=== PATIENT | female | born 1960 | race Caucasian/White ===

== ENCOUNTER → 2017-09-25 14:05 | Outpatient (CLI) | payer OTHER, SELFPAY | DX: R41.840 Attention and concentration deficit (principal) | CPT/HCPCS: 36415; 83090 ==

== ENCOUNTER → 2017-10-16 13:39 | Outpatient (CLI) | payer OTHER, SELFPAY ==
--- NOTE | 2017-10-16 13:42 | RAD_ITS ---
STUDY: X-RAY - LUMBAR SPINE REASON FOR EXAM: Female, 57 years old. Low back pain TECHNIQUE: 5 view(s) of the lumbar spine were obtained. COMPARISON: None FINDINGS: Disc space narrowing at the L4-5 level. L4-5 and L5-S1 facet disease. Normal alignment. No compression deformities are seen. No pars defects are seen. Foramina are patent. Pelvic phleboliths. Constipation pattern. RAD/L/S Spine Min 4 Views IMPRESSION: Degenerative disc disease at L4-5. Lower lumbar facet disease. Electronically Signed: Yahir Mckinney MD at 7:22 EST Tel , Service support ,
--- NOTE | 2017-10-16 13:56 | RAD_ITS ---
STUDY: X-RAY - SACROILIAC JOINTS REASON FOR EXAM: Female, 57 years old. Bilateral hip and low back pain. TECHNIQUE: Floor view(s) of the sacroiliac joints were obtained. COMPARISON: None. FINDINGS: There is mild arthrosis of both sacroiliac joints. Normal visualized sacral ala and sacrum. Normal visualized iliac bones. There are phleboliths in the pelvis. RAD/S-I Jts 3 or More Views IMPRESSION: Mild arthrosis of both sacroiliac joints. No other significant abnormality. Electronically Signed: Wili Rubi MD at 10:53 EST , Service support ,
--- NOTE | 2017-10-16 13:58 | RAD_ITS ---
STUDY: X-RAY - PELVIS AND BILATERAL HIPS REASON FOR EXAM: Female, 57 years old. Bilateral hip and low back pain. TECHNIQUE: Radiological exam, hip, bilateral, with pelvis when performed; 2 views COMPARISON: None. FINDINGS: There is a non-specific bowel gas pattern. There are phleboliths in the pelvis. There is mild arthrosis of the sacroiliac joints. Normal bilateral superior and inferior pubic rami. Normal pubic symphysis. Normal bilateral ischial tuberosities. Normal visualized right femoral head. Normal right acetabulum. Normal right hip joint. Normal visualized left femoral head. Normal left acetabulum. Normal left hip joint. RAD/Hips B/L min 2 views w/ Pelvis IMPRESSION: Mild arthrosis of the sacroiliac joints. Electronically Signed: Wili Rubi MD at 10:54 EST , Service support ,
== END ==
PROVIDERS: Family Provider Family Medicine; PCP Family Medicine; Visit Provider Family Medicine
DX: M25.551 Pain in right hip (principal); M25.552 Pain in left hip
CPT/HCPCS: 72110; 72202; 73521

== ENCOUNTER → 2017-11-18 12:04 | Outpatient (CLI) | payer OTHER, SELFPAY ==
--- NOTE | 2017-11-18 12:09 | HPBI_ITS ---
MAMMOGRAPHY - BILATERAL SCREENING REASON FOR EXAM: Female, 57 years old. Routine annual screening examination. PERTINENT HISTORY: Non-contributory. TECHNIQUE: Digital bilateral breast jackelin (3D mammographic acquisition) in the CC and MLO projections. 2-D mediolateral oblique (MLO) and craniocaudad (CC) views of both breasts were obtained. CAD: Full Field Digital Mammography with Computer Added Detection was performed. COMPARISON: Comparison is made with prior outside examination dated June 19, 2016. FINDINGS: Breast Composition: The breasts are heterogeneously dense, which may obscure small masses. There are no dominant masses or suspicious calcifications. No other significant abnormalities are identified. There has been no significant change since the prior study. HPBI/SCREENING MAMM (CAD), BILAT IMPRESSION: Stable bilateral screening mammogram. Yearly follow-up mammogram recommended. (A) ASSESSMENT CATEGORY: BIRADS Category 1: Negative. A letter regarding these results will be sent to the patient by the facility within 30 days. Approximately 10% of breast cancers are not detected by mammography. A normal mammogram should not delay biopsy of a clinically suspicious abnormality. [id number] Electronically Signed: Ander Sawyer MD at 15:36 EDT Tel [phone], Service support ,
== END ==
PROVIDERS: Family Provider Family Medicine; PCP Family Medicine; Visit Provider Family Medicine
DX: Z12.31 Encounter for screening mammogram for malignant neoplasm of breast (principal)
CPT/HCPCS: 77063; 77067

== ENCOUNTER 2025-04-26 11:38 | Emergency (ER) | payer OTHER, SELFPAY ==
[2025-04-26] VITALS (7 sets, daily range): BP systolic 134–171; BP diastolic 67–88; PULSE 64–94; RESP 10–18; TEMP 36.6–37.1; O2SAT 98–100; BMI 22.2
--- NOTE | 2025-04-26 11:58 | ED.VIS.CHEST ---
HPI History of Present Illness Chief Complaint: Chest Pain Informant: patient Onset/Context/Timing Onset: Weeks (1) Activity at onset: sudden Timing: Intermittent Quality: Positive for Pressure Location: Substernal Worsened By: Exertion Relieved By: Nothing Associated Symptoms: Positive for Diaphoresis and Cough; Negative for Nausea, Vomiting, Dyspnea, Fever, Lightheadedness, Acid Reflux or Palpitations Narrative Narrative: Patient presents with chest pain that has been intermittent over the last week. Patient describes it as pressure. Patient states it is over the substernal area. Patient states it occasionally radiates around her chest like a band around her chest. Patient states she has some pain in her back between her shoulder blades. Patient states that became worse today when she was exercising. Patient states it has been persistent today. Patient admits to some diaphoresis. Patient also admits to some lightheadedness and cough. Patient states nothing seems to help with her pain. Patient denies any cardiac or PE risk factors. CVD Risk Factors: Negative for Hypertension, Diabetes, Hypercholesterolemia, Family History 1' </=55 or Smoking PE Risk Factors: Negative for Recent Travel/Surgery, Recent Immobilization, Prior DVT or PE or Cancer [facility] Medical History (Updated 04/26/25 @ 15:[address] Leonardo Orlando, DO) IBS (irritable bowel syndrome) [place] thyroiditis Migraines Fibromyalgia Insomnia Medical History no medical history no medical history Home Medications ?Medication ?Instructions ?Recorded ?Last Taken ?Type cyclobenzaprine 10 mg tablet 5 mg PO DAILY 03/21/16 03/20/16 22:00 History fish,borage,flaxseed oil-omega 400 mg PO DAILY 03/21/16 03/20/16 History 3,6,9 no.1 400 mg-400 mg-400 mg capsule ([place] 3-6-9 Complex) pwnqnqkpyigi-Jp-lkuj-minerals 1 ea PO DAILY 03/21/16 03/20/16 History (Multiple Vitamin, Womens tablet) trazodone 50 mg tablet 50 mg PO QHS 03/21/16 03/20/16 22:00 History sumatriptan succinate 50 mg tablet 50 mg PO Q2H PRN PRN migraine 04/26/25 Unknown History thyroid (pork) 30 mg tablet 30 mg PO DAILY 04/26/25 Unknown History ([place] Thyroid) Allergy/AdvReac Type Severity Reaction Status Date / Time Sulfa (Sulfonamide Allergy Unknown Verified 04/26/25 11:41 Antibiotics) promethazine HCl (From AdvReac Intermediate TREMORS Verified 04/26/25 11:41 Phenergan) sulfamethoxazole (From AdvReac Nausea Verified 04/26/25 11:41 Bactrim) Surgical History (Updated 04/26/25 @ 12:[address] Leonardo Orlando DO) Hx of section History of surgical removal of ganglion cyst Social History Smoking Status: Never smoker ROS ROS ED Constitutional Constitutional ED: Denies chills or fever(s) Eyes Eyes: Denies blurry vision or change in vision ENT ENT ED: Denies rhinorrhea or sore throat Cardiovascular Cardiovascular: Reports as per HPI and chest pain; Denies palpitations Respiratory/Chest Respiratory/Chest: Reports cough; Denies dyspnea Gastrointestinal Gastrointestinal: Denies nausea or vomiting Genitourinary Genitourinary ED: Denies dysuria or hematuria Musculoskeletal Musculoskeletal: Reports back pain and neck pain Integumentary Denies abscess or rash Neurologic Neurologic: Denies headache(s) or weakness Allergic/Immunologic Allergic/Immunologic ED: Denies mouth swelling or urticaria EXAM Physical Exam Const Vital Signs: 04/26/25 11:38 04/26/25 12:25 04/26/25 12:32 Temperature 97.9 F Temperature Source Oral Pulse Rate 94 Respiratory Rate 18 Respiratory Effort Normal Non-Labored Blood Pressure 171/67 H Blood Pressure Mean 101 Pulse Ox 98 100 Oxygen Delivery Method Room Air Room Air 04/26/25 12:38 04/26/25 12:52 04/26/25 13:00 Temperature 97.8 F 97.8 F Temperature Source Oral Oral Pulse Rate 75 84 73 Respiratory Rate 14 10 L Respiratory Effort Blood Pressure 139/88 H 139/88 H 134/84 H Blood Pressure Mean 105 100 Pulse Ox 100 100 Oxygen Delivery Method Room Air Room Air 04/26/25 14:00 Temperature 98.7 F Temperature Source Oral Pulse Rate 64 Respiratory Rate 18 Respiratory Effort Blood Pressure 137/78 H Blood Pressure Mean 97 Pulse Ox 100 Oxygen Delivery Method Room Air Positive well nourished and well developed General Appearance ED: well developed and NAD HEENT Reports moist mucous membranes Neck supple and no JVD Resp normal respiratory effort and clear to auscultation bilaterally Cardio regular rate and regular rhythm GI soft to palpation, non-tender and non-distended Neuro oriented x3, CN's II-XII intact bilaterally and no sensory deficits noted Sensorium / Orientation: awake and alert Motor Exam: strength 5/5 throughout Psych mental status grossly normal Heart Score History: Slightly/Non-Suspicious ECG: Nonspecific Repolarization Age: >/= 65 years Risk Factors: No Risk Factors Troponin: </= Normal Limit Score: 3 MDM MDM MDM Narrative Medical decision making narrative: Differential diagnosis includes cardiac dysrhythmia, cardiac ischemia, pneumonia, bronchitis, gastroesophageal reflux disease, musculoskeletal pain, and anxiety. EKG will be obtained to assess for cardiac dysrhythmia and cardiac ischemia. Chest x-ray will be obtained to assess for pneumonia and bronchitis. CBC will be obtained to assess for leukocytosis and anemia. Basic metabolic profile will be obtained to assess for electrolyte abnormality and renal function. High-sensitivity troponin will be obtained to assess for cardiac ischemia. 2-hour repeat high-sensitivity troponin will be obtained to assess for ongoing cardiac ischemia. Lab Data Attestation: I reviewed the patient's lab results. Lab results narrative: CBC was reviewed and was within normal limits. Basic metabolic profile was reviewed and was within normal limits. High-sensitivity 9 was reviewed and was less than 6. 2-hour repeat high-sensitivity troponin was reviewed and was less than 6. Labs: Laboratory Results - last 24 hr 04/26/25 04/26/25 12:41 14:56 WBC 5.9 RBC 3.99 L Hgb 13.2 Hct 37.7 MCV 94.5 MCH 33.1 H MCHC 35.0 RDW Std Deviation 44.3 H RDW Coeff of [place] 12.8 Plt Count 244 MPV 9.2 Immature Gran % (Auto) 0.500 Neut % (Auto) 62.3 Lymph % (Auto) 19.9 Sac % (Auto) 12.7 H Eos % (Auto) 3.9 Baso % (Auto) 0.7 Absolute Neuts (auto) 3.7 Absolute Lymphs (auto) 1.17 Nucleated RBC % 0 Sodium 136 Potassium 4.2 Chloride 103 Carbon Dioxide 24.1 Anion Gap 9 BUN 13 Creatinine 0.67 L Estim Creat Clear Calc 55.45 Est GFR (MDRD) Non-Af 97 BUN/Creatinine Ratio 19.7 Glucose 102 H Calcium 9.7 Troponin T High Sens < 6 Troponin T Hi Sens 2 Hr < 6 Radiography Chest X-Ray - ED: 1 View, Read by ED Physician, Read by Radiologist and No Acute Disease Diagnostic Testing: Clinical Impression(s) from Imaging Studies Chest X-Ray 04/26/25 12:32 IMPRESSION: No acute abnormality Reading Location: [facility] Portable 1 view chest x-ray was obtained. On my independent interpretation, lung farris are clear. There is normal cardiac silhouette. Bony thorax is normal. There is no acute process noted. Radiologist also interpreted the x-ray and agrees. EKG Initial EKG: Attestation: I personally reviewed and interpreted this EKG as follows: Interpretation: Sinus Rhythm (82) and Non-Specific ST Changes Comments: EKG was obtained. On my independent interpretation, it showed a normal sinus rhythm with a rate of 82. IA interval, QRS interval, and QTc intervals were all normal. [place] was normal. There are nonspecific ST-T wave changes. Prior EKG tracings: available for review Prior: Unchanged (03/22/2016) Treatment and Re-Evaluation :: Patient was given aspirin. Patient was ordered sublingual nitroglycerin. Patient is feeling better on reevaluation. Patient advised of her findings. Patient has a HEART score of 3. Patient is advised discussed with low risk for acute cardiac events. Patient was instructed to follow-up with her primary care physician in 5 to 7 days for further evaluation. Patient understood and was agreeable with plan. All questions were answered. Discharge Plan Triage Chief Complaint: Chest Pain ED Provider: Leonardo Orlando Dx/Rx/DC Orders Clinical Impression: Chest pain, Fibromyalgia, Elevated blood pressure reading Instructions: ED Chest Pain, Uncertain Cause Prescriptions: No Action cyclobenzaprine 10 MG tablet 5 mg PO DAILY trazodone 50 MG tablet 50 mg PO QHS Multiple Vitamin, Womens 1 EACH tablet 1 ea PO DAILY fish,bora,flax oils-om3,6,9no1 [[place] 3-6-9 Complex] 400 MG capsule 400 mg PO DAILY sumatriptan succinate 50 mg tablet 50 mg PO Q2H PRN PRN (Reason: migraine) thyroid (pork) [[place] Thyroid] 30 mg tablet 30 mg PO DAILY Primary Care Provider: ALMA BERNAL Referrals: Franklin Walsh MD [Med Staff - Swing Ride Operator] - 5-7 Days Print Language: [place] Disposition Disposition: Home, Self Care
--- NOTE | 2025-04-26 12:32 | RAD_ITS ---
PROCEDURE: CHEST 1 VIEW (PORTABLE) 04/26/2025 REASON FOR EXAM: CHEST PAIN TECHNIQUE: Frontal view of the chest. COMPARISON: None FINDINGS: Hardware: EKG leads Heart: Normal Lungs: Clear Bones: Normal RAD/Chest 1 View (Portable) IMPRESSION: No acute abnormality Reading Location: [id number]
--- NOTE | 2025-04-26 12:32 | EKG12_ITS ---
Test Reason : CP Blood Pressure : */* mmHG Vent. Rate : 82 BPM Atrial Rate : 82 BPM P-R Int : 134 ms QRS Dur : 78 ms QT Int : 360 ms P-R-T Axes : 59 54 52 degrees QTcB Int : 420 ms Normal sinus rhythm Nonspecific ST abnormality Abnormal ECG Confirmed by Pastor Stephen ([id number]), newspaper editor ELAINA ALLISON ([id number]) on 04/27/2025 10:59:46 AM Referred By: Confirmed By: Pastor Stephen
[2025-04-26 12:52] LABS: Hematocrit 37.7 % (37-47); Hemoglobin 13.2 g/dL (12.0-15.0); Immature Granulocytes Count 0.030 X10^3/uL (0.0-0.0); Mean Corp Hgb Conc 35.0 g/dL (32-36); Mean Corpuscular Volume 94.5 fL (81-99); Mean Platelet Vol. 9.2 fl (6.2-12.0); NRBC Flagged by Analyzer 0 % (0-5); Platelet Count 244 K/mm3 (150-450); RBC Distribution Width CV 12.8 % (11.6-14.6); RBC Distribution Width SD 44.3 fl (35.1-43.9); Red Blood Count 3.99 M/mm3 (4.2-5.4); White Blood Count 5.9 K/mm3 (4.4-11.0)
[2025-04-26] MEDS: Nitroglycerin SL (ED/IMG/CATH) 0.4 MG TABLET SL (12:52)
--- OUTSIDE RECORDS SUMMARY | 2025-04-26 13:13 | XMS RPT_ITS | CCD ---
Author Organization [facility]ini[facility] Care Team Providers Care [employer] Attendant Name Role Phone CHRISTIE DONALDSON Unavailable Unavailable Primay Care Physicia, No Unavailable Unavail able CHRISTIE DONALDSON Unavailable Unavailable CHRISTIE DONALDSON Unavailable Unavailable Primay Care Physicia, No Unavailable Unavail able CHRISTIE DONALDSON Unavailable Unavailable Schinner, Burton E Unavailable Unavailable Schinner, Burton E Unavailable Unavailable Schinner, Burton E Unavailable Unavailable Schbobbyner, Burton E Unavailable Unavailable Renee Green Unavailable [phone] Remi Rai Unavailable Unavailab le Luis Miguel Mitchell Unavailable Unavailable Destiny Burt Primary Care Provider [phone] Destiny Burt Admitting Unavailable Zappa, Destiny Attending Unavailable Zappa, Destiny Admitting Unavailable Zappa, Destiny Attending Unavailable Zappa, Destiny Admitting Unavailable Zappa, Destiny Attending Unavailable ExtenCarlee Admitting Unavailable ExtenCarlee Attending Unavailable Tex Erickson Unavailable Remi Rai Unavailable [phone] Luis Miguel Mitchell Unavailable Destiny Burt Primary Care Provider Daphne Mitchell Unavailable Destiny Burt Unavailable DESTINY BURT Attending Unavailabl e ZAPDESTINY COLON Referring Unavailabl e ZAPDARLENE, DESTINY FARLEY Primary Care Unavailabl TEGAN Thapa Attending Unavaila TEGAN Pitts Primary Care Unavaila Renee Kc Unavailable Luis Miguel Mitchell Unavailable Tegan Ortega Unavailable Mayco Jaeger Primary Care Provider Zappa, Destiny Unavailable Zappa, Destiny Primary Care Provider Zappa, Destiny Primary Care Provider Tex Erickson Unavailable BURTON WALSH Primary Care Unavailable BURTON WALSH Primary Care Unavailable Tegan Ortega Primary Care Provider Norma VERNON, Renee Goode Unavailable Fredi LOUIS, Remi Grant Unavailable Mitchell DO, Hetul Trino Unavailable Mitchell DO, Daphne Edward Unavailable [phone] Zappa PA-C, Detsiny Unavailable Zappa PA-C, Destiny Primary Care Provider Fredi LOUIS, Remi Grant Unavailable Mitchell DO, Hetul Trino Unavailable [phone] Mitchell DO, Daphne Edward Unavailable Zappa PA-C, Destiny Unavailable Zappa PA-C, Destiny Primary Care Provider Mitchell DO, Daphne Edward Unavailable Zappa PA-C, Destiny Unavailable Mitchell DO, Hetul Trino Unavailable Mitchell DO, Daphne Edward Unavailable Zappa PA-C, Destiny Unavailable Isabell Phelan CNP Primary Care Provider Fredi DPMandy, Remi Grant Unavailable Mitchell DO, Hetul Trino Unavailable Zappa PA-C, Destiny Primary Care Provider NIMA MONTGOMERY Referring Unavailable NIMA MONTGOMERY Admitting Unavailable ZAPDARLENE, DESTINY MIGUELITO Primary Care Unavailabl e Norma VERNON, Renee Goode Unavailable Fredi LOUIS, Remi Grant Unavailable [phone] Mitchell DO, Hetul Trino Unavailable Mitchell DO, Daphne Edward Unavailable Zappa PA-C, Destiny Unavailable Zappa PA-C, [facility] Primary Care Provider Zappa, Destiny Primary Care Provider Zappa PA-C, Destiny Unavailable Zappa, Destiny Primary Care Provider Norma VERNON, Renee Goode Unavailable Fredi LOUIS, Remi Grant Unavailable Mitchell DO, Hetul Trino Unavailable [facility] DO, Daphne Edward Unavailable Zappa PA-C, [facility] Primary Care Provider Zapdarlene, [facility] Primary Care Provider JAVED, DESTINY FARLEY Admitting Unavailabl e ZAPPA, DESTINY FARLEY Primary Care Unavailabl e ZAPPA, DESTINY FARLEY Referring Unavailabl e Zappa PA-C, [facility] Primary Care Provider Zappa PA-C, [facility] Primary Care Provider Zappa PA-C, Destiny Unavailable Zappa PA-C, Destiny Unavailable Dolores VERNON, Alma Francis Primary Care Pro vider Dolores VERNON, Alma Francis Unavailable Zappa PA-C, [facility] Primary Care Provider PROVIDER, UNKNOWN Primary Care Unavailable ARMINDA PIZARRO Attending Unavail able DOLORES, ALMA PRINCE MOUNIR Primary Care Kristen vailable DOLORES, ALMA PRINCE MOUNIR Attending Kristen vailable DOLORES, ALMA PRINCE MOUNIR Primary Care Kristen vailable CLAUDY, ERIK UGERRA Attending Unavail able DOLORES, ALMA PRINCE MOUNIR Primary Care Kristen vailable CLAUDY, ERIK GUERRA Attending Unavail able DOLORES, ALMA PRINCE MOUNIR Primary Care Kristen vailable CLAUDY, ERIK GUERRA Attending Unavail able CLAUDY, ERIK GUERRA Admitting Unavail able DOLORES, ALMA PRINCE MOUNIR Primary Care Kristen vailable CLAUDY, ERIK GUERRA Admitting Unavail able DOLORES, ALMA PRINCE MOUNIR Primary Care Kristen vailable CLAUDY, ERIK GUERRA Attending Unavail able DOLORES, ALMA PRINCE MOUNIR Primary Care Kristen vailable ARMINDA PIZARRO Referring Unavail able ARMINDA PIZARRO Attending Unavail able DOLORES, ALMA PRINCE MOUNIR Primary Care Kristen vailable ARMINDA PIZARRO Referring Unavail able ARMINDA PIZARRO Attending Unavail able Allergies Allergy Classification Reported Allergen(s) Allergy Type Date of Onset Reaction(s) Facility house dust allergenic extract (3 sources) house dust allergenic extract Drug Allergy 09-15-19 19 Other (See Comments) [facility] Pollen (3 sources) Grass pollen Substance Allergy 09-15-19 19 Other (See Comments) [facility] Promethazine (3 sources) Promethazine Drug Allergy 04-24-20 16 Other (See Comments) [facility] Sulfamethoxazole / Trimethoprim (3 sources) Sulfamethoxazole / Trimethoprim Drug Allergy 07-07-[address] [facility] sulfaSALAzine (3 sources) sulfaSALAzine Drug Allergy 03-12-[address] [facility] Sulfonamides (antibiotic) (3 sources) Sulfonamides (Antibiotic) Drug Allergy 07-07-[address] [facility] (1 source) promethazine Drug Allergy 03-22-20 16 [facility] Repository (1 source) sulfamethoxazole Drug Allergy 03-22-20 16 [facility] Repository (20 sources) Sulfonamides (Antibiotic); Translations: [SULFA (SULFONAMIDE ANTIBIOTICS)] Drug allergy (disorder) 07-07-20 14 GI Intolerance [facility] (20 sources) Cat dander extract; Translations: [Unknown] Drug Allergy 09-15-19 19 Other (See Comments) [facility] (20 sources) Grass pollen; Translations: [GRASS POLLEN] Propensity to adverse reactions to drug 09-15-19 19 Other (See Comments) [facility] (20 sources) house dust extract; Translations: [HOUSE DUST] Drug Allergy 09-15-19 19 Other (See Comments) [facility] (20 sources) Promethazine; Translations: [PROMETHAZINE] Drug Allergy 04-24-20 16 Other (See Comments), Other: See Comments [facility] (20 sources) Sulfamethoxazole / Trimethoprim; Translations: [SULFAMETHOXAZOLE-T RIMETHOPRIM] Drug Allergy 07-07-[address] [facility] (20 sources) sulfaSALAzine; Translations: [SULFASALAZINE] Drug Allergy 03-12-[address] [facility] (3 sources) Sulfonamides (Antibiotic) Propensity to adverse reactions to drug 07-07-[address] [facility] (20 sources) Dog Dander; Translations: [DOG DANDER] Propensity to adverse reactions to drug 09-15-19 19 Other (See Comments) [facility] (20 sources) Sulfonamides (Antibiotic) Propensity to adverse reactions to drug 07-07-20 14 GI Intolerance, GI Upset [facility] Medications Current Medications Medication Drug Class(es) Dates Sig (Normalized) Sig (Original) amoxicillin 875 mg / clavulanate 125 mg oral tablet (1 source) Penicillin-class Antibacterial Start: 07-02-2022 End: 07-09-2022 take 1 tablet by mouth twice daily amoxicillin-clavulan ic acid (AUGMENTIN) 875-125 mg per tablet Indications: Rhinosinusitis Take 1 tablet by mouth twice daily for 7 days. 14 tablet 0 07/02/2022 07/09/2022 Active Comment on above: Take 1 tablet by jose twice daily for 7 days. ascorbic acid 500 mg oral tablet (20 sources) Vitamin C take 2 tablets by mouth four times daily ascorbic acid, vitamin C, (VITAMIN C) 500 MG tablet Take 2 (two) tablets (1,000 mg total) by mouth 4 (four) times a day . Active ascorbic acid, vitamin C, 550 mg/1.1 gram (scoop) powd (3 sources) ascorbic acid, vitamin C, 550 mg/1.1 gram (scoop) powd Take 1,000 mg by mouth. Active ascorbic acid, v itamin C, 550 mg/1.1 gram (scoop) powd Take 1,000 mg by mouth. 0 Active Comment on above: Take 1,000 mg by jose th. azelastine hydrochloride 0.137 mg/actuat metered dose nasal spray (12 sources) Histamine-1 Receptor Antagonist Start: 02-01-2021 End: 02-01-2021 azelastine (ASTELIN) 137 mcg (0.1 %) nasal spray Indications: Rhinitis, unspecified type 1 (one) spray by Each Nare route 2 (two) times a day . 30 mL 3 02/01/2021 Active Bacillus coagulans / Inulin (3 sources) Bacillus coagulans/inulin (PROBIOTIC WITH PREBIOTIC ORAL) Take by mouth. Active Bacillus coagula ns/inulin (PROBIOTIC WITH PREBIOTIC ORAL) Take by mouth. 0 Active Comment on above: Take by mouth. calcium ascorbate 500 mg oral tablet (8 sources) take 2 tablets by mouth four times daily, then take 1 tablet by mouth ascorbic acid, vitamin C, (ascorbic acid with vesta hips) 500 MG tablet Take 1,000 mg by mouth 4 (four) times a day . 0 Active take 1 tablet by mouth four time s daily ascorbic acid, vitamin C, (ascorbic acid with vesta hips) 500 MG tablet Take 500 mg by mouth 4 (four) times a day . 0 Active calcium carbonate 118 mg / prasterone 10 mg oral tablet (3 sources) prasterone, dhea ,-calcium carb (DHEA) 10 mg-47 mg calcium tab Take 12 mg by mouth. Active Comment on above: Take 12 mg by mouth. cholecalciferol 0.125 mg ora l tablet (20 sources) Vitamin D cholecalciferol, vitamin D3, 5,000 unit Tab tablet Take 2,000 Units by mouth daily . Active cholecalciferol, vitamin D3, (VITAMIN D3) 5,000 unit Tab tablet Take by mouth daily . 0 Active cholecalciferol, vitamin D3, (CHOLECALCIFEROL, VITD3,, BULK,) 100,000 unit/gram powd (3 sources) cholecalciferol, vitamin D3, (CHOLECALCIFEROL, VITD3,, BULK,) 100,000 unit/gram powd Take 5,000 Units by mouth. Active cholecalciferol, vitamin D3, (CHOLECALCIFEROL, VITD3,, BULK,) 100,000 unit/gram powd Take 5,000 Units by mouth. 0 Active Comment on above: Take 5,000 Units by mouth. cinnamon bark 1000 mg oral capsule (20 sources) take 1000 mg by mouth four times daily cinnamon bark (CINNAMON ORAL) Take 1,000 mg by mouth 4 (four) times a day . Active take 1000 mg by mouth four times daily cinnamon bark (CINNAMON ORAL) Take 1,000 mg by mouth 4 (four) times a day . 0 Active cinnamon bark, bulk, powd (3 sources) cinnamon bark, b ulk, powd Take 500 mg by mouth. Active cinnamon bark, b ulk, powd Take 500 mg by mouth. 0 Active Comment on above: Take 500 mg by mouth . ciprofloxacin 3 mg/ml ophthalmic solution (1 source) Quinolone Antimicrobial Start: End: take 1 drop(s) into the eye(s) four times daily ciprofloxacin HCl (CILOXAN) 0.3 % ophthalmic solution Indications: Acute conjunctivitis of both eyes, unspecified acute conjunctivitis type Use 1 Drop in both eyes four times daily for 7 days. 10 mL 0 07/02/2022 07/09/2022 Active Comment on above: Use 1 Drop in both e yes four times daily for 7 days. cyclobenzaprine hydrochloride 10 mg oral tablet (20 sources) Muscle Relaxant Start: End: take 1 tablet by mouth once daily at bedtime cyclobenzaprine (FLEXERIL) 10 MG tablet Indications: Fibromyalgia TAKE 1 TABLET BY MOUTH EVERYDAY AT BEDTIME . 30 tablet 04/21/2025 Active Start: 01-19-2025 End: 03-17-2025 take 1 tablet by mouth once daily at bedtime cyclobenzaprine (FLEXERIL) 5 MG tablet Indications: Fibromyalgia TAKE 1 TABLET BY MOUTH EVERYDAY AT BEDTIME . 30 tablet 1 01/19/2025 03/17/2025 Discontinued (Reorder (Suppress CancelRx Message to Pharmacy)) Start: 09-27-2023 End: 01-15-2025 take 1 tablet by mouth once daily at bedtime cyclobenzaprine (FLEXERIL) 5 MG tablet Indications: Fibromyalgia TAKE 1 TABLET BY MOUTH EVERYDAY AT BEDTIME . 30 tablet 1 11/11/2024 01/15/2025 Discontinued (Reorder (Suppress CancelRx Message to Pharmacy)) Start: 09-28-2022 End: 09-24-2023 take 1 tablet by mouth once daily at bedtime cyclobenzaprine (FLEXERIL) 5 MG tablet Indications: Fibromyalgia TAKE 1 TABLET BY MOUTH EVERYDAY AT BEDTIME . 30 tablet 5 04/02/2023 09/24/2023 Discontinued (Reorder (Suppress CancelRx Message to Pharmacy)) Start: 10-04-2021 End: 01-07-2022 cyclobenzaprine (FLEXERIL) 5 MG tablet Indications: Fibromyalgia One tab at bedtime . 30 tablet 5 01/08/2022 Active Start: 04-21-2020 End: 02-01-2021 cyclobenzaprine (FLEXERIL) 5 MG tablet Indications: Fibromyalgia One tab at bedtime . 30 tablet 5 02/01/2021 Active Start: 05-04-2019 cyclobenzaprin e (FLEXERIL) 5 MG tablet Indications: Fibromyalgia One tab at bedtime . 30 tablet 5 05/04/2019 Active Start: 03-03-2017 End: 09-22-2018 cyclobenzaprine (FLEXERIL) 5 MG tablet Indications: Fibromyalgia One tab at bedtime . 30 tablet 5 09/22/2018 Active Comment on above: Take 5 mg by mouth d aily at bedtime. dicyclomine hydrochloride 10 mg oral capsule (7 sources) Anticholinergic Start: 2024 take 1 capsule by mouth twice daily as needed dicyclomine (BENTYL) 10 MG capsule Take 1 (one) capsule (10 mg total) by mouth 2 (two) times a day as needed . 30 capsule 01/14/2025 Active docosahexaenoic acid 120 mg / eicosapentaenoic acid 180 mg oral capsule (19 sources) docosahexaenoic acid-epa 120-180 mg cap Take 1,000 mg by mouth every hour as needed Taking 2 before each meal and at bedtime with a total of 12 daily . 0 Active fexofenadine hydrochloride 180 mg oral tablet (18 sources) Histamine-1 Receptor Antagonist End: 2020 take 1 tablet by mouth once daily in the morning fexofenadine (ADRIAN) 180 MG tablet Indications: allergic rhinitis Take 180 mg by mouth every morning TAKES 1 TABLET ReasonsAllergic Rhinitis. 0 02/01/2021 Discontinued (Patient Discharge) FLUoxetine 20 mg oral capsule (11 sources) Serotonin Reuptake Inhibitor Start: 2019 take 1 capsule by mouth once daily FLUoxetine (PROZAC) 20 MG capsule Indications: Other depression Take 1 (one) capsule (20 mg total) by mouth daily . 90 capsule 0 03/22/2020 Active Start: 07-06-2019 End: 08-05-2019 take 1 capsule by mouth once daily FLUoxetine (PROZAC) 20 MG capsule Indications: Other depression Take 1 (one) capsule (20 mg total) by mouth daily . 90 capsule 0 07/06/2019 08/05/2019 Active Start: 03-31-2019 take 1 capsule by [facility] once daily FLUoxetine (PROZAC) 20 MG capsule Indications: Other depression TAKE 1 (ONE) CAPSULE (20 MG TOTAL) BY MOUTH DAILY . 90 capsule 0 03/31/2019 Active Start: 01-05-2019 End: 02-04-2019 take 1 capsule by mouth once daily FLUoxetine (PROZAC) 20 MG capsule Indications: Other depression Take 1 (one) capsule (20 mg total) by mouth daily . 30 capsule 2 01/05/2019 02/04/2019 Active Start: 09-22-2018 End: 10-22-2018 take 1 capsule by mouth once daily FLUoxetine (PROZAC) 20 MG capsule Indications: Other depression Take 1 (one) capsule (20 mg total) by mouth daily . 30 capsule 2 09/22/2018 Active gluc/msm/C/boron/manganes/pr im (JOINT SUPPORT COMPLEX ORAL) (20 sources) gluc/msm/C/boron /manganes/prim (JOINT SUPPORT COMPLEX ORAL) Take by mouth . Active gluc/msm/C/boron /manganes/prim (JOINT SUPPORT COMPLEX ORAL) Take by mouth . 0 Active lactobacillus combo no.11 (P robiotic) 15 billion cell CpSP (20 sources) lactobacillus co mbo no.11 (Probiotic) 15 billion cell CpSP Take by mouth . Active lactobacillus co mbo no.11 (Probiotic) 15 billion cell CpSP Take by mouth . 0 Active lysine 500 mg oral tablet (20 sources) take 1 tablet by jose th five times daily lysine 500 mg Tab Take 1 (one) tablet (500 mg total) by mouth 5 (five) times a day . Active take 1 tablet by mouth twice john ly lysine 1,000 mg tab Take 1,000 mg by mouth twice daily. Active take 1 tablet by mouth four time s daily lysine 500 mg Tab Take 500 mg by mouth 4 (four) times a day . 0 Active Comment on above: Take 1,000 mg by jose th twice daily. magnesium oxide 500 mg oral capsule (20 sources) take 1 capsule by mouth four times daily magnesium oxide 500 mg cap Take 1 (one) capsule (500 mg total) by mouth 4 (four) times a day . Active take 1 capsule by mouth three ti mes daily magnesium oxide 500 mg cap Take 500 mg by mouth 3 (three) times a day . 0 Active MAGNESIUM OXIDE,ASPARTATE,CI TR ORAL (3 sources) MAGNESIUM OXIDE, ASPARTATE,CITR ORAL Take 500 mg by mouth. Active MAGNESIUM OXIDE, ASPARTATE,CITR ORAL Take 500 mg by mouth. 0 Active Comment on above: Take 500 mg by mouth . methylPREDNISolone (1 source) Corticosteroid Start: 2018 End: 2018 methylPREDNISolone (MEDROL DOSEPACK) 4 mg tablet Indications: Eczema, unspecified type follow package directions . 21 tablet 0 10/14/2018 10/21/2018 Active montelukast 10 mg oral tablet (20 sources) Leukotriene Receptor Antagonist Start: 2020 take 1 tablet by mouth once daily montelukast (SINGULAIR) 10 mg tablet Take 1 (one) tablet (10 mg total) by mouth daily . 90 tablet 3 04/24/2021 Active Start: 04-06-2020 End: 04-19-2021 take 1 tablet by mouth once daily montelukast (SINGULAIR) 10 mg tablet Take 1 (one) tablet (10 mg total) by mouth daily . 90 tablet 3 04/06/2020 04/19/2021 Discontinued (Reorder) Start: 01-06-2019 take 1 tablet by jose th once daily montelukast (SINGULAIR) 10 mg tablet Take 1 (one) tablet (10 mg total) by mouth daily . 90 tablet 3 01/06/2019 Active Start: 08-14-2018 take 1 tablet by jose th once daily montelukast (SINGULAIR) 10 mg tablet Take 10 mg by mouth daily . 0 08/14/2018 Active nitrofurantoin, macrocrystals 25 mg / nitrofurantoin, monohydrate 75 mg oral capsule (6 sources) Nitrofuran Antibacterial Start: 08-07-2023 End: 08-12-2023 take 1 capsule by mouth twice daily nitrofurantoin monohydrate and macrocrystal (MACROBID) 100 mg capsule Indications: Burning with urination Take 1 capsule by mouth two times a day for 5 days. 10 capsule 0 08/07/2023 08/12/2023 Active Start: 03-11-2022 End: 03-18-2022 take 1 capsule by mouth twice daily nitrofurantoin monohydrate and macrocrystal (MACROBID) 100 mg capsule Indications: Urinary frequency Take 1 capsule by mouth twice daily for 7 days. 14 capsule 0 03/11/2022 03/18/2022 Active Start: 02-01-2021 End: 08-08-2021 take 1 capsule by mouth twice daily nitrofurantoin, macrocrystal-monohydrate, (MACROBID) 100 MG capsule Indications: Dysuria Take 1 (one) capsule (100 mg total) by mouth 2 (two) times a day . 14 capsule 0 02/01/2021 08/08/2021 Discontinued (Patient Discharge) Comment on above: Take 1 capsule by mo uth twice daily for 7 days. Take 1 capsule by mo uth two times a day for 5 days. omega 4-kvn-eay-fish oil (FISH OIL) 100-160-1,000 mg cap (3 sources) Start: 02-20-2015 omega 0-cnz-oun-fish oil (FISH OIL) 100-160-1,000 mg cap q 24 HR. 02/20/2015 Active Start: 02-20-2015 omega 3-dha-ep a-fish oil (FISH OIL) 100-160-1,000 mg cap q 24 HR. 0 02/20/2015 Active Comment on above: q 24 HR. omega-3 fatty acids-vitamin E (FISH OIL) 1,000 mg cap (20 sources) Start: 02-20-2015 omega-3 fatty acids-vitamin E (FISH OIL) 1,000 mg cap Indications: SUPPLEMENT 8 capsules daily TAKES 1 TABLET Reasons: SUPPLEMENT. 0 02/20/2015 Active omega-3 fatty acids-vitamin E 1,000 mg cap (20 sources) Start: 02-20-2015 omega-3 fatty acids-vitamin E 1,000 mg cap Indications: SUPPLEMENT 8 capsules daily TAKES 1 TABLET Reasons: SUPPLEMENT. 02/20/2015 Active Start: 02-20-2015 omega-3 fatty acids-vitamin E 1,000 mg cap Indications: SUPPLEMENT 8 capsules daily TAKES 1 TABLET Reasons: SUPPLEMENT. 0 02/20/2015 Suspended Start: 02-20-2015 omega-3 fatty acids-vitamin E 1,000 mg cap Indications: SUPPLEMENT 8 capsules daily TAKES 1 TABLET Reasons: SUPPLEMENT. 0 02/20/2015 Active omeprazole 40 mg delayed release oral capsule (10 sources) Proton Pump Inhibitor Start: 11-09-2024 End: 11-09-2025 take 1 capsule by mouth once daily omeprazole (PRILOSEC) 40 MG capsule Indications: Gastroesophageal reflux disease, unspecified whether esophagitis present Take 1 (one) capsule (40 mg total) by mouth daily . 30 capsule 11/09/2024 11/09/2025 Active ospemifene 60 mg oral tablet (8 sources) Start: 04-26-2020 End: 08-08-2021 ospemifene (Osphena) 60 mg Tab End: 10-14-2018 take 1 tablet by mouth once daily in the evening ospemifene 60 mg Tab Indications: POST MENOPAUSAL SX Take 60 mg by mouth every evening TAKES 1 TABLET ReasonsPOST MENOPAUSAL SX. 0 10/14/2018 Discontinued OTC NUTRITIONAL SUPPLEMENT (13 sources) Start: 06-25-2006 OTC NUTRITIONA L SUPPLEMENT Upelva, Take four days a month, four times daily 0 06/25/2006 Active Start: 10-09-2005 OTC NUTRITIONA L SUPPLEMENT Multi-Vitamin, Take one(1) tablet daily. 0 10/09/2005 Active OTC NUTRITIONAL SUPPLEMENT 700 mg twice daily. D Mannose Active OTC NUTRITIONAL SUPPLEMENT 700 mg twice daily. D Mannose 0 Active Comment on above: Multi-Vitamin, Take one(1) tablet daily. Upelva, Take four da ys a month, four times daily 700 mg twice daily. D Mannose phenazopyridine hydrochloride 100 mg oral tablet (1 source) Start: End: take 1 tablet by mouth three times daily phenazopyridine (PYRIDIUM) 100 MG tablet Indications: Dysuria Take 1 (one) tablet (100 mg total) by mouth 3 (three) times a day for 2 days . 6 tablet 0 02/01/2021 02/03/2021 Active prasterone 25 mg oral tablet (20 sources) take 1 tablet by mouth once daily prasterone, dhea, 25 mg Tab Take 1 (one) tablet (25 mg total) by mouth daily . Active take 0.5 tablet by mouth once da alexa prasterone, dhea, (DHEA) 25 mg Tab Take 0.5 tablets by mouth daily . 0 Active Proline, Bulk, (L-PROLINE) c varinder (3 sources) Proline, Bulk, ( L-PROLINE) danielle 500 mg three times daily. Active Proline, Bulk, ( L-PROLINE) danielle 500 mg three times daily. 0 Active Comment on above: 500 mg three times d aily. proline, bulk, Danielle (20 sources) proline, bulk, C varinder 1 capsule by Miscellaneous route 3 (three) times a day 667mg capsule . Active proline, bulk, C varinder 1 capsule by Miscellaneous route 3 (three) times a day 667mg capsule . 0 Suspended proline, bulk, C varinder 1 capsule by Miscellaneous route 3 (three) times a day 667mg capsule . 0 Active SUMAtriptan 50 mg oral tablet (20 sources) Serotonin-1b and Serotonin-1d Receptor Agonist Start: 02-25-2024 End: 01-25-2025 take 1 tablet by mouth every two hours as needed SUMAtriptan (IMITREX) 50 MG tablet Indications: Cluster headache, not intractable, unspecified chronicity pattern Take 1 (one) tablet (50 mg total) by mouth every 2 (two) hours as needed for migraine Max of 200 mg in 24hrs . 10 tablet 1 01/25/2025 Active Start: 06-15-2022 End: 02-25-2024 take 1 tablet by mouth every two hours as needed SUMAtriptan (IMITREX) 25 MG tablet Indications: Cluster headache, not intractable, unspecified chronicity pattern TAKE 1 (ONE) TABLET BY MOUTH EVERY 2 (TWO) HOURS NEEDED FOR MIGRAINE MAX OF 200 MG IN 24HRS . 9 tablet 1 06/15/2022 02/25/2024 Discontinued (Reorder (Suppress CancelRx Message to Pharmacy)) Start: 04-11-2022 take 1 tablet by jose th every two hours as needed SUMAtriptan (IMITREX) 25 MG tablet Indications: Cluster headache, not intractable, unspecified chronicity pattern TAKE 1 (ONE) TABLET BY MOUTH EVERY 2 (TWO) HOURS NEEDED FOR MIGRAINE MAX OF 200 MG IN 24HRS . 9 tablet 1 04/11/2022 Active Start: 02-24-2021 End: 01-08-2022 take 1 tablet by mouth every two hours as needed SUMAtriptan (IMITREX) 25 MG tablet Indications: Cluster headache, not intractable, unspecified chronicity pattern TAKE 1 (ONE) TABLET BY MOUTH EVERY 2 (TWO) HOURS NEEDED FOR MIGRAINE MAX OF 200 MG IN 24HRS . 9 tablet 1 01/08/2022 Active Start: 02-01-2021 take 1 tablet by jose th every two hours as needed SUMAtriptan (IMITREX) 25 MG tablet Indications: Cluster headache, not intractable, unspecified chronicity pattern Take 1 (one) tablet (25 mg total) by mouth every 2 (two) hours as needed for migraine Max of 200 mg in 24hrs . 10 tablet 0 02/01/2021 Active thyroid (care home) 30 mg oral tablet (20 sources) Start: 06-26-2022 End: 04-06-2025 take 1 tablet by mouth once daily thyroid (ARMOUR) 30 mg tablet Indications: Hypothyroidism, unspecified type Take 1 (one) tablet (30 mg total) by mouth daily . 90 tablet 1 10/08/2024 Active Start: 11-06-2021 End: 11-06-2021 take 1 tablet by mouth once daily thyroid (ARMOUR) 30 mg tablet Indications: Hypothyroidism, unspecified type Take 1 (one) tablet (30 mg total) by mouth daily . 90 tablet 3 11/06/2021 Active Comment on above: TAKE 1 TABLET (30 MG TOTAL) BY MOUTH DAILY UNABLE TO FIND (19 sources) UNABLE TO FIND M ed Name Antronex (helps with sinus drainage) . Active End: 10-14-2018 UNABLE TO FIND Indications: DIETARY SUPPLEMENT 2 (two) times a day Med Name: CLA--TAKES 2 TABLETS ReasonsDIETARY SUPPLEMENT. 0 10/14/2018 Discontinued UNABLE TO FIND I ndications: DIETARY SUPPLEMENT 2 (two) times a day Med Name: CLA--TAKES 2 TABLETS ReasonsDIETARY SUPPLEMENT. 0 Active vit A-vit A-L7-dmvg-herbal 3 31 900 mcg-90 mg- 20 mcg-5.5 mg cap (20 sources) vit A-vit C-D3-z inc-herbal 331 900 mcg-90 mg- 20 mcg-5.5 mg cap Take by mouth . Active vit A-vit C-D3-z inc-herbal 331 900 mcg-90 mg- 20 mcg-5.5 mg cap Take by mouth . 0 Active Vitamin B Complex (3 sources) take 100 mg by mouth every eight hours vitamin B complex (B COMPLEX-100 ORAL) Take 100 mg by mouth q 8 HR. Active take 100 mg by mouth every eight hours vitamin B complex (B COMPLEX-100 ORAL) Take 100 mg by mouth q 8 HR. 0 Active Comment on above: Take 100 mg by mouth q 8 HR. vitamin B complex/folic acid (B COMPLEX 100 ORAL) (20 sources) take 100 mg by mouth three times daily vitamin B complex/folic acid (B COMPLEX 100 ORAL) Take 100 mg by mouth 3 (three) times a day . Active take 100 mg by mouth three times daily vitamin B complex/folic acid (B COMPLEX 100 ORAL) Take 100 mg by mouth 3 (three) times a day . 0 Suspended take 100 mg by mouth three times daily vitamin B complex/folic acid (B COMPLEX 100 ORAL) Take 100 mg by mouth 3 (three) times a day . 0 Active VITAMIN K2 ORAL (20 sources) take 100 ug by mouth every twelve hours VITAMIN K2 ORAL Take 100 mcg by mouth q 12 HR. Active take 100 ug by mouth twice daily VITAMIN K2 ORAL Take 100 mcg by mouth 2 (two) times a day . Active take 100 ug by mouth every twelv e hours VITAMIN K2 ORAL Take 100 mcg by mouth q 12 HR. 0 Active take 100 ug by mouth twice daily VITAMIN K2 ORAL Take 100 mcg by mouth 2 (two) times a day . 0 Suspended take 100 ug by mouth twice daily VITAMIN K2 ORAL Take 100 mcg by mouth 2 (two) times a day . 0 Active Comment on above: Take 100 mcg by mout h q 12 HR. ZINC CHELATE ORAL (3 sources) take 25 mg by mouth once daily ZINC CHELATE ORAL Take 25 mg by mouth once daily. Active take 25 mg by mouth once daily Z INC CHELATE ORAL Take 25 mg by mouth once daily. 0 Active Comment on above: Take 25 mg by mouth once daily. Completed/Discontinued Medications Medication Drug Class(es) Dates Sig (Normalized) Sig (Original) chromium picolinate 0.1 mg / cinnamon bark 500 mg oral capsule (4 sources) End: 10-14-2018 take 1 tablet by mouth once daily at lunch cinnamon bark-chromium picolin 500-100 mg-mcg cap Indications: SUPPLEMENT Take by mouth daily with lunch TAKES 1 TABLET ReasonsSUPPLEMENT. 0 10/14/2018 Discontinued cranberry preparation 475 mg oral capsule (4 sources) Non-Standardized Food Allergenic Extract, Non-Standardized Plant Allergenic Extract End: 10-14-2018 cranberry fruit (CRANBERRY) 475 mg cap Indications: SUPPLEMENT 475 mg daily with lunch TAKES 1 TABLET ReasonsSUPPLEMENT. 0 10/14/2018 Discontinued dextromethorphan hydrobromide 15 mg / guaiFENesin 400 mg / pseudoephedrine hydrochloride 60 mg oral tablet (4 sources) alpha-Adrenergic Agonist, Uncompetitive W-bumfja-L-aspartat e Receptor Antagonist, Sigma-1 Agonist Start: 07-27-2016 End: 10-14-2018 take 1 tablet by mouth four times daily as needed for congestion pseudoephedrine-DM- guaiFENesin (CAPMIST DM) 60-15-400 mg Tab Indications: Acute recurrent maxillary sinusitis Take 1 tablet by mouth 4 (four) times a day as needed (for congestion). 30 tablet 0 07/27/2016 10/14/2018 Discontinued doxycycline hyclate 100 mg oral capsule (4 sources) Tetracycline-class Drug Start: 07-27-2016 End: 10-14-2018 take 1 capsule by mouth twice daily doxycycline hyclate (VIBRAMYCIN) 100 MG capsule Indications: Acute recurrent maxillary sinusitis Take 1 capsule (100 mg total) by mouth 2 (two) times a day. 20 capsule 0 07/27/2016 10/14/2018 Discontinued fluticasone propionate 0.05 mg/actuat metered dose nasal spray (10 sources) Corticosteroid End: 06-12-2019 take 2 spray(s) nasal route once daily fluticasone (FLONASE) 50 mcg/actuation nasal spray Indications: allergic rhinitis Instill 2 sprays into each nostril nightly DOES 2 SPRAYS IN EACH NOSTRIL ReasonsAllergic Rhinitis. 0 06/12/2019 Discontinued LORazepam 1 mg oral tablet (4 sources) Benzodiazepine Start: 08-22-2016 End: 10-14-2018 LORazepam (ATIVAN) 1 MG tablet Take 1 tablet po once 30 minutes prior to MRI. 1 tablet 0 08/22/2016 10/14/2018 Discontinued multivitamin capsule (4 sources) End: 10-14-2018 take 1 capsule by mouth twice daily, then take 1 capsule by mouth multivitamin capsule Indications: SUPPLEMENT Take 1 capsule by mouth 2 (two) times a day TAKES 1 TABLET ReasonsSUPPLEMENT. 0 10/14/2018 Discontinued take 1 capsule by mo [facility] twice daily, then take 1 capsule by mouth multivitamin capsule Indications: SUPPLE MENT Take 1 capsule by mouth 2 (two) times a day TAKES 1 TABLET ReasonsSUPPLEMENT. 0 Active oxybutynin chloride 5 mg oral tablet (4 sources) Cholinergic Muscarinic Antagonist Start: 12-14-2009 End: 10-14-2018 take 5 tablets by mouth once daily, then take 1 tablet by mouth oxybutynin (DITROPAN) 5 MG tablet Indications: overactive bladder Take 5 tablets by mouth nightly TAKES 1 TABLET ReasonsBladder Hyperactivity. 0 12/14/2009 10/14/2018 Discontinued predniSONE 10 mg oral tablet (3 sources) Start: 07-17-2022 End: 03-12-2023 predniSONE (DELTASONE) 10 MG tablet Indications: Acute viral syndrome Take 1 tablet 3 times a day for 3 days, 1 tablet 2 times a day for 3 days, 1 tablet daily for 3 days and then every other day until gone. . 20 tablet 0 07/17/2022 03/12/2023 Discontinued (Patient Discharge) Saccharomyces boulardii (4 sources) End: 10-14-2018 take 1 tablet by mouth once daily in the evening SACCHAROMYCES BOULARDII (PROBIOTIC, S.BOULARDII, ORAL) Indications: SUPPLEMENT Take by mouth every evening TAKES 1 TABLET ReasonsSUPPLEMENT. 0 10/14/2018 Discontinued [facility] SACCHAROMYCES BOULARDII (PROBIOTIC, S.BOULARDII, ORAL) Indications: SUPPLEMENT Take by mouth every evening TAKES 1 TABLET ReasonsSUPPLEMENT. 0 Active traZODone hydrochloride 50 mg oral tablet (20 sources) Serotonin Reuptake Inhibitor Start: 04-11-2022 End: 05-15-2022 traZODone (DESYREL) 50 MG tablet Indications: Insomnia, unspecified type TAKE 1/2 TO 1 TABLET NIGHTLY NEEDED FOR SLEEP . 90 tablet 1 04/11/2022 05/15/2022 Discontinued (Patient Discharge) Start: 11-06-2021 take 0.5-1 tablets b y mouth once daily as needed for sleep traZODone (DESYREL) 50 MG tablet Indications: Insomnia, unspecified type Take 1/2 to 1 tablet po nightly as needed for sleep . 90 tablet 1 11/06/2021 Active Start: 07-18-2020 End: 11-04-2021 take 0.5-1 tablets by mouth once daily as needed for sleep traZODone (DESYREL) 50 MG tablet Indications: Insomnia, unspecified type Take 1/2 to 1 tablet po nightly as needed for sleep . 90 tablet 1 07/18/2020 11/04/2021 Discontinued (Reorder) Start: 06-11-2017 End: 06-12-2019 take 0.5-1 tablets by mouth once daily as needed for sleep traZODone (DESYREL) 50 MG tablet Indications: Insomnia, unspecified type Take 1/2 to 1 tablet po nightly as needed for sleep . 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] Chronic Esophageal disorders (18 sources) Gastroesophageal reflux disease; Translations: [Gastro-esophageal reflux disease without esophagitis] Onset: 5 11-09-2024 Chronic Genitourinary symptoms and ill-defined conditions (20 sources) Urge incontinence of urine; Translations: [Urge incontinence] Onset: 0 07-07-2014 Chronic Headache; including migraine (20 sources) Cluster headache; Translations: [Cluster headache syndrome, unspecified, not intractable] Onset: 1 Chronic Hypertension with complications and secondary hypertension (20 sources) Secondary hypertension; Translations: [Other secondary hypertension] Onset: 2 Chronic Inflammation; infection of eye (except that caused by tuberculosis or sexually transmitteddisease) (1 source) Acute conjunctivitis of bilateral eyes; Translations: [Unspecified acute conjunctivitis, bilateral] Episodic Malaise and fatigue (20 sources) Fatigue; Translations: [Chronic fatigue, unspecified] Onset: 9 09-22-2018 Chronic Menopausal disorders (7 sources) Menopause ovarian failure; Translations: [Postmenopausal osteopenia] Onset: 4 07-21-2024 Chronic Mood disorders (20 sources) Depressive disorder; Translations: [Major depressive disorder, single episode, unspecified] Onset: 4 07-27-2014 Chronic Noninfectious gastroenteritis (9 sources) Chronic diarrhea; Translations: [Noninfective gastroenteritis and colitis, unspecified] Onset: 5 01-14-2025 Episodic Nonspecific chest pain (3 sources) Chest pain; Translations: [Chest pain, unspecified type] Episodic Other bone disease and musculoskeletal deformities (1 source) Postmenopausal osteopenia; Translations: [Other specified disorders of bone density and structure, unspecified site] 07-20-2024 Episodic Other bone disease and musculoskeletal deformities (4 sources) Other specified disorders of bone density and structure, unspecified site; Translations: [Other specified disorders of bone density and structure, unspecified site] Onset: 4 Episodic Other circulatory disease (1 source) Elevated blood-pressure reading without diagnosis of hypertension; Translations: [Blood pressure elevated without history of HTN] Episodic Other connective tissue disease (20 sources) Fibromyalgia; Translations: [Fibromyalgia] Onset: 4 07-27-2014 Episodic Other gastrointestinal disorders (11 sources) Irritable bowel syndrome; Translations: [Irritable bowel syndrome without diarrhea] Onset: 5 11-09-2024 Chronic Other gastrointestinal disorders (2 sources) Irritable bowel syndrome without diarrhea; Translations: [Irritable bowel syndrome, unspecified] Onset: 5 Chronic Other gastrointestinal disorders (1 source) Abdominal bloating; Translations: [Abdominal distension (gaseous)] Episodic Other gastrointestinal disorders (5 sources) Dysphagia; Translations: [Dysphagia, unspecified] Onset: 5 04-08-2025 Episodic Other gastrointestinal disorders (2 sources) Dysphagia, unspecified; Translations: [Dysphagia, unspecified] Onset: 5 Episodic Other injuries and conditions due to external causes (1 source) At low risk for fall; Translations: [History of falling] 11-09-2024 Episodic Other nervous system disorders (7 sources) Attention and concentration deficit; Translations: [R41.840 - Attention and concentration deficit] Onset: 8 07-07-2014 Chronic Other nervous system disorders (20 sources) Poor concentration; Translations: [Attention and concentration deficit] 07-07-2014 Chronic Other nervous system disorders (2 sources) Other chronic pain; Translations: [Other chronic pain] Onset: 5 Chronic Other nervous system disorders (11 sources) Poor concentration; Translations: [Poor concentration] 07-07-2014 Episodic Other nutritional; endocrine; and metabolic disorders (2 sources) Body mass index less than 20; Translations: [Body mass index (BMI) 19.9 or less, adult] Episodic Other screening for suspected conditions (not mental disorders or infectious disease) (20 sources) Computed tomography result abnormal; Translations: [Abnormal findings on diagnostic imaging of other specified body structures] Onset: 2 01-09-2022 Chronic Other screening for suspected conditions (not mental disorders or infectious disease) (20 sources) Viral screening status; Translations: [Breast neoplasm screening status] Onset: 1 Resolved: 5 09-22-2018 Episodic Other upper respiratory disease (1 source) Chronic rhinitis; Translations: [Unspecified sinusitis (chronic)] Chronic Residual codes; unclassified (4 sources) Asymptomatic menopausal state; Translations: [Asymptomatic menopausal state] Onset: 4 Episodic Spondylosis; intervertebral disc disorders; other back problems (20 sources) Neck pain; Translations: [Cervicalgia] Onset: 5 11-09-2024 Episodic Thyroid disorders (6 sources) Hypothyroidism; Translations: [Hypothyroidism, unspecified] Chronic Unclassified (19 sources) Screening status; Translations: [Special screening for malignant neoplasms, colon] Onset: 1 Resolved: 5 12-08-2014 Unclassified (20 sources) Patient encounter status; Translations: [Screening for diabetes mellitus] Onset: 1 Resolved: 5 09-22-2018 Unclassified (17 sources) Postprocedural state finding; Translations: [Other postprocedural states] Onset: 9 09-22-2018 Unclassified (1 source) Low back pain, unspecified; Translations: [Low back pain, unspecified] Onset: 5 Viral infection (20 sources) Genital herpes simplex; Translations: [Herpesviral infection of urogenital system, unspecified] Onset: 9 09-22-2018 Chronic Past or Other Problems Problem Classification Problem Date Documented Da te Episodic/Chronic Allergic reactions (20 sources) Eczema; Translations: [Dermatitis, unspecified] Onset: 10-14-2018 10-14-2018 Episodic Benign neoplasm of uterus (20 sources) Intramural leiomyoma of uterus; Translations: [Intramural leiomyoma of uterus] Onset: 09-22-2018 09-22-2018 Episodic Cancer of cervix (20 sources) Atypical squamous cells of undetermined significance on cervical Papanicolaou smear; Translations: [Cervical atypism] Onset: 09-22-2018 09-22-2018 Episodic Genitourinary symptoms and ill-defined conditions (20 sources) Dysuria; Translations: [Dysuria] Onset: 02-01-2021 Resolved: 08-08-2021 Episodic Immunizations and screening for infectious disease (3 sources) Patient encounter status; Translations: [Encounter for screening for human papillomavirus (HPV)] Onset: 07-20-2024 07-20-2024 Episodic Malaise and fatigue (19 sources) Fatigue; Translations: [Chronic fatigue] Onset: 09-22-2018 09-22-2018 Episodic Mood disorders (20 sources) Mood disorders Onset: 09-22-2018 09-22-2018 Nausea and vomiting (20 sources) Nausea; Translations: [Nausea] Onset: 11-14-2021 11-14-2021 Episodic Other connective tissue disease (20 sources) Spasm; Translations: [Other muscle spasm] Onset: 03-11-2013 07-07-2014 Episodic Other ear and sense organ disorders (20 sources) Impacted cerumen of bilateral ears; Translations: [Impacted cerumen, bilateral] Onset: 11-14-2021 Episodic Other ear and sense organ disorders (2 sources) Impacted cerumen, bilateral; Translations: [Impacted cerumen, bilateral] Onset: 11-14-2021 Episodic Other eye disorders (20 sources) Tear film insufficiency; Translations: [Dry eye syndrome of unspecified lacrimal gland] Onset: 05-06-2009 09-22-2018 Episodic Other female genital disorders (8 sources) Cervical atypism; Translations: [Atypical squamous cells of undetermined significance on cytologic smear of cervix (ASC-US)] Onset: 09-22-2018 09-22-2018 Episodic Other gastrointestinal disorders (14 sources) Alteration in bowel elimination; Translations: [Change in bowel habit] Onset: 11-14-2021 Episodic Other gastrointestinal disorders (20 sources) Diarrhea; Translations: [Diarrhea, unspecified] Onset: 11-14-2021 11-14-2021 Episodic Other gastrointestinal disorders (20 sources) Altered bowel function; Translations: [Change in bowel habit] Onset: 11-14-2021 11-14-2021 Episodic Other injuries and conditions due to external causes (2 sources) History of falling; Translations: [History of falling] Onset: 11-09-2024 Episodic Other non-traumatic joint disorders (1 source) Pain in right hip; Translations: [M25.551 - Pain in right hip] Onset: 11-12-2017 Episodic Other non-traumatic joint disorders (7 sources) Pain in wrist; Translations: [Pain in right wrist] Onset: 05-15-2022 Episodic Other non-traumatic joint disorders (18 sources) Chronic pain of right upper limb; Translations: [Pain in right wrist] Onset: 05-15-2022 05-15-2022 Episodic Other upper respiratory disease (20 sources) Rhinitis; Translations: [Chronic rhinitis] Resolved: 03-12-2023 07-07-2014 Chronic Other upper respiratory infections (20 sources) Upper respiratory infection; Translations: [Acute upper respiratory infection, unspecified] Onset: 09-22-2018 Resolved: 01-16-2019 09-22-2018 Episodic Ovarian cyst (20 sources) Cyst of ovary; Translations: [Unspecified ovarian cyst, unspecified side] Onset: 09-22-2018 09-22-2018 Episodic Residual codes; unclassified (20 sources) Family history of ischemic heart disease; Translations: [Family history of ischemic heart disease and other diseases of the circulatory system] Onset: 02-24-2015 04-24-2016 Episodic Residual codes; unclassified (20 sources) Insomnia; Translations: [Insomnia, unspecified] Onset: 10-14-2018 10-14-2018 Episodic Residual codes; unclassified (1 source) Postmenopausal state; Translations: [Postmenopausal] Episodic Residual codes; unclassified (20 sources) Postprocedural state finding; Translations: [Other specified postprocedural states] Onset: 05-06-2009 09-22-2018 Episodic Unclassified (10 sources) Onset: 11-05-2024 11-05-2024 Unclassified (1 source) Low back pain, unspecified; Translations: [Low back pain, unspecified] Onset: 11-09-2024 Viral infection (20 sources) Acute viral disease; Translations: [Viral infection, unspecified] Onset: 07-17-2022 Episodic Results Test Name Value Interpretation Reference Range Facility TISSUE EXAMon 04-20-2025 TISSUE EXAM Surgical Pathology Report Case: [id number] Authorizing Provider: Erik Ji, Collected: 04/20/2025 10:38 AM Ordering Location: [facility] Surgery Received: 04/20/2025 12:30 PM Center Periop Pathologist: Gabriel Payton IV, MD Specimens: A) - Duodenum B) - Esophagus, DISTAL ESOPHAGUS BX A. Duodenum, biopsy: Duodenal mucosa with no significant pathologic changes. No morphologic evidence of Celiac disease. B. Esophagus, Distal, biopsy: Esophageal squamous mucosa with mild reflux-type changes. No evidence of intestinal metaplasia or dysplasia. at 0857 EDT Gastroesophageal reflux disease, unspecified whether esophagitis present [K21.9] Dysphagia, unspecified type [R13.10] A. Received in formalin, designated duodenum biopsy, are 7 pink-cordero fragment(s) of tissue measuring 0.5 x 0.4 x 0.2 cm in aggregate. Totally submitted in 1 cassette(s). B. Received in formalin, designated esophagus biopsy-distal esophagus biopsy, are 3 wispy white-rivas fragment(s) of tissue measuring 0.2 x 0.2 x 0.1 cm in aggregate. Totally submitted in 1 cassette(s). JK Gross examination performed at: [facility] - [address] [place], [place] [id number] Microscopic examination is performed. [facility] [place] Comment on above: Performed By: #### [id number] #### [place] [id number] Mitesh Obregon M.D. [id number] MM SCREENING ERON BILATERALo n 03-31-2025 MM SCREENING ERON BILATERAL EXAMINATION: MM SCREENING ERON BILATERAL HISTORY: ORDERING SYSTEM PROVIDED HISTORY: Women's annual routine gynecological examination, TECHNOLOGIST PROVIDED HISTORY: ORDERING SYSTEM PROVIDED DIAGNOSIS CODES: Z01.419 Women's annual routine gynecological examination Z12.31 Breast cancer screening by mammogram COMPARISON: Mammograms dating back to 11/14/2021. TECHNIQUE: Bilateral 2D and 3D mammographic views. Computer-aided detection was utilized in the interpretation of this exam. FINDINGS: The breasts are heterogeneously dense, which may obscure small masses. No suspicious microcalcifications, dominant mass or architectural distortion. No developing asymmetry. There are no suspicious findings. There are scattered benign-appearing calcifications. IMPRESSION: No mammographic evidence for malignancy. BIRADS: BIRADS - CATEGORY 2 Benign, no evidence of malignancy. Normal interval follow-up is recommended in 12 months. OVERALL ASSESSMENT - BENIGN A letter of notification will be sent to the patient regarding the results. [facility], along with the [employer] and the [employer] recommend annual screening mammograms for women age 40 and older. / Workstation ID: [id number] Dictated by: DARY BUCHANAN on SatApr 01, 2025 12:26:12 PM EDT Transcribed by: BALJIT DENNIS on Kandis Apr 01, 2025 12:54:14 PM EDT Finalized by: DARY BUCHANAN on Kandis Apr 01, 2025 9:10:46 PM EDT [facility] [place] XR BONE DENSITY DEXA AXIAL A ND APPENDICULARon 03-31-2025 XR BONE DENSITY DEXA AXIAL AND APPENDICULAR EXAMINATION: XR BONE DENSITY DEXA AXIAL AND APPENDICULAR 03/31/2025 HISTORY: ORDERING SYSTEM PROVIDED HISTORY: Women's annual routine gynecological examination, TECHNOLOGIST PROVIDED HISTORY: Illness/Other Reason for exam: osteoporosis Encounter Type: Unknown Additional signs and symptoms: postmenapausal ORDERING SYSTEM PROVIDED DIAGNOSIS CODES: Z01.419 Women's annual routine gynecological examination E28.39 Ovarian failure due to menopause M85.80 Osteopenia after menopause Z78.0 Osteopenia after menopause Risk Factors: Postmenopausal; history of glucocorticoid use; history of inflammatory bowel disease COMPARISON: None-previous DEXA scans were performed on different model machines, therefore, unable to accurately compare directly TECHNIQUE: Bone mineral density measurements were acquired at the lumbar spine, left forearm, and left hip. Instrument: The examination was done at [facility]. [email or web address]; serial number: [id number]. FINDINGS: BONE MINERAL DENSITY DETERMINATION: Femoral Neck * Density (g/cm2): 0.705 * T Score: -1.3 * Prior BMD (g/cm2): N/A * % Change: N/A% * Statistically Significant: N/A Total Hip * Density (g/cm2): 0.980 * T Score: 0.3 * Prior BMD (g/cm2): N/A * % Change: N/A% * Statistically Significant: N/A Spine (L1-L4) * Density (g/cm2): 1.233 * T Score: 1.7 * Prior BMD (g/cm2): N/A * % Change: N/A% * Statistically Significant: N/A Forearm * Density (g/cm2): 0.633 * T Score: -1.0 * Prior BMD (g/cm2): N/A * % Change: N/A% * Statistically Significant: N/A The average bone mineral density (g/cm2) was measured. Final categorization is based on the lowest T-score of the above, as recommended by the International Society of Clinical Densitometry. FRAX Score: The calculated ten year risk for major osteoporotic fracture is 12%. The calculated ten year risk for hip fracture is 1.4%. NOTES: 1. This facility has been validated using the recommendations of the International Society of Clinical Densitometry (ISCD). This validation insures accurate results. In order to be certain that your patient's results are accurate, you should refer them only to facilities that have been validated in this manner. Not all facilities have gone through this rigorous validation. 2. In order to compare results through the years, it is necessary that the patient be scanned on the same instrument each time, or on instruments that have been cross-correlated. If this is not done, then difference may be due to differences in the machines, rather than to changes in the patient's bone density. IMPRESSION: Osteopenia. Please note that the lumbar spine bone mineral density and T-score are likely falsely elevated secondary to degenerative changes. PHARMACOLOGIC TREATMENT RECOMMENDATIONS: 1. No uniform recommendation applies to all patients. Management plans must be individualized 2. Consider initiating pharmacologic treatment for postmenopausal women and men greater than or equal to 50 years of age who have the following: Primary fracture prevention: *T-score is less than or equal to -2.5 at the femoral neck, total hip, lumbar spine, 33% radius (some uncertainty with existing data) by DEXA. *Low bone mass (osteopenia: T-score between -1.0 and -2.5) at the femoral neck or total hip by DEXA with a 10 year hip fracture risk greater than or equal to 3% or a 10-year major osteoporosis-related fracture risk greater than or equal to 20% (i.e. clinical vertebral, hip, forearm, or proximal humerus) based on the [place]- adapted FRAX model. Secondary fracture prevention: *Fracture of the hip or vertebra regardless of BMD. *Fracture of the proximal humerus, pelvis, or distal forearm in persons with low bone mass (osteopenia: T-score between at -1.0 and -2.5). The decision to treat should be individualized in persons with a fracture of the proximal humerus, pelvis, or distal forearm who do not have osteopenia or low BMD. Nava MS, Norma SL, Klarissa KL, Lillian EM, Abundio KG, AJ, Louis ES. The clinician's guide to prevention and treatment of osteoporosis. Osteoporosis Int. 2021;33(10):0059-2428. doi: 10.1007/b31795-497-593 00-y. Epub 2021Dec 21. Erratum in: Osteoporosis Int. 2021Mar 22;: PMID: [id number]; PMCID: [id number]. Workstation ID: [id number] Dictated by: DIMA DE LA O on SatMar 31, 2025 12:07:02 PM EDT Transcribed by: DIMA DE LA O on SatMar 31, 2025 12:07:02 PM EDT Finalized by: TOVA GARCIA on SatMar 31, 2025 4:23:03 PM EDT [facility] Comment on above: Order Comment: Injur y/Trauma or Illness?:Illness/Other How long have you had these symptoms (acute/chronic)?:Unknown Reason for exam?:osteoporosis Type of Exam?:Unknown Additional signs and symptoms?:postmenapausal TISSUE EXAMon 02-03-2025 TISSUE EXAM Surgical Pathology Report Case: [id number] Authorizing Provider: Erik Ji, Collected: 02/03/2025 10:50 AM Ordering Location: [facility] Surgery Received: 02/03/2025 12:28 PM Center Periop Pathologist: Gabriel Payton IV, MD Specimen: Colon, Ascending, Right A. Colon, Ascending, biopsy: Colonic mucosa with no significant pathologic changes. at 0824 EDT Lower abdominal pain [R10.30] Chronic diarrhea [K52.9] A. Received in formalin, designated Colon, Ascending, Biopsy, are 5 wispy pink-cordero fragment(s) of tissue measuring 0.4 x 0.4 x 0.2 cm in aggregate. Totally submitted in 1 cassette(s). JK Gross examination performed at: [facility] - [address] [place] [address] Microscopic examination is performed. Normal [facility] Comment on above: Performed By: #### [id number] #### [place] [address] Mitesh Obregon M.D. [id number] CNOVon 11-28-2024 CNOV Office Visit (UCWSTR ) BARBIE MEANS ([id number]) 1960 F Date Time Provider Department 11/28/24 10:45 AM BETTY CHI WS During your visit today, we recorded the following information about you: Temperature Pulse Respiration Blood pressure 97.3 degrees 67/minute 18/minute 127/79 Weight 52.4 kg Betty Chi APRN.CNP 11/28/2024 10:53 AM Signed This note was created using [employer]deriter. Subjective Barbie Means is a 64 year old female. HPI Patient presents today complaining of bilateral hearing loss due to most likely due to cerumen impaction. She states that about once every 6 months she needs to have her ears flushed. She denies any nausea vomiting fever cough congestion sore throat or ear pain. Review of Systems As above Objective BP 127/79 Pulse 67 Temp 36.3 ?C (97.3 ?F) Resp 18 Wt 52.4 kg (115 lb 8.3 oz) LMP 06/04/2006 SpO2 100% Physical Exam Vitals and nursing note reviewed. Constitutional: General: She is not in acute distress. Appearance: Normal appearance. She is not ill-appearing. HENT: Head: Normocephalic. Right Ear: There is impacted cerumen. Left Ear: There is impacted cerumen. Pulmonary: Effort: Pulmonary effort is normal. Musculoskeletal: General: Normal range of motion. Cervical back: Normal range of motion. Skin: General: Skin is warm and dry. Neurological: General: No focal deficit present. Mental Status: She is alert. Psychiatric: Mood and Affect: Mood normal. Behavior: Behavior normal. Assessment and Plan ASSESSMENT/PLAN: 1. Bilateral impacted cerumen - ICD9: 380.4, ICD10: H61.23 Bilateral ears flushed by nursing staff with good results. Patient notes 100% improvement in hearing. No sign of trauma to the ear canal or tympanic membrane Betty Chi APRN.Stacy Anders MA 11/28/2024 10:58 AM Signed Ambulatory Ear Lavage Pre-treatment: other debrox at home Treatment: Both ears Equipment and Irrigation solution and Volume used: Single use syringe with single use irrigation tip Water Return flow appearance: Cloudy Debris Patient tolerated procedure: yes Tympanic membrane assessment: Tympanic membrane assessed by LIP pre and post procedure Stacy Rodriguez MA Allergies As of Date: 11/28/2024 Noted Allergy Reaction SULFA (SULFONAMIDE ANTIBIOTICS) 07/07/2014 8 - GI Upset PROMETHAZINE 10/18/2021 14 - Other: See Comments Comments: body shakes Date Reviewed: 11/28/2024 Reviewed by: Moomaw, Betty, PURCHASING DIRECTOR.MOBILE APPLICATION TESTER - Fully Assessed Reason for Visit: Other [0] Cmt: Ear Irrigation - Entered by patient Ear Lavage [249] Cmt: Bilateral, denies pain, has been using debrox Primary Visit Diagnosis:Bilateral impacted cerumen [H61.23] Prescriptions as of 11/28/2024 - omega 1-gut-bep-fish oil (FISH OIL) 100-160-1,000 mg cap q 24 HR. - VITAMIN K2 ORAL Take 100 mcg by mouth q 12 HR. - ZINC CHELATE ORAL Take 25 mg by mouth once daily. - ascorbic acid, vitamin C, 550 mg/1.1 gram (scoop) powd Take 1,000 mg by mouth. - cinnamon bark, bulk, powd Take 500 mg by mouth. - cholecalciferol, vitamin D3, (CHOLECALCIFEROL, VITD3,, BULK,) 100,000 unit/gram powd Take 5,000 Units by mouth. - MAGNESIUM OXIDE,ASPARTATE,CITR ORAL Take 500 mg by mouth. - prasterone, dhea,-calcium carb (DHEA) 10 mg-47 mg calcium tab Take 12 mg by mouth. - Proline, Bulk, (L-PROLINE) danielle 500 mg three times daily. - lysine 1,000 mg tab Take 1,000 mg by mouth twice daily. - vitamin B complex (B COMPLEX-100 ORAL) Take 100 mg by mouth q 8 HR. - Bacillus coagulans/inulin (PROBIOTIC WITH PREBIOTIC ORAL) Take by mouth. - OTC NUTRITIONAL SUPPLEMENT 700 mg twice daily. D Mannose - cyclobenzaprine (FLEXERIL) 5 mg tablet Take 5 mg by mouth daily at bedtime. - ARMOUR THYROID 30 mg tablet TAKE 1 TABLET (30 MG TOTAL) BY MOUTH DAILY - OTC NUTRITIONAL SUPPLEMENT Upelva, Take four days a month, four times daily - OTC NUTRITIONAL SUPPLEMENT Multi-Vitamin, Take one(1) tablet daily. Problem List As Of Date: 11/28/2024 (None) Encounter Status:Closed by BETTY CHI on 11/28/24 Normal [facility] UA DIP, URINE (POC)on 2022 BILIRUBIN UA (POCT) Negative Negative [facility] CLARITY UA (POCT) Clear [facility] COLOR UA (POCT) Yellow [facility] GLUCOSE UA (POCT) Negative Negative mg/dL [facility] Hemoglobin Ql (U) Negative Negative [facility] KETONE UA (POCT) Negative Negative mg/dL [facility] LEUKOCYTES UA (POCT) Negative [facility] NIT[facility]ITE UA (POCT) Negative Negative [facility] PH UA (POCT) 6.0 4.5 - 8.0 [facility] Protein Ql (U) Negative Negative mg/dL [facility] SPECIFIC GRAVITY UA (POCT) <=1.005 Abnormal 1.005 - 1.030 [facility] UROBILINOGEN UA (POCT) 0.2 E.U./dL Verónica l E.U./dL [facility] Comprehensive metabolic 2000 panelon 03-12-2023 Albumin [Mass/Vol] 3.6 g/dL 3.2 - 5.2 g/dL [facility] ALP [Catalytic activity/Vol] 33 U/L Low 40 - 150 U/L [facility] ALT [Catalytic activity/Vol] 27 U/L 14 - 65 U/L [facility] Anion gap [Moles/Vol] 9 mmol/L Low 10 - 2 0 mmol/L [facility] AST [Catalytic activity/Vol] 20 U/L 0 - 45 U/L [facility] Bilirubin [Mass/Vol] 1.0 mg/dL 0.0 - 1 .3 mg/dL [facility] Calcium [Mass/Vol] 9.2 mg/dL 8.4 - 10. 2 mg/dL [facility] Chloride [Moles/Vol] 108 mmol/L 98 - 10 8 mmol/L [facility] Creatinine [Mass/Vol] 0.70 mg/dL 0.60 - 1.20 mg/dL [facility] GFR/1.73 sq M.predicted CKD-EPI (S/P/Bld) [Vol rate/Area] 97 - PINF [facility] Comment on above: Estimated GFR was ca lculated using the 2020 CKD-EPI creatinine equation. Glucose [Mass/Vol] 88 mg/dL 65 - 99 mg/dL [facility] HCO3 [Moles/Vol] 26 mmol/L 21 - 32 mmol/L [facility] Potassium [Moles/Vol] 3.8 mmol/L 3.5 - 5.1 mmol/L [facility] Protein [Mass/Vol] 7.0 g/dL 6.0 - 8.0 g/dL [facility] Sodium [Moles/Vol] 139 mmol/L 135 - 145 mmol/L [facility] Urea nitrogen [Mass/Vol] 10 mg/dL 8 - 25 mg/dL [facility] Urea nitrogen/Creatinine [Mass ratio] 14.3 mg/mg 10.0 - 20.0 [facility] Labor[facility] y Services has implemented the eGFR calculation approach that does not have a coefficient for race that conforms to the NKF-ASN Task Force Recommendations. [facility] Lipid 1996 panelon 3 Cholesterol [Mass/Vol] 248 mg/dL High 100 - 199 mg/dL [facility] Comment on above: National Cholesterol Education Program Guidelines: Cholesterol Desirable: <200 mg/dL Borderline High: 200-239 mg/dL High: greater than or equal to 240 mg/dL Cholesterol in HDL [Mass/Vol] 130 mg/dL 40 - 59 mg/dL [facility] Comment on above: National Cholesterol Education Program Guidelines: HDL Cholesterol Low: <40 mg/dL Near Optimal: 40-59 mg/dL High: greater than or equal to 60 mg/dL Cholesterol in LDL [Mass/Vol] 113 mg/dL 10 - 130 mg/dL [facility] Comment on above: National Cholesterol Education Program Guidelines: LDL Cholesterol Optimal: <100 mg/dL Near Optimal/above Optimal: 100-129 mg/dL Borderline High: 130-159 mg/dL High: 160-189 mg/dL Very High: greater than or equal to 190 mg/dL Cholesterol non HDL [Mass/Vol] 118 mg/dL [facility] Comment on above: National Cholesterol Education Program Guidelines: NON HDL Cholesterol Desirable: <130 mg/dL Borderline High: 130-159 mg/dL High: 160-189 mg/dL Very High: > or = 190 mg/dL Cholesterol.total/Chol esterol in HDL [Mass ratio] 1.9 {ratio} ratio [facility] Comment on above: Female Cholesterol/H DL Ratio: Average risk: 4.4 1/2 average risk: 3.3 2 x average risk: 7.1 Triglyceride [Mass/Vol] 24 mg/dL Low 30 - 150 mg/dL [facility] Comment on above: National Cholesterol Education Program Guidelines: Triglyceride Normal: <150 mg/dL Borderline High: 150-199 mg/dL High: 200-499 mg/dL Very High: greater than or equal to 500 mg/dL No Panel Informationon 03-12 Interpretation and review of laboratory results Abnormal [facility] TSH DL <= 0.005 mIU/L Qnon 0 03-12-2023 Interpretation and review of laboratory results Normal [facility] TSH Qn 1.61 m[IU]/L [facility] UA DIP, URINE (POC)on 2022 BILIRUBIN UA (POCT) Negative Negative [facility] CLARITY UA (POCT) Clear [facility] COLOR UA (POCT) Yellow [facility] GLUCOSE UA (POCT) Negative Negative mg/dL [facility] HEMOGLOBIN/BLOOD UA (POCT) Negative Negative [facility] KETONE UA (POCT) Negative Negative mg/dL [facility] LEUKOCYTES UA (POCT) Negative Negative [facility] NITRITE UA (POCT) Negative Negative [facility] PH UA (POCT) 7.0 4.5 - 8.0 [facility] Protein Ql (U) Negative Negative mg/dL [facility] SPECIFIC GRAVITY UA (POCT) 1.010 1.005 - 1.030 [facility] UROBILINOGEN UA (POCT) 0.2 E.U./dL Verónica l E.U./dL [facility] S. pyogenes Org specific cx Ql (Throat)Ordered By: Shirley Toledo on 07-20-2022 [facility] Strep A Culture, ThroatOrder ed By: Shirley Toledo on 07-20-2022 S. pyogenes Org specific cx Ql (Throat) No Beta Hemolytic Streptococcus Group A Isolated [facility] EBV Antibody Profile (IGG/M, EBNA)on 07-18-2022 EBV capsid IgG Ql (S) Positive Abnormal Negative [facility] EBV capsid IgM Ql (S) Negative Negative [facility] EBV nuclear Ab Ql (S) Positive Abnormal Negative [facility] Interpretation and review of laboratory results Abnormal [facility] Assay performed usin g Diasorin CLIA methodology. [facility] UA DIP, URINE (POC)on 2021 BILIRUBIN UA (POCT) Negative Negative [facility] CLARITY UA (POCT) Clear [facility] COLOR UA (POCT) Yellow [facility] GLUCOSE UA (POCT) Negative Negative mg/dL [facility] HEMOGLOBIN/BLOOD UA (POCT) Trace-lysed Abnormal Negative [facility] KETONE UA (POCT) Negative Negative mg/dL [facility] LEUKOCYTES UA (POCT) Large Abnormal Negative [facility] NITRITE UA (POCT) Negative Negative [facility] PH UA (POCT) 8.0 4.5 - 8.0 [facility] Protein Ql (U) Negative Negative mg/dL [facility] SPECIFIC GRAVITY UA (POCT) 1.010 1.005 - 1.030 [facility] UROBILINOGEN UA (POCT) 0.2 E.U./dL Verónica l E.U./dL [facility] COVID-19, MOLECULARon 2021 SARS-CoV-2 (COVID-19) RNA JEAN PIERRE+probe Ql (Unsp spec) Not detected Normal Not Detected [facility] Comment on above: Result Comment: This test was performed under the FDA's Emergency Use Authorization (EUA). Testing was performed using the Kirsty SARS-CoV-2 RT-PCR assay on the Yonny Kirsty 6800 System. This test has not been approved for use in asymptomatic patients and its performance in this patient population has not been evaluated. Negative results do not rule out the presence of SARS-CoV-2/COVID-19. Fact sheets for this EUA can be found at the following links: For Healthcare Providers: https://www.fda.gov/media/962582/download For Patients: https://www.fda.gov/media/943479/download Performed By: #### L [id number] #### [facility] [address] [place] [address] Darrius Siegel M.D. [id number] COVID-19, MolecularOrdered B y: Luis Wright on 12-04-2021 SARS-CoV-2 (COVID-19) RNA JEAN PIERRE+probe Ql (Resp) Not detected Not Detected [facility] Comment on above: This test was perfor med under the FDA's Emergency Use Authorization (EUA). Testing was performed using the Kirsty SARS-CoV-2 RT-PCR assay on the Yonny Kirsty 6800 System. This test has not been approved for use in asymptomatic patients and its performance in this patient population has not been evaluated. Negative results do not rule out the presence of SARS-CoV-2/COVID-19. Fact sheets for this EUA can be found at the following links: For Healthcare Providers: https://www.fda.gov/media/769413/download For Patients: https://www.fda.gov/media/238609/download SARS-CoV-2 (COVID-19) RNA NA A+probe Ql (Resp)Ordered By: Luis Wright on 12-04-2021 Interpretation and review of laboratory results Normal [facility] Urinalysis macro (dipstick) panel (U)Ordered By: Destiny Burt on 02-01-2021 Bilirubin Ql (U) Negative Negative [facility] Glucose Ql (U) Negative Normal, Negative mg/dL [facility] Hemoglobin Ql (U) Negative Negative [facility] Interpretation and review of laboratory results Normal [facility] Ketones Ql (U) Negative Negative mg/dL [facility] Leukocyte esterase Test strip Ql (U) Negative Negative [facility] Nitrite Ql (U) Negative Negative [facility] pH (U) 6.0 [pH] [facility] Protein Ql (U) Negative Negative mg/dL [facility] Specific gravity (U) [Rel density] 1.020 [facility] Urobilinogen Qn (U) 0.2 mg/dL <2.0, 0. 2, Normal, Negative, 1.0, 2.0, <1.0 [facility] Mammography Screening Eron B ilateralon 08-03-2020 No mammographic evidence of malignancy. BIRADS: BIRADS - CATEGORY 1 Negative, no evidence of malignancy. Normal interval follow-up is recommended in 12 months. OVERALL ASSESSMENT - NEGATIVE A letter of notification will be sent to the patient regarding the results. [facility], along with the National Comprehensive Cancer Network, the [employer], and [facility], recommend annual screening mammograms for women age 40 and older. Workstation ID: [id number] [facility] EXAMINATION: SCREENI NG DIGITAL BILATERAL MAMMOGRAM WITH TOMOSYNTHESIS 08/03/2020 TECHNIQUE: Screening mammography of the bilateral breasts was performed with tomosynthesis. 2D standard and 3D tomosynthesis combination imaging performed through both breasts in the MLO and CC projection. Computer aided detection was utilized in the interpretation of this exam. COMPARISON: 07/14/2019, 11/18/2017 HISTORY: Screening. FINDINGS: There are scattered areas of fibroglandular density. There is no new dominant mass, suspicious microcalcification, or area of architectural distortion. [facility] HPV (Human Papilomavirus) Hi gh Riskon 06-25-2020 HPV identified Nom (Unsp spec) BARBIE MEANS [id number] YRS F [id number] RM/BD ORDERING PHYSICIAN: TITI GARCIA 3 RESULT TRANSMITTED: 06/28/20 0930 CYTOLOGY REPORT - THIN PREP TECHNIQUE CLINICAL HISTORY LMP: ELLIOTT HIGH RISK? NO ? NO COMMENT: [id number] HPVHR,PAP NORM HPV POS REFLEX TO 16 18 SPECIMEN SOURCE: CERVICAL,ENDOCERVICAL; VIAL STATEMENT OF SPECIMEN ADEQUACY: Specimen satisfactory for interpretation- Endocervical component absent. DIAGNOSIS: NEGATIVE FOR INTRAEPITHELIAL LESION OR MALIGNANCY. KL :KL :KL By: YAIR Black(ASCP) at [facility] 06/27/20 (Electronic Signature) COMMENT: Atrophy with inflammation(atrophic vaginitis). The technical component was performed at [facility], [address] [place] [address]. Microscopic examination was performed. Case resulted at [facility]. THIS SPECIMEN HAS BEEN ANALYZED BY THE ZestFinancePREP IMAGING SYSTEM(Intexys), AN AUTOMATED IMAGING SYSTEM, WHICH ASSISTS THE LABORATORY IN EVALUATING CELLS ON THINPREP PAP TEST. FOLLOWING AUTOMATED IMAGING TO DETECT CELLS OF INTEREST, SELECTED EPPS FROM EVERY SLIDE ARE REVIEWED BY A SOFTWARE SALES MANAGER. IF INDICATED, THE SLIDE IS REFERRED TO A PATHOLOGIST FOR FURTHER EVALUATION. THE PAP SMEAR IS A SCREENING TEST WITH AN IRREDUCIBLE FALSE-NEGATIVE RATE, THE CONSEQUENCES OF WHICH CAN BE MINIMIZED BY OBTAINING AN ANNUAL PAP SMEAR. FOOTNOTE ADDED ON 06/27/20 AT 0906 BY DISCERN HPV HIGH RISK NEGATIVE The FDA approved Teralynk Aptima Assay detects the fourteen high risk HPV genotypes known to cause cervical cancer and its precursor lesions (types 16,18,31,33,35,39,45,5 1,52,56,58,59,66 and 68) in cervical specimens collected in ThinPrep PreservCyt Solution. The test has been approved to screen patients with ASCUS cervical cytology results to determine the need for referral to colposcopy and used adjunctively with cervical cytology results to screen women 30 years and older to assess the presence or absence of high-risk HPV types. This test was performed in [facility] at [facility]. [place] is certified under the Clinical Laboratory Improvement Amendment (CLIA 88) to perform high complexity clinical laboratory testing. FOOTNOTE ADDED ON 06/28/20 AT 0930 BY DISCERN SPECIMEN SOURCE: THINPREP END OF REPORT END OF REPORT Normal [facility] Thinprep Pap Diagnosticon Cytology report Cyto stain.thin prep Doc (Cvx/Vag) BARBIE MEANS [id number] YRS F [id number] RM/BD ORDERING PHYSICIAN: TITI GARCIA 3 RESULT TRANSMITTED: 06/27/20905 CYTOLOGY REPORT - THIN PREP TECHNIQUE CLINICAL HISTORY LMP: ELLIOTT HIGH RISK? NO ? NO COMMENT: [id number] HPVHR,PAP NORM HPV POS REFLEX TO 16 18 SPECIMEN SOURCE: CERVICAL,ENDOCERVICAL; VIAL STATEMENT OF SPECIMEN ADEQUACY: Specimen satisfactory for interpretation- Endocervical component absent. DIAGNOSIS: NEGATIVE FOR INTRAEPITHELIAL LESION OR MALIGNANCY. KL :KL :KL By: YAIR Black(ASCP) at [facility] 06/27/20 (Electronic Signature) COMMENT: Atrophy with inflammation(atrophic vaginitis). The technical component was performed at [facility], [address] [place] [address]. Microscopic examination was performed. Case resulted at [facility]. THIS SPECIMEN HAS BEEN ANALYZED BY THE THINPREP IMAGING SYSTEM(Intexys), AN AUTOMATED IMAGING SYSTEM, WHICH ASSISTS THE LABORATORY IN EVALUATING CELLS ON THINPREP PAP TEST. FOLLOWING AUTOMATED IMAGING TO DETECT CELLS OF INTEREST, SELECTED EPPS FROM EVERY SLIDE ARE REVIEWED BY A SOFTWARE SALES MANAGER. IF INDICATED, THE SLIDE IS REFERRED TO A PATHOLOGIST FOR FURTHER EVALUATION. THE PAP SMEAR IS A SCREENING TEST WITH AN IRREDUCIBLE FALSE-NEGATIVE RATE, THE CONSEQUENCES OF WHICH CAN BE MINIMIZED BY OBTAINING AN ANNUAL PAP SMEAR. FOOTNOTE ADDED ON 06/27/20 AT 0906 BY DISCERN END OF REPORT END OF REPORT Normal [facility] XR CHEST AP/PA AND LATon 1. No acute cardiopulmonary disease. 2. Normal heart size. 3. No acute osseous abnormality. GJT/hali Workstation ID: [id number] [facility] EXAMINATION: 2-VIEW XR CHEST AP/PA AND LAT, 05/24/2020 COMPARISON: Chest, 04/21/2011. HISTORY: Dx: R07.9 (Chest pain, unspecified type) Injury/Trauma or Illness?:Illness/Other How long have you had these symptoms (acute/chronic)?:Acute Chest pain, unspecified type [facility] Interface, Rad In Fu ji Speechq - 05/24/2020 4:12 PM EDT EXAMINATION: 2-VIEW XR CHEST AP/PA AND LAT, 05/24/2020 COMPARISON: Chest, 04/21/2011. HISTORY: Dx: R07.9 (Chest pain, unspecified type) Injury/Trauma or Illness?:Illness/Other How long have you had these symptoms (acute/chronic)?:Acute Chest pain, unspecified type IMPRESSION: 1. No acute cardiopulmonary disease. 2. Normal heart size. 3. No acute osseous abnormality. GJT/pji Workstation ID: [id number] [facility] MM SCREENING ERON BILATERALo n 07-14-2019 MM SCREENING ERON BILATERAL EXAMINATION: BILATERAL DIGITAL SCREENING MAMMOGRAM WITH TOMOSYNTHESIS INDICATION: Annual screening exam. COMPARISON: Mammograms 2017, 2015, 2012 TECHNIQUE: Standard mammographic views, 2D and 3D. Computer-aided detection was utilized in the interpretation of this exam. FINDINGS: The breast tissue is heterogeneously dense. No suspicious masses, calcifications, or other findings. No significant interval change. IMPRESSION: No mammographic evidence of malignancy. BIRADS: BIRADS - CATEGORY 1 Negative, no evidence of malignancy. Normal interval follow-up is recommended in 12 months. OVERALL ASSESSMENT - NEGATIVE A letter of notification will be sent to the patient regarding the results. [facility], along with the National Comprehensive Cancer Network, the [employer], and [facility], recommend annual screening mammograms for women age 40 and older. Workstation ID: [id number] Dictated by: ASHLEY AN on SatJul 14, 2019 4:12:47 PM EST Transcribed by: ASHLEY AN on SatJul 14, 2019 4:12:47 PM EST Finalized by: ASHLEY AN on SatJul 14, 2019 4:12:47 PM EST Normal [facility] Mammography Screening Eron B ilateralon 07-14-2019 No mammographic evidence of malignancy. BIRADS: BIRADS - CATEGORY 1 Negative, no evidence of malignancy. Normal interval follow-up is recommended in 12 months. OVERALL ASSESSMENT - NEGATIVE A letter of notification will be sent to the patient regarding the results. [facility], along with the National Comprehensive Cancer Network, the [employer], and [facility], recommend annual screening mammograms for women age 40 and older. Workstation ID: [id number] [facility] EXAMINATION: BILATER AL DIGITAL SCREENING MAMMOGRAM WITH TOMOSYNTHESIS INDICATION: Annual screening exam. COMPARISON: Mammograms 2017, 2015, 2012 TECHNIQUE: Standard mammographic views, 2D and 3D. Computer-aided detection was utilized in the interpretation of this exam. FINDINGS: The breast tissue is heterogeneously dense. No suspicious masses, calcifications, or other findings. No significant interval change. [facility] Interface, Rad In Fu ji Speechq - 07/14/2019 4:15 PM EST EXAMINATION: BILATERAL DIGITAL SCREENING MAMMOGRAM WITH TOMOSYNTHESIS INDICATION: Annual screening exam. COMPARISON: Mammograms 2017, 2015, 2012 TECHNIQUE: Standard mammographic views, 2D and 3D. Computer-aided detection was utilized in the interpretation of this exam. FINDINGS: The breast tissue is heterogeneously dense. No suspicious masses, calcifications, or other findings. No significant interval change. IMPRESSION: No mammographic evidence of malignancy. BIRADS: BIRADS - CATEGORY 1 Negative, no evidence of malignancy. Normal interval follow-up is recommended in 12 months. OVERALL ASSESSMENT - NEGATIVE A letter of notification will be sent to the patient regarding the results. [facility], along with the [employer], the [employer], and [facility], recommend annual screening mammograms for women age 40 and older. Workstation ID: [id number] [facility] TSHon 06-12-2019 Interpretation and review of laboratory results Normal [facility] TSH Qn 1.86 m[IU]/L [facility] VITAMIN D, TOTAL, 25-OHon 25-Hydroxyvitamin D2+25-Hydroxyvitamin D3 [Mass/Vol] 76 ng/mL 30 - 100 ng/mL [facility] Comment on above: Vitamin D status: Deficiency: <10 ng/mL Insufficiency: 10-30 ng/mL Sufficiency: 30-100 ng/mL Toxicity: >100 ng/mL Interpretation and review of laboratory results Normal [facility] Assay performed meghann salas [employer] CLIA methodology. [facility] MM COMPARISON IMPORTon 12-10 This order has been auto-finalized and does not contain a result. [facility] STRESS TEST ONLY, EXERCISEon 10-29-2018 STRESS TEST ONLY, EXERCISE EKG ONLY EXERCISE STRESS TEST 1. Normal exercise ECG response. 2. Normal heart rate and blood pressure response to exercise. 3. Fair exercise capacity for age. 4. No symptoms were reported with exercise. 5.The patient exercised according to the EVI for 07:49 min:s, achieving a work level of Max. METS: 10.1. The resting heart rate of 91 bpm vesta to a maximal heart rate of 148 bpm. This value represents 91 % of the maximal, age-predicted heart rate. The resting blood pressure of 122/89 mmHg , vesta to a maximum blood pressure of 177/72 mmHg. The exercise test was stopped due to Protocol Complete. [facility] Comment on above: Order Comment: This chest tightness may have been related to the illness she had at the time, but with syncopal episode and little details, I feel it is best to have this evaluated. Stress test only, exerciseon 10-29-2018 Target HR [address] [facility] EKG ONLY EXERCISE STRESS TEST 1. Normal exercise ECG response. 2. Normal heart rate and blood pressure response to exercise. 3. Fair exercise capacity for age. 4. No symptoms were reported with exercise. 5.The patient exercised according to the EVI for 07:49 min:s, achieving a work level of Max. METS: 10.1. The resting heart rate of 91 bpm vesta to a maximal heart rate of 148 bpm. This value represents 91 % of the maximal, age-predicted heart rate. The resting blood pressure of 122/89 mmHg , vesta to a maximum blood pressure of 177/72 mmHg. The exercise test was stopped due to Protocol Complete. [facility] CBC AND DIFFERENTIALon 10-27 Basophils (Bld) [#/Vol] 0.0 10*3/uL [facility] Basophils/100 WBC (Bld) 0.4 % [facility] Eosinophils (Bld) [#/Vol] 0.2 10*3/uL [facility] Eosinophils/100 WBC (Bld) 4.2 % [facility] Erythrocyte distribution width (RBC) [Ratio] 14.1 % 10 - 14.4 % [facility] Hematocrit (Bld) [Volume fraction] 37.9 % 34.4 - 44.8 % [facility] Hemoglobin (Bld) [Mass/Vol] 12.9 g/dL 11.6 - 15.4 g/dL [facility] Interpretation and review of laboratory results Abnormal [facility] Lymphocytes (Bld) [#/Vol] 1.4 10*3/uL [facility] Lymphocytes/100 WBC (Bld) 23.0 % [facility] MCH (RBC) [Entitic mass] 32.7 pg 27.9 - 33.[address] [facility] MCHC (RBC) [Mass/Vol] 33.9 g/dL 33.1 - 35.1 g/dL [facility] MCV (RBC) [Entitic vol] 96.[address] [facility] Monocytes (Bld) [#/Vol] 0.7 10*3/uL High [facility] Monocytes/100 WBC (Bld) 12.7 % [facility] Neutrophils (Bld) [#/Vol] 3.5 10*3/uL [facility] Platelet mean volume (Bld) [Entitic vol] 7.[address] [facility] Platelets (Bld) [#/Vol] 276 10*3/uL [facility] RBC (Bld) [#/Vol] 3.94 10*6/uL [facility] Seg[facility] neutrophils/100 WBC (Bld) 59.7 % [facility] WBC (Bld) [#/Vol] 5.9 10*3/uL [facility] alth CBC with Diffon 10-27-2018 Basophils #/vol (Bld) 0.0 K/mcL Normal 0-0.2 [facility] Comment on above: Performed By: #### C BCDIF #### Unless otherwise noted, all testing performed by [place] [address] CLIA: [id number] Painter Plate: Mitesh Obregon M.D. Basophils/100 WBC (Bld) 0.4 % Normal [facility] Comment on above: Performed By: #### C BCDIF #### Unless otherwise noted, all testing performed by [place] [address] CLIA: [id number] Painter Plate: Mitesh Obregon M.D. Eosinophils #/vol (Bld) 0.2 K/mcL Normal 0-0.5 [facility] Comment on above: Performed By: #### C BCDIF #### Unless otherwise noted, all testing performed by [place] [address] CLIA: [id number] Painter Plate: Mitesh Obregon M.D. Eosinophils/100 WBC (Bld) 4.2 % Normal [facility] Comment on above: Performed By: #### C BCDIF #### Unless otherwise noted, all testing performed by [place] [address] CLIA: [id number] Painter Plate: Mitesh Obregon M.D. Erythrocyte distribution width Ratio (RBC) 14.1 % Normal 10.0-14.4 [facility] Comment on above: Performed By: #### C BCDIF #### Unless otherwise noted, all testing performed by [place] [phone] CLIA: [id number] Painter Plate: Mitesh Obregon M.D. Hematocrit Volume Fraction (Bld) 37.9 % Normal 34.4-44.8 [facility] Comment on above: Performed By: #### C BCDIF #### Unless otherwise noted, all testing performed by [place] [phone] CLIA: [id number] Painter Plate: Mitesh Obregon M.D. Hemoglobin mass conc (Bld) 12.9 g/dL Normal 11.6-15.4 [facility] Comment on above: Performed By: #### C BCDIF #### Unless otherwise noted, all testing performed by [place] [phone] CLIA: [id number] Painter Plate: Mitesh Obregon M.D. Lymphocytes #/vol (Bld) 1.4 K/mcL Normal 1.0-3.7 [facility] Comment on above: Performed By: #### C BCDIF #### Unless otherwise noted, all testing performed by [place] [address] CLIA: [id number] Painter Plate: Mitesh Obregon M.D. Lymphocytes/100 WBC (Bld) 23.0 % Normal [facility] Comment on above: Performed By: #### C BCDIF #### Unless otherwise noted, all testing performed by [place] [address] CLIA: [id number] Painter Plate: Mitesh Obregon M.D. MCH Entitic mass (RBC) 32.7 pg Normal 27.9-33.9 [facility] Comment on above: Performed By: #### C BCDIF #### Unless otherwise noted, all testing performed by [place] [address] CLIA: [id number] Painter Plate: Mitesh Obregon M.D. MCHC mass conc (RBC) 33.9 g/dL Normal 33.1-35.1 [facility] Comment on above: Performed By: #### C BCDIF #### Unless otherwise noted, all testing performed by [place] [address] CLIA: [id number] Painter Plate: Mitesh Obregon M.D. MCV Entitic volume (RBC) 96.3 fL Normal 82.6-98.9 [facility] Comment on above: Performed By: #### C BCDIF #### Unless otherwise noted, all testing performed by [place] [address] CLIA: [id number] Painter Plate: Mitesh Obregon M.D. Monocytes #/vol (Bld) 0.7 K/mcL High 0.1-0.6 [facility] Comment on above: Performed By: #### C BCDIF #### Unless otherwise noted, all testing performed by [place] [address] CLIA: [id number] Painter Plate: Mitesh Obregon M.D. Monocytes/100 WBC (Bld) 12.7 % Normal [facility] Comment on above: Performed By: #### C BCDIF #### Unless otherwise noted, all testing performed by [place] [phone] CLIA: [id number] Painter Plate: Mitesh Obregon M.D. Neutrophils #/vol (Bld) 3.5 K/mcL Normal 1.2-6.9 [facility] Comment on above: Performed By: #### C BCDIF #### Unless otherwise noted, all testing performed by [place] [phone] CLIA: [id number] Painter Plate: Mitesh Obregon M.D. Platelet mean volume Entitic volume (Bld) 7.4 fL Normal 7.0-10.6 [facility] Comment on above: Performed By: #### C BCDIF #### Unless otherwise noted, all testing performed by [place] [address] CLIA: [id number] Painter Plate: Mitesh Obregon M.D. Platelets #/vol (Bld) 276 K/mcL Normal 162-402 [facility] Comment on above: Performed By: #### C BCDIF #### Unless otherwise noted, all testing performed by [place] [address] CLIA: [id number] Painter Plate: Mitesh Obregon M.D. RBC #/vol (Bld) 3.94 M/mcL Normal 3.7-5.0 [facility] Comment on above: Performed By: #### C BCDIF #### Unless otherwise noted, all testing performed by [place] [address] CLIA: [id number] Painter Plate: Mitesh Obregon M.D. Segmented Neut % 59.7 % Normal [facility] Comment on above: Performed By: #### C BCDIF #### Unless otherwise noted, all testing performed by [place] [address] CLIA: [id number] Painter Plate: Mitesh Obregon M.D. WBC #/vol (Bld) 5.9 K/mcL Normal 3.4-10.6 [facility] Comment on above: Performed By: #### C BCDIF #### Unless otherwise noted, all testing performed by [place] [address] CLIA: [id number] Painter Plate: Mitesh Obregon M.D. BLDPATHon 10-06-2018 BLDPATH Patient Name: BARBIE MEANS Source Peripheral Blood Diagnosis 1. Mild absolute monocytosis. 2. Unremarkable red cell and platelet indices and morphology. ICD10: D72.829 Electronically Signed By Gabriel Payton MD , Pathologist (Case signed 10/07/2018) [facility] Blood Smear Reviewon 019 Blood Smear Review See Pathology Report. [facility] Comment on above: Performed By: #### C BCDIF, BSREV #### Unless otherwise noted, all testing performed by [facility] [address]. [place], [place] [address] CLIA: [id number] Painter Plate: Mitesh Obregon M.D. CBC AND DIFFERENTIALon 10-06 Acanthocytes 1+ Abnormal None Seen [facility] Basophils #/vol (Bld) 0.1 10*3/uL [facility] Basophils/100 WBC (Bld) 1.0 % [facility] Christiana Cells 1+ Abnormal None Seen [facility] Eosinophils #/vol (Bld) 0.2 10*3/uL [facility] Eosinophils/100 WBC (Bld) 3.9 % [facility] Erythrocyte distribution width Ratio (RBC) 13.2 % 10 - 14.4 % [facility] Hematocrit Volume Fraction (Bld) 38.8 % 34.4 - 44.8 % [facility] Hemoglobin mass conc (Bld) 13.0 g/dL 11.6 - 15.4 g/dL [facility] Interpretation and review of laboratory results Abnormal [facility] Lymphocytes #/vol (Bld) 1.5 10*3/uL [facility] Lymphocytes/100 WBC (Bld) 28.6 % [facility] MCH Entitic mass (RBC) 31.9 pg 27.9 - 33.[address] [facility] MCHC mass conc (RBC) 33.4 g/dL 33.1 - 35.1 g/dL [facility] MCV Entitic volume (RBC) 95.[address] [facility] Monocytes #/vol (Bld) 0.9 10*3/uL High [facility] Monocytes/100 WBC (Bld) 17.8 % [facility] Neutrophils #/vol (Bld) 2.5 10*3/uL [facility] Platelet mean volume Entitic volume (Bld) 7.[address] [facility] Platelets #/vol (Bld) 368 10*3/uL [facility] RBC #/vol (Bld) 4.07 10*6/uL [facility] lth Segmented Neut 48.7 % [facility] Comment on above: Smear reviewed to alyssa bui automated differential> WBC #/vol (Bld) 5.2 10*3/uL [facility] CBC with Diffon 10-06-2018 Acanthocytes 1+ Abnormal None Seen [facility] Comment on above: Performed By: #### C BCDIF, BSREV #### Unless otherwise noted, all testing performed by [place] [phone] CLIA: [id number] Painter Plate: Mitesh Obregon M.D. Basophils #/vol (Bld) 0.1 K/mcL Normal 0-0.2 [facility] Comment on above: Performed By: #### C BCDIF, BSREV #### Unless otherwise noted, all testing performed by [place] [phone] CLIA: [id number] Painter Plate: Mitesh Obregon M.D. Basophils/100 WBC (Bld) 1.0 % Normal [facility] Comment on above: Performed By: #### C BCDIF, BSREV #### Unless otherwise noted, all testing performed by [place] [phone] CLIA: [id number] Painter Plate: Mitesh Obregon M.D. Alex Cells 1+ Abnormal None Seen [facility] Comment on above: Performed By: #### C BCDIF, BSREV #### Unless otherwise noted, all testing performed by [place] [phone] CLIA: [id number] Painter Plate: Mitesh Obregon M.D. Eosinophils #/vol (Bld) 0.2 K/mcL Normal 0-0.5 [facility] Comment on above: Performed By: #### C BCDIF, BSREV #### Unless otherwise noted, all testing performed by [place] [phone] CLIA: [id number] Painter Plate: Mitesh Obregon M.D. Eosinophils/100 WBC (Bld) 3.9 % Normal [facility] Comment on above: Performed By: #### C BCDIF, BSREV #### Unless otherwise noted, all testing performed by [place] [phone] CLIA: [id number] Painter Plate: Mitesh Obregon M.D. Erythrocyte distribution width Ratio (RBC) 13.2 % Normal 10.0-14.4 [facility] Comment on above: Performed By: #### C BCDIF, BSREV #### Unless otherwise noted, all testing performed by [place] [phone] CLIA: [id number] Painter Plate: Mitehs Obregon M.D. Hematocrit Volume Fraction (Bld) 38.8 % Normal 34.4-44.8 [facility] Comment on above: Performed By: #### C BCDIF, BSREV #### Unless otherwise noted, all testing performed by [place] [phone] CLIA: [id number] Painter Plate: Mitesh Obregon M.D. Hemoglobin mass conc (Bld) 13.0 g/dL Normal 11.6-15.4 [facility] Comment on above: Performed By: #### C BCDIF, BSREV #### Unless otherwise noted, all testing performed by [place] [phone] CLIA: [id number] Painter Plate: Mitesh Obregon M.D. Lymphocytes #/vol (Bld) 1.5 K/mcL Normal 1.0-3.7 [facility] Comment on above: Performed By: #### C BCDIF, BSREV #### Unless otherwise noted, all testing performed by [place] [address] CLIA: [id number] Painter Plate: Mitesh Obregon M.D. Lymphocytes/100 WBC (Bld) 28.6 % Normal [facility] Comment on above: Performed By: #### C BCDIF, BSREV #### Unless otherwise noted, all testing performed by [place] [address] CLIA: [id number] Painter Plate: Mitesh Obregon M.D. MCH Entitic mass (RBC) 31.9 pg Normal 27.9-33.9 [facility] Comment on above: Performed By: #### C BCDIF, BSREV #### Unless otherwise noted, all testing performed by [place] [phone] CLIA: [id number] Painter Plate: Mitesh Obregon M.D. MCHC mass conc (RBC) 33.4 g/dL Normal 33.1-35.1 [facility] Comment on above: Performed By: #### C BCDIF, BSREV #### Unless otherwise noted, all testing performed by [place] [address] CLIA: [id number] Painter Plate: Mitesh Obregon M.D. MCV Entitic volume (RBC) 95.4 fL Normal 82.6-98.9 [facility] Comment on above: Performed By: #### C BCDIF, BSREV #### Unless otherwise noted, all testing performed by [place] [address] CLIA: [id number] Painter Plate: Mitesh Obregon M.D. Monocytes #/vol (Bld) 0.9 K/mcL High 0.1-0.6 [facility] Comment on above: Performed By: #### C BCDIF, BSREV #### Unless otherwise noted, all testing performed by [place] [phone] CLIA: [id number] Painter Plate: Mitesh Obregon M.D. Monocytes/100 WBC (Bld) 17.8 % Normal [facility] Comment on above: Performed By: #### C BCDIF, BSREV #### Unless otherwise noted, all testing performed by [place] [phone] CLIA: [id number] Painter Plate: Mitesh Obregon M.D. Neutrophils #/vol (Bld) 2.5 K/mcL Normal 1.2-6.9 [facility] Comment on above: Performed By: #### C BCDIF, BSREV #### Unless otherwise noted, all testing performed by [place] [phone] CLIA: [id number] Painter Plate: Mitesh Obregon M.D. Platelet mean volume Entitic volume (Bld) 7.6 fL Normal 7.0-10.6 [facility] Comment on above: Performed By: #### C BCDIF, BSREV #### Unless otherwise noted, all testing performed by [place] [phone] CLIA: [id number] Painter Plate: Mitesh Obregon M.D. Platelets #/vol (Bld) 368 K/mcL Normal 162-402 [facility] Comment on above: Performed By: #### C BCDIF, BSREV #### Unless otherwise noted, all testing performed by [place] [address] CLIA: [id number] Painter Plate: Mitesh Obregon M.D. RBC #/vol (Bld) 4.07 M/mcL Normal 3.7-5.0 [facility] Comment on above: Performed By: #### C BCDIF, BSREV #### Unless otherwise noted, all testing performed by [place] [address] CLIA: [id number] Painter Plate: Mitesh Obregon M.D. Segmented Neut % 48.7 % Normal [facility] Comment on above: Result Comment: Smea r reviewed to verify automated differential> Performed By: #### C BCDIF, BSREV #### Unless otherwise noted, all testing performed by [place] [address] CLIA: [id number] Painter Plate: Mietsh Obregon M.D. WBC #/vol (Bld) 5.2 K/mcL Normal 3.4-10.6 [facility] Comment on above: Performed By: #### C BCDIF, BSREV #### Unless otherwise noted, all testing performed by [place] [address] CLIA: [id number] Painter Plate: Mitesh Obregon M.D. CBC AND DIFFERENTIALon 09-29 Acanthocytes 1+ Abnormal None Seen [facility] Basophils #/vol (Bld) 0.0 10*3/uL [facility] Basophils/100 WBC (Bld) 0.5 % [facility] Alex Cells 1+ Abnormal None Seen [facility] Eosinophils #/vol (Bld) 0.1 10*3/uL [facility] Eosinophils/100 WBC (Bld) 8.4 % [facility] Erythrocyte distribution width Ratio (RBC) 13.4 % 10 - 14.4 % [facility] Comment on above: Smear reviewed for R BC morphology. Hematocrit Volume Fraction (Bld) 40.3 % 34.4 - 44.8 % [facility] Hemoglobin mass conc (Bld) 13.7 g/dL 11.6 - 15.4 g/dL [facility] Interpretation and review of laboratory results Abnormal [facility] Lymphocytes #/vol (Bld) 1.5 10*3/uL [facility] Lymphocytes/100 WBC (Bld) 43.7 % [facility] MCH Entitic mass (RBC) 32.1 pg 27.9 - 33.[address] [facility] MCHC mass conc (RBC) 33.9 g/dL 33.1 - 35.1 g/dL [facility] MCV Entitic volume (RBC) 94.[address] [facility] Monocytes #/vol (Bld) 0.4 10*3/uL [facility] Monocytes/100 WBC (Bld) 19.6 % [facility] Neutrophils #/vol (Bld) 0.8 10*3/uL Low [facility] Platelet mean volume Entitic volume (Bld) 7.[address] [facility] Platelets #/vol (Bld) 212 10*3/uL [facility] RBC #/vol (Bld) 4.26 10*6/uL [facility] lth Segmented Neut 27.8 % [facility] Comment on above: Smear reviewed to ve ramya automated differential> WBC #/vol (Bld) 2.9 10*3/uL Low [facility] CBC with Diffon 09-29-2018 Acanthocytes 1+ Abnormal None Seen [facility] Comment on above: Performed By: #### C BCDIF, CMET, TSH, LIPID, HEPCABS #### Unless otherwise noted, all testing performed by [address] [address] CLIA: [id number] Painter Plate: Mitesh Obregon M.D. Basophils #/vol (Bld) 0.0 K/mcL Normal 0-0.2 [facility] Comment on above: Performed By: #### C BCDIF, CMET, TSH, LIPID, HEPCABS #### Unless otherwise noted, all testing performed by [place] [address] CLIA: [id number] Painter Plate: Mitesh Obregon M.D. Basophils/100 WBC (Bld) 0.5 % Normal [facility] Comment on above: Performed By: #### C BCDIF, CMET, TSH, LIPID, HEPCABS #### Unless otherwise noted, all testing performed by [place] [address] CLIA: [id number] Painter Plate: Mitesh Obregon M.D. Christiana Cells 1+ Abnormal None Seen [facility] Comment on above: Performed By: #### C BCDIF, CMET, TSH, LIPID, HEPCABS #### Unless otherwise noted, all testing performed by [place] [phone] CLIA: [id number] Painter Plate: Mitesh Obregon M.D. Eosinophils #/vol (Bld) 0.1 K/mcL Normal 0-0.5 [facility] Comment on above: Performed By: #### C BCDIF, CMET, TSH, LIPID, HEPCABS #### Unless otherwise noted, all testing performed by [place] [address] CLIA: [id number] Painter Plate: Mitesh Obregon M.D. Eosinophils/100 WBC (Bld) 8.4 % Normal [facility] Comment on above: Performed By: #### C BCDIF, CMET, TSH, LIPID, HEPCABS #### Unless otherwise noted, all testing performed by [place] [address] CLIA: [id number] Painter Plate: Mitesh Obregon M.D. Erythrocyte distribution width Ratio (RBC) 13.4 % Normal 10.0-14.4 [facility] Comment on above: Result Comment: Smea r reviewed for RBC morphology. Performed By: #### C BCDIF, CMET, TSH, LIPID, HEPCABS #### Unless otherwise noted, all testing performed by [place] [address] CLIA: [id number] Painter Plate: Mitesh Obregon M.D. Hematocrit Volume Fraction (Bld) 40.3 % Normal 34.4-44.8 [facility] Comment on above: Performed By: #### C BCDIF, CMET, TSH, LIPID, HEPCABS #### Unless otherwise noted, all testing performed by [place] [address] CLIA: [id number] Painter Plate: Mitesh Obregon M.D. Hemoglobin mass conc (Bld) 13.7 g/dL Normal 11.6-15.4 [facility] Comment on above: Performed By: #### C BCDIF, CMET, TSH, LIPID, HEPCABS #### Unless otherwise noted, all testing performed by [place] [address] CLIA: [id number] Painter Plate: Mitesh Obregon M.D. Lymphocytes #/vol (Bld) 1.5 K/mcL Normal 1.0-3.7 [facility] Comment on above: Performed By: #### C BCDIF, CMET, TSH, LIPID, HEPCABS #### Unless otherwise noted, all testing performed by [place] [address] CLIA: [id number] Painter Plate: Mitesh Obregon M.D. Lymphocytes/100 WBC (Bld) 43.7 % Normal [facility] Comment on above: Performed By: #### C BCDIF, CMET, TSH, LIPID, HEPCABS #### Unless otherwise noted, all testing performed by [place] [address] CLIA: [id number] Painter Plate: Mitesh Obregon M.D. MCH Entitic mass (RBC) 32.1 pg Normal 27.9-33.9 [facility] Comment on above: Performed By: #### C BCDIF, CMET, TSH, LIPID, HEPCABS #### Unless otherwise noted, all testing performed by [place] [address] CLIA: [id number] Painter Plate: Mitesh Obregon M.D. MCHC mass conc (RBC) 33.9 g/dL Normal 33.1-35.1 [facility] Comment on above: Performed By: #### C BCDIF, CMET, TSH, LIPID, HEPCABS #### Unless otherwise noted, all testing performed by [place] [address] CLIA: [id number] Painter Plate: Mitesh Obregon M.D. MCV Entitic volume (RBC) 94.7 fL Normal 82.6-98.9 [facility] Comment on above: Performed By: #### C BCDIF, CMET, TSH, LIPID, HEPCABS #### Unless otherwise noted, all testing performed by [place] [address] CLIA: [id number] Painter Plate: Mitesh Obregon M.D. Monocytes #/vol (Bld) 0.4 K/mcL Normal 0.1-0.6 [facility] Comment on above: Performed By: #### C BCDIF, CMET, TSH, LIPID, HEPCABS #### Unless otherwise noted, all testing performed by [place] [address] CLIA: [id number] Painter Plate: Mitesh Obregon M.D. Monocytes/100 WBC (Bld) 19.6 % Normal [facility] Comment on above: Performed By: #### C BCDIF, CMET, TSH, LIPID, HEPCABS #### Unless otherwise noted, all testing performed by [place] [address] CLIA: [id number] Painter Plate: Mitesh Obregon M.D. Neutrophils #/vol (Bld) 0.8 K/mcL Low 1.2-6.9 [facility] Comment on above: Performed By: #### C BCDIF, CMET, TSH, LIPID, HEPCABS #### Unless otherwise noted, all testing performed by [place] [address] CLIA: [id number] Painter Plate: Mitesh Obregon M.D. Platelet mean volume Entitic volume (Bld) 7.7 fL Normal 7.0-10.6 [facility] Comment on above: Performed By: #### C BCDIF, CMET, TSH, LIPID, HEPCABS #### Unless otherwise noted, all testing performed by [place] [address] CLIA: [id number] Painter Plate: Mitesh Obregon M.D. Platelets #/vol (Bld) 212 K/mcL Normal 162-402 [facility] Comment on above: Performed By: #### C BCDIF, CMET, TSH, LIPID, HEPCABS #### Unless otherwise noted, all testing performed by [place] [address] CLIA: [id number] Painter Plate: Mitesh Obregon M.D. RBC #/vol (Bld) 4.26 M/mcL Normal 3.7-5.0 [facility] Comment on above: Performed By: #### C BCDIF, CMET, TSH, LIPID, HEPCABS #### Unless otherwise noted, all testing performed by [place] [address] CLIA: [id number] Painter Plate: Mitesh Obregon M.D. Segmented Neut % 27.8 % Normal [facility] Comment on above: Result Comment: Smea r reviewed to verify automated differential> Performed By: #### C BCDIF, CMET, TSH, LIPID, HEPCABS #### Unless otherwise noted, all testing performed by [place] [address] CLIA: [id number] Painter Plate: Mitesh Obregon M.D. WBC #/vol (Bld) 2.9 K/mcL Low 3.4-10.6 [facility] Comment on above: Performed By: #### C BCDIF, CMET, TSH, LIPID, HEPCABS #### Unless otherwise noted, all testing performed by [place] [address] CLIA: [id number] Painter Plate: Mitesh Obregon M.D. [facility] Metabolic Pane [facility] 09-29-2018 Albumin mass conc 3.2 g/dL 3.2 - 5.2 g/dL [facility] ALP enzyme act/vol 39 U/L Low 40 - 150 U/L [facility] ALT enzyme act/vol 44 U/L 14 - 65 U/L [facility] Comment on above: This test result genesis ht be falsely depressed or falsely elevated on samples drawn from patients taking Sulfasalazine and Sulfapyridine. Venipuncture should occur prior to taking either of these drugs. AST enzyme act/vol 24 U/L 0 - 45 U/L [facility] Comment on above: This test result genesis ht be falsely depressed or falsely elevated on samples drawn from patients taking Sulfasalazine and Sulfapyridine. Venipuncture should occur prior to taking either of these drugs. Bilirubin mass conc 0.6 mg/dL 0.3 - 1. 2 mg/dL [facility] Calcium mass conc 8.5 mg/dL 8.4 - 10.2 mg/dL [facility] Chloride molar conc 105 mmol/L 98 - 108 mmol/L [facility] CO2 molar conc 26 mmol/L 21 - 32 mmol/L [facility] Creatinine mass conc 0.74 mg/dL 0.4 - 1 .1 mg/dL [facility] GFR/1.73 sq M predicted among blacks MDRD vol rate/area (S/P/Bld) mL/min/{1.73_m2} ml/min/1.73sq .m [facility] Comment on above: GFR Calc GFR/1.73 sq M predicted among non-blacks MDRD vol rate/area (S/P/Bld) mL/min/{1.73_m2} ml/min/1.73sq .m [facility] Comment on above: Non- GFR Calc eGFR is an estimated Glomerular Filtration Rate based on the value of the patient's serum creatinine. In outpatients, eGFR should be used as a helpful tool in screening for CKD. In inpatients or patients with acute renal failure, eGFR represents the GFR at the moment of the draw and should be used with caution. Glucose mass conc 81 mg/dL 70 - 99 mg/dL [facility] Comment on above: This test result genesis ht be falsely depressed or falsely elevated on samples drawn from patients taking Sulfasalazine and Sulfapyridine. Venipuncture should occur prior to taking either of these drugs. Potassium molar conc 4.4 mmol/L 3.5 - 5 .1 mmol/L [facility] Protein mass conc 6.7 g/dL 6 - 8 g/dL [facility] lth Sodium molar conc 138 mmol/L 135 - 145 mmol/L [facility] Urea nitrogen mass conc 15 mg/dL 8 - 25 mg/dL [facility] Albumin mass conc 3.2 g/dL Normal 3.2-5.2 [facility] Comment on above: Performed By: #### C BCDIF, CMET, TSH, LIPID, HEPCABS #### Unless otherwise noted, all testing performed by [place] [address] CLIA: [id number] Painter Plate: Mitesh Obregon M.D. ALP enzyme act/vol 39 U/L Low 40-150 [facility] Comment on above: Performed By: #### C BCDIF, CMET, TSH, LIPID, HEPCABS #### Unless otherwise noted, all testing performed by [place] [address] CLIA: [id number] Painter Plate: Mitesh Obregon M.D. ALT enzyme act/vol 44 U/L Normal 14-65 [facility] Comment on above: Result Comment: This test result might be falsely depressed or falsely elevated on samples drawn from patients taking Sulfasalazine and Sulfapyridine. Venipuncture should occur prior to taking either of these drugs. Performed By: #### C BCDIF, CMET, TSH, LIPID, HEPCABS #### Unless otherwise noted, all testing performed by [place] [address] CLIA: [id number] Painter Plate: Mitesh Obregon M.D. AST enzyme act/vol 24 U/L Normal 0-45 [facility] Comment on above: Result Comment: This test result might be falsely depressed or falsely elevated on samples drawn from patients taking Sulfasalazine and Sulfapyridine. Venipuncture should occur prior to taking either of these drugs. Performed By: #### C BCDIF, CMET, TSH, LIPID, HEPCABS #### Unless otherwise noted, all testing performed by [place] [address] CLIA: [id number] Painter Plate: Mitesh Obregon M.D. Bilirubin mass conc 0.6 mg/dL Normal 0.3-1.2 [facility] Comment on above: Performed By: #### C BCDIF, CMET, TSH, LIPID, HEPCABS #### Unless otherwise noted, all testing performed by [place] [address] CLIA: [id number] Painter Plate: Mitesh Obregon M.D. Calcium mass conc 8.5 mg/dL Normal 8.4-10.2 [facility] Comment on above: Performed By: #### C BCDIF, CMET, TSH, LIPID, HEPCABS #### Unless otherwise noted, all testing performed by [place] [phone] CLIA: [id number] Painter Plate: Mitesh Obregon M.D. Chloride molar conc 105 mmol/L Normal 98-108 [facility] Comment on above: Performed By: #### C BCDIF, CMET, TSH, LIPID, HEPCABS #### Unless otherwise noted, all testing performed by [place] [phone] CLIA: [id number] Painter Plate: Mitesh Obregon M.D. CO2 molar conc 26 mmol/L Normal 21-32 [facility] Comment on above: Performed By: #### C BCDIF, CMET, TSH, LIPID, HEPCABS #### Unless otherwise noted, all testing performed by [place] [address] CLIA: [id number] Painter Plate: Mitesh Obregon M.D. Creatinine mass conc 0.74 mg/dL Normal 0.40-1.10 [facility] Comment on above: Performed By: #### C BCDIF, CMET, TSH, LIPID, HEPCABS #### Unless otherwise noted, all testing performed by [place] [address] CLIA: [id number] Painter Plate: Mitesh Obregon M.D. GFR/1.73 sq M predicted among blacks MDRD vol rate/area (S/P/Bld) mL/min/{1.73_m2} Normal [facility] Comment on above: Result Comment: Afri can Jordanian GFR Calc Performed By: #### C BCDIF, CMET, TSH, LIPID, HEPCABS #### Unless otherwise noted, all testing performed by [place] [address] CLIA: [id number] Painter Plate: Mitesh Obregon M.D. GFR/1.73 sq M predicted among non-blacks MDRD vol rate/area (S/P/Bld) mL/min/{1.73_m2} Normal [facility] Comment on above: Result Comment: Non- GFR Calc eGFR is an estimated Glomerular Filtration Rate based on the value of the patient's serum creatinine. In outpatients, eGFR should be used as a helpful tool in screening for CKD. In inpatients or patients with acute renal failure, eGFR represents the GFR at the moment of the draw and should be used with caution. Performed By: #### C BCDIF, CMET, TSH, LIPID, HEPCABS #### Unless otherwise noted, all testing performed by [place] [address] CLIA: [id number] Painter Plate: Mitesh Obregon M.D. Glucose mass conc 81 mg/dL Normal 70-99 [facility] Comment on above: Result Comment: This test result might be falsely depressed or falsely elevated on samples drawn from patients taking Sulfasalazine and Sulfapyridine. Venipuncture should occur prior to taking either of these drugs. Performed By: #### C BCDIF, CMET, TSH, LIPID, HEPCABS #### Unless otherwise noted, all testing performed by [place] [address] CLIA: [id number] Painter Plate: Mitesh Obregon M.D. Potassium molar conc 4.4 mmol/L Normal 3.5-5.1 [facility] Comment on above: Performed By: #### C BCDIF, CMET, TSH, LIPID, HEPCABS #### Unless otherwise noted, all testing performed by [place] [phone] CLIA: [id number] Painter Plate: Mitesh Obregon M.D. Protein mass conc 6.7 g/dL Normal 6.0-8.0 [facility] Comment on above: Performed By: #### C BCDIF, CMET, TSH, LIPID, HEPCABS #### Unless otherwise noted, all testing performed by [place] [phone] CLIA: [id number] Painter Plate: Mitesh Obregon M.D. Sodium molar conc 138 mmol/L Normal 135-145 [facility] Comment on above: Performed By: #### C BCDIF, CMET, TSH, LIPID, HEPCABS #### Unless otherwise noted, all testing performed by [place] [address] CLIA: [id number] Painter Plate: Mitesh Obregon M.D. Urea nitrogen mass conc 15 mg/dL Normal 8-25 [facility] Comment on above: Performed By: #### C BCDIF, CMET, TSH, LIPID, HEPCABS #### Unless otherwise noted, all testing performed by [place] [address] CLIA: [id number] Painter Plate: Mitesh Obregon M.D. Hepatitis C Antibodyon 09-29 Hepatitis C Antibody Negative Normal Negative [facility] Comment on above: Result Comment: Test performed using [employer] KIRSTY immunoassay system Test Performed by [facility] [address] [place] [address] Performed By: #### C BCDIF, CMET, TSH, LIPID, HEPCABS #### Unless otherwise noted, all testing performed by [place] [address] CLIA: [id number] Painter Plate: Mitesh Obregon M.D. Lipid Panelon 09-29-2018 Cholesterol in HDL mass conc 83 mg/dL High 40 - 59 mg/dL [facility] Cholesterol in LDL mass conc 144 mg/dL 10 - 150 mg/dL [facility] Cholesterol in VLDL mass conc 7 mg/dL 5 - 40 mg/dL [facility] Cholesterol mass conc 234 mg/dL High 100 - 199 mg/dL [facility] Cholesterol.total/Chol esterol in HDL mass ratio 2.8 {ratio} Low [facility] Comment on above: Female Coronary Hear t Disease Risk Factor (CHDRF): Average risk= 4.4 1/2 Average risk= 3.3 2 times Average risk= 7.1 Triglyceride mass conc 36 mg/dL 30 - 150 mg/dL [facility] Cholesterol in HDL mass conc 83 mg/dL High 40-59 [facility] Comment on above: Performed By: #### C BCDIF, CMET, TSH, LIPID, HEPCABS #### Unless otherwise noted, all testing performed by [place] [address] CLIA: [id number] Painter Plate: Mitesh Obregon M.D. Cholesterol in LDL mass conc 144 mg/dL Normal 10-150 [facility] Comment on above: Performed By: #### C BCDIF, CMET, TSH, LIPID, HEPCABS #### Unless otherwise noted, all testing performed by [place] [address] CLIA: [id number] Painter Plate: Mitesh Obregon M.D. Cholesterol in VLDL mass conc 7 mg/dL Normal 5-40 [facility] Comment on above: Performed By: #### C BCDIF, CMET, TSH, LIPID, HEPCABS #### Unless otherwise noted, all testing performed by [place] [address] CLIA: [id number] Painter Plate: Mitesh Obregon M.D. Cholesterol mass conc 234 mg/dL High 100-199 [facility] Comment on above: Performed By: #### C BCDIF, CMET, TSH, LIPID, HEPCABS #### Unless otherwise noted, all testing performed by [place] [address] CLIA: [id number] Painter Plate: Mitesh Obregon M.D. Cholesterol.total/Chol esterol in HDL mass ratio 2.8 {ratio} Low 3.2-5.0 [facility] Comment on above: Result Comment: Keisha hernandez Coronary Heart Disease Risk Factor (CHDRF): Average risk= 4.4 1/2 Average risk= 3.3 2 times Average risk= 7.1 Performed By: #### C BCDIF, CMET, TSH, LIPID, HEPCABS #### Unless otherwise noted, all testing performed by [place] [address] CLIA: [id number] Painter Plate: Mitesh Obregon M.D. Triglyceride mass conc 36 mg/dL Normal 30-150 [facility] Comment on above: Performed By: #### C BCDIF, CMET, TSH, LIPID, HEPCABS #### Unless otherwise noted, all testing performed by [place] [id number] CLIA: [id number] Painter Plate: Mitesh Obregon M.D. Otheron 09-29-2018 Interpretation and review of laboratory results Abnormal [facility] TSHon 09-29-2018 Thyrotropin Qn 1.47 m[IU]/L [facility] Comment on above: Samples from patient s routinely receiving high dose biotin therapy (100-300 mg/day) may show falsely decreased results. Please correlate clinically. Please note reference range change as of 06/17/18. Thyrotropin Qn 1.47 uIU/mL Normal 0.270-4.200 [facility] Comment on above: Result Comment: Samp les from patients routinely receiving high dose biotin therapy (100-300 mg/day) may show falsely decreased results. Please correlate clinically. Please note reference range change as of 06/17/18. Performed By: #### C BCDIF, CMET, TSH, LIPID, HEPCABS #### Unless otherwise noted, all testing performed by [place] [address] CLIA: [id number] Painter Plate: Mitesh Obregon M.D. [facility]CREENING MAMM (CAD), [facility] (CAD), [facility] [address] [place], [place] [address]UIXLIOMHC MAMM (CAD), BILAT#: [id number] Acct: [id number]: BARBIE MEANS Rep #: [id number]: 1960 F 57 From: Ander Sawyer MDPCP: Burton Walsh MD Status: REG CLIStudy: SCREENING MAMM (CAD), BIL Date of Exam: 11/18/17Exam# [id number] Ordering Dr: Burton Walsh MDMAMMOGRAPHY - BILATERAL SCREENINGREASON FOR EXAM: Female, 57 years old. Routine annual screeningexamination.P ERTINENT HISTORY: Non-contributory.TECHN IQUE: Digital bilateral breast eron (3D mammographic acquisition) inthe CC and MLO projections. 2-D mediolateral oblique (MLO) and craniocaudad(CC) views of both breasts were obtained. CAD: Full Field DigitalMammography with Computer Added Detection was performed.COMPARISON: Comparison is made with prior outside examination datedOctober 2015. FIND INGS:Breast Composition: The breasts are heterogeneously dense, which mayobscure small masses.There are no dominant masses or suspicious calcifications.No other significant abnormalities are identified. There has been nosignificant change since the prior study. ORD ER #: [id number] HPBI/SCREENING MAMM (CAD), BILATIMPRESSION:Stable bilateral screening mammogram. Yearly follow-up mammogramrecommended. (A) ASSESS MENT CATEGORY:BIRADS Category 1: Negative. A letter regarding these results will besent to the patient by the facility within 30 days.Approximately 10% of breast cancers are not detected by mammography. Anormal mammogram should not delay biopsy of a clinically suspiciousabnormality. [id number] Signed:Ander Sawyer MD at 15:36 EDTT [phone], Service support , [place]: Burton Walsh MD Maternity Floor Supervisor:Paulina Hwang [facility] Hips B/L min 2 views w/ Pelv ruchi 10-16-2017 Hips B/L min 2 views w/ Pelvis [facility] [id number] [place] [address]Qtgi B/L min 2 views w/ PelvisMR#: [id number] Acct: [id number]: BARBIE MEANS Rep #: [id number]: 1960 F 57 From: Wili Rubi MDPCP: Burton Walsh MD Status: REG CLIStudy: Hips B/L min 2 views w/ Pelvis Date of Exam: 10/16/17Exam# [id number] Ordering Dr: Burton Walsh MDSTUDY: X-RAY - PELVIS AND BILATERAL HIPSREASON FOR EXAM: Female, 57 years old. Bilateral hip and low back pain.TECHNIQUE: Radiological exam, hip, bilateral, with pelvis when performed;2 viewsCOMPARISON: None. FIND INGS:There is a non-specific bowel gas pattern. There are phleboliths in thepelvis.There is mild arthrosis of the sacroiliac joints. Normal bilateralsuperior and inferior pubic rami. Normal pubic symphysis. Normal bilateralischial tuberosities.Normal visualized right femoral head. Normal right acetabulum. Normalright hip joint.Normal visualized left femoral head. Normal left acetabulum. Normal lefthip joint. ORD ER #: [id number] RAD/Hips B/L min 2 views w/ PelvisIMPRESSION:Mild arthrosis of the sacroiliac joints.Electronically Signed:Wili Rubi MD at 10:54 [facility] [phone], Service support , [place]: Burton Walsh MD Maternity Floor Supervisor:Paulina pritchard Normal [facility] L/S Spine Min 4 Views09-27 L/S Spine Min 4 Views [facility] [address] [place], [place] [address]E/S Spine Min 4 ViewsMR#: [id number] Acct: [id number]: BARBIE MEANS Rep #: [id number]: 1960 F 57 From: Yahir Mckinney MDPCP: Burton Walsh MD Status: REG CLIStudy: L/S Spine Min 4 Views Date of Exam: 10/16/17Exam# [id number] Ordering Dr: Burton Walsh MDSTUDY: X-RAY - LUMBAR SPINEREASON FOR EXAM: Female, 57 years old. Low back painTECHNIQUE: 5 view(s) of the lumbar spine were obtained.COMPARISON: None FINDI NGS:Disc space narrowing at the L4-5 level. L4-5 and L5-S1 facet disease.Normal alignment. No compression deformities are seen. No pars defectsare seen. Foramina are patent. Pelvic phleboliths. Constipation pattern. O RDER #: [id number] RAD/L/S Spine Min 4 ViewsIMPRESSION:Degene rative disc disease at L4-5. Lower lumbar facet disease.Electronically Signed:Yahir Mckinney MD at 7:22 ESTTel , Service support , [place]: Burton Walsh MD Maternity Floor Supervisor:Paulina Hwang [facility] S-I Jts 3 or More Viewson S-I Jts 3 or More Views [facility] [address] [facility] [place], [place] [address]N-M Jts 3 or More ViewsMR#: [id number] Acct: [id number]: BARBIE MEANS Rep #: [id number]: 1960 F 57 From: Wili Rubi MDPCP: Burton Walsh MD Status: REG CLIStudy: S-I Jts 3 or More Views Date of Exam: 10/16/17Exam# [id number] Ordering Dr: Burton Walsh MDSTUDY: X-RAY - SACROILIAC JOINTSREASON FOR EXAM: Female, 57 years old. Bilateral hip and low back pain.TECHNIQUE: Floor view(s) of the sacroiliac joints were obtained.COMPARISON: None. FIND INGS:There is mild arthrosis of both sacroiliac joints. Normal visualizedsacral ala and sacrum.Normal visualized iliac bones.There are phleboliths in the pelvis. OR CHUCK #: [id number] RAD/S-I Jts 3 or More ViewsIMPRESSION:Mild arthrosis of both sacroiliac joints.No other significant abnormality.Electronic ally Signed:Wili Rubi MD at 10:53 ESTTel , Service support , [place]: Burton Walsh MD Maternity Floor Supervisor:Paulina pritchard Normal [facility] Homocysteineon 09-25-2017 HOMOCYSTEINE 8.0 umol/L Normal 3.2-10.7 [facility] Comment on above: Performed By: #### L 100.0100, L101.9900 ####[facility] [address] [place], [address] DHEA Sulfateon 09-09-2017 DHEA SULF 4020 261.0 ug/dL High 29.4-220.5 [facility] Comment on above: Order Comment: Has Jared hurt had Radioactive Injection for X-ray?: N Performed By: #### L 100.0100, L101.9900 ####[facility] [address] [place], [address] Gliadin AB Prof IGA, IGGon 0 09-09-2017 ANTIGLIADIN IGA 2 units Normal 0-19 [facility] Comment on above: Order Comment: Has Jared hurt had Radioactive Injection for X-ray?: N Result Comment: Nega tive 0 - 19 Weak Positive 20 - 30 Moderate to Strong Positive >30 Performed By: #### L 100.0100, L101.9900 ####[facility] [address] [place], [place], [address] ANTIGLIADIN IGG 3 units Normal 0-19 [facility] Comment on above: Order Comment: Has Jared hurt had Radioactive Injection for X-ray?: N Result Comment: Nega tive 0 - 19 Weak Positive 20 - 30 Moderate to Strong Positive >30 Performed By: #### L 100.0100, L101.9900 ####[facility] [address] [place], [place], [address] Testosterone Freeon 09-09-19 18 TEST FR [id number] 2.3 pg/mL Normal 0.0-4.2 [facility] Comment on above: Order Comment: Has Jared hurt had Radioactive Injection for X-ray?: N Performed By: #### L 100.0100, L101.9900 ####[facility] [address] [place], [place], [address] Thyroid Peroxidase ABon 08-26 TPO AB 6676 37 IU/mL High 0-34 [facility] Comment on above: Order Comment: Has Jared hurt had Radioactive Injection for X-ray?: N Result Comment: Perf ormed at: - [facility] [address] [id number] Director: Driss Rodas PhD, Phone: [phone] at: - [facility] [address] [id number] Director: Yahir Ramires MD, Phone: [phone] Performed By: #### L 100.0100, L101.9900 ####[facility] [address] [place], [place], [address] CBC W/Diff, Automatedon 08-26 Absolute Neut 2.1 X10 3/uL Normal 2.0-7.7 [facility] Comment on above: Performed By: #### L 100.0100, L101.9900 ####[facility] [address] [place], [address] Basophils/100 WBC Auto (Bld) 0.5 % Normal 0-1 [facility] Comment on above: Performed By: #### L 100.0100, L101.9900 ####[facility] [address] [place], [address] Eosinophils/100 WBC Auto (Bld) 6.0 % High 0-5 [facility] Comment on above: Performed By: #### L 100.0100, L101.9900 ####[facility] [address] [place], [address] Erythrocyte distribution width Auto Ratio (RBC) 13.3 % Normal 11.6-14.6 [facility] Comment on above: Performed By: #### L 100.0100, L101.9900 ####[facility] [address] [place], [address] Hematocrit Auto Volume Fraction (Bld) 40.5 % Normal 37-47 [facility] Comment on above: Performed By: #### L 100.0100, L101.9900 ####[facility] [address] [place], [address] Hemoglobin mass conc (Bld) 14.0 g/dL Normal 12.0-15.0 [facility] Comment on above: Performed By: #### L 100.0100, L101.9900 ####[facility] [address] [place], [address] IM GRAN % 0.000 % Normal 0.0-0.9 [facility] Comment on above: Result Comment: IG% - Immature Granulocytes (promyelocytes, myelocytes andmetamyelocytes) > 1% indicates that a LEFT SHIFT is Present. Performed By: #### L 100.0100, L101.9900 ####[facility] [address] [place], [address] Lymphocytes Auto #/vol (Bld) 0.94 X10 3/ul Normal 0.83-4.51 [facility] Comment on above: Performed By: #### L 100.0100, L101.9900 ####[facility] [address] [place], [address] Lymphocytes/100 WBC Auto (Bld) 25.5 % Normal 19-41 [facility] Comment on above: Performed By: #### L 100.0100, L101.9900 ####[facility] [address] [place], [address] MCH Auto Entitic mass (RBC) 33.1 pg High 27.0-32.0 [facility] Comment on above: Performed By: #### L 100.0100, L101.9900 ####[facility] [address] [place], [address] MCHC Auto mass conc (RBC) 34.6 g/gl Normal 32-36 [facility] Comment on above: Performed By: #### L 100.0100, L101.9900 ####[facility] [address] [place], [address] MCV Auto Entitic volume (RBC) 95.7 fL Normal 81-99 [facility] Comment on above: Performed By: #### L 100.0100, L101.9900 ####[facility] [address] [place], [address] Monocytes/100 WBC Auto (Bld) 12.5 % High 0-10 [facility] Comment on above: Performed By: #### L 100.0100, L101.9900 ####[facility] [address] [place], [address] Neutrophils/100 WBC Auto (Bld) 55.5 % Normal 47-70 [facility] Comment on above: Performed By: #### L 100.0100, L101.9900 ####[facility] [address] [place], [address] Platelet mean volume Auto Entitic volume (Bld) 9.4 fL Normal 6.2-12.0 [facility] Comment on above: Performed By: #### L 100.0100, L101.9900 ####[facility] [address] [place], [address] Platelets Auto #/vol (Bld) 280 10*3/uL Normal 150-450 [facility] Comment on above: Performed By: #### L 100.0100, L101.9900 ####[facility] [address] [place], [address] RBC Auto #/vol (Bld) 4.23 M/mm3 Normal 4.2-5.4 [facility] Comment on above: Performed By: #### L 100.0100, L101.9900 ####[facility] [address] [place], [address] RDW SD 45.2 fl High 35.1-43.9 [facility] Comment on above: Performed By: #### L 100.0100, L101.9900 ####[facility] [address] [place], [address] WBC Auto #/vol (Bld) 3.7 10*3/uL Low 4.4-11.0 [facility] Comment on above: Performed By: #### L 100.0100, L101.9900 ####[facility] [address] [place], [address] CRP, High Sensitivity Cardia con 09-06-2017 CRP HIGH SENS 0.18 mg/L Normal [facility] Comment on above: Result Comment: Low Relative Risk of CVD <1.0 mg/L Average Relative Risk of CVD 1.0 - 3.0 mg/L High Relative Risk of CVD >3.0 mg/L Performed By: #### L 500.4100, L501.2200, L501.5200, L501.6750, L501.9310, L501.9520, L3100.5125, L3100.5170, L3300.1750 ####[facility] [address] [place], [address] Calcium,Totalon 09-06-2017 Calcium mass conc 8.9 mg/dL Normal 8.5-10.1 [facility] Comment on above: Performed By: #### L 500.4100, L501.2200, L501.5200, L501.6750, L501.9310, L501.9520, L3100.5125, L3100.5170, L3300.1750 ####[facility] [address] [place], [address] Erythrocyte Sed Rateon 09-06 SED RATE 1 mm/hr Normal 0-30 [facility] Comment on above: Performed By: #### L 100.0100, L101.9900 ####[facility] [address] [place], [address] Estradiolon 09-06-2017 ESTRADIOL 15.3 pg/mL Normal [facility] Comment on above: Result Comment: NORM AL REFERENCE RANGES FEMALE FOLLICULAR 21.4 - 164.8 pg/mL MID-CYCLE PEAK 49.9 - 367.2 pg/mL LUTEAL 40.2 - 259.0 pg/mL POST-MENOPAUSAL ON MHT <11.0 - 462.1 pg/mL NOT ON MHT <11.0 - 58.3 pg/mL MALE <11.0 - 52.5 pg/mLNOTE:[employer] HAS CONFIRMED THE DRUG FULVETRANT (FASLODEX) MAYCAUSE FALSELY ELEVATED ESTRADIOL RESULTS WHEN USING THISTEST METHOD. IF PATIENT IS TAKING FULVESTRANT AN ALTERNATIVEMETHOD SHOULD BE USED TO DETERMINE ESTRADIOL CONCENTRATION. Performed By: #### L 100.0100, L101.9900 ####[facility] [address] [place], [place], [id number] Follicle Stimulating Hormone on 09-06-2017 FSH 105.4 mIU/mL Normal [facility] Comment on above: Result Comment: NORM AL REFERENCE RANGES FEMALE FOLLICULAR 2.3 - 12.6 mIU/mL MID-CYCLE PEAK 5.2 - 17.5 mIU/mL LUTEAL 1.7 - 12.9 mIU/mL POST-MENOPAUSAL ON MHT 5.9 - 72.8 mIU/mL NOT ON MHT 12.7 - 132.2 mlU/mL MALE 0.7 - 10.8 mIU/mLNEW TEST METHOD AND REFERENCE RANGES JANUARY 14, 2012 Performed By: #### L 100.0100, L101.9900 ####[facility] [address] [facility] [place], [place], [phone]) Lipid Profileon 09-06-2017 Cholesterol in HDL mass conc 148 mg/dL Normal [facility] Comment on above: Result Comment: The drugs N-Acetylcysteine and Metamizole may falselydepress this assay. Reference Range HDL <40 mg/dL Low HDL Cholesterol HDL >or= 60 mg/dL High HDL Cholesterol Performed By: #### L 500.4100, L501.2200, L501.5200, L501.6750, L501.9310, L501.9520, L3100.5125, L3100.5170, L3300.1750 ####[facility] [address] [place], [address] Cholesterol in LDL mass conc 122 mg/dL Normal 0-130 [facility] Comment on above: Performed By: #### L 500.4100, L501.2200, L501.5200, L501.6750, L501.9310, L501.9520, L3100.5125, L3100.5170, L3300.1750 ####[facility] [address] [place], [address](884) Cholesterol in VLDL mass conc 10 mg/dL Normal 5-40 [facility] Comment on above: Performed By: #### L 500.4100, L501.2200, L501.5200, L501.6750, L501.9310, L501.9520, L3100.5125, L3100.5170, L3300.1750 ####[facility] [address] [place], [place], [id number] Cholesterol mass conc 280 mg/dL High 200 [facility] Comment on above: Result Comment: <200 mg/dL Desirable 200-240 mg/dL Borderline >240 mg/dL High Risk Performed By: #### L 500.4100, L501.2200, L501.5200, L501.6750, L501.9310, L501.9520, L3100.5125, L3100.5170, L3300.1750 ####[facility] [address] [place], [place], [id number] Triglyceride mass conc 48 mg/dL Normal [facility] Comment on above: Result Comment: The drugs N-Acetylcysteine and Metamizole may falselydepress this assay.Serum Triglycerides Reference Interval Normal <150 mg/dL Borderline high 150 - 199 mg/dL High 200 - 499 mg/dL Very High > or = 500 mg/dL Performed By: #### L 500.4100, L501.2200, L501.5200, L501.6750, L501.9310, L501.9520, L3100.5125, L3100.5170, L3300.1750 ####[facility] [address] [place], [place], [id number] Luteinizing Hormoneon 2017 LH 41.5 mIU/mL Normal [facility] Comment on above: Result Comment: NORM AL REFERENCE RANGES FEMALE FOLLICULAR 1.9 - 26.2 mIU/mL MID-CYCLE PEAK 22.8 - 76.1 mIU/mL LUTEAL 0.6 - 16.6 mIU/mL POST-MENOPAUSAL ON MHT 1.1 - 52.4 mIU/mL NOT ON MHT 8.6 - 61.8 mIU/mL MALE 1.2 - 10.6 mIU/mLNEW TEST METHOD AND REFERENCE RANGES JANUARY 14, 2012 Performed By: #### L 100.0100, L101.9900 ####[facility] [address] [place], [address] Magnesiumon 09-06-2017 Magnesium mass conc 2.2 mg/dL Normal 1.8-2.4 [facility] Comment on above: Performed By: #### L 500.4100, L501.2200, L501.5200, L501.6750, L501.9310, L501.9520, L3100.5125, L3100.5170, L3300.1750 ####[facility] [address] [place], [address] PTHINon 09-06-2017 PTHIN 49.5 pg/mL Normal 18.4-80.1 [facility] Comment on above: Result Comment: Claudia durand Note: PTH INTACT METHOD AND REFERENCE RANGE CHANGEEffective 08/14/2017. Performed By: #### L 509.1000 ####[facility] [address] [place], [address] Progesterone Levelon 018 Protein mass conc 0.42 ng/mL Normal See Comment [facility] Comment on above: Result Comment: Prog esterone Reference Table: UNITS Female: Follicular 0.15 - 1.40 ng/mL Luteal 3.34 - 25.56 ng/mL Mid-luteal 4.44 - 28.03 ng/mL Postmenopausal 0.0 - 0.73 ng/mL : 1st Trimester 11.22 - 90.00 ng/mL 2nd Trimester 25.55 - 89.40 ng/mL 3rd Trimester 48.40 -422.50 ng/mL Performed By: #### L 501.9186, L506.1000, L509.4001 ####[facility] [address] [place], [address] T3 Total - Triiodothyronineo n 09-06-2017 T3 Total 0.84 ng/mL Normal 0.6-1.81 [facility] Comment on above: Performed By: #### L 501.9186, L506.1000, L509.4001 ####[facility] [address] [place], [address] T4 Total, Thyroxinon 018 T4 THYROXIN 5.6 ug/dL Normal 4.8-13.9 [facility] Comment on above: Performed By: #### L 100.0100, L101.9900 ####[facility] [address] [place], [address] Thyroid Stim Hormone (TSH)on 09-06-2017 Thyrotropin Qn 1.68 uIU/mL Normal 0.358-3.74 [facility] Comment on above: Performed By: #### L 100.0100, L101.9900 ####[facility] [address] [place], [address] Vitamin D,25 Hydroxyon 09-06 Vitamin D 25-OH 56.3 ng/mL Normal [facility] Comment on above: Result Comment: Rebecca min D 25(OH) Status Range Deficiency <20 ng/mL (50nmol/L) Insuffciency 20 - 30 ng/mL (50 - 75 nmol/L) Sufficiency 30 - 100 ng/mL (75 - 250 nmol/L) Toxicity >100 ng/mL (>250 nmol/L) Performed By: #### L 501.9186, L506.1000, L509.4001 ####[facility] [address] [place], [address] Vital Signs Date Time Vital Sign Value Performing Clinician Faci lity 04-08-2025 14:58-0400 Body height 157.5 cm Erik Ji MD Work Phone: [facility] 04-08-2025 14:58-0400 Body mass index (BMI) [Ratio] 21.03 kg/m2 Erik Ji MD Work Phone: [facility] 04-08-2025 14:58-0400 Body weight 52.16 kg Erik Ji MD Work Phone: [facility] 04-08-2025 14:58-0400 Diastolic blood pressure 80 mm[Hg] Erik Ji MD Work Phone: [facility] 04-08-2025 14:58-0400 Heart rate 71 /min Erik Ji MD Work Phone: [facility] 04-08-2025 14:58-0400 Systolic blood pressure 123 mm[Hg] Erik Ji MD Work Phone: [facility] 11-28-2024 10:21-0400 Body temperature 97.3 [degF] Betty Moomaw PURCHASING DIRECTOR.MOBILE APPLICATION TESTER Work Phone: [facility] 11-28-2024 10:21-0400 Body weight 52.4 kg Betyt Moomaw PURCHASING DIRECTOR.MOBILE APPLICATION TESTER Work Phone: [facility] 11-28-2024 10:21-0400 Diastolic blood pressure 79 mm[Hg] Betty Moomaw PURCHASING DIRECTOR.MOBILE APPLICATION TESTER Work Phone: [facility] 11-28-2024 10:21-0400 Heart rate 67 /min Betty Moomaw PURCHASING DIRECTOR.MOBILE APPLICATION TESTER Work Phone: [facility] 11-28-2024 10:21-0400 Respiratory rate 18 /min Betty Moomaw PURCHASING DIRECTOR.MOBILE APPLICATION TESTER Work Phone: [facility] 11-28-2024 10:21-0400 SaO2% (BldA) [Mass fraction] 100 % Betty Moomaw PURCHASING DIRECTOR.MOBILE APPLICATION TESTER Work Phone: [facility] 11-28-2024 10:21-0400 Systolic blood pressure 127 mm[Hg] Betty Moomaw PURCHASING DIRECTOR.MOBILE APPLICATION TESTER Work Phone: [facility] 11-09-2024 14:23-0400 Body height 157.5 cm Alma Bernal MD Work Phone: [facility] 11-09-2024 14:23-0400 Body mass index (BMI) [Ratio] 20.85 kg/m2 Alma Bernal MD Work Phone: [facility] 11-09-2024 14:23-0400 Body temperature 97.81 [degF] Alma Bernal MD Work Phone: [facility] 11-09-2024 14:23-0400 Body weight 51.71 kg Alma Bernal MD Work Phone: [facility] 11-09-2024 14:23-0400 Diastolic blood pressure 78 mm[Hg] Alma Bernal MD Work Phone: [facility] 11-09-2024 14:23-0400 Heart rate 82 /min Alma Bernal MD Work Phone: [facility] 11-09-2024 14:23-0400 Respiratory rate 16 /min Alma Bernal MD Work Phone: [facility] 11-09-2024 14:23-0400 SaO2% (BldA) [Mass fraction] 98 % Alma Bernal MD Work Phone: [facility] 11-09-2024 14:23-0400 Systolic blood pressure 131 mm[Hg] Alma Bernal MD Work Phone: [facility] 07-20-2024 13:59-0500 Body mass index (BMI) [Ratio] 20.45 kg/m2 Arminda Pizarro MD Work Phone: [facility] 07-20-2024 13:59-0500 Body weight 50.71 kg Arminda Pizarro MD Work Phone: [facility] 07-20-2024 13:59-0500 Diastolic blood pressure 76 mm[Hg] Arminda Pizarro MD Work Phone: [facility] 07-20-2024 13:59-0500 Heart rate 74 /min Arminda Pizaror MD Work Phone: [facility] 07-20-2024 13:59-0500 Systolic blood pressure 129 mm[Hg] Arminda Pizarro MD Work Phone: [facility] 02-25-2024 14:17-0400 Diastolic blood pressure 78 mm[Hg] Alma Bernal MD Work Phone: [facility] 02-25-2024 14:17-0400 Heart rate 76 /min Alma Bernal MD Work Phone: [facility] 02-25-2024 14:17-0400 Systolic blood pressure 122 mm[Hg] Alma Bernal MD Work Phone: [facility] 02-25-2024 14:07-0400 Body height 157.5 cm Alma Bernal MD Work Phone: [facility] 02-25-2024 14:07-0400 Body mass index (BMI) [Ratio] 20.12 kg/m2 Alma Bernal MD Work Phone: [facility] 02-25-2024 14:07-0400 Body temperature 97.59 [degF] Alma Bernal MD Work Phone: [facility] 02-25-2024 14:07-0400 Body weight 49.9 kg Alma Bernal MD Work Phone: [facility] 02-25-2024 14:07-0400 Respiratory rate 16 /min Alma Bernal MD Work Phone: [facility] 02-25-2024 14:07-0400 SaO2% (BldA) [Mass fraction] 94 % Alma Bernal MD Work Phone: [facility] 08-07-2023 10:54-0500 Body temperature 97.81 [degF] Mandie Asencioler-Ignacio PURCHASING DIRECTOR.MOBILE APPLICATION TESTER Work Phone: [facility] 08-07-2023 10:54-0500 Body weight 51.35 kg Mandie Praisler-Wood PURCHASING DIRECTOR.MOBILE APPLICATION TESTER Work Phone: [facility] 08-07-2023 10:54-0500 Diastolic blood pressure 86 mm[Hg] Mandie Praisler-Ignacio PURCHASING DIRECTOR.MOBILE APPLICATION TESTER Work Phone: [facility] 08-07-2023 10:54-0500 Heart rate 83 /min Mandie Praisler-Wood PURCHASING DIRECTOR.MOBILE APPLICATION TESTER Work Phone: [facility] 08-07-2023 10:54-0500 Respiratory rate 21 /min Mandie Praisler-Wood PURCHASING DIRECTOR.MOBILE APPLICATION TESTER Work Phone: [facility] 08-07-2023 10:54-0500 SaO2% (BldA) [Mass fraction] 99 % Mandie Praisler-Wood PURCHASING DIRECTOR.MOBILE APPLICATION TESTER Work Phone: [facility] 08-07-2023 10:54-0500 Systolic blood pressure 122 mm[Hg] Mandie Praisler-Wood PURCHASING DIRECTOR.MOBILE APPLICATION TESTER Work Phone: [facility] 03-12-2023 09:19-0400 Body mass index (BMI) [Ratio] 19.39 kg/m2 Destiny Zappa PA-C Work Phone: [facility] 03-12-2023 09:19-0400 Body weight 48.08 kg Destiny Zappa PA-C Work Phone: [facility] 03-12-2023 09:19-0400 Diastolic blood pressure 76 mm[Hg] Destiny Zappa PA-C Work Phone: [facility] 03-12-2023 09:19-0400 Heart rate 74 /min Destiny Zappa PA-C Work Phone: [facility] 03-12-2023 09:19-0400 SaO2% (BldA) [Mass fraction] 99 % Destiny Zappa PA-C Work Phone: [facility] 03-12-2023 09:19-0400 Systolic blood pressure 126 mm[Hg] Destiny Zappa PA-C Work Phone: [facility] 01-05-2023 10:57-0400 Body temperature 98.01 [degF] Celina Crawford APRN.MOBILE APPLICATION TESTER Work Phone: [facility] 01-05-2023 10:57-0400 Body weight 49.9 kg Celina Crawford APRN.MOBILE APPLICATION TESTER Work Phone: [facility] 01-05-2023 10:57-0400 Diastolic blood pressure 78 mm[Hg] Celina Crawford APRN.MOBILE APPLICATION TESTER Work Phone: [facility] 01-05-2023 10:57-0400 Heart rate 78 /min Celina Ty PURCHASING DIRECTOR.MOBILE APPLICATION TESTER Work Phone: [facility] 01-05-2023 10:57-0400 Respiratory rate 16 /min Celina Ty PURCHASING DIRECTOR.MOBILE APPLICATION TESTER Work Phone: [facility] 01-05-2023 10:57-0400 SaO2% (BldA) [Mass fraction] 97 % Celina Crawford APRN.MOBILE APPLICATION TESTER Work Phone: [facility] 01-05-2023 10:57-0400 Systolic blood pressure 110 mm[Hg] Celina Ty PURCHASING DIRECTOR.MOBILE APPLICATION TESTER Work Phone: [facility] 07-02-2022 07:39-0500 Body temperature 97.39 [degF] Stella Bogner PA-C Work Phone: [facility] 07-02-2022 07:39-0500 Body weight 49.9 kg Stella Bogner PA-C Work Phone: [facility] 07-02-2022 07:39-0500 Diastolic blood pressure 68 mm[Hg] Stella Bogner PA-C Work Phone: [facility] 07-02-2022 07:39-0500 Heart rate 74 /min Stella Bogner PA-C Work Phone: [facility] 07-02-2022 07:39-0500 Respiratory rate 16 /min Stella Bogner PA-C Work Phone: [facility] 07-02-2022 07:39-0500 SaO2% (BldA) [Mass fraction] 97 % Stella Bogner PA-C Work Phone: [facility] 07-02-2022 07:39-0500 Systolic blood pressure 108 mm[Hg] Stella Bogner PA-C Work Phone: [facility] 05-15-2022 14:18-0400 Diastolic blood pressure 82 mm[Hg] Destiny Zappa PA-C Work Phone: [facility] 05-15-2022 14:18-0400 Systolic blood pressure 147 mm[Hg] Destiny Zappa PA-C Work Phone: [facility] 05-15-2022 13:21-0400 Body mass index (BMI) [Ratio] 20.47 kg/m2 Destiny Zappa PA-C Work Phone: [facility] 05-15-2022 13:21-0400 Body temperature 97.39 [degF] Destiny Zappa PA-C Work Phone: [facility] 05-15-2022 13:21-0400 Body weight 50.76 kg Destiny Zappa PA-C Work Phone: [facility] 05-15-2022 13:21-0400 Heart rate 63 /min Destiny Zappa PA-C Work Phone: [facility] 05-15-2022 13:21-0400 Respiratory rate 14 /min Destiny Zappa PA-C Work Phone: [facility] 05-15-2022 13:21-0400 SaO2% (BldA) [Mass fraction] 100 % Destiny Zappa PA-C Work Phone: [facility] 03-11-2022 09:10-0400 Body temperature 97.2 [degF] Mandie Praisler-Wood PURCHASING DIRECTOR.MOBILE APPLICATION TESTER Work Phone: [facility] 03-11-2022 09:10-0400 Body weight 52.16 kg Mandie Praisler-Wood PURCHASING DIRECTOR.MOBILE APPLICATION TESTER Work Phone: [facility] 03-11-2022 09:10-0400 Diastolic blood pressure 70 mm[Hg] Mandie Praisler-Wood PURCHASING DIRECTOR.MOBILE APPLICATION TESTER Work Phone: [facility] 03-11-2022 09:10-0400 Heart rate 76 /min Mandie Praisler-Wood PURCHASING DIRECTOR.MOBILE APPLICATION TESTER Work Phone: [facility] 03-11-2022 09:10-0400 Respiratory rate 16 /min Mandie Praisler-Wood PURCHASING DIRECTOR.MOBILE APPLICATION TESTER Work Phone: [facility] 03-11-2022 09:10-0400 SaO2% (BldA) [Mass fraction] 97 % Mandie Krishna PURCHASING DIRECTOR.MOBILE APPLICATION TESTER Work Phone: [facility] 03-11-2022 09:10-0400 Systolic blood pressure 108 mm[Hg] Mandie Krishna PURCHASING DIRECTOR.MOBILE APPLICATION TESTER Work Phone: [facility] 02-15-2022 13:56-0400 Diastolic blood pressure 96 mm[Hg] Arminda Pizarro MD Work Phone: [facility] 02-15-2022 13:56-0400 Systolic blood pressure 147 mm[Hg] Arminda Pizarro MD Work Phone: [facility] 02-15-2022 13:55-0400 Body mass index (BMI) [Ratio] 20.34 kg/m2 Arminda Pizarro MD Work Phone: [facility] 02-15-2022 13:55-0400 Body weight 50.44 kg Arminda Pizarro MD Work Phone: [facility] 02-15-2022 13:55-0400 Heart rate 72 /min Arminda Pizarro MD Work Phone: [facility] 02-01-2022 11:13-0400 Body height 157.5 cm Arminda Pizarro MD Work Phone: [facility] 02-01-2022 11:13-0400 Body mass index (BMI) [Ratio] 19.57 kg/m2 Arminda Pizarro MD Work Phone: [facility] 02-01-2022 11:13-0400 Body weight 48.53 kg Arminda Pizarro MD Work Phone: [facility] 02-01-2022 11:13-0400 Diastolic blood pressure 77 mm[Hg] Arminda Pizarro MD Work Phone: [facility] 02-01-2022 11:13-0400 Heart rate 75 /min Arminda Pizarro MD Work Phone: [facility] 02-01-2022 11:13-0400 Systolic blood pressure 129 mm[Hg] Arminda Pizarro MD Work Phone: [facility] 11-14-2021 13:50-0400 Diastolic blood pressure 77 mm[Hg] Destiny Zappa PA-C Work Phone: [facility] 11-14-2021 13:50-0400 Heart rate 73 /min Destiny Zappa PA-C Work Phone: [facility] 11-14-2021 13:50-0400 Systolic blood pressure 169 mm[Hg] Destiny Zappa PA-C Work Phone: [facility] 11-14-2021 12:47-0400 Body height 157.5 cm Nima Montgomery MD Work Phone: [facility] 11-14-2021 12:47-0400 Body mass index (BMI) [Ratio] 19.2 kg/m2 Nima Montgomery MD Work Phone: [facility] 11-14-2021 12:47-0400 Body weight 47.63 kg Nima Montgomery MD Work Phone: [facility] 11-14-2021 12:47-0400 Diastolic blood pressure 78 mm[Hg] Nima Montgomery MD Work Phone: [facility] 11-14-2021 12:47-0400 Heart rate 72 /min Nima Montgomery MD Work Phone: [facility] 11-14-2021 12:47-0400 SaO2% (BldA) [Mass fraction] 98 % Nima Montgomery MD Work Phone: [facility] 11-14-2021 12:47-0400 Systolic blood pressure 124 mm[Hg] Nima Montgomery MD Work Phone: [facility] 10-30-2021 12:08-0500 Body height 158.8 cm Destiny Zappa PA-C Work Phone: [facility] 10-30-2021 12:08-0500 Body mass index (BMI) [Ratio] 19.24 kg/m2 Destiny Zappa PA-C Work Phone: [facility] 10-30-2021 12:08-0500 Body temperature 97.81 [degF] Destiny Zappa PA-C Work Phone: [facility] 10-30-2021 12:08-0500 Body weight 48.49 kg Destiny Zappa PA-C Work Phone: [facility] 10-30-2021 12:08-0500 Diastolic blood pressure 75 mm[Hg] Destiny Zappa PA-C Work Phone: [facility] 10-30-2021 12:08-0500 Heart rate 73 /min Destiny Zappa PA-C Work Phone: [facility] 10-30-2021 12:08-0500 Respiratory rate 16 /min Destiny Zappa PA-C Work Phone: [facility] 10-30-2021 12:08-0500 SaO2% (BldA) [Mass fraction] 98 % Destiny Zappa PA-C Work Phone: [facility] 10-30-2021 12:08-0500 Systolic blood pressure 124 mm[Hg] Destiny Zappa PA-C Work Phone: [facility] 02-01-2021 08:22-0400 Body mass index (BMI) [Ratio] 19.53 kg/m2 Destiny Zappa PA-C Work Phone: [facility] 02-01-2021 08:22-0400 Body temperature 97.81 [degF] Destiny Zappa PA-C Work Phone: [facility] 02-01-2021 08:22-0400 Body weight 48.44 kg Destiny Zappa PA-C Work Phone: [facility] 02-01-2021 08:22-0400 Diastolic blood pressure 84 mm[Hg] Destiny Zappa PA-C Work Phone: [facility] 02-01-2021 08:22-0400 Heart rate 68 /min Destiny Zappa PA-C Work Phone: [facility] 02-01-2021 08:22-0400 Respiratory rate 18 /min Destiny Burt PA-C Work Phone: [facility] 02-01-2021 08:22-0400 SaO2% (BldA) [Mass fraction] 100 % Destiny Burt PA-C Work Phone: [facility] 02-01-2021 08:22-0400 Systolic blood pressure 138 mm[Hg] Destiny Burt PA-C Work Phone: [facility] 05-24-2020 10:01-0400 BP Diastolic 84 mm[Hg] [facility] 05-24-2020 10:01-0400 BP Systolic 140 mm[Hg] [facility] 05-24-2020 10:01-0400 Pulse (Heart Rate) 67 /min [facility] 05-24-2020 09:37-0400 BMI (Body Mass Index) 20.58 kg/m2 [facility] 05-24-2020 09:37-0400 Body Temperature 97.5 [degF] [facility] 05-24-2020 09:37-0400 Body weight 51.03 kg [facility] 05-24-2020 09:37-0400 Height 157.5 cm [facility] 05-24-2020 09:37-0400 Pulse Oximetry 100 % [facility] 05-24-2020 09:37-0400 Respiratory Rate 18 /min [facility] 06-12-2019 11:04-0400 BMI (Body Mass Index) 19.62 kg/m2 [facility] 06-12-2019 11:04-0400 Body Temperature 98.4 [degF] [facility] 06-12-2019 11:04-0400 Body weight 49.44 kg [facility] 06-12-2019 11:04-0400 BP Diastolic 72 mm[Hg] [facility] 06-12-2019 11:04-0400 BP Systolic 113 mm[Hg] [facility] 06-12-2019 11:04-0400 Height 158.8 cm [facility] 06-12-2019 11:04-0400 Pulse (Heart Rate) 71 /min Tegandavid Ortega [facility] 06-12-2019 11:04-0400 Pulse Oximetry 98 % Tegandavid Ortega [facility] 06-12-2019 11:04-0400 Respiratory Rate 16 /min [facility] 01-16-2019 13:48-0400 BMI (Body Mass Index) 20.49 kg/m2 Destiny Burt [facility] 01-16-2019 13:48-0400 Body Temperature 98.2 [degF] Destiny Burt [facility] 01-16-2019 13:48-0400 Body weight 50.8 kg [facility] 01-16-2019 13:48-0400 BP Diastolic 81 mm[Hg] [facility] 01-16-2019 13:48-0400 BP Systolic 121 mm[Hg] [facility] 01-16-2019 13:48-0400 Height 157.5 cm [facility] 01-16-2019 13:48-0400 Pulse (Heart Rate) 66 /min [facility] 01-16-2019 13:48-0400 Pulse Oximetry 98 % [facility] 01-16-2019 13:48-0400 Respiratory Rate 18 /min Destiny Burt [facility] 10-27-2018 09:33-0500 BMI (Body Mass Index) 20.56 kg/m2 Carlee Ruggiero [facility] 10-27-2018 09:33-0500 Body Temperature 97 [degF] Carlee Ruggiero [facility] 10-27-2018 09:33-0500 BP Diastolic 67 mm[Hg] Carlee Ruggiero [facility] 10-27-2018 09:33-0500 BP Systolic 130 mm[Hg] Carlee Ruggiero [facility] 10-27-2018 09:33-0500 Height 157.[address] [facility] 10-27-2018 09:33-0500 Pulse (Heart Rate) 80 /min Carlee [facility]iero [facility] 10-27-2018 09:33-0500 Pulse Oximetry 97 % Carlee Ruggiero [facility] 10-27-2018 09:33-0500 Weight 50.[address] [facility] 10-14-2018 13:16-0500 BMI (Body Mass Index) 19.57 kg/m2 Destiny Burt [facility] 10-14-2018 13:16-0500 Body Temperature 98.91 [degF] [facility] 10-14-2018 13:16-0500 BP Diastolic 72 mm[Hg] [facility] 10-14-2018 13:16-0500 BP Systolic 131 mm[Hg] [facility] 10-14-2018 13:16-0500 Height 157.5 cm [facility] 10-14-2018 13:16-0500 Pulse (Heart Rate) 70 /min [facility] 10-14-2018 13:16-0500 Pulse Oximetry 100 % [facility] 10-14-2018 13:16-0500 Respiratory Rate 18 /min [facility] 10-14-2018 13:16-0500 Weight 48.53 kg [facility] 09-22-2018 13:19-0500 BMI (Body Mass Index) 20.85 kg/m2 [facility] 09-22-2018 13:19-0500 Body Temperature 98.29 [degF] [facility] 09-22-2018 13:19-0500 BP Diastolic 75 mm[Hg] [facility] 09-22-2018 13:19-0500 BP Systolic 118 mm[Hg] [facility] 09-22-2018 13:19-0500 Height 157.5 cm [facility] 09-22-2018 13:19-0500 Pulse (Heart Rate) 71 /min [facility] 09-22-2018 13:19-0500 Pulse Oximetry 98 % [facility] 09-22-2018 13:19-0500 Respiratory Rate 16 /min [facility] 09-22-2018 13:19-0500 Weight 51.71 kg [facility] Encounters Encounter Date Encounter Type Care Provider Facility Start: 04-20-2025 End: 04-21-2025 Refill Alma Bernal MD Work Phone: [facility] Comment on above: Fibromyalgia Start: 04-08-2025 End: 04-08-2025 Office outpatient visit 15 minutes Erik Ji MD Work Phone: [facility] Comment on above: Gastroesophageal ref lux disease, unspecified whether esophagitis present (Primary Dx); Dysphagia, unspecified type Start: 04-08-2025 End: 04-08-2025 ambulatory [facility] Start: 04-08-2025 End: 04-08-2025 Admission to same day surgery center Erik Ji MD Work Phone: [facility] Comment on above: Gastroesophageal ref lux disease, unspecified whether esophagitis present (Primary Dx); Dysphagia, unspecified type Start: 03-31-2025 End: 03-31-2025 Encounter for gynecological examination (general) (routine) without abnormal findings [facility] Start: 03-31-2025 End: 03-31-2025 ambulatory [facility] FRANCIS [facility] Start: 03-17-2025 End: 03-17-2025 Refill Alma Bernal MD Work Phone: [facility] Comment on above: Fibromyalgia Start: 02-03-2025 End: 02-03-2025 ambulatory [facility] Start: 01-25-2025 End: 01-25-2025 Refill Alma Bernal MD Work Phone: [facility] Comment on above: Cluster headache, no t intractable, unspecified chronicity pattern Start: 01-15-2025 End: 01-19-2025 Refill Alma Bernal MD Work Phone: [facility] Comment on above: Fibromyalgia Start: 01-14-2025 End: 01-14-2025 ambulatory [facility] Start: 11-28-2024 End: 11-28-2024 ambulatory UNKNOWN PROVIDER Facility:[facility] Start: 11-28-2024 End: 11-28-2024 Patient encounter procedure Betty hCi APRN.CNP Work Phone: [facility] Comment on above: Bilateral impacted c erumen (Primary Dx) Start: 11-11-2024 End: 11-11-2024 Documentation procedure Alma Bernal MD Work Phone: [facility] Comment on above: Gladys COLON denial Om eprazole Start: 11-10-2024 End: 11-11-2024 Refill Alma Bernal MD Work Phone: [facility] Comment on above: Fibromyalgia Start: 11-09-2024 End: 11-09-2024 Office outpatient visit 25 minutes Alma Bernal MD Work Phone: [facility] Comment on above: At low risk for fall (Primary Dx); Neck pain; Gastroesophageal reflux disease, unspecified whether esophagitis present; Impacted cerumen of both ears; Chronic left-sided low back pain, unspecified whether sciatica present; Irritable bowel syndrome, unspecified type Start: 11-09-2024 End: 11-09-2024 ambulatory ALMA BERNAL [facility] Start: 10-07-2024 End: 10-08-2024 Refill Alma Bernal MD Work Phone: [facility] Comment on above: Hypothyroidism, unsp ecified type Start: 09-11-2024 End: 09-11-2024 Refill Alma Bernal MD Work Phone: [facility] Comment on above: Fibromyalgia Start: 08-06-2024 End: 08-06-2024 Refill Alma Bernal MD Work Phone: [facility] Comment on above: Cluster headache, no t intractable, unspecified chronicity pattern Start: 07-20-2024 End: 07-20-2024 Patient encounter procedure Arminda Pizarro MD Work Phone: [facility] Start: 07-20-2024 End: 07-20-2024 Periodic preventive med est patient 65yrs& older Arminda Pizarro MD Work Phone: [facility]ne[facility] Comment on above: Women's annual routi ne gynecological examination (Primary Dx); Cervical cancer screening; Encounter for screening for human papillomavirus (HPV); Breast cancer screening by mammogram; Ovarian failure due to menopause; Osteopenia after menopause Start: 07-20-2024 End: 07-20-2024 [facility]: 07-20-2024 End: 07-20-2024 Encounter for gynecological examination (general) (routine) without abnormal findings ARMINDA PIZARRO [facility] Start: 02-25-2024 End: 02-25-2024 Initial preventive medicine new patient 40-64yrs Alma Bernal MD Work Phone: [facility] Comment on above: Healthcare maincinthia ce (Primary Dx); Fibromyalgia; Fibromyalgia; Cluster headache, not intractable, unspecified chronicity pattern; Hypothyroidism, unspecified type Start: 02-25-2024 End: 02-25-2024 Patient encounter status Alma Bernal MD Work Phone: [facility] Work Phone: Start: 09-24-2023 Refill Destiny Burt PA -C Work Phone: [facility] Comment on above: Hypothyroidism, unsp ecified type Start: 09-23-2023 Refill Rusty Lemus MD Work Phone: [facility] Comment on above: Fibromyalgia Hypothyroidism, unsp ecified type Start: 08-07-2023 End: 08-07-2023 Patient encounter procedure Mandie Krishna APRN.MARCUS Work Phone: [facility] Comment on above: Burning with urinati on (Primary Dx); Bilateral impacted cerumen Start: 03-29-2023 Refill Destiny Burt PA -C Work Phone: [facility] Comment on above: Fibromyalgia Start: 03-12-2023 ambulatory DESTINY MIGUELITO GARFIELDDARLENE [facility] Start: 03-12-2023 End: 03-12-2023 Patient encounter status Destiny Burt PA-Magdalena Work Phone: [facility] Start: 03-12-2023 End: 03-12-2023 Periodic preventive med est patient 40-64yrs Destiny Zappa PA-C Work Phone: [facility] Comment on above: Screening for heart disease (Primary Dx); Screening for diabetes mellitus; Well adult exam Start: 01-05-2023 End: 01-05-2023 Patient encounter procedure Celina Crawford APRN.MOBILE APPLICATION TESTER Work Phone: [id number] Comment on above: Urgency of urination (Primary Dx) Start: 07-17-2022 End: 07-17-2022 Office outpatient visit 25 minutes Destiny Zappa PA-C Work Phone: [facility] Comment on above: Acute viral syndrome (Primary Dx) Start: 07-10-2022 Refill Destiny Zappa PA -C Work Phone: [facility] Comment on above: Hypothyroidism, unsp ecified type Start: 07-02-2022 End: 07-02-2022 Office outpatient new 30 minutes Stella Urbano PA-C Work Phone: [id number] Comment on above: Acute conjunctivitis of both eyes, unspecified acute conjunctivitis type (Primary Dx); Rhinosinusitis Start: 05-15-2022 End: 05-15-2022 Office outpatient visit 15 minutes Destiny Zappa PA-C Work Phone: [facility] Comment on above: Wrist pain, chronic, right (Primary Dx) Start: 03-11-2022 End: 03-11-2022 Patient encounter procedure Mandie Krishna APRN.MOBILE APPLICATION TESTER Work Phone: [id number] Comment on above: Urinary frequency (P rimary Dx) Start: 02-15-2022 End: 02-15-2022 Office outpatient visit 15 minutes Arminda Pizarro MD Work Phone: [facility]ne[facility] Comment on above: Intramural leiomyoma of uterus (Primary Dx); Body mass index (BMI) of 19.0-19.9 in adult Start: 02-01-2022 End: 02-01-2022 Office outpatient new 30 minutes Destiny Zappa PA-C Work Phone: [facility]ne[facility] Comment on above: Intramural and subse kae leiomyoma of uterus (Primary Dx); Fibroids, intramural; Body mass index (BMI) of 19.0 to 19.9 in adult; Chronic left lower quadrant pain; Bloating; Change in bowel habits Start: 01-07-2022 Refill Destiny Zappa PA -C Work Phone: [facility] Comment on above: Fibromyalgia Start: 01-06-2022 Refill Destiny Zappa PA -C Work Phone: [facility] Comment on above: Cluster headache, no t intractable, unspecified chronicity pattern Start: 12-04-2021 End: 12-04-20[facility] Start: 11-14-2021 End: 11-14-2021 Office outpatient visit 15 minutes Destiny Zappa PA-C Work Phone: [facility] Comment on above: Impacted cerumen of both ears (Primary Dx); Other secondary hypertension Start: 11-14-2021 End: 11-14-2021 Office outpatient new 30 minutes Destiny Zappa PA-C Work Phone: [facility] Comment on above: Diarrhea, unspecifie d type (Primary Dx); Change in bowel habits; Left sided abdominal pain; Nausea Start: 11-04-2021 Refill Destiny Zappa PA -C Work Phone: [facility] Comment on above: Hypothyroidism, unsp ecified type (Primary Dx); Insomnia, unspecified type Start: 10-30-2021 Patient encounter status Destiny Zappa PA-C Work Phone: [facility] Start: 10-30-2021 End: 10-30-2021 Initial preventive medicine new patient 40-64yrs Destiyn Zappa PA-C Work Phone: [facility] Comment on above: Well adult exam (Mayela akhtar Dx); Change in bowel habits; Screening for heart disease; Screening for diabetes mellitus; Encounter for screening for malignant neoplasm of breast, unspecified screening modality; Insomnia, unspecified type; Fibromyalgia Start: 10-04-2021 Refill Destiny Zappa PA -C Work Phone: [facility] Start: 08-31-2021 Refill Destiny Zappa PA -C Work Phone: [facility] Comment on above: Cluster headache, no t intractable, unspecified chronicity pattern Start: 08-08-2021 End: 08-08-2021 Office outpatient visit 15 minutes Destiny Fosspa PA-C Work Phone: [facility] Comment on above: Fibromyalgia (Primar y Dx); Anxiety with depression Start: 04-19-2021 Refill Tegan Lew CNP Work Phone: [facility] Start: 04-07-2021 End: 04-07-2021 Chart abstracting Destiny Zappa PA-C Work Phone: [facility] Start: 02-01-2021 End: 02-01-2021 Office outpatient visit 25 minutes Destiny Zappa PA-C Work Phone: [facility] Comment on above: Dysuria (Primary Dx) ; Fibromyalgia; Spasm of muscle; Rhinitis, unspecified type; Cluster headache, not intractable, unspecified chronicity pattern Start: 11-14-2020 End: 11-14-2020 Patient encounter procedure B[facility]TON WALSH [facility] Start: 10-26-2020 End: 10-26-2020 Orders Only Chrissy Lundberg Work Phone: [facility] Start: 10-17-2020 End: 10-17-2020 Refill Destiny Zappa Work Phone: [facility] Comment on above: Fibromyalgia Start: 08-03-2020 End: 08-03-2020 Subsequent hospital visit by physician Destiny Burt Work Phone: [facility] Comment on above: Encounter for screen ing for malignant neoplasm of breast, unspecified screening modality Postmenopausal Start: 05-24-2020 End: 05-24-2020 Subsequent hospital visit by physician Mayco Jaeger Work Phone: [facility] Comment on above: Chest pain, unspecif ied type Start: 05-24-2020 End: 05-24-2020 Office outpatient visit 25 minutes Mayco Thompsonmarcelina Work Phone: [facility] Comment on above: Chest pain, unspecif ied type (Primary Dx); Blood pressure elevated without history of HTN Start: 11-30-2019 Patient encounter procedure B[facility] WALSH [facility] Start: 07-14-2019 End: 07-15-2019 Patient encounter procedure TEGANDAVID MCCARTY [facility] Start: 07-14-2019 End: 07-14-2019 Subsequent hospital visit by physician Tegandavid Mccarty [facility] Work Phone: [facility] M[facility] Comment on above: Visit for screening mammogram Start: 06-12-2019 End: 06-12-2019 Office outpatient visit 15 minutes [facility] Padminijames Ortega Work Phone: [facility] Comment on above: Insomnia, unspecifie d type; Fatigue, unspecified type Start: 01-16-2019 End: 01-20-2019 Office outpatient visit 15 minutes Destiny Burt Work Phone: [facility] Comment on above: Insomnia, unspecifie d type Start: 12-09-2018 End: 12-09-2018 Patient encounter procedure Provider Not In System [facility] Rad[facility] External Films Comment on above: Arrived Start: 12-08-2018 Patient encounter procedure Destiny Burt Facility:[place] Start: 10-29-2018 End: 10-30-2018 Patient encounter procedure DESTINY BURT [facility] Start: 10-29-2018 End: 10-29-2018 Subsequent hospital visit by physician Destiny Burt Work Phone: [facility] Comment on above: Chest pain, unspecif ied type Start: 10-27-2018 Patient encounter procedure Carlee Ruggiero Facility:[place] Start: 10-27-2018 End: 10-27-2018 Subsequent hospital visit by physician Carlee Ruggiero Work Phone: [facility] Start: 10-27-2018 End: 10-27-2018 Office outpatient visit 15 minutes Destiny Burt Work Phone: [facility] Comment on above: Monocytosis (Primary Dx); Abnormal CBC Start: 10-14-2018 End: 10-14-2018 Office outpatient visit 25 minutes Destiny Burt Work Phone: [facility] Comment on above: Abnormal CBC (Primar y Dx); Insomnia, unspecified type; Eczema, unspecified type Start: 10-06-2018 Patient encounter procedure Destiny Burt Facility:[place] Start: 10-06-2018 End: 10-06-2018 Patient encounter procedure Destiny Javed Work Phone: [facility] Start: 09-29-2018 Patient encounter procedure Destiny Pipoid Facility:[place] Start: 09-29-2018 End: 09-29-[address] [facility] Javed Work Phone: [facility] Start: 09-22-2018 End: 09-22-2018 Office outpatient new 30 minutes Destiny Burt Work Phone: [facility] Comment on above: Upper respiratory tr act infection, unspecified type (Primary Dx); Fibromyalgia; Encounter for screening mammogram for breast cancer; Chronic fatigue; Screening for diabetes mellitus; Screening for heart disease; Other depression; Encounter for hepatitis C screening test for low risk patient Start: 11-18-2017 Patient encounter Burton more:[facility] Start: 10-16-2017 Patient encounter Burton more:[facility] Start: 09-25-2017 Patient encounter CHRISTIE weiss:[facility] Start: 09-06-2017 Patient encounter CHRISTIE weiss:[facility] Procedures Date Procedure Procedure Detail Performing Clinician Start: 03-31-2025 Mammography Erik quick MD Work Phone: Start: 02-03-2025 Colonoscopy Alma cooley MD Work Phone: Start: 03-18-2024 Mammography Arminda rinaldi MD Work Phone: Start: 02-25-2024 Lipid 1996 panel - S donald or Plasma Betty Nils PURCHASING DIRECTOR.MOBILE APPLICATION TESTER Work Phone: Start: 08-07-2023 Urnls dip stick/tabl et rgnt auto w/o microscopy Mandie Krishna APRN.MOBILE APPLICATION TESTER Work Phone: Start: 07-04-2023 Microscopic observat ion [Identifier] in Cervix by Cyto stain Rusty Lemus MD Work Phone: Start: 03-12-2023 Lipid 1996 panel - S donald or Plasma Mandie Krishna APRN.MOBILE APPLICATION TESTER Work Phone: Start: 01-11-2023 Mammography Destiny Fossp a PA-C Work Phone: Start: 01-05-2023 Urnls dip stick/tabl et rgnt auto w/o microscopy Mandie Krishna APRN.[facility] Work Phone: Start: 03-11-2022 Urnls dip stick/tabl et rgnt auto w/o microscopy Celina Crawford APRN.[facility] Work Phone: Start: 12-08-2021 Colonoscopy Destiny Fossp a PA-C Work Phone: Start: 11-14-2021 Mammography Destiny Zapp a PA-C Work Phone: Start: 02-01-2021 Urnls dip stick/tabl et rgnt non-auto w/o micrscp Destiny Zappa PA-C Work Phone: Start: 08-03-2020 Bone density scan Destiny Zappa Work Phone: Start: 08-03-2020 MG Breast - bilatera l screening Destiny Zappa Work Phone: Start: 08-03-2020 Mammography Destiny Zapp a Start: 06-24-2020 Microscopic observat ion [Identifier] in Cervix by Cyto stain Destiny Zapdarlene PA-C Work Phone: Start: 05-24-2020 Standard chest X-ray Na service superintendent Nicolacordell Acosta[place]opol Work Phone: Start: 07-14-2019 MG Breast - bilatera l screening Tegan Ortega Work Phone: Start: 07-14-2019 Mammography Narcis Pap [place] Start: 12-10-2018 Mammography External T ranscribed Start: 10-29-2018 Cv strs tst xers&/or rx cont ecg trcg only Destiny Burt Work Phone: Start: 10-27-2018 Complete blood count with white cell differential, manual Carlee Ruggiero Work Phone: Start: 10-06-2018 Complete blood count with white cell differential, manual Destiny Burt Work Phone: Start: 09-29-2018 Complete blood count with white cell differential, manual Destiny Burt Work Phone: Start: 09-29-2018 Comprehensive metabo lic 2000 panel - Serum or Plasma Destiny Burt Work Phone: Start: 09-29-2018 Lipid 1996 panel - S donald or Plasma Destiny Burt Work Phone: Start: 09-29-2018 Thyrotropin [Units/v olume] in Serum or Plasma by Detection limit <= 0.005 mIU/L Destiny Burt Work Phone: Start: 09-22-2018 Adult depression scr [facility] assessment Provider System Start: 11-18-2017 Mammography Destiny Farooq a Start: 03-14-2016 Microscopic observat ion [Identifier] in Cervix by Cyto stain Destiny Burt Start: 08-26-2013 Colonoscopy Destiny Fossp a Start: 09-21-2011 Mammography Mandie Sinha APRN.CNP Work Phone: Plan of Treatment Date Care Activity Detail Author Start: 02-03-2035 Screening for malignant neoplasm of colon [facility] Start: 2034 Respiratory Syncytial Virus Immunization: Risk, 60-74 Risk, or 75+ (1 - 1-dose 75+ series) Respiratory Syncytial Virus Immunization: Risk, 60-74 Risk, or 75+ (1 - 1-dose 75+ series) [facility] Start: 2034 RSV Vaccine (1 - 1-dose 75+ series) RSV Vaccine (1 - 1-dose 75+ series) [facility] Start: 12-09-2031 Screening for malignant neoplasm of colon [facility] Start: 02-24-2029 Lipid panel Lipid Screening [facility] Start: 07-04-2028 Screening for malignant neoplasm of cervix [facility] Start: 03-12-2028 Lipid panel Lipid Screening [facility] Start: 02-24-2027 Diabetes Screening Diabetes Screening [facility] Start: 07-04-2026 Screening for malignant neoplasm of cervix Pap Smear [facility] Start: 04-24-[address] [facility] Start: 04-24-2026 Urine microalbumin profile DTaP,Tdap,Td Vaccine (6 - T d or Tdap) [facility] Start: 03-31-2026 Screening for malignant neoplasm of breast Mammogram [facility] Start: 03-12-2026 Diabetes Screening Diabetes Screening [facility] Start: 11-05-2025 Fall risk assessment Falls Risk Assessment [facility] Start: 07-27-2025 End: 07-27-2025 Patient encounter procedure 07/27/2025 3:00 PM EST Office Visit [facility] [address] [place] [address] Alma Bernal MD [address] [id number] [facility] Start: 07-26-2025 End: 07-26-[address] [facility] Start: 07-20-2025 History and physical examination, annual for health maintenance Wellness Visit [facility] Start: 06-24-2025 Screening for malignant neoplasm of cervix Pap Smear [facility] Start: 05-20-2025 End: 05-20-2025 Patient encounter procedure 05/20/2025 3:00 PM EDT Office Visit [facility] G[facility]enter[facility] [address] [place] [phone] Erik Ji MD [address] [place] [address] [facility] Start: 04-26-[address] [facility] Start: 04-20-2025 Subsequent hospital visit by physician 04/20/2025 Hospital Encounter [facility] [address] [place] [address] Erik Ji MD [address] [place] [address] [facility] Start: 03-31-2025 End: 03-31-2025 Patient encounter procedure [place] Toni christina Dexa Start: 03-30-2025 End: 03-30-2025 Patient encounter procedure 03/30/2025 3:20 PM EDT Office Visit [facility] [address] [place] [phone] Alma Bernal MD [address] [place] [address] [id number] [facility] Start: 03-18-2025 Screening for malignant neoplasm of breast [facility] Start: 02-25-2025 End: 02-25-2025 Patient encounter procedure 02/25/2025 1:40 PM EDT Office Visit [facility] [address] [place] [phone] Alma Bernal MD [address] [place] [address] [id number] [facility] Start: 02-24-2025 History and physical examination, annual for health maintenance Wellness Visit [facility] Start: 02-03-2025 End: 02-03-2025 Admission to same day surgery center 02/03/2025 10:20 AM EDT - 02/03/2025 10:50 AM EDT Surgery [facility] [address] [place] [address] Erik Ji MD [address] [place] [address] COLONOSCOPY [facility] Comment on above: COLONOSCOPY Start: 02-03-2025 End: 02-03-2025 Colonoscopy flx ablation tumor polyp/other les COLONOSCOPY Lower abdominal pain Chronic diarrhea 02/03/2025 10:20 AM EDT [facility] Start: 02-03-2025 Subsequent hospital visit by physician 02/03/2025 10:20 AM EDT Hospital Encounter [facility] [address] [place] [address] Erik Ji MD [address] [place] [address] [facility] Start: 11-09-2024 End: 11-09-2024 Patient encounter procedure 11/09/2024 2:40 PM EDT Office Visit [facility] [address] [place] [phone] Alma Bernal MD [id number] [facility] Start: 08-26-2024 Advance Directive Discussion Advance Directive Discussion [facility] Start: 07-20-2024 End: 07-20-2025 DXA Skeletal system.axial Views for bone density and vertebral fracture XR Bone Density DEXA Axial and Appendicular Imaging Routine Women's annual routine gynecological examination Ovarian failure due to menopause Osteopenia after menopause Expected: 07/20/2024, Expires: 07/20/2025 [facility] Work Phone: Comment on above: Expected: 07/20/2024, Expires: 5 Start: 07-20-2024 End: 09-19-2025 MG Breast - bilateral Screening Mammography Screening [facility] Bilateral Imaging Routine Women's annual routine gynecological examination Breast cancer screening by mammogram Expected: 07/20/2024, Expires: 09/19/2025 [facility] Comment on above: Expected: 07/20/2024, Expires: 6 Start: 07-04-2024 History and physical examination, annual for health maintenance Wellness Visit [facility] Start: 2024 Fall risk assessment Falls Risk Assessment [facility] Start: 2024 Pneumococcal Vaccine: Age 65+ (1 of 1 - PCV) Pneumococcal Vaccine: Age 65+ (1 of 1 - PCV) [facility] Start: 04-26-2024 COVID-19 Vaccine ( season) COVID-19 Vaccine () [facility] Start: 04-26-2024 COVID-19 Vaccine () COVID-19 Vaccine () [facility] Start: 04-26-2024 Influenza vaccination Influenza Vaccine (#1) [facility] Start: 03-12-2024 History and physical examination, annual for health maintenance Wellness Visit [facility] Start: 02-25-2024 End: 02-25-2024 Patient encounter procedure 02/25/2024 2:20 PM EDT Office Visit [facility] [address] [place] [address] Alma Bernal MD [address] [address] [facility] Start: 01-12-2024 Screening for malignant neoplasm of breast Mammogram [facility] Start: 08-26-[address] [facility] Start: 08-26-2023 Protein mass conc COLONOSCOPY [facility] Start: 08-26-2023 Screening for malignant neoplasm of colon [facility] Start: 06-24-2023 Screening for malignant neoplasm of cervix Pap Smear [facility] Start: 04-26-2023 COVID-19 Vaccine ( season) COVID-19 Vaccine () [facility] Start: 04-26-2023 Influenza vaccination [facility] Start: 01-05-2023 End: 03-07-2023 Bacteria identified in Urine by Culture URINE CULTURE Microbiology Routine Urgency of urination Expected: 01/05/2023, Expires: 03/07/2023 [facility] Work Phone: Comment on above: Expected: 01/05/2023, Expires: Start: 11-14-2022 Screening for malignant neoplasm of breast Mammogram [facility] Start: 10-30-2022 History and physical examination, annual for health maintenance Wellness Visit [facility] Start: 10-02-2022 Depression screening using PHQ-9 (Patient Health Questionnaire 9) score Depression Screening/Follow-Up (PHQ-2/9) [facility] Start: 08-26-2022 DEPRESSION ASSESSMENT DEPRESSION ASSESSMENT [facility] Start: 04-26-[address] [facility] Start: 02-22-2022 Influenza vaccination Sequential Influenza Vaccine (#1) [facility] Comment on above: Postponed from 04/26/2021 (Patient Refus ed) Start: 02-15-2022 End: 02-15-[address] [facility] Start: 02-01-2022 COVID-19 Vaccine (#1) COVID-19 Vaccine (#1) [facility] Comment on above: Postponed from 1964 (Patient Refus ed) Start: 02-01-2022 COVID-19 Vaccine (1) COVID-19 Vaccine (1) [facility] Comment on above: Postponed from 1971 (Patient Refus ed) Postponed from 06/13 (Patient Refused) Start: 02-01-2022 End: 02-01-2023 Transvaginal ultrasonography of pelvis US Transvaginal Imaging Routine Fibroids, intramural Intramural and subserous leiomyoma of uterus Chronic left lower quadrant pain Expected: 02/01/2022, Expires: 02/01/2023 [facility] Work Phone: Comment on above: Expected: 02/01/2022, Expires: Start: 01-09-2022 End: 01-09-2022 Patient encounter procedure 01/09/2022 Office Visit General Surgery Nima Montgomery MD [address] [place] [address] [facility] Start: 12-08-2021 End: 12-08-2021 Admission to same day surgery center 12/08/2021 Surgery Nima Montgomery MD [address] [place] [address] COLONOSCOPY [facility] Comment on above: COLONOSCOPY Start: 12-08-2021 End: 12-08-2021 Colonoscopy [facility] Start: 12-08-2021 Subsequent hospital visit by physician 12/08/2021 Hospital Encounter Nima Montgomery MD [address] [place] [address] [facility] Start: 12-04-2021 End: 12-04-2021 Patient encounter procedure 12/04/2021 Office Visit [place] Nima Downey MD [address] [place] [address] [facility] Assessment [place] Start: 11-14-2021 End: 11-14-2021 [facility] Start: 10-02-2021 End: 10-02-2021 Patient encounter procedure 10/02/2021 Office Visit Primary Care Isabell Phelan, [employer] [address] [place] [address] [facility] Start: 09-29-2021 DIABETES SCREEN DIABETES SCREEN [facility] Start: 08-26-2021 DEPRESSION ASSESSMENT DEPRESSION ASSESSMENT [facility] Start: 08-08-2021 End: 08-08-2021 Patient encounter procedure [facility] Start: 08-03-2021 Screening for malignant neoplasm of breast Mammogram [facility] Start: 08-03-[address] [facility] Start: 06-23-2021 History and physical examination, annual for health maintenance Wellness Visit [facility] Start: 04-26-[address] [facility] Start: 12-28-2020 End: 12-28-2020 Office Visit 12/28/2020 Office Visit Primary Care Destiny Burt PA-C [address] [facility] [address] [place] [address] [phone] [facility] Start: 08-23-2020 End: 08-23-2020 Office Visit 08/23/2020 Office Visit Primary Care Destiny Burt PA-C [address] [address] [phone] [facility] Start: 07-14-[address] [facility] Start: 04-26-2020 Influenza vaccination given Sequential Influenza Vacci ne (#1) [facility] Start: 12-03-2019 Pneumococcal Vaccine: Age 50+ (2 of 2 - PCV) Pneumococcal Vaccine: Age 50+ (2 of 2 - PCV) [facility] Start: 09-22-2019 Depression screening using PHQ-9 (Patient Health Questionnaire 9) score DEPRESSION SCREENING (PHQ9) [facility] Start: 06-30-2019 End: 06-30-2019 Appointment 06/30/2019 Appointment Radiology [facility] Start: 2019 RSV Vaccine (1 - 1-dose 60+ series) RSV Vaccine (1 - 1-dose 60+ series) [facility] Start: 04-26-2019 Influenza vaccination given SEQUENTIAL INFLUENZA VACCI NE (#1) [facility] Start: 03-14-2019 Screening for malignant neoplasm of cervix PAP SMEAR [facility] Start: 01-12-2019 End: 01-12-2019 Office Visit 01/12/2019 Office Visit Primary Care Destiny Burt PA-C [address] [place] [id number] [phone] [facility] Start: 12-22-2018 End: 12-22-2018 Office Visit 12/22/2018 Office Visit Primary Care Destiny Burt PA-C [address] [place] [address] [phone] [facility] Start: 12-08-2018 End: 12-08-2018 Hospital Encounter [facility] Start: 11-18-2018 Protein mass conc Mammogram [facility] Start: 11-18-[address] [facility] Start: 10-29-2018 End: 10-29-2018 Appointment 10/29/2018 Appointment Cardiology Destiny Burt PA-C [address] [place] [address] [phone] [facility] Start: 05-16-2017 Screening for malignant neoplasm of colon Fecal occult blood test (FOBT,FIT) [facility] Start: 04-24-2017 History and physical examination, annual for health maintenance Wellness Visit [facility] Start: 09-21-2012 Mammography MAMMOGRAM [facility] Start: 09-21-2012 Screening for malignant neoplasm of breast Mammogram Screening [facility] Start: 06-25-2011 HPV TESTING HPV TESTING [facility] Start: 06-25-2011 PAP TESTING PAP TESTING [facility] Start: 2009 Administration of herpes zoster vaccine Zoster Vaccines (1 of 2) [facility] Start: 2009 Pneumococcal Vaccine: 50+ (1 of 1 - PCV) Pneumococcal Vaccine: 50+ (1 of 1 - PCV) [facility] Start: 2009 Pneumococcal Vaccine: Age 50+ (1 of 1 - PCV) Pneumococcal Vaccine: Age 50+ (1 of 1 - PCV) [facility] Start: 2009 Screening for malignant neoplasm of colon [facility] Start: 2009 SHINGRIX VACCINE (1 of 2) SHINGRIX VACCINE (1 of 2) [facility] Start: 2004 COLOGUARD (FIT-DNA) COLOGUARD (FIT-DNA) [facility] Start: 2004 Colonoscopy COLONOSCOPY [facility] Start: 2004 COLORECTAL CANCER SCREENING COLORECTAL CANCER SCREENING [facility] Start: [address] COLONOGRAPHY [facility] Start: 2004 FECAL OCCULT BLOOD FECAL OCCULT BLOOD [facility] Start: 2004 LIPID SCREEN LIPID SCREEN [facility] Start: 2004 Screening for malignant neoplasm of colon [facility] Start: 2004 SIGMOIDOSCOPY SIGMOIDOSCOPY [facility] Start: 1978 Urine microalbumin profile DTAP,TDAP,TD (1 - Tdap) [facility] Start: 1977 Anxiety Screening Anxiety Screening [facility] Start: 1977 Depression Screening Depression Screening [facility] Start: 1977 HEPATITIS C SCREENING HEPATITIS C SCREENING [facility] Start: 1977 HIV SCREENING HIV SCREENING [facility] Start: 1977 HIV screening HIV Screening [facility] Start: 1975 COVID-19 Vaccine (1 of 2) COVID-19 Vaccine (1 of 2) [facility] Start: 1971 Adult depression screening assessment DEPRESSION SCREENING [facility] Start: 1964 COVID-19 Vaccine (#1) COVID-19 Vaccine (#1) [facility] Start: 1959 COVID-19 VACCINE (#1) COVID-19 VACCINE (#1) [facility] Start: 1959 Hepatitis C antibody, confirmatory test HEPATITIS C SCREENING [facility] Start: 1959 Screening for malignant neoplasm of colon [facility] Start: 1959 Screening for substance abuse SUBSTANCE ABUSE SCREENIN G (AUDIT-C) [facility] End: 02-01-2022 Bacteria identified in Unspecified specimen by Aerobe culture Urine Aerobic Culture Microbiology Routine Dysuria 1 Occurrences starting 02/01/2021 until 02/01/2022 [facility] Comment on above: 1 Occurrences starting 02/01/2021 until 02/01/2022 Bacteria identified in Unspecified specimen by Aerobe culture Urine Aerobic Culture Microbiology Routine Dysuria 02/01/2021 8:[address] [facility] Bacteria identified in Urine by Culture URINE CULTURE Microbiology Routine Urinary frequency Ordered: 03/11/2022 [facility] Work Phone: Comment on above: Ordered: 03/11/2022 Bacteria identified in Urine by Culture URINE CULTURE Microbiology Routine Burning with urination 08/07/2023 11:50 AM EST [facility] Work Phone: Bone density scan XR Bone Densit y DEXA Axial Imaging Routine Postmenopausal 08/03/2020 1:[address] [facility] End: 09-22-2019 Complete blood count with white cell differential, manual CBC and Differential Routine Screening for diabetes mellitus Screening for heart disease 1 Occurrences starting 09/22/2018 until 09/22/2019 [facility] Comment on above: 1 Occurrences starting 09/22/2018 until 09/22/2019 End: 10-28-2019 Complete blood count with white cell differential, manual CBC and Differential Routine Abnormal CBC 1 Occurrences starting 10/27/2018 until 10/28/2019 [facility] Comment on above: 1 Occurrences starting 10/27/2018 until 10/28/2019 End: 10-30-2022 Complete blood count with white cell differential, manual CBC and Differential Lab Routine Screening for heart disease Screening for diabetes mellitus 1 Occurrences starting 10/30/2021 until 10/30/2022 [facility] Comment on above: 1 Occurrences starting 10/30/2021 until 10/30/2022 End: 07-17-2023 Complete blood count with white cell differential, manual CBC and Differential Lab Routine Acute viral syndrome 1 Occurrences starting 07/17/2022 until 07/17/2023 [facility] Work Phone: Comment on above: 1 Occurrences starting 07/17/2022 until 07/17/2023 End: 09-22-2019 Comprehensive metabolic 2000 panel Comprehensive Metabolic Panel Routine Screening for diabetes mellitus 1 Occurrences starting 09/22/2018 until 09/22/2019 [facility] Comment on above: 1 Occurrences starting 09/22/2018 until 09/22/2019 End: 10-30-2022 Comprehensive metabolic 2000 panel - Serum or Plasma Comprehensive Metabolic Panel Lab Routine Screening for heart disease Screening for diabetes mellitus 1 Occurrences starting 10/30/2021 until 10/30/2022 [facility] Comment on above: 1 Occurrences starting 10/30/2021 until 10/30/2022 End: 02-24-2025 Comprehensive metabolic 2000 panel - Serum or Plasma Comprehensive Metabolic Panel Lab Routine Healthcare maintenance 1 Occurrences starting 02/25/2024 until 02/24/2025 [facility] Comment on above: 1 Occurrences starting 02/25/2024 until 02/24/2025 Comprehensive metabo lic 2000 panel - Serum or Plasma Comprehensive Metabolic Panel Lab Routine Healthcare maintenance 02/25/2024 3:[address] [facility] End: 12-08-2022 Computed tomography of abdomen and pelvis with contrast CT Abdomen Pelvis With Contrast Imaging Routine Change in bowel habits Diarrhea, unspecified type Left sided abdominal pain Nausea 1 Occurrences starting 12/08/2021 until 12/08/2022 [facility] Work Phone: Comment on above: 1 Occurrences starting 12/08/2021 until 12/08/2022 End: 07-17-2023 EBV Antibody Profile (IGG/M,EBNA) EBV Antibody Profile (IGG/M,EBNA) Lab Routine Acute viral syndrome 1 Occurrences starting 07/17/2022 until 07/17/2023 [facility] Comment on above: 1 Occurrences starting 07/17/2022 until 07/17/2023 Esophagogastroduoden oscopy transoral diagnostic ESOPHAGOGASTRODUODENOSCOPY Gastroesophageal reflux disease, unspecified whether esophagitis present Dysphagia, unspecified type [facility] End: 02-24-2025 Hemoglobin A1c/Hemoglobin.total in Blood Hemoglobin A1c Lab Routine Healthcare maintenance 1 Occurrences starting 02/25/2024 until 02/24/2025 [facility] Comment on above: 1 Occurrences starting 02/25/2024 until 02/24/2025 Hemoglobin A1c/Hemoglobin.total in Blood Hemoglobin A1c Lab Routine Healthcare maintenance 02/25/2024 3:[address] [facility] End: 09-22-2019 Hepatitis C antibody measurement Hepatitis C Antibody Routine Encounter for hepatitis C screening test for low risk patient 1 Occurrences starting 09/22/2018 until 09/22/2019 [facility] Comment on above: 1 Occurrences starting 09/22/2018 until 09/22/2019 End: 09-22-2019 Lipid 1996 panel Lipid Panel Routine Screening for heart disease 1 Occurrences starting 09/22/2018 until 09/22/2019 [facility] Comment on above: 1 Occurrences starting 09/22/2018 until 09/22/2019 End: 10-30-2022 Lipid 1996 panel - Serum or Plasma Lipid Panel Lab Routine Screening for heart disease Screening for diabetes mellitus 1 Occurrences starting 10/30/2021 until 10/30/2022 [facility] Work Phone: Comment on above: 1 Occurrences starting 10/30/2021 until 10/30/2022 End: 02-24-2025 Lipid 1996 panel - Serum or Plasma Lipid Panel Lab Routine Healthcare maintenance 1 Occurrences starting 02/25/2024 until 02/24/2025 [facility] Comment on above: 1 Occurrences starting 02/25/2024 until 02/24/2025 Lipid 1996 panel - S donald or Plasma Lipid Panel Lab Routine Healthcare maintenance 02/25/2024 3:[address] [facility] End: 11-21-2019 MG Breast - bilateral screening Mammography Screening Bilateral Routine Encounter for screening mammogram for breast cancer 1 Occurrences starting 09/22/2018 until 11/21/2019 [facility] Comment on above: 1 Occurrences starting 09/22/2018 until 11/21/2019 End: 12-30-2022 MG Breast - bilateral Screening Mammography Screening Bilateral Imaging Routine Encounter For Screening For Malignant Neoplasm Of Breast, Unspecified Screening Modality 1 Occurrences starting 10/30/2021 until 12/30/2022 [facility] Comment on above: 1 Occurrences starting 10/30/2021 until 12/30/2022 Removal impacted cer umen instrumentation unilat REMOVAL OF IMPACTED CERUMEN - INSTRUMENTATION Procedures Routine Bilateral impacted cerumen Ordered: 08/07/2023 [facility] Work Phone: Comment on above: Ordered: 08/07/2023 Standard chest X-ray XR Chest AP /PA and LAT Imaging Routine Chest pain, unspecified type 05/24/2020 11:[address] [facility] End: 07-17-2023 Streptococcus pyogenes [Presence] in Throat by Organism specific culture Strep A Culture, Throat Microbiology Routine Acute viral syndrome 1 Occurrences starting 07/17/2022 until 07/17/2023 [facility] Comment on above: 1 Occurrences starting 07/17/2022 until 07/17/2023 End: 10-30-2022 Thyrotropin [Units/volume] in Serum or Plasma TSH with Reflex Free T4 Lab Routine Screening for heart disease Screening for diabetes mellitus 1 Occurrences starting 10/30/2021 until 10/30/2022 [facility] Comment on above: 1 Occurrences starting 10/30/2021 until 10/30/2022 End: 02-24-2025 Thyrotropin [Units/volume] in Serum or Plasma TSH with Reflex Free T4 Lab Routine Healthcare maintenance 1 Occurrences starting 02/25/2024 until 02/24/2025 [facility] Work Phone: Comment on above: 1 Occurrences starting 02/25/2024 until 02/24/2025 Thyrotropin [Units/v olume] in Serum or Plasma TSH with Reflex Free T4 Lab Routine Healthcare maintenance 02/25/2024 3:[address] [facility] End: 09-22-2019 Thyrotropin Qn TSH with Reflex Free T4 Routine Chronic fatigue 1 Occurrences starting 09/22/2018 until 09/22/2019 [facility] Comment on above: 1 Occurrences starting 09/22/2018 until 09/22/2019 Immunizations Immunization Date Immunization Notes Care Provider Fa cility 09-22-2018 influenza virus vacc ine, unspecified formulation Alma Bernal MD Work Phone: [facility] 04-24-2016 tetanus toxoid, redu lizabeth diphtheria toxoid, and acellular pertussis vaccine, adsorbed Destiny Burt [facility] 02-10-2015 influenza, seasonal, injectable, preservative free Destiny Burt [facility] 02-10-2015 influenza virus vacc ine, unspecified formulation Mandie Krishna APRN.CNP Work Phone: [facility] 04-17-2005 tetanus and diphther ia toxoids, adsorbed, preservative free, for adult use (2 Lf of tetanus toxoid and 2 Lf of diphtheria toxoid) [facility] 02-27-1991 tetanus and diphther ia toxoids, adsorbed, preservative free, for adult use (2 Lf of tetanus toxoid and 2 Lf of diphtheria toxoid) [facility] 07-26-1969 diphtheria, tetanus toxoids and acellular pertussis vaccine [facility] 07-26-1969 trivalent poliovirus vaccine, live, oral [facility] 12-24-1964 measles, mumps and rubella virus vaccine [facility] 08-26-1960 diphtheria, tetanus toxoids and acellular pertussis vaccine [facility] 08-26-1960 trivalent poliovirus vaccine, live, oral [facility] Payers Date Payer Category Payer Private Health Insurance [facility] [id number] 2021 Unknown [id number] [address] [facility] [id number] 2021-Present [address] [place] [address] PPO [id number] 2014 Unknown [id number] 2014 Unknown xxxxxxxxx [id number] 2014 Unknown [id number] 2014 Unknown [id number]. [id number] 1959 Unknown [id number] 2.16.840.1.011489.3.579. 2.902 1959 Unknown [id number] 2.16.840.1.849475.3.579. 2.902 1959 Unknown [id number] 2.16.840.1.321446.3.579. 2.93 1959 Unknown [id number] 2.16.840.1.324853.3.579. 2.93 1959 Unknown [id number] 2.16.840.1.073237.3.579. 2.900 1959 Unknown [id number] 2.16.840.1.318043.3.579. 2.903 1959 Unknown [id number] 2.16.840.1.501808.3.579. 2.903 1959 Unknown [id number] 2.16.840.1.446734.3.579. 2.903 1959 Unknown [id number] 2.16.840.1.174112.3.579. 2.903 1959 Unknown [id number] 2.16.840.1.055483.3.579. 2.903 1959 Unknown [id number] 2.16.840.1.825559.3.579. 2.903 1959 Unknown [id number] 2.16.840.1.206873.3.579. 2.903 1959 Unknown [id number] 2.16.840.1.006758.3.579. 2.903 1959 Unknown [id number] [id number]. 2.903 Social History Date Type Detail Facility Start: 09-22-2018 End: 02-01-2022 Tobacco smoking status NHIS Never smoker [facility] Start: 09-15-2018 End: 05-14-2022 History SDOH Alcohol Std Drinks 1 [facility] Start: 09-15-2018 End: 05-24-2020 History SDOH Alcohol Binge 5 [facility] Start: 1960 Sex Assigned At Not on file O [facility] Start: 06-16-2019 End: 04-20-2025 Alcohol intake Current drinker of alcohol (finding) [facility] Start: 05-24-2020 End: 02-01-2022 Tobacco use and exposure Never used [facility] Start: 10-20-2021 End: 07-17-2022 Exposure to SARS-CoV-2 (event) Not sure [facility] Start: 02-01-2021 End: 05-14-[address] [facility] Start: 05-14-2022 History SDOH Social Connections Phone 98 [facility] Start: 05-14-2022 History SDOH Social Connections Living 3 [facility] Start: 05-14-2022 History SDOH Physica l Activity DPW 7 [facility] Start: 05-14-2022 History SDOH Physica l Activity MPS 6 [facility] Start: 05-14-2022 History SDOH IPV Fear 2 O [facility] Start: 09-22-2018 End: 05-14-2022 Humiliation, Afraid, Rape, and Kick questionnaire [HARK] [facility] Within the last year , have you been afraid of your partner or ex-partner? No [facility] In a typical week, h ow many times do you talk on the telephone with family, friends, or neighbors? Patient refused [facility] Are you now , , , , never or living with a partner? [facility] (I/We) worried wheth er (my/our) food would run out before (I/we) got money to buy more. DK or Refused [facility] Start: 09-22-2018 Gender identity Identifies as female gender (finding) [facility] Start: 09-22-2018 Sexual orientation Heterosexual (chente dwyer) [facility] Clinical Notes 02-01-2021 to 04-21-2025 Telephone Encounter - Cyn Ha LPN - 04/21/2025 7:59 AM EDTTelephone Encounter - Cyn Ha LPN - 04/21/2025 7:59 AM Erik Molina MD - 04/08/2025 3:24 PM EDTAttachments Note Date & Type Note Facility 04-21-2025 Telephone encounter Note Last ov 11/09/24 Next ov 07/27/25 [facility] 04-21-2025 Miscellaneous Notes Last ov 11/09/24 Next ov 07/27/25 documented in this encounter [facility] 04-08-2025 Note Barbie Means 64 y.o. 1960 female Changes since last visit: 64-year-old female had colonoscopy for abdominal pain and chronic diarrhea. Colonoscopy revealed mild diverticulosis no evidence of any colitis seen biopsies from ascending colon was negative. Patient says her bowels are better now. She says she has heartburn and feels difficulty in swallowing and feels sometimes food sticking in the lower part of the neck and sometimes painful swallowing. Patient is taking omeprazole but it is not helping. Denies any weight loss or epigastric pain or black-colored stool. Past Medical History: Past Medical History: Diagnosis Date Abnormal Pap smear of cervix [address] Armenta, DO office note Arthritis of sacroiliac joint 10/17/2017 Burton Walsh M.D. Degenerative disc disease, lumbar 10/17/2017 Burton Walsh M.D.- L3-[address] Armenta, office note Exostosis RIGHT FOOT Facet arthropathy 10/17/2017 Burton Walsh M.D. Fibroid [address] 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 History of stress test 02/2016 AT [facility] WITH NEGATIVE RESULTS Inflammatory bowel disease Insomnia Dr. Mitchell, DO office visit note Migraine 1985 Neck pain Other secondary hypertension 11/14/2021 Overactive bladder Palpitations PONV (postoperative nausea and vomiting) Tachycardia Tremor 07/2016 Dr. Mitchell, DO office visit note Urinary tract infection 1985 Varicella 1964 Family History Problem Relation Age of Onset Prostate cancer Father Coronary artery disease Father Hypertension Father Heart disease Father Cancer Father Stroke Father Urinary tract infection Mother Anxiety Mother Depression Mother Arthritis Mother Info gained from [facility] records Hypertension Mother Parkinson's Maternal Grandfather Coronary artery disease Paternal Grandmother Heart disease Paternal Grandmother Port Matilda's disease Paternal Grandfather Anxiety Sister Depression Sister Hypertension Sister Anxiety Brother Hypertension Brother Post-traumatic stress disorder Daughter Info gained from [facility] records Surgical complications Neg Hx Anesthesia problems Neg Hx Clotting disorder Neg Hx Deep vein thrombosis Neg Hx Pulmonary embolism Neg Hx Diabetes Neg Hx Breast cancer Neg Hx Colon cancer Neg Hx Rectal cancer Neg Hx Osteoporosis Neg Hx Hip fracture Neg Hx Surgical History & Procedures: Past Surgical History: Procedure Laterality Date CERVICAL CONIZATION W/ LASER 1986 SECTION, CLASSIC Info gained from :[facility] Hipolito/Caridad Saunders MD office visit note SECTION, LOW TRANSVERSE 1990 COLONOSCOPY 2012 [place] COLONOSCOPY N/A 12/08/2021 Procedure: COLONOSCOPY WITH BIOPSY; Surgeon: Nima Montgomery MD; [place] [facility] [place] Service: General Surgery COLONOSCOPY N/A 02/03/2025 Procedure: COLONOSCOPY with cold forcep biopsy; Surgeon: Erik Ji MD; [place] [facility]; Service: Gastroenterology; Laterality: N/A; COLPOSCOPY [address] [place] [address]Kristy Lashae Saunders MD office visit note CYST REMOVAL 06/2015 Dr. Rai/Yaneth Jin foot DILATION AND CURETTAGE OF UTERUS 1986 Dr.Kristy Lashae Saunders MD office visit note EXCISION BONE SPUR FOOT Right 2014 Info gained from [facility] records HAND SURGERY Left 06/09/2014 Dr. Vielka Jin ganglion cyst HIND FOOT SOFT TISSUE Right 07/03/2016 Procedure: RIGHT EXCISION MIDFOOT DORSAL EXOSTOSIS, EXCISION GANGLION WITH ANTERIOR TARSAL TUNNEL DECOMPRESSION; Surgeon: Remi Rai DPM; Location: [facility] Main OR; Service: REMOVAL URETHERIAL JARQUIN 1981 Dr.Kristy Lashae Saunders MD office visit note TARSAL TUNNEL RELEASE 07/03/2016 WISDOM TOOTH EXTRACTION 1977 Social History: Social History[1] Current Medications: Current Medications[2] Review of Systems Gastrointestinal: Heartburn and sometimes difficulty in swallowing sometimes painful swallowing Physical Exam No visits with results within 30 Day(s) from this visit. Latest known visit with results is: Admission on 02/03/2025, Discharged on 02/03/2025 Component Date Value Ref Range Status Case Report 02/03/2025 Final Value:Surgical Pathology Report Case: [id number] Authorizing Provider: Erik Ji, Collected: 02/03/2025 10:50 AM Ordering Location: [facility] Surgery Received: 02/03/2025 12:28 PM Center Periop Pathologist: Gabriel Payton IV, MD Specimen: Colon, Ascending, Right Final Diagnosis 02/03/2025 Final Value:A. Colon, Ascending, biopsy: Colonic mucosa with no significant pathologic changes. Clinical Information 02/03/2025 Final Value:Lower abdomina (more content not included)... [facility] 04-08-2025 History of Present illness Narrative Barbie Means 64 y.o. 1960 female Changes since last visit: 64-year-old female had colonoscopy for abdominal pain and chronic diarrhea. Colonoscopy revealed mild diverticulosis no evidence of any colitis seen biopsies from ascending colon was negative. Patient says her bowels are better now. She says she has heartburn and feels difficulty in swallowing and feels sometimes food sticking in the lower part of the neck and sometimes painful swallowing. Patient is taking omeprazole but it is not helping. Denies any weight loss or epigastric pain or black-colored stool. Past Medical History: Past Medical History: Diagnosis Date Abnormal Pap smear of cervix [address] Armenta, DO office note Arthritis of sacroiliac joint 10/17/2017 Burton Walsh M.D. Degenerative disc disease, lumbar 10/17/2017 Burton Walsh M.D.- L3-[address] Armenta, DO office note Exostosis RIGHT FOOT Facet arthropathy 10/17/2017 Burton Walsh M.D. Fibroid [address] 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 History of stress test 02/2016 AT [facility] WITH NEGATIVE RESULTS Inflammatory bowel disease Insomnia Dr. Mitchell, DO office visit note Migraine 1985 Neck pain Other secondary hypertension 11/14/2021 Overactive bladder Palpitations PONV (postoperative nausea and vomiting) Tachycardia Tremor 07/2016 Dr. Mitchell, DO office visit note Urinary tract infection 1985 Varicella 1964 Family History Problem Relation Age of Onset Prostate cancer Father Coronary artery disease Father Hypertension Father Heart disease Father Cancer Father Stroke Father Urinary tract infection Mother Anxiety Mother Depression Mother Arthritis Mother Info gained from [facility] records Hypertension Mother Parkinson's Maternal Grandfather Coronary artery disease Paternal Grandmother Heart disease Paternal Grandmother Port Matilda's disease Paternal Grandfather Anxiety Sister Depression Sister Hypertension Sister Anxiety Brother Hypertension Brother Post-traumatic stress disorder Daughter Info gained from [facility] records Surgical complications Neg Hx Anesthesia problems Neg Hx Clotting disorder Neg Hx Deep vein thrombosis Neg Hx Pulmonary embolism Neg Hx Diabetes Neg Hx Breast cancer Neg Hx Colon cancer Neg Hx Rectal cancer Neg Hx Osteoporosis Neg Hx Hip fracture Neg Hx Surgical History & Procedures: Past Surgical History: Procedure Laterality Date CERVICAL CONIZATION W/ LASER 1986 SECTION, CLASSIC Info gained from :[facility] Hipolito/Caridad Saunders MD office visit note SECTION, LOW TRANSVERSE 1990 COLONOSCOPY 2012 [place] COLONOSCOPY N/A 12/08/2021 Procedure: COLONOSCOPY WITH BIOPSY; Surgeon: Nima Montgomery MD; [place] [facility]; Service: General Surgery COLONOSCOPY N/A 02/03/2025 Procedure: COLONOSCOPY with cold forcep biopsy; Surgeon: Erik Ji MD; [place] [facility]; Service: Gastroenterology; Laterality: N/A; COLPOSCOPY [address] [place] [address]Kristy Lashae Saunders MD office visit note CYST REMOVAL 06/2015 Dr. Rai/Yaneth Jin foot DILATION AND CURETTAGE OF UTERUS 1987 Dr.Kristy Lashae Saunders MD office visit note EXCISION BONE SPUR FOOT Right 2014 Info gained from [facility] records HAND SURGERY Left 06/09/2014 Dr. Pooja-Yaneth Temple ganglion cyst HIND FOOT SOFT TISSUE Right 07/03/2016 Procedure: RIGHT EXCISION MIDFOOT DORSAL EXOSTOSIS, EXCISION GANGLION WITH ANTERIOR TARSAL TUNNEL DECOMPRESSION; Surgeon: Remi Rai DPM; Location: [facility] Main OR; Service: REMOVAL URETHERIAL JARQUIN 1981 Dr.Kristy Lashae Saunders MD office visit note TARSAL TUNNEL RELEASE 07/03/2016 WISDOM TOOTH EXTRACTION 1977 Social History: Social History[1] Current Medications: Current Medications[2] Review of Systems Gastrointestinal: Heartburn and sometimes difficulty in swallowing sometimes painful swallowing Physical Exam No visits with results within 30 Day(s) from this visit. Latest known visit with results is: Admission on 02/03/2025, Discharged on 02/03/2025 Component Date Value Ref Range Status Case Report 02/03/2025 Final Value:Surgical Pathology Report Case: [id number] Authorizing Provider: Erik Ji, Collected: 02/03/2025 10:50 AM Ordering Location: [facility] Surgery Received: 02/03/2025 12:28 PM Center Periop Pathologist: Gabriel Payton IV, MD Specimen: Colon, Ascending, Right Final Diagnosis 02/03/2025 Final Value:A. Colon, Ascending, biopsy: Colonic mucosa with no significant pathologic changes. Clinical Information 02/03/2025 Final Value:Lower abdominal pain [R10.30] Chronic diarrhea [K52.9] Gross Description 02/03/2025 Final Value:A. Received in formalin, designated Colon, Ascending, Biopsy, are 5 wispy pink-cordero fragment(s) of tissue measuring 0.4 x 0.4 x 0.2 cm in aggregate. Totally submitted in 1 cassette(s). JK Gross examination performed at: [facility] - [address] [place] [address] Microscopic Description 02/03/2025 Final Value:Microscopic examination is performed. Assessment & Plan: 64-year-old female complaining of heartburn and sometimes difficulty in swallowing sometimes painful swallowing not relieved with omeprazole. She will need EGD to evaluate which is scheduled for April 20 at 10:30 AM at surgery center. 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 Employer: [employer] Employer: [employer] Tobacco Use Smoking status: Never Smokeless tobacco: Never Vaping Use Vaping status: Never Used Substance and Sexual Activity Alcohol use: Yes Alcohol/week: 7.0 standard drinks of alcohol Types: 7 Glasses of wine per week Drug use: No Sexual activity: Not Currently Partners: Male control/protection: Post-menopausal Social Drivers of Health Financial Resource Strain: Unknown (05/14/2022) Overall Financial Resource Strain (CARDIA) Difficulty of Paying Living Expenses: Patient declined Food Insecurity: Unknown (05/14/2022) Hunger Vital Sign Worried About Running Out of Food in the Last Year: Patient declined Ran Out of Food in the Last Year: Patient declined Transportation Needs: Unknown (05/14/2022) PRAPARE - Transportation Lack of Transportation (Medical): Patient declined Lack of Transportation (Non-Medical): Patient declined Physical Activity: Sufficiently Active (05/14/2022) Exercise Vital Sign Days of Exercise per Week: 7 days Minutes of Exercise per Session: 60 min Stress: Unknown (05/14/2022) [place] [employer] Occup[employer] - Occupational Stress Questionnaire Feeling of Stress : Patient declined Social Connections: Unknown (05/14/2022) Social Connection and Isolation Panel [NHANES] Frequency of Communication with Friends and Family: Patient declined Frequency of Social Gatherings with Friends and Family: Patient declined Attends Oriental Orthodox Services: Patient declined Active Member of Clubs or Organizations: Patient declined Attends Club or Organization Meetings: Patient declined Marital Status: Housing Stability: Unknown (05/14/2022) Housing Stability Vital Sign Unable to Pay for Housing in the Last Year: Patient refused Number of Places Lived in the Last Year: 1 Unstable Housing in the Last Year: Patient refused [2] Current Outpatient Medications Medication Sig Dispense Refill ascorbic acid, vitamin C, (VITAMIN C) 500 MG tablet Take 2 (two) tablets (1,000 mg total) by mouth 4 (four) times a day . cholecalciferol, vitamin D3, 5,000 unit Tab tablet Take 2,000 Units by mouth daily . cinnamon bark (CINNAMON ORAL) Take 1,000 mg by mouth 4 (four) times a day . cyclobenzaprine (FLEXERIL) 10 MG tablet TAKE 1 TABLET BY MOUTH EVERYDAY AT BEDTIME . 30 tablet 0 gluc/msm/C/boron/manganes/prim (JOINT SUPPORT COMPLEX ORAL) Take by mouth . lactobacillus combo no.11 (Probiotic) 15 billion cell CpSP Take by mouth . lysine 500 mg Tab Take 1 (one) tablet (500 mg total) by mouth 5 (five) times a day . magnesium oxide 500 mg cap Take 1 (one) capsule (500 mg total) by mouth 4 (four) times a day . omega-3 fatty acids-vitamin E 1,000 mg cap 8 capsules daily TAKES 1 TABLET Reasons: SUPPLEMENT. prasterone, dhea, 25 mg Tab Take 1 (one) tablet (25 mg total) by mouth daily . proline, bulk, Danielle 1 capsule by Miscellaneous route 3 (three) times a day 667mg capsule . SUMAtriptan (IMITREX) 50 MG tablet Take 1 (one) tablet (50 mg total) by mouth every 2 (two) hours as needed for migraine Max of 200 mg in 24hrs . 10 tablet 1 thyroid (ARMOUR) 30 mg tablet Take 1 (one) tablet (30 mg total) by mouth daily . 90 tablet 1 UNABLE TO FIND Med Name Antronex (helps with sinus drainage) . vit A-vit T-P1-jcsp-herbal 331 900 mcg-90 mg- 20 mcg-5.5 mg cap Take by mouth . vitamin B complex/folic acid (B COMPLEX 100 ORAL) Take 100 mg by mouth 3 (three) times a day . VITAMIN K2 ORAL Take 100 mcg by mouth 2 (two) times a day . dicyclomine (BENTYL) 10 MG capsule Take 1 (one) capsule (10 mg total) by mouth 2 (two) times a day as needed . (Patient not taking: Reported on 04/08/2025 .) 30 capsule 0 omeprazole (PRILOSEC) 40 MG capsule Take 1 (one) capsule (40 mg total) by mouth daily . (Patient not taking: Reported on 02/03/2025 .) 30 capsule 0 No current facility-administered medications for this visit. documented in this encounter [facility] 03-17-2025 Telephone encounter Note Last OV 11/09/24 Next OV 07/27/25 [facility] 03-17-2025 Miscellaneous Notes Last OV 11/09/24 Next OV 07/27/25 documented in this encounter [facility] 01-25-2025 Telephone encounter Note Last OV 11/09/24. Next OV 07/27/25. [facility] 01-25-2025 Miscellaneous Notes Last OV 11/09/24. Next OV 07/27/25. documented in this encounter [facility] 01-19-2025 Telephone encounter Note Last OV 11/09/24 Next OV 07/27/25 [facility] 01-19-2025 Miscellaneous Notes Last OV 11/09/24 Next OV 07/27/25 documented in this encounter [facility] 01-14-2025 Note Barbie Means 64 y.o. 1960 female Reason for Consult: Lower abdominal pain HPI: 64-year-old female with history of depression, fibromyalgia, GERD, Danyell's thyroiditis was referred to me for evaluation of abdominal pain. Patient says she has pain in lower abdomen for some time which is getting bad to worse which is usually sharp in nature it is associated with loose bowel mostly 3-5 times in the morning and then few times in the afternoon it is not associated with any blood or mucus. She had colonoscopy 3 to 4 years ago which according to her was normal. Past Medical History: Past Medical History: Diagnosis Date Abnormal Pap smear of cervix [address] Armenta, DO office note Arthritis of sacroiliac joint 10/17/2017 Burton Waslh M.D. Degenerative disc disease, lumbar 10/17/2017 Burton Walsh M.D.- L3-[address] Armenta, DO office note Exostosis RIGHT FOOT Facet arthropathy 10/17/2017 Burton Walsh M.D. Fibroid [address] 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 History of stress test 02/2016 AT [facility] WITH NEGATIVE RESULTS Insomnia Dr. Mitchell, DO office visit note Migraine 1985 Neck pain Other secondary hypertension 11/14/2021 Overactive bladder Palpitations PONV (postoperative nausea and vomiting) Tachycardia Tremor 07/2016 Dr. Mitchell, DO office visit note Urinary tract infection 1985 Varicella 1964 Family History Problem Relation Age of Onset Urinary tract infection Mother Anxiety Mother Depression Mother Arthritis Mother Info gained from [facility] records Hypertension Mother Prostate cancer Father Coronary artery disease Father Hypertension Father Heart disease Father Cancer Father Stroke Father Parkinson's Maternal Grandfather Coronary artery disease Paternal Grandmother Heart disease Paternal Grandmother [place]ilda's disease Paternal Grandfather Anxiety Sister Depression Sister Hypertension Sister Anxiety Brother Hypertension Brother Post-traumatic stress disorder Daughter Info gained from [facility] records Surgical complications Neg Hx Anesthesia problems Neg Hx Clotting disorder Neg Hx Deep vein thrombosis Neg Hx Pulmonary embolism Neg Hx Diabetes Neg Hx Breast cancer Neg Hx Colon cancer Neg Hx Rectal cancer Neg Hx Surgical History & Procedures: Past Surgical History: Procedure Laterality Date CERVICAL CONIZATION W/ LASER 1986 SECTION, CLASSIC Info gained from :[facility] Hipolito/Caridad Saunders MD office visit note SECTION, LOW TRANSVERSE 1990 COLONOSCOPY 2012 [place] COLONOSCOPY N/A 12/08/2021 Procedure: COLONOSCOPY WITH BIOPSY; Surgeon: Nima Montgomery MD; [place] [facility] Service: General Surgery COLPOSCOPY [address] [place] [address]Kristy Lashae Saunders MD office visit note CYST REMOVAL 06/2015 Dr. Rai/Yaneth Gutierrezist foot DILATION AND CURETTAGE OF UTERUS 1986 Dr.Kristy Lashae Saunders MD office visit note EXCISION BONE SPUR FOOT Right 2014 Info gained from [facility] records HAND SURGERY Left 06/09/2014 Dr. Vora Temple ganglion cyst HIND FOOT SOFT TISSUE Right 07/03/2016 Procedure: RIGHT EXCISION MIDFOOT DORSAL EXOSTOSIS, EXCISION GANGLION WITH ANTERIOR TARSAL TUNNEL DECOMPRESSION; Surgeon: Remi Rai DPM; Location: [facility] Main OR; Service: REMOVAL URETHERIAL JARQUIN 1981 Dr.Kristy Lashae Saunders MD office visit note TARSAL TUNNEL RELEASE 07/03/2016 WISDOM TOOTH EXTRACTION 1977 Social History: Social History[1] Current Medications: Current Medications[2] Review of Systems Constitutional: Negative for appetite change and unexpected weight change. HENT: Negative for voice change. Respiratory: Negative for cough, choking and shortness of breath. Cardiovascular: Negative for chest pain and leg swelling. Gastrointestinal: Positive for abdominal pain and diarrhea. Negative for anal bleeding, blood in stool, constipation, nausea, rectal pain and vomiting. Genitourinary: Negative for hematuria. Musculoskeletal: Negative for arthralgias and joint swelling. Skin: Negative for pallor. Neurological: Negative for dizziness, tremors and weakness. Hematological: Negative for adenopathy. Does not bruise/bleed easily. Psychiatric/Behavioral: Negative for confusion. Physical Exam Constitutional: Appearance: Normal appearance. Eyes: Pupils: Pupils are equal, round, and reactive to light. Cardiovascular: Pulses: Normal pulses. Heart sounds: Normal heart sounds. Pulmonary: Breath sounds: Normal breath sounds. Abdominal: General: Bowel sounds are normal. Palpations: Abdomen is soft. There is no mass. Tenderness: There is no (more content not included)... [facility] 11-28-2024 Note HNO ID: [id number] Author: STACY RODRIGUEZ MA Service: ? Author Type: Sales And Service Change Leader Type: Progress Notes Filed: 11/28/2024 10:58 Note Text: Ambulatory Ear Lavage Pre-treatment: other debrox at home Treatment: Both ears Equipment and Irrigation solution and Volume used: Single use syringe with single use irrigation tip Water Return flow appearance: Cloudy Debris Patient tolerated procedure: yes Tympanic membrane assessment: Tympanic membrane assessed by LIP pre and post procedure Stacy Rodriguez MA [facility] 11-28-2024 History of Present illness Narrative Ambulatory Ear Lavage Pre-treatment: other debrox at home Treatment: Both ears Equipment and Irrigation solution and Volume used: Single use syringe with single use irrigation tip Water Return flow appearance: Cloudy Debris Patient tolerated procedure: yes Tympanic membrane assessment: Tympanic membrane assessed by LIP pre and post procedure Stacy Rodriguez MA This note was created using [employer]. Subjective Barbie Means is a 64 year old female. HPI Patient presents today complaining of bilateral hearing loss due to most likely due to cerumen impaction. She states that about once every 6 months she needs to have her ears flushed. She denies any nausea vomiting fever cough congestion sore throat or ear pain. Review of Systems As above Objective BP 127/79 Pulse 67 Temp 36.3 C (97.3 F) Resp 18 Wt 52.4 kg (115 lb 8.3 oz) LMP 06/04/2006 SpO2 100% Physical Exam Vitals and nursing note reviewed. Constitutional: General: She is not in acute distress. Appearance: Normal appearance. She is not ill-appearing. HENT: Head: Normocephalic. Right Ear: There is impacted cerumen. Left Ear: There is impacted cerumen. Pulmonary: Effort: Pulmonary effort is normal. Musculoskeletal: General: Normal range of motion. Cervical back: Normal range of motion. Skin: General: Skin is warm and dry. Neurological: General: No focal deficit present. Mental Status: She is alert. Psychiatric: Mood and Affect: Mood normal. Behavior: Behavior normal. Assessment and Plan ASSESSMENT/PLAN: 1. Bilateral impacted cerumen - ICD9: 380.4, ICD10: H61.23 Bilateral ears flushed by nursing staff with good results. Patient notes 100% improvement in hearing. No sign of trauma to the ear canal or tympanic membrane Betty Chi APRN.CNP documented in this encounter [facility] 11-28-2024 Note HNO ID: [id number] Author: BETTY CHI APRN.CNP Service: ? Author Type: Nurse Practitioner Type: Progress Notes Filed: 11/28/2024 10:53 Note Text: This note was created using [employer]. Subjective Barbie Means is a 64 year old female. HPI Patient presents today complaining of bilateral hearing loss due to most likely due to cerumen impaction. She states that about once every 6 months she needs to have her ears flushed. She denies any nausea vomiting fever cough congestion sore throat or ear pain. Review of Systems As above Objective BP 127/79 Pulse 67 Temp 36.3 ?C (97.3 ?F) Resp 18 Wt 52.4 kg (115 lb 8.3 oz) LMP 06/04/2006 SpO2 100% Physical Exam Vitals and nursing note reviewed. Constitutional: General: She is not in acute distress. Appearance: Normal appearance. She is not ill-appearing. HENT: Head: Normocephalic. Right Ear: There is impacted cerumen. Left Ear: There is impacted cerumen. Pulmonary: Effort: Pulmonary effort is normal. Musculoskeletal: General: Normal range of motion. Cervical back: Normal range of motion. Skin: General: Skin is warm and dry. Neurological: General: No focal deficit present. Mental Status: She is alert. Psychiatric: Mood and Affect: Mood normal. Behavior: Behavior normal. Assessment and Plan ASSESSMENT/PLAN: 1. Bilateral impacted cerumen - ICD9: 380.4, ICD10: H61.23 Bilateral ears flushed by nursing staff with good results. Patient notes 100% improvement in hearing. No sign of trauma to the ear canal or tympanic membrane Betty Chi APRN.[facility] 11-11-2024 History of Present illness Narrative Documentation received for pt. Provider reviewed and signed. Faxed back to number provided and sent to [facility] to be scanned to chart. documented in this encounter [facility] 11-11-2024 Telephone encounter Note Last OV 11/09/24. Next OV 03/30/25. [facility] 11-11-2024 Miscellaneous Notes Last OV 11/09/24. Next OV 03/30/25. documented in this encounter [facility] 11-09-2024 Instructions Alma Bernal MD - 11/09/2024 2:48 PM EDT STEAD[facility] Low Risk Patient Instructions: Your Falls Screening today shows that you are at low risk for falls. To further protect yourself from falls and maintain your independence, we recommend: 1. Read through the brochure, What You Can Do to Prevent Falls (from [facility]). 2. Go through the brochure, Check for Safety: A Home Fall Prevention Checklist for Older Adults (from [facility]), and make changes as recommended. 3. Join a community falls prevention program: Stepping On, a 7-week evidence based program that teaches balance exercises and fall prevention strategies Casa Chi for older adults, group exercise that teaches Casa Chi forms that reduce fall risk (weight shifting, postural alignment and control, and coordinated movements of the arms, legs, head, and trunk) Matter of Balance, an evidence based program designed to reduce the fear of falling and increase activity levels of older adults OR an exercise class for strength and balance. 4. Take your Vitamin D with or without Calcium, as determined by your healthcare provider. 5. Get your vision and hearing checked annually. Falls At Home Each year, thousands of older Americans fall at home. Many of them are seriously injured, and some are disabled. In 2011, nearly 23,000 people over age 65 and 2.4 million were treated in emergency departments because of falls. Falls are often due to hazards that are easy to overlook but easy to fix. This checklist will help you find and fix those hazards in your home. The checklist asks about hazards found in each room of your home. For each hazard, the checklist tells you how to fix the problem. At the end of the checklist, you ll find other tips for preventing falls. FLOORS: Look at the floor in each room. Q: When you walk through a room, do you have to walk around furniture? A. Ask someone to move the furniture so your path is clear Q: Do you have throw rugs on the floor? A. Remove the rugs or use double-sided tape or a non-slip backing so the rugs won t slip. Q: Are there papers, books, towels, shoes, magazines, boxes, blankets, or other objects on the floor? A.machining and assembly supervisor things that are on the floor. Always keep objects off the floor. Q: Do you have to walk over or around wires or cords (like lamp, telephone, or extension cords)? A. Coil or tape cords and wires next to the wall so you can t trip over them. If needed, have an electrician assistant put in another outlet. STAIRS AND STEPS: Look at the stairs you use both inside and outside your home. Q: Are there papers, shoes, books, or other objects on the stairs? A. machining and assembly supervisor things on the stairs. Always keep objects off stairs. Q: Are some steps broken or uneven? A. Fix loose or uneven steps. Q: Are you missing a light over the stairway? A. Have an electrician assistant put in an overhead light at the top and bottom of the stairs. Q: Do you have only one light switch for your stairs (only at the top or at the bottom of the stairs)? A. Have an electrician assistant put in a light switch at the top and bottom of the stairs. You can get light switches that glow. Q: Has the stairway light bulb burned out? A. Have a friend or family member change the light bulb. Q: Is the carpet on the steps loose or torn? A. Make sure the carpet is firmly attached to every step, or remove the carpet and attach non-slip rubber treads to the stairs. Q: Are the handrails loose or broken? Is there a handrail on only one side of the stairs? A. Fix loose handrails or put in new ones. Make sure handrails are on both sides of the stairs and are as long as the stairs. KITCHEN: Look at your kitchen and eating area. Q: Are the things you use often on high shelves? A. Move items in your cabinets. Keep things you use often on the lower shelves (about waist level). Q: Is your step stool unsteady? A. If you must use a step stool, get one with a bar to hold on to. Never use a chair as a step stool. BATHROOMS: Look at all your bathrooms. Q: Is the tub or shower floor slippery? A. Put a non-slip rubber mat or self-stick strips on the floor of the tub or shower. Q: Do you need some support when you get in and out of the tub or up from the toilet? A. Have grab bars put in next to and inside the tub and next to the toilet. BEDROOMS: Look at all your bedrooms. Q: Is the light near the bed hard to reach? A. Place a lamp close to the bed where it s easy to reach. Q: Is the path from your bed to the bathroom dark? A. Put in a night-light so you can see where you re walking. Some night-lights go on by themselves after dark. Other Things You Can Do to Prevent Falls Do exercises that improve your balance and make your legs stronger. Exercise also helps you feel better and more confident. Have your doctor or pharmacist look at all the medicines you take, even [id number] medicines. Some medicines can make you sleepy or dizzy. Have your eyes checked by an eye doctor at least once a year and update your glasses. Get up slowly after you sit or lie down. Wear shoes both inside and outside the house. Avoid going barefoot or wearing slippers. Improve the lighting in your home. Put in brighter light bulbs. Florescent bulbs are bright and cost less to use. It s safest to have uniform lighting in a room. Add lighting to dark areas. Hang lightweight curtains or shades to reduce glare. Maribel a contrasting color on the top edge of all steps so you can see the stairs better. For example, use a light color paint on dark wood. To access this brochure online, please visit the CDC website at http://www.cdc.gov/steadi/pdf/elio ck_for_safety_brochure-a.pdf Chair Rise Exercise What it does: Strengthens the muscles in your thighs & buttocks. Goal: To do this exercise without using your hands as you become stronger. How to do it: 1. Sit toward the front of a sturdy chair with your knees bent & feet flat on the floor shoulder-width apart 2. Rest your hands lightly on the seat on either side of you, keeping your back & neck straight & and chest slightly forward. 3. Breathe in slowly. Lean forward & feel your weight on the front of your feet. 4. Breathe out and slowly stand up, using your hands as little as possible. 5. Pause for a full breath in & out. 6. Breathe in as you slowly sit down. Do not let yourself collapse back down into the chair. Rather, control your lowering as much as possible. 7. Breathe out. Repeat 10-15 times. If this number is too hard for you when you first start practicing this exercise, begin with fewer and work up to this number. Rest for a minute & then do a final set of 10-15. For detailed instructions, please visit the CDC website at http://www.cdc.gov/steadi/pdf/adrianne ir_rise_exercise-a.pdf Stepping On is an evidence based program proven to reduce falls in older adults. It is a workshop offered once a week for seven weeks. In a small-group setting, you will learn balance exercises and develop specific knowledge and skills to prevent falls. Older adults who should attend are those who: are at risk of falling who have fallen one or more times lives at home are able to walk without the help of another person Local guest experts provide information on exercise, safety, vision, and medications. Classes are offered at [facility]. To find out specifics about a class, please call [phone]. Casa chi: Moving for Better Balance involves low impact exercise. The 12-week class is offered for three hours per week and is led by a trained judo instructor. It is intended for people aged 60 and older. Participants learn and perform a program of eight forms that progress from easy to more difficult. The program can accommodate persons with various physical conditions. Health Benefits of Casa Chi: Moving for Better Balance: Improved social and mental well-being, Improved balance and physical functioning, Improved confidence in conducting daily activities, Reduced risk of falling and sustaining associated injuries, and Maintained independence and improved quality of life. To find a Casa Chi program in your area or additional resources about fall prevention please contact: [facility] Violence and Injury Prevention Program at [phone] or [email or web address] A Matter of Balance: Managing Concerns about Falls is an evidence based program designed to reduce the fear of falling and increase activity levels of older adults. A trained rough patcher leads 8 two-hour sessions for small groups of older adults. The class is intended for people 60 and older who are at risk of falling have a fear of falling or restrict activities who have fallen in the past are interested in improving flexibility, balance, and strength. Participants will learn to view falls as controllable, set goals to increase activity levels, and reduce fall risks at home. Classes are offered in all [address] [place] [address] in [place]. For more information about specific classes near you, please visit http://aging.[place].gov/steadyu/res ources/matterofbalance.aspx. documented in this encounter [facility] 11-09-2024 Note Subjective Patient I D: Barbie Means is a 64 y.o. female here for Chief Complaint Patient presents with Irritable Bowel Syndrome Has been progressively getting worse. Nausea and pain under her rib area Fall Risk Screening After discussing the use of ambient listening and audio recording in generating medical documentation, the patient verbally consented to use of this technology for today's visit. History of Present Illness IBS: She was told that she probably has irritable bowel syndrome. She does have more on the diarrhea side than the other side. She denies any pain with urination. She had a colonoscopy in 2021 normal. She has been experiencing persistent nausea, a symptom she has not previously encountered. She also reports a recurrence of heartburn, which had been absent for several years. The onset of these symptoms was approximately one month ago, with the nausea predating the heartburn. She describes an episode of severe heartburn following the consumption of beef bone broth, during which she experienced a burning sensation with each swallow. She is uncertain if these symptoms are related to her IBS. She reports no presence of blood in her stool. She has not undergone an upper endoscopy but has had a lower endoscopy in the past. She continues to have her gallbladder. She has been managing her heartburn with Wonderbelly chews, which she finds beneficial. Her bowel movements are irregular, often necessitating 3 to 4 visits to the bathroom in the morning. The consistency of her stools varies, ranging from loose and watery to constipated. She underwent a colonoscopy, during which a tortuous colon was identified. A subsequent CT scan revealed significant impacted stool. She was referred to her ELECTRIC TRUCKER due to the presence of a fibroid tumor, which has since shown signs of shrinking. She was diagnosed with IBS. She reports a sensation of incomplete bowel evacuation and occasional pain associated with bowel movements. She has not been adhering to a gluten-free diet as recommended by her doctor for fibromyalgia management, but she does monitor her grain intake and notes a difference when she consumes more grains. She has a preference for spicy foods but acknowledges that her tolerance for such foods has decreased with age. She is not currently taking any fiber supplements. She has been experiencing left-sided back pain for several years, which she describes as a tearing sensation. The pain is particularly severe when she moves in certain ways or leans back on the affected side. She has had to modify her exercise routine due to the pain. She reports no radiation of the pain down her leg. She has a history of sciatica, which was managed by a chiropractor, and was informed that she may have a slipped disc. Supplemental Information She has been using Debrox for her ears. FAMILY HISTORY There are heart issues on her father's side of the family. MEDICATIONS Current: Wonderbelly Past Medical History: Diagnosis Date Abnormal Pap smear of cervix [address] Armenta, DO office note Arthritis of sacroiliac joint 10/17/2017 Burton Walsh M.D. Degenerative disc disease, lumbar 10/17/2017 Burton Walsh M.D.- L3-[address] Armenta, office note Exostosis RIGHT FOOT Facet arthropathy 10/17/2017 Burton Walsh M.D. Fibroid [address] Armenta, office note GERD (gastroesophageal reflux disease) Danyell's thyroiditis 02/2017 Headache MIGRAINES Herpes simplex 06/21/2004 Burton An M.D. History of stress test 02/2016 AT [facility] WITH NEGATIVE RESULTS Insomnia Dr. Mitchell, DO office visit note Migraine 1985 Neck pain Other secondary hypertension 11/14/2021 Overactive bladder Palpitations PONV (postoperative nausea and vomiting) Tachycardia Tremor 07/2016 Dr. Mitchell, DO office visit note Urinary tract infection 1985 Varicella 1964 Past Surgical History: Procedure Laterality Date CERVICAL CONIZATION W/ LASER 1987 SECTION, CLASSIC Info gained from :[facility] Hip[place]ito/Caridad Saunders MD office visit note SECTION, LOW TRANSVERSE 1990 COLONOSCOPY 2012 [place] COLONOSCOPY N/A 12/08/2021 Procedure: COLONOSCOPY WITH BIOPSY; Surgeon: Nima Montgomery MD; [place] [facility] [place] Service: General Surgery COLPOSCOPY [address] [place] [address].Kristy Lashae Saunders MD office visit note CYST REMOVAL 06/2015 Dr. Odalis Jin foot DILATION AND CURETTAGE OF UTERUS 1986 Dr.Kristy Lashae Saunders MD office visit note EXCISION BONE SPUR FOOT Right 2014 Info gained from [facility] records HAND SURGERY Left 06/09/2014 Dr. Vielka Jin ganglion cyst HIND FOOT SOFT TISSUE Right 07/03/2016 Procedure: RIGHT EXCISION MIDFOOT DORSAL EXOSTOSIS, EXCISION GANGLION WITH ANTERIOR TARSAL TUNNEL DECOMPRESSI (more content not included)... [facility] 11-09-2024 History of Present illness Narrative Subjective Patient ID: Barbie Means is a 64 y.o. female here for Chief Complaint Patient presents with Irritable Bowel Syndrome Has been progressively getting worse. Nausea and pain under her rib area Fall Risk Screening After discussing the use of ambient listening and audio recording in generating medical documentation, the patient verbally consented to use of this technology for today's visit. History of Present Illness IBS: She was told that she probably has irritable bowel syndrome. She does have more on the diarrhea side than the other side. She denies any pain with urination. She had a colonoscopy in 2021 normal. She has been experiencing persistent nausea, a symptom she has not previously encountered. She also reports a recurrence of heartburn, which had been absent for several years. The onset of these symptoms was approximately one month ago, with the nausea predating the heartburn. She describes an episode of severe heartburn following the consumption of beef bone broth, during which she experienced a burning sensation with each swallow. She is uncertain if these symptoms are related to her IBS. She reports no presence of blood in her stool. She has not undergone an upper endoscopy but has had a lower endoscopy in the past. She continues to have her gallbladder. She has been managing her heartburn with Wonderbelly chews, which she finds beneficial. Her bowel movements are irregular, often necessitating 3 to 4 visits to the bathroom in the morning. The consistency of her stools varies, ranging from loose and watery to constipated. She underwent a colonoscopy, during which a tortuous colon was identified. A subsequent CT scan revealed significant impacted stool. She was referred to her ELECTRIC TRUCKER due to the presence of a fibroid tumor, which has since shown signs of shrinking. She was diagnosed with IBS. She reports a sensation of incomplete bowel evacuation and occasional pain associated with bowel movements. She has not been adhering to a gluten-free diet as recommended by her doctor for fibromyalgia management, but she does monitor her grain intake and notes a difference when she consumes more grains. She has a preference for spicy foods but acknowledges that her tolerance for such foods has decreased with age. She is not currently taking any fiber supplements. She has been experiencing left-sided back pain for several years, which she describes as a tearing sensation. The pain is particularly severe when she moves in certain ways or leans back on the affected side. She has had to modify her exercise routine due to the pain. She reports no radiation of the pain down her leg. She has a history of sciatica, which was managed by a chiropractor, and was informed that she may have a slipped disc. Supplemental Information She has been using Debrox for her ears. FAMILY HISTORY There are heart issues on her father's side of the family. MEDICATIONS Current: Wonderbelly Past Medical History: Diagnosis Date Abnormal Pap smear of cervix [address] Armenta, DO office note Arthritis of sacroiliac joint 10/17/2017 Burton Walsh M.D. Degenerative disc disease, lumbar 10/17/2017 Burton Walsh M.D.- L3-[address] Armenta, office note Exostosis RIGHT FOOT Facet arthropathy 10/17/2017 Burton Walsh M.D. Fibroid [address] 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 History of stress test 02/2016 AT [facility] WITH NEGATIVE RESULTS Insomnia Dr. Mitchell, DO office visit note Migraine 1985 Neck pain Other secondary hypertension 11/14/2021 Overactive bladder Palpitations PONV (postoperative nausea and vomiting) Tachycardia Tremor 07/2016 Dr. Mitchell, DO office visit note Urinary tract infection 1985 Varicella 1964 Past Surgical History: Procedure Laterality Date CERVICAL CONIZATION W/ LASER 1986 SECTION, CLASSIC Info gained from :[facility] Hip[place]ito/Caridad Saunders MD office visit note SECTION, LOW TRANSVERSE 1990 COLONOSCOPY 2012 [place] COLONOSCOPY N/A 12/08/2021 Procedure: COLONOSCOPY WITH BIOPSY; Surgeon: Nima Montgomery MD; [place] [facility] [place]; Service: General Surgery COLPOSCOPY [address] [place] [address].Kristy Lashae Saunders MD office visit note CYST REMOVAL 06/2015 Dr. Rai/Yaneth Jin foot DILATION AND CURETTAGE OF UTERUS 1986 Dr.Kristy Lashae Saunders MD office visit note EXCISION BONE SPUR FOOT Right 2014 Info gained from [facility] records HAND SURGERY Left 06/09/2014 Dr. Vielka Jin ganglion cyst HIND FOOT SOFT TISSUE Right 07/03/2016 Procedure: RIGHT EXCISION MIDFOOT DORSAL EXOSTOSIS, EXCISION GANGLION WITH ANTERIOR TARSAL TUNNEL DECOMPRESSION; Surgeon: Remi Rai DPM; Location: [facility] OR; Service: REMOVAL URETHERIAL JARQUIN 1981 Dr.Kristy Lashae Saunders MD office visit note TARSAL TUNNEL RELEASE 07/03/2016 WISDOM TOOTH EXTRACTION 1978 Family History Problem Relation Age of Onset Prostate cancer Father Coronary artery disease Father Hypertension Father Heart disease Father Cancer Father Stroke Father Urinary tract infection Mother Anxiety Mother Depression Mother Arthritis Mother Info gained from [facility] records Hypertension Mother Anxiety Sister Depression Sister Hypertension Sister Anxiety Brother Hypertension Brother Parkinson's Maternal Grandfather Coronary artery disease Paternal Grandmother Heart disease Paternal Grandmother Port Matilda's disease Paternal Grandfather Post-traumatic stress disorder Daughter Info gained from [facility] records Surgical complications Neg Hx Anesthesia problems Neg Hx Clotting disorder Neg Hx Deep vein thrombosis Neg Hx Pulmonary embolism Neg Hx Diabetes Neg Hx Breast cancer Neg Hx Social History Tobacco Use Smoking status: Never Smokeless tobacco: Never Vaping Use Vaping status: Never Used Substance Use Topics Alcohol use: Yes Alcohol/week: 7.0 standard drinks of alcohol Types: 7 Glasses of wine per week Drug use: No Review of Systems Vitals: 11/09/24 1423 BP: 131/78 BP Location: Right arm Patient Position: Sitting BP Cuff Size: Adult Pulse: 82 Resp: 16 Temp: 97.8 F (36.6 C) TempSrc: Temporal SpO2: 98% Weight: 51.7 kg (114 lb) Height: 5' 2 Estimated body mass index is 20.85 kg/m as calculated from the following: Height as of this encounter: 5' 2. Weight as of this encounter: 51.7 kg (114 lb). Physical Exam Constitutional: General: She is not in acute distress. Appearance: She is not ill-appearing. HENT: Head: Normocephalic and atraumatic. Right Ear: Tympanic membrane, ear canal and external ear normal. Left Ear: Tympanic membrane, ear canal and external ear normal. Nose: Nose normal. Mouth/Throat: Mouth: Mucous membranes are moist. Pharynx: Oropharynx is clear. No oropharyngeal exudate or posterior oropharyngeal erythema. Eyes: Extraocular Movements: Extraocular movements intact. Conjunctiva/sclera: Conjunctivae normal. Pupils: Pupils are equal, round, and reactive to light. Cardiovascular: Rate and Rhythm: Normal rate and regular rhythm. Pulses: Normal pulses. Heart sounds: Normal heart sounds. No murmur heard. No gallop. Pulmonary: Effort: Pulmonary effort is normal. Breath sounds: Normal breath sounds. No wheezing, rhonchi or rales. Chest: Chest wall: No tenderness. Abdominal: General: Abdomen is flat. Bowel sounds are normal. There is no distension. Palpations: Abdomen is soft. There is no mass. Tenderness: There is abdominal tenderness (LLQ). There is no right CVA tenderness, left CVA tenderness, guarding or rebound. Musculoskeletal: General: Tenderness (over the lt paraspinal lumbar ms and mild spasm on the parallel lt side as well) present. Normal range of motion. Cervical back: Normal range of motion and neck supple. No rigidity. No muscular tenderness. Right lower leg: No edema. Left lower leg: No edema. Comments: Negative straight leg raise test Lymphadenopathy: Cervical: No cervical adenopathy. Skin: General: Skin is warm. Findings: No erythema or rash. Neurological: General: No focal deficit present. Mental Status: She is alert and oriented to person, place, and time. Sensory: No sensory deficit. Motor: No weakness. Gait: Gait normal. Psychiatric: Mood and Affect: Mood normal. Behavior: Behavior normal. Thought Content: Thought content normal. Judgment: Judgment normal. OARRS/NARxCHECK Report Received and Assessed: Date controlled substance agreement signed: No data found Date of last drug screen: PHQ9: [id number] Tobacco Counseling: Counseling given: Not Answered Reviewed by Provider: Patient's Medications New Prescriptions OMEPRAZOLE (PRILOSEC) 40 MG CAPSULE Take 1 (one) capsule (40 mg total) by mouth daily . Previous Medications ASCORBIC ACID, VITAMIN C, (VITAMIN C) 500 MG TABLET Take 2 (two) tablets (1,000 mg total) by mouth 4 (four) times a day . CHOLECALCIFEROL, VITAMIN D3, 5,000 UNIT TAB TABLET Take 2,000 Units by mouth daily . CINNAMON BARK (CINNAMON ORAL) Take 1,000 mg by mouth 4 (four) times a day . CYCLOBENZAPRINE (FLEXERIL) 5 MG TABLET TAKE 1 TABLET BY MOUTH EVERYDAY AT BEDTIME . GLUC/MSM/C/BORON/MANGANES/PRIM (JOINT SUPPORT COMPLEX ORAL) Take by mouth . LACTOBACILLUS COMBO NO.11 (PROBIOTIC) 15 BILLION CELL CPSP Take by mouth . LYSINE 500 MG TAB Take 1 (one) tablet (500 mg total) by mouth 5 (five) times a day . MAGNESIUM OXIDE 500 MG CAP Take 1 (one) capsule (500 mg total) by mouth 4 (four) times a day . OMEGA-3 FATTY ACIDS-VITAMIN E 1,000 MG CAP 8 capsules daily TAKES 1 TABLET Reasons: SUPPLEMENT. PRASTERONE, DHEA, 25 MG TAB Take 1 (one) tablet (25 mg total) by mouth daily . PROLINE, BULK, DANIELLE 1 capsule by Miscellaneous route 3 (three) times a day 667mg capsule . SUMATRIPTAN (IMITREX) 50 MG TABLET Take 1 (one) tablet (50 mg total) by mouth every 2 (two) hours as needed for migraine Max of 200 mg in 24hrs . THYROID (ARMOUR) 30 MG TABLET Take 1 (one) tablet (30 mg total) by mouth daily . UNABLE TO FIND Med Name Antronex (helps with sinus drainage) . VIT A-VIT Y-K0-BRVI-HERBAL 331 900 MCG-90 MG- 20 MCG-5.5 MG CAP Take by mouth . VITAMIN B COMPLEX/FOLIC ACID (B COMPLEX 100 ORAL) Take 100 mg by mouth 3 (three) times a day . VITAMIN K2 ORAL Take 100 mcg by mouth 2 (two) times a day . Modified Medications No medications on file Discontinued Medications No medications on file Health Maintenance Due Topic Date Due Pneumococcal Vaccine: Age 50+ (1 of 1 - PCV) Never done Depression Screening/Follow-Up (PHQ-2/9) 10/02/2022 Influenza Vaccine (1) 04/26/2024 COVID-19 Vaccine ( - 2023- season) Never done Assessment & Plan Problem List Items Addressed This Visit Digestive GERD (gastroesophageal reflux disease) Relevant Medications omeprazole (PRILOSEC) 40 MG capsule IBS (irritable bowel syndrome) Nervous and Auditory Impacted cerumen of both ears Other Neck pain Low back pain Other Visit Diagnoses At low risk for fall - Primary Assessment & Plan Assessment & Plan 1. Nausea. The nausea is a new symptom that has been occurring frequently. It is not associated with specific foods and has been present for over a month. If the nausea persists, further evaluation will be considered. 2. Acid reflux. The patient reports experiencing heartburn and acid reflux, particularly after consuming certain foods like beef bone broth. This has been occurring for the past month. She is advised to avoid spicy foods and other potential irritants. A prescription for omeprazole will be provided for a duration of 2 to 4 weeks. If the omeprazole does not alleviate the symptoms, a referral to a smooth and burr worker composites for a second opinion and potential endoscopy will be considered. 3. Irritable bowel syndrome (IBS). The patient's IBS symptoms include alternating diarrhea and constipation, with a recent episode of feeling constipated. She reports a sensation of incomplete bowel evacuation and occasional pain associated with bowel movements. She has not been adhering to a gluten-free diet as recommended by her doctor for fibromyalgia management, but she does monitor her grain intake and notes a difference when she consumes more grains. She is advised to incorporate fiber supplements into her diet, starting with a daily dose and adjusting as necessary. Different versions of fiber supplements like psyllium or Benefiber can be tried to see which one is more effective and comfortable for her. If the fiber supplements do not provide relief, a repeat CT scan may be considered to rule out colitis or other inflammatory conditions. 4. Left-sided back pain. The patient reports chronic left-sided back pain that worsens with certain movements and positions. The pain does not radiate down the legs, suggesting it is not sciatica. Physical therapy and stretching exercises are recommended. She is also advised to consider massage therapy through her chiropractor and the use of topical Voltaren gel for pain relief. If these interventions do not alleviate the pain, imaging studies and a formal physical therapy evaluation will be considered. Follow-up The patient is scheduled for a follow-up visit on 03/30/2025 at 3:20 PM. PROCEDURE The patient underwent a colonoscopy, during which a tortuous colon was identified. Return for Annual Exam can be on 03/30 at 3:20 PM. My ongoing relationship with Barbie Means requires continued responsibility and cognitive effort of being the focal point for all services related to chronic condition(s). ALMA BERNAL MD [place] [id number] [facility] [address] [facility] [id number] Dept: [phone] documented in this encounter [facility] 10-08-2024 Telephone encounter Note Last OV 02/25/24. Next OV 11/09/24. [facility] 10-08-2024 Miscellaneous Notes Last OV 02/25/24. Next OV 11/09/24. documented in this encounter [facility] 09-11-2024 Telephone encounter Note LAST OV 02/25/24. NEXT OV SCHEDULED FOR 02/25/25. [facility] 09-11-2024 Miscellaneous Notes LAST OV 02/25/24. NEXT OV SCHEDULED FOR 02/25/25. documented in this encounter [facility] 08-06-2024 Telephone encounter Note Last OV 02/25/24. Next OV 02/25/25. [facility] 08-06-2024 Miscellaneous Notes Last OV 02/25/24. Next OV 02/25/25. documented in this encounter [facility] 07-20-2024 History of Present illness Narrative ANNUAL EXAM Patient Name: Barbie Means : 1960 MR #: [id number] SUBJECTIVE: Barbie Means is a 64 y.o. here for an annual exam today. Patient's last Pap smear was in June 2023. Patient's Pap smear was normal negative for HPV. Patient recently finalized her divorce in July 2023. Patient states she has not had any new sexual partner since undergoing her divorce. Discussed with patient that per ASCCP guidelines she does not need a Pap smear ever again due to the fact that she is now over the age of 65 although we would recommend one if she does have any new partners. Patient's last mammogram was in February 2024. Discussed and taught self breast exams. Recommend yearly screening mammogram. Patient had a bone density done in July 2020. Recommended bone density every 2 years. Recommend at least 30 minutes 3-5 times per week of weightbearing exercise for bone health. Recommended calcium and vitamin D supplementation for bone health. Patient states that she did not get the bone density done last year as it would have been very expensive with her deductible. Patient is current on screening colonoscopy. Patient's last colonoscopy was in November 2021. Patient denies any questions or concerns today. Follow-up in 1 year or as needed. Her last pap was approximate date June 2023 and was normal. She is currently using contraception. She uses menopause. She is not currently sexually active. Denies sexual abuse. Denies physical abuse. Denies mental abuse. 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 Denies a history of abnormal cervical cytology Past Medical History History - Past Medical History Past Medical History: Diagnosis Date Abnormal Pap smear of cervix [address] Armenta, DO office note Arthritis of sacroiliac joint (HCC) 10/17/2017 Burton Walsh M.D. Degenerative disc disease, lumbar 10/17/2017 Burton Walsh M.D.- L3-[address] Armenta, DO office note Exostosis RIGHT FOOT Facet arthropathy 10/17/2017 Burton Walsh M.D. Fibroid [address] 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 History of stress test 02/2016 AT [facility] WITH NEGATIVE RESULTS Insomnia Dr. Mitchell, DO office visit note Migraine 1985 Neck pain Other secondary hypertension 11/14/2021 Overactive bladder Palpitations PONV (postoperative nausea and vomiting) Tachycardia Tremor 07/2016 Dr. Mitchell, DO office visit note Urinary tract infection 1985 Varicella 1964 Past Surgical History has a past surgical history that includes REMOVAL URETHERIAL JARQUIN (1981); Dilation and curettage of uterus (1986); CONE BIOPSY (1986); Hand surgery (Left, 06/09/2014); Hind Foot Soft Tissue (Right, 07/03/2016); Tarsal Tunnel Release (07/03/2016); Cyst Removal (06/2015); [place] tooth extraction (1977); Colonoscopy (2012); Excision Bone Spur Foot (Right, 2014); section, classic; Colonoscopy (N/A, 12/08/2021); Colposcopy (2021); Cervical conization w/ laser (1986); and section, low transverse (1990). Family History Her family history includes Anxiety in her brother, mother, and sister; Arthritis in her mother; Cancer in her father; Coronary artery disease in her father and paternal grandmother; Depression in her mother and sister; Heart disease in her father and paternal grandmother; [place]'s disease in her paternal grandfather; Hypertension in her brother, father, mother, and sister; Parkinson's in her maternal grandfather; Post-traumatic stress disorder in her daughter; Prostate cancer in her father; Stroke in her father; Urinary tract infection in her mother. Medications She has a current medication list which includes the following prescription(s): ascorbic acid (vitamin c), cholecalciferol (vitamin d3), cinnamon bark, cyclobenzaprine, gluc/msm/c/boron/manganes/prim, probiotic, lysine, magnesium oxide, omega-3 fatty acids-vitamin e, prasterone (dhea), proline (bulk), sumatriptan, thyroid, UNABLE TO FIND, vit a-vit [id number]-[id number]-herbal 331, vitamin b complex/folic acid, and vitamin k2. Allergies She is allergic to promethazine, bactrim [sulfamethoxazole-trimethoprim], cat dander, dog dander, dust [house dust], grass pollen, sulfa (sulfonamide antibiotics), and sulfasalazine. Social History She reports that she has never smoked. She has never used smokeless tobacco. She reports current alcohol use of about 7.0 standard drinks of alcohol per week. She reports that she does not use drugs. Counseling given: Not Answered reports that she has never smoked. She has never used smokeless tobacco. Health maintenance: Mammogram: 02/2024 Colonoscopy: 2021 Dexa: 2019 Lipid screening: Follows with PCP OBJECTIVE: Body mass index is 20.45 kg/m . Vitals Vitals: 07/20/24 1359 BP: 129/76 Pulse: 74 Weight: 50.7 kg (111 lb 12.8 oz) Physical Examination: Physical Exam Constitutional: General: She is not in acute distress. Appearance: Normal appearance. She is normal weight. She is not ill-appearing. HENT: Head: Normocephalic. Nose: Nose normal. Eyes: Extraocular Movements: Extraocular movements intact. Cardiovascular: Rate and Rhythm: Normal rate and regular rhythm. Heart sounds: No murmur heard. Pulmonary: Effort: Pulmonary effort is normal. No respiratory distress. Breath sounds: Normal breath sounds. No wheezing or rhonchi. Chest: Breasts: Right: Normal. No swelling, bleeding, inverted nipple, mass, nipple discharge, skin change or tenderness. Left: Normal. No swelling, bleeding, inverted nipple, mass, nipple discharge, skin change or tenderness. Abdominal: General: There is no distension. Palpations: Abdomen is soft. There is no mass. Tenderness: There is no abdominal tenderness. There is no guarding or rebound. Genitourinary: General: Normal vulva. Labia: Right: No lesion. Left: No lesion. Vagina: Normal. No vaginal discharge, bleeding or lesions. Cervix: No cervical motion tenderness or discharge. Uterus: Normal. Not tender. Adnexa: Right adnexa normal and left adnexa normal. Right: No mass, tenderness or fullness. Left: No mass, tenderness or fullness. Musculoskeletal: Cervical back: Normal range of motion. Lymphadenopathy: Cervical: No cervical adenopathy. Neurological: Mental Status: She is alert and oriented to person, place, and time. Psychiatric: Mood and Affect: Mood normal. ASSESSMENT/PLAN: Barbie Means 64 y.o. presents for her annual exam today. Annual Exam - Pap smear last performed in June 2023. Pap smear was normal negative for HPV. Due to the fact the patient is 64 she does not need a Pap smear ever again although she did recently go through divorce. Advised patient if she does have a change in partners we may want to do another Pap smear. Cervix is grossly normal on visual inspection - Reviewed diet and exercise recommendations - Discussed recommendations on breast self-awareness Discussed Pap smear screening guidelines and HPV testing Discussed Gardasil vaccine and recommended Gardasil vaccine up until the age of 45 Discussed and recommended screening mammogram starting at the age of 40 and every year thereafter Last mammogram was in February 2024 ordered for next year Discussed and recommended at least 30 minutes 3-5 times per week of cardiovascular exercise Discussed and taught self breast exams Recommended daily multivitamin or at least 1200 mg of calcium and 800 mg of vitamin D daily Last bone density scan was performed in 2019 and patient was going to have 1 last year but did not have it done due to high deductible Plan for bone density next year Recommended screening colonoscopy at the age of 44 Last performed colonoscopy in 2021 Follow-up in 1 year or as needed Goals None - RTO for next annual exam or sooner as needed documented in this encounter [facility] 07-20-2024 Note ANNUAL EXAM Patient Name: Barbie Means : 1960 MR #: [id number] SUBJECTIVE: Barbie Maens is a 64 y.o. here for an annual exam today. Patient's last Pap smear was in June 2023. Patient's Pap smear was normal negative for HPV. Patient recently finalized her divorce in July 2023. Patient states she has not had any new sexual partner since undergoing her divorce. Discussed with patient that per ASCCP guidelines she does not need a Pap smear ever again due to the fact that she is now over the age of 64 although we would recommend one if she does have any new partners. Patient's last mammogram was in February 2024. Discussed and taught self breast exams. Recommend yearly screening mammogram. Patient had a bone density done in July 2020. Recommended bone density every 2 years. Recommend at least 30 minutes 3-5 times per week of weightbearing exercise for bone health. Recommended calcium and vitamin D supplementation for bone health. Patient states that she did not get the bone density done last year as it would have been very expensive with her deductible. Patient is current on screening colonoscopy. Patient's last colonoscopy was in November 2021. Patient denies any questions or concerns today. Follow-up in 1 year or as needed. Her last pap was approximate date June 2023 and was normal. She is currently using contraception. She uses menopause. She is not currently sexually active. Denies sexual abuse. Denies physical abuse. Denies mental abuse. 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 Denies a history of abnormal cervical cytology Past Medical History History - Past Medical History Past Medical History: Diagnosis Date Abnormal Pap smear of cervix [address] Armenta, DO office note Arthritis of sacroiliac joint (HCC) 10/17/2017 Burton Walsh M.D. Degenerative disc disease, lumbar 10/17/2017 Burton Walsh M.D.- L3-[address] Armenta, DO office note Exostosis RIGHT FOOT Facet arthropathy 10/17/2017 Burton Walsh M.D. Fibroid [address] 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 History of stress test 02/2016 AT [facility] WITH NEGATIVE RESULTS Insomnia Dr. Mitchell, office visit note Migraine 1985 Neck pain Other secondary hypertension 11/14/2021 Overactive bladder Palpitations PONV (postoperative nausea and vomiting) Tachycardia Tremor 07/2016 Dr. Mitchell, DO office visit note Urinary tract infection 1984 Varicella 1964 Past Surgical History has a past surgical history that includes REMOVAL URETHERIAL JARQUIN (1981); Dilation and curettage of uterus (1986); CONE BIOPSY (1986); Hand surgery (Left, 06/09/2014); Hind Foot Soft Tissue (Right, 07/03/2016); Tarsal Tunnel Release (07/03/2016); Cyst Removal (06/2015); [place] tooth extraction (1977); Colonoscopy (2012); Excision Bone Spur Foot (Right, 2014); section, classic; Colonoscopy (N/A, 12/08/2021); Colposcopy (2021); Cervical conization w/ laser (1986); and section, low transverse (1990). Family History Her family history includes Anxiety in her brother, mother, and sister; Arthritis in her mother; Cancer in her father; Coronary artery disease in her father and paternal grandmother; Depression in her mother and sister; Heart disease in her father and paternal grandmother; [place]'s disease in her paternal grandfather; Hypertension in her brother, father, mother, and sister; Parkinson's in her maternal grandfather; Post-traumatic stress disorder in her daughter; Prostate cancer in her father; Stroke in her father; Urinary tract infection in her mother. Medications She has a current medication list which includes the following prescription(s): ascorbic acid (vitamin c), cholecalciferol (vitamin d3), cinnamon bark, cyclobenzaprine, gluc/msm/c/boron/manganes/prim, probiotic, lysine, magnesium oxide, omega-3 fatty acids-vitamin e, prasterone (dhea), proline (bulk), sumatriptan, thyroid, UNABLE TO FIND, vit a-vit g-l4-wpbm-herbal 331, vitamin b complex/folic acid, and vitamin k2. Allergies She is allergic to promethazine, bactrim [sulfamethoxazole-trimethoprim], cat dander, dog dander, dust [house dust], grass pollen, sulfa (sulfonamide antibiotics), and sulfasalazine. Social History She reports that she has never smoked. She has never used smokeless tobacco. She reports current alcohol use of about 7.0 standard drinks of alcohol per week. She reports that she does not use drugs. Counseling given: Not Answered reports that she has never smoked. She has never us (more content not included)... [facility] 02-25-2024 Instructions Alma Bernal MD - 02/25/2024 3:01 PM EDT Problem List Items Addressed This Visit Nervous and Auditory Cluster headache, not intractable Relevant Medications cyclobenzaprine (FLEXERIL) 5 MG tablet SUMAtriptan (IMITREX) 50 MG tablet Other Fibromyalgia Relevant Medications cyclobenzaprine (FLEXERIL) 5 MG tablet Other Visit Diagnoses Healthcare maintenance - Primary Relevant Orders TSH with Reflex Free T4 Hemoglobin A1c Lipid Panel Comprehensive Metabolic Panel Hypothyroidism, unspecified type Relevant Medications thyroid (ARMOUR) 30 mg tablet If any referrals were placed at the time of your visit please allow 2 weeks for processing. If you haven't heard from anyone within 2 weeks please contact my office so we can look into the status of your referral. If you were given any labs today please ensure they are completed according to the directions given. Once labs are completed please allow 1-2 weeks for us to receive the results, review them, and let you know what steps, if any, are needed next. If you haven't heard from us after that please call to inquire. If labs were ordered to be done PRIOR to your next visit we will discuss the results at the time of your office visit. If any procedures or imaging studies were ordered that must be prior authorized please give us 2 weeks to get them approved. Once approved someone should call you to schedule them or give you a date and time that they were scheduled for. If you haven't heard anything within 2 weeks of the office visit please call the office so we can look into their status. Customer Service/Billing Questions: [phone] [facility] Assistance: [phone] or [phone] Financial Assistance: [phone] or [phone] Saturday 7 am to 5 pm Saturday 7 am to 5 pm Saturday 7 am to 5 pm Saturday 8 am to 2 pm documented in this encounter [facility] 02-25-2024 History of Present illness Narrative Subjective Patient ID: Barbie Means is a 63 y.o. female here for Chief Complaint Patient presents with Establish Care After discussing the use of ambient listening and audio recording in generating medical documentation, the patient verbally consented to use of this technology for today's visit. History of Present Illness The patient presents for establishment of care. The patient expresses a desire to have her testosterone levels checked, having researched testosterone therapy as a possible solution. She reports experiencing brain fog. She is and is currently not sexually active. During her marriage, she experienced severe pain and was unable to engage in sexual intercourse. Despite undergoing Guadalupe treatment in [place], her sexual health remains stable. She resides with her mother, aged 90, and experiences occasional stress due to her job. Her divorce was finalized in 07/2023 after a 26-year marriage. 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 She is planing to follow-up appointment with her pairer inspector in 04/2024. Her last blood work was conducted last year. Fibromyalgia: The patient has a history of fibromyalgia, which has been well-managed by Dr. Al Kwong, whom she saw approximately 8 years ago. She has undergone extensive blood work, dietary modifications, and supplements. She manages her fibromyalgia with Flexeril and attempts to limit her intake of ibuprofen. She engages in regular exercise and walks. Cluster headaches: The patient has a history of cluster headaches, for which she takes sumatriptan. She requests a refill of this medication. Her last headache occurred 2 weeks ago and lasted approximately 24 hours. IBS: She was told that she probably has irritable bowel syndrome. She does have more on the diarrhea side than the other side. She denies any pain with urination. She had a colonoscopy. She is allergic to GRASS, DOGS, and CAT DANDER. Past Medical History: Diagnosis Date Anxiety Dr. Armenta, DO office note Arthritis of sacroiliac joint 10/17/2017 Burton Walsh M.D. Degenerative disc disease, lumbar 10/17/2017 Burton Walsh M.D.- L3-[address] Armenta, DO office note Exostosis RIGHT FOOT Facet arthropathy 10/17/2017 Burton Walsh M.D. Fibromyalgia 1997 Dr. 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 History of stress test 02/2016 AT [facility] WITH NEGATIVE RESULTS Insomnia Dr. Mitchell, DO office visit note Neck pain Other secondary hypertension 11/14/2021 Overactive bladder Palpitations PONV (postoperative nausea and vomiting) Tachycardia Tremor 07/2016 Dr. Mitchell, DO office visit note Past Surgical History: Procedure Laterality Date SECTION, CLASSIC Info gained from :[facility] Hipolito/Caridad Saunders MD office visit note COLONOSCOPY 2012 [place] COLONOSCOPY N/A 12/08/2021 Procedure: COLONOSCOPY WITH BIOPSY; Surgeon: Nima Montgomery MD; [place] [facility] [place] Service: General Surgery CONE BIOPSY 1986 Dr.Kristy Lashae Saunders MD office visit note CYST REMOVAL 06/2015 Dr. Rai/Yaneth Jin foot DILATION AND CURETTAGE OF UTERUS 1986 Dr.Kristy Lashae Saunders MD office visit note EXCISION BONE SPUR FOOT Right 2014 Info gained from [facility] records HAND SURGERY Left 06/09/2014 Dr. Vielka Jin ganglion cyst HIND FOOT SOFT TISSUE Right 07/03/2016 Procedure: RIGHT EXCISION MIDFOOT DORSAL EXOSTOSIS, EXCISION GANGLION WITH ANTERIOR TARSAL TUNNEL DECOMPRESSION; Surgeon: Remi Rai DPM; Location: [facility] Main OR; Service: REMOVAL URETHERIAL JARQUIN 1981 Dr.Kristy Lashae Saunders MD office visit note TARSAL TUNNEL RELEASE 07/03/2016 WISDOM TOOTH EXTRACTION 1978 Family History Problem Relation Age of Onset Prostate cancer Father Coronary artery disease Father Hypertension Father Heart disease Father Urinary tract infection Mother Anxiety Mother Depression Mother Arthritis Mother Info gained from [facility] records Anxiety Sister Depression Sister Hypertension Sister Anxiety Brother Parkinson's Maternal Grandfather Coronary artery disease Paternal Grandmother Heart disease Paternal Grandmother [place]'s disease Paternal Grandfather Post-traumatic stress disorder Daughter Info gained from [facility] records Surgical complications Neg Hx Anesthesia problems Neg Hx Clotting disorder Neg Hx Deep vein thrombosis Neg Hx Pulmonary embolism Neg Hx Diabetes Neg Hx Breast cancer Neg Hx Social History Tobacco Use Smoking status: Never Smokeless tobacco: Never Vaping Use Vaping status: Never Used Substance Use Topics Alcohol use: Yes Alcohol/week: 7.0 standard drinks of alcohol Types: 7 Glasses of wine per week Drug use: No Review of Systems Vitals: 02/25/24 1407 02/25/24 1417 BP: (!) 152/79 122/78 BP Location: Right arm Right arm Patient Position: Sitting Sitting BP Cuff Size: Adult Adult Pulse: 73 76 Resp: 16 Temp: 97.6 F (36.4 C) TempSrc: Temporal SpO2: 94% Weight: 49.9 kg (110 lb) Height: 5' 2 Estimated body mass index is 20.12 kg/m as calculated from the following: Height as of this encounter: 5' 2. Weight as of this encounter: 49.9 kg (110 lb). Physical Exam Constitutional: General: She is not in acute distress. Appearance: She is not ill-appearing. HENT: Head: Normocephalic and atraumatic. Right Ear: Tympanic membrane, ear canal and external ear normal. Left Ear: Tympanic membrane, ear canal and external ear normal. Nose: Nose normal. Mouth/Throat: Mouth: Mucous membranes are moist. Pharynx: Oropharynx is clear. No oropharyngeal exudate or posterior oropharyngeal erythema. Eyes: Extraocular Movements: Extraocular movements intact. Conjunctiva/sclera: Conjunctivae normal. Pupils: Pupils are equal, round, and reactive to light. Cardiovascular: Rate and Rhythm: Normal rate and regular rhythm. Pulses: Normal pulses. Heart sounds: Normal heart sounds. No murmur heard. No gallop. Pulmonary: Effort: Pulmonary effort is normal. Breath sounds: Normal breath sounds. No wheezing, rhonchi or rales. Chest: Chest wall: No tenderness. Abdominal: General: Abdomen is flat. Bowel sounds are normal. There is no distension. Palpations: Abdomen is soft. There is no mass. Tenderness: There is no abdominal tenderness. There is no right CVA tenderness, left CVA tenderness, guarding or rebound. Musculoskeletal: General: No tenderness. Normal range of motion. Cervical back: Normal range of motion and neck supple. No rigidity. No muscular tenderness. Right lower leg: No edema. Left lower leg: No edema. Lymphadenopathy: Cervical: No cervical adenopathy. Skin: General: Skin is warm. Findings: No erythema or rash. Neurological: General: No focal deficit present. Mental Status: She is alert and oriented to person, place, and time. Sensory: No sensory deficit. Motor: No weakness. Gait: Gait normal. Psychiatric: Mood and Affect: Mood normal. Behavior: Behavior normal. Thought Content: Thought content normal. Judgment: Judgment normal. OARRS/NARxCHECK Report Received and Assessed: Date controlled substance agreement signed: No data found Date of last drug screen: PHQ9: [id number] Tobacco Counseling: Counseling given: Not Answered Reviewed by Provider: Patient's Medications New Prescriptions No medications on file Previous Medications ASCORBIC ACID, VITAMIN C, (VITAMIN C) 500 MG TABLET Take 2 (two) tablets (1,000 mg total) by mouth 4 (four) times a day . CHOLECALCIFEROL, VITAMIN D3, 5,000 UNIT TAB TABLET Take 2,000 Units by mouth daily . CINNAMON BARK (CINNAMON ORAL) Take 1,000 mg by mouth 4 (four) times a day . GLUC/MSM/C/BORON/MANGANES/PRIM (JOINT SUPPORT COMPLEX ORAL) Take by mouth . LACTOBACILLUS COMBO NO.11 (PROBIOTIC) 15 BILLION CELL CPSP Take by mouth . LYSINE 500 MG TAB Take 1 (one) tablet (500 mg total) by mouth 5 (five) times a day . MAGNESIUM OXIDE 500 MG CAP Take 1 (one) capsule (500 mg total) by mouth 4 (four) times a day . OMEGA-3 FATTY ACIDS-VITAMIN E 1,000 MG CAP 8 capsules daily TAKES 1 TABLET Reasons: SUPPLEMENT. PRASTERONE, DHEA, 25 MG TAB Take 1 (one) tablet (25 mg total) by mouth daily . PROLINE, BULK, DANIELLE 1 capsule by Miscellaneous route 3 (three) times a day 667mg capsule . UNABLE TO FIND Med Name Antronex (helps with sinus drainage) . VIT A-VIT G-I3-JLUV-HERBAL 331 900 MCG-90 MG- 20 MCG-5.5 MG CAP Take by mouth . VITAMIN B COMPLEX/FOLIC ACID (B COMPLEX 100 ORAL) Take 100 mg by mouth 3 (three) times a day . VITAMIN K2 ORAL Take 100 mcg by mouth 2 (two) times a day . Modified Medications Modified Medication Previous Medication CYCLOBENZAPRINE (FLEXERIL) 5 MG TABLET cyclobenzaprine (FLEXERIL) 5 MG tablet TAKE 1 TABLET BY MOUTH EVERYDAY AT BEDTIME . TAKE 1 TABLET BY MOUTH EVERYDAY AT BEDTIME . SUMATRIPTAN (IMITREX) 50 MG TABLET SUMAtriptan (IMITREX) 25 MG tablet Take 1 (one) tablet (50 mg total) by mouth every 2 (two) hours as needed for migraine Max of 200 mg in 24hrs . TAKE 1 (ONE) TABLET BY MOUTH EVERY 2 (TWO) HOURS NEEDED FOR MIGRAINE MAX OF 200 MG IN 24HRS . THYROID (ARMOUR) 30 MG TABLET thyroid (ARMOUR) 30 mg tablet Take 1 (one) tablet (30 mg total) by mouth daily . Take 1 (one) tablet (30 mg total) by mouth daily . Discontinued Medications No medications on file Health Maintenance Due Topic Date Due COVID-19 Vaccine ( season) Never done Mammogram 01/12/2024 Assessment & Plan Problem List Items Addressed This Visit Nervous and Auditory Cluster headache, not intractable Relevant Medications cyclobenzaprine (FLEXERIL) 5 MG tablet SUMAtriptan (IMITREX) 50 MG tablet Other Fibromyalgia Relevant Medications cyclobenzaprine (FLEXERIL) 5 MG tablet Other Visit Diagnoses Healthcare maintenance - Primary Relevant Orders TSH with Reflex Free T4 Hemoglobin A1c Lipid Panel Comprehensive Metabolic Panel Hypothyroidism, unspecified type Relevant Medications thyroid (ARMOUR) 30 mg tablet Assessment & Plan Assessment & Plan 1. Establishment of care. The patient is current with her cancer screenings, including Pap smear, mammogram, and vaccinations. A comprehensive hormonal panel. A repeat of cholesterol, kidney function, liver function, electrolytes, and thyroid levels will be conducted. Fibromyalgia: A refill of Flexeril will be provided.well managed at this time. Cluster headaches: A prescription for sumatriptan 50 mg will be provided, with instructions to halve the tablet or take the full dose. Hypothyroidism: Thyroid medication will also be refilled. The shingles vaccine will be considered . Follow-up A follow-up visit is scheduled for 1 year from now. Return in about 1 year (around 02/24/2025) for Annual Exam. ALMA BERNAL MD [facility] [address] [facility] [address] [facility] [id number] Dept: [phone] documented in this encounter [facility] 08-07-2023 Instructions Mandie Krishna APRN.MOBILE APPLICATION TESTER - 08/07/2023 11:34 AM EST ASSESSMENT/PLAN: 1. Burning with urination - ICD9: 788.1, ICD10: R30.0 (primary diagnosis) acute - UA dip is normal in office, however history and exam is very convincing for UTI. - Send urine for culture - Begin treatment with Macrobid 100 mg BID for 5 days - Patient education for prevention given - UA DIP, URINE (POC) - URINE CULTURE - NITROFURANTOIN MONOHYDRATE & MACROCRYSTAL 100 MG ORAL CAP- may stop antibiotic if culture is negative. 2. Bilateral impacted cerumen - ICD9: 380.4, ICD10: H61.23 - REMOVAL OF IMPACTED CERUMEN - INSTRUMENTATION - Cerumen removed via irrigation, patient tolerated procedure well. Post procedure ear canal is clear and TM is well visualized with bony landmarks intact and no sign of inflammation/infection. - Follow-up with your PCP in 3-5 days if symptoms have not improved or sooner if symptoms worsen - Discussed red flags and need for immediate medical evaluation if any occur. - Discussed supportive care treatment with fluids, rest and analgesia. - Discussed expected course of illness Mandie Krishna APRN.MOBILE APPLICATION TESTER documented in this encounter [facility] 08-07-2023 History of Present illness Narrative Subjective HPI Barbie Means is a 63 year old female who presents with lower pelvic pain, dysuria, frequency and low back pain for the past 10 days. She took Uristat yesterday. She also took ibuprofen as she was having some chills and nausea. She would also like her ears checked today, is concerned she has wax build up. She has had decreased hearing and some pain in the left ear. She has been using Debrox drops at home. Review of Systems Constitutional: Positive for chills. Negative for fever. HENT: Positive for ear pain and hearing loss. Negative for congestion. Respiratory: Negative for cough. Cardiovascular: Negative. Gastrointestinal: Positive for abdominal pain (pelvic pressure) and nausea. Negative for vomiting. Genitourinary: Positive for dysuria and frequency. Musculoskeletal: Positive for back pain. BP 122/86 Pulse 83 Temp 36.6 C (97.8 F) Resp 21 Wt 51.3 kg (113 lb 3.2 oz) LMP 06/04/2006 SpO2 99% PAST MEDICAL HISTORY Diagnosis Date Dysmenorrhea Excessive or frequent menstruation Irregular menstrual cycle Irregular periods Myalgia and myositis, unspecified Premenstrual tension syndromes PMS PAST SURGICAL HISTORY Procedure Laterality Date DELIVERY ONLY , low cervical CONIZATION CERVIX W/WO D&C RPR ELTRD EXC DILATION & CURETTAGE DX&/THER NONOBSTETRIC Dilation & curettage ALLERGIES Sulfa (Sulfonamide Antibiotics) and Promethazine MEDICATIONS omega 5-mno-bjp-fish oil (FISH OIL) 100-160-1,000 mg cap q 24 HR. VITAMIN K2 ORAL Take 100 mcg by mouth q 12 HR. ZINC CHELATE ORAL Take 25 mg by mouth once daily. ascorbic acid, vitamin C, 550 mg/1.1 gram (scoop) powd Take 1,000 mg by mouth. cinnamon bark, bulk, powd Take 500 mg by mouth. cholecalciferol, vitamin D3, (CHOLECALCIFEROL, VITD3,, BULK,) 100,000 unit/gram powd Take 5,000 Units by mouth. MAGNESIUM OXIDE,ASPARTATE,CITR ORAL Take 500 mg by mouth. prasterone, dhea,-calcium carb (DHEA) 10 mg-47 mg calcium tab Take 12 mg by mouth. Proline, Bulk, (L-PROLINE) danielle 500 mg three times daily. lysine 1,000 mg tab Take 1,000 mg by mouth twice daily. vitamin B complex (B COMPLEX-100 ORAL) Take 100 mg by mouth q 8 HR. Bacillus coagulans/inulin (PROBIOTIC WITH PREBIOTIC ORAL) Take by mouth. OTC NUTRITIONAL SUPPLEMENT 700 mg twice daily. D Mannose cyclobenzaprine (FLEXERIL) 5 mg tablet Take 5 mg by mouth daily at bedtime. ARMOUR THYROID 30 mg tablet TAKE 1 TABLET (30 MG TOTAL) BY MOUTH DAILY OTC NUTRITIONAL SUPPLEMENT Multi-Vitamin, Take one(1) tablet daily. OTC NUTRITIONAL SUPPLEMENT Upelva, Take four days a month, four times daily (Patient not taking: No sig reported) FAMILY HISTORY Problem Relation Age of Onset Heart Father Prostate Cancer Father Hypertension Father Breast Cancer Paternal Aunt Great Aunt Arthritis Mother Social History Tobacco Use Smoking status: Never Smokeless tobacco: Never Substance Use Topics Alcohol use: Yes Comment: Occasionally Drug use: No Objective Physical Exam Vitals and nursing note reviewed. Constitutional: General: She is not in acute distress. Appearance: Normal appearance. She is not ill-appearing. HENT: Right Ear: Ear canal and external ear normal. There is impacted cerumen. Left Ear: Ear canal and external ear normal. There is impacted cerumen. Ears: Comments: Bilateral ears: Cerumen impairs exam of clinically significant portions of the tympanic membrane or middle ear condition. Cardiovascular: Rate and Rhythm: Normal rate and regular rhythm. Heart sounds: Normal heart sounds. Pulmonary: Effort: Pulmonary effort is normal. No respiratory distress. Breath sounds: Normal breath sounds. No wheezing or rales. Abdominal: General: There is no distension. Palpations: Abdomen is soft. There is no mass. Tenderness: There is abdominal tenderness in the suprapubic area. There is no right CVA tenderness, left CVA tenderness or guarding. Skin: General: Skin is warm and dry. Neurological: Mental Status: She is alert. ASSESSMENT/PLAN: 1. Burning with urination - ICD9: 788.1, ICD10: R30.0 (primary diagnosis) acute - UA dip is normal in office, however history and exam is very convincing for UTI. - Send urine for culture - Begin treatment with Macrobid 100 mg BID for 5 days - Patient education for prevention given - UA DIP, URINE (POC) - URINE CULTURE - NITROFURANTOIN MONOHYDRATE & MACROCRYSTAL 100 MG ORAL CAP- may stop antibiotic if culture is negative. 2. Bilateral impacted cerumen - ICD9: 380.4, ICD10: H61.23 - REMOVAL OF IMPACTED CERUMEN - INSTRUMENTATION - Cerumen removed via irrigation by CRYSTAL, patient tolerated procedure well. Post procedure bilateral ear canals clear and TMs well visualized with bony landmarks intact and no sign of inflammation/infection. - Follow-up with your PCP in 3-5 days if symptoms have not improved or sooner if symptoms worsen - Discussed red flags and need for immediate medical evaluation if any occur. - Discussed supportive care treatment with fluids, rest and analgesia. - Discussed expected course of illness Mandie Krishna APRN.MOBILE APPLICATION TESTER documented in this encounter [facility] 03-12-2023 Evaluation + Plan note Associated Problem(s): Well adult exam No significant lifestyle issues. Discussed target body weight and ways to maintain/achieve. Make sure you have 150 minutes per week at target heart rate and at least 15% at resistance training. Maximum Heart rate or MHR is defined by 220 - age. Then target heart rate or THR is 65-85% of MHR. Need to allow warmup slowly over 5- 10 minute to prevent going too fast to reach THR. Then exercise interval at THR and allow cool down until at least penitentiary back to the pre exercise hear rate. Therefore if resting heart rate was 70 and your target heart rate was 120. You need to keep moving and work the muscles until you heart rate is below 95 beats per minute. This reduces cramping and the risk of cardiac irritability post exercise. Maintain healthy diet. Everything in moderation is a good rule of thumb. Follow serving sizes and try not to exceed these. Blood work ordered today, to be done when fasting. [facility] 03-12-2023 Instructions Destiny Burt PA-C - 03/12/2023 12:47 PM EDT Problem List Items Addressed This Visit Other Screening for heart disease - Primary Relevant Orders Lipid Panel (Completed) Comprehensive Metabolic Panel (Completed) CBC and Differential (Completed) TSH with Reflex Free T4 (Completed) Screening for diabetes mellitus Relevant Orders Lipid Panel (Completed) Comprehensive Metabolic Panel (Completed) CBC and Differential (Completed) TSH with Reflex Free T4 (Completed) Well adult exam No significant lifestyle issues. Discussed target body weight and ways to maintain/achieve. Make sure you have 150 minutes per week at target heart rate and at least 15% at resistance training. Maximum Heart rate or MHR is defined by 220 - age. Then target heart rate or THR is 65-85% of MHR. Need to allow warmup slowly over 5- 10 minute to prevent going too fast to reach THR. Then exercise interval at THR and allow cool down until at least penitentiary back to the pre exercise hear rate. Therefore if resting heart rate was 70 and your target heart rate was 120. You need to keep moving and work the muscles until you heart rate is below 95 beats per minute. This reduces cramping and the risk of cardiac irritability post exercise. Maintain healthy diet. Everything in moderation is a good rule of thumb. Follow serving sizes and try not to exceed these. Blood work ordered today, to be done when fasting. If any referrals were placed at the time of your visit please allow 2 weeks for processing. If you haven't heard from anyone within 2 weeks please contact my office so we can look into the status of your referral. If you were given any labs today please ensure they are completed according to the directions given. Once labs are completed please allow 1-2 weeks for us to receive the results, review them, and let you know what steps, if any, are needed next. If you haven't heard from us after that please call to inquire. If labs were ordered to be done PRIOR to your next visit we will discuss the results at the time of your office visit. If any procedures or imaging studies were ordered that must be prior authorized please give us 2 weeks to get them approved. Once approved someone should call you to schedule them or give you a date and time that they were scheduled for. If you haven't heard anything within 2 weeks of the office visit please call the office so we can look into their status. documented in this encounter [facility] 03-12-2023 Miscellaneous Notes Associated Problem(s): Well adult exam No significant lifestyle issues. Discussed target body weight and ways to maintain/achieve. Make sure you have 150 minutes per week at target heart rate and at least 15% at resistance training. Maximum Heart rate or MHR is defined by 220 - age. Then target heart rate or THR is 65-85% of MHR. Need to allow warmup slowly over 5- 10 minute to prevent going too fast to reach THR. Then exercise interval at THR and allow cool down until at least penitentiary back to the pre exercise hear rate. Therefore if resting heart rate was 70 and your target heart rate was 120. You need to keep moving and work the muscles until you heart rate is below 95 beats per minute. This reduces cramping and the risk of cardiac irritability post exercise. Maintain healthy diet. Everything in moderation is a good rule of thumb. Follow serving sizes and try not to exceed these. Blood work ordered today, to be done when fasting. documented in this encounter [facility] 03-12-2023 History of Present illness Narrative Subjective: Barbie Means is a 62 y.o. female and is here for a preventative care visit. Health Maintenance Due Topic Date Due COVID-19 Vaccine (1) Never done Tobacco use or exposure: never Alcohol use: glass of wine nightly Domestic violence: none, lives with mother Depression Screen: none Diet: good Exercise: good, 6 days, walking and weights Last eye exam: 1 year ago Last dental visit: <6 months ago PAP: due this year Patient is currently going through a disolution with her after 25 years. This is both a blessing and very sad. She is dealing with this well, but would like it to all be behind her. We had a very lengthy discussion about this today. The following portions of the patient's history were reviewed and updated as appropriate: allergies, current medications, past family history, past medical history, past social history, past surgical history and problem list. Past Medical History: Diagnosis Date Anxiety Dr. Kathi DO office note Arthritis of sacroiliac joint 10/17/2017 Burton Walsh M.D. Degenerative disc disease, lumbar 10/17/2017 Burton Walsh M.D.- L3-[address] Kathi DO office note Exostosis RIGHT FOOT Facet arthropathy 10/17/2017 Burton Walsh M.D. Fibromyalgia 1997 Dr. 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 History of stress test 02/2016 AT [facility] WITH NEGATIVE RESULTS Insomnia Dr. Mitchell, DO office visit note Neck pain Other secondary hypertension 11/14/2021 Overactive bladder Palpitations PONV (postoperative nausea and vomiting) Tachycardia Tremor 07/2016 Dr. Mitchell, DO office visit note Past Surgical History: Procedure Laterality Date SECTION, CLASSIC Info gained from :[facility] Hipolito/Caridad Saunders MD office visit note COLONOSCOPY 2012 [place] COLONOSCOPY N/A 12/08/2021 Procedure: COLONOSCOPY WITH BIOPSY; Surgeon: Nima Montgomery MD; [place] [facility] [place] Service: General Surgery CONE BIOPSY 1986 Dr.Kristy Lashae Saunders MD office visit note CYST REMOVAL 06/2015 Dr. Rai/Yaneth Jin foot DILATION AND CURETTAGE OF UTERUS 1986 Dr.Kristy Lashae Saunders MD office visit note EXCISION BONE SPUR FOOT Right 2014 Info gained from [facility] records HAND SURGERY Left 06/09/2014 Dr. Vielka Jin ganglion cyst HIND FOOT SOFT TISSUE Right 07/03/2016 Procedure: RIGHT EXCISION MIDFOOT DORSAL EXOSTOSIS, EXCISION GANGLION WITH ANTERIOR TARSAL TUNNEL DECOMPRESSION; Surgeon: Remi Rai DPM; Location: [facility] Main OR; Service: REMOVAL URETHERIAL JARQUIN 1981 Dr.Kristy Lashae Saunders MD office visit note TARSAL TUNNEL RELEASE 07/03/2016 WISDOM TOOTH EXTRACTION 1977 Social History Tobacco Use Smoking status: Never Smokeless tobacco: Never Vaping Use Vaping Use: Never used Substance Use Topics Alcohol use: Yes Alcohol/week: 7.0 standard drinks of alcohol Types: 7 Glasses of wine per week Drug use: No Family History Problem Relation Age of Onset Prostate cancer Father Coronary artery disease Father Hypertension Father Heart disease Father Urinary tract infection Mother Anxiety Mother Depression Mother Arthritis Mother Info gained from [facility] records Anxiety Sister Depression Sister Hypertension Sister Anxiety Brother Parkinson's Maternal Grandfather Coronary artery disease Paternal Grandmother Heart disease Paternal Grandmother Rose Marie's disease Paternal Grandfather Post-traumatic stress disorder Daughter Info gained from [facility] records Surgical complications Neg Hx Anesthesia problems Neg Hx Clotting disorder Neg Hx Deep vein thrombosis Neg Hx Pulmonary embolism Neg Hx Diabetes Neg Hx Breast cancer Neg Hx Allergies Allergen Reactions Promethazine Other (See Comments) CONVULSIONS Bactrim [Sulfamethoxazole-Trimethoprim] GI Intolerance Cat Dander Other (See Comments) sneezing Dog Dander Other (See Comments) sneezing Dust [House Dust] Other (See Comments) Grass Pollen Other (See Comments) Sinus issues Sulfa (Sulfonamide Antibiotics) GI Intolerance Other reaction(s): GI upset Sulfasalazine GI Intolerance Review of Systems Constitutional: negative for chills, malaise and sweats Eyes: negative for irritation, redness and visual disturbance Ears, nose, mouth, throat, and face: negative for earaches, snoring and tinnitus Respiratory: negative for cough, hemoptysis and wheezing Cardiovascular: negative for chest pain, dyspnea, fatigue and palpitations Gastrointestinal: positive for abdominal pain, , diarrhea, nausea and negative for vomiting Genitourinary:negative for dysuria, hematuria and urinary incontinence Integument/breast: negative for breast lump, breast tenderness, dryness, nipple discharge and skin color change Musculoskeletal:negative for arthralgias, myalgias and stiff joints Neurological: negative for dizziness, headaches, seizures and tremors Behavioral/Psych: negative for anxiety and depression Endocrine: negative for diabetic symptoms including blurry vision, polydipsia and polyuria Objective: BP 126/76 (BP Location: Right arm, Patient Position: Sitting, BP Cuff Size: Adult) Pulse 74 Wt 48.1 kg (106 lb) SpO2 99% BMI 19.39 kg/m General Appearance: Alert, cooperative, no distress, appears stated age Head: Normocephalic, without obvious abnormality, atraumatic Eyes: PERRL, conjunctiva/corneas clear, EOM's intact, fundi benign, both eyes Ears: Normal TM's and external ear canals, both ears Nose: Nares normal, septum midline, mucosa normal, no drainage or sinus tenderness Neck: Supple, symmetrical, trachea midline, no adenopathy; thyroid: no enlargement/tenderness/nodules; no carotid bruit or JVD Chest Wall: No tenderness or deformity Heart: Regular rate and rhythm, S1 and S2 normal, no murmur, rub or gallop Abdomen: Soft, non-tender, bowel sounds active all four quadrants, no masses, no organomegaly Extremities: Extremities normal, atraumatic, no cyanosis or edema Pulses: 2+ and symmetric all extremities Skin: Skin color, texture, turgor normal, no rashes or lesions Lymph nodes: Cervical, supraclavicular, and axillary nodes normal Neurologic: CNII-XII intact, normal strength, sensation and reflexes throughout Assessment: Healthy female exam. Plan: Problem List Items Addressed This Visit Other Screening for heart disease - Primary Relevant Orders Lipid Panel (Completed) Comprehensive Metabolic Panel (Completed) CBC and Differential (Completed) TSH with Reflex Free T4 (Completed) Screening for diabetes mellitus Relevant Orders Lipid Panel (Completed) Comprehensive Metabolic Panel (Completed) CBC and Differential (Completed) TSH with Reflex Free T4 (Completed) Well adult exam No significant lifestyle issues. Discussed target body weight and ways to maintain/achieve. Make sure you have 150 minutes per week at target heart rate and at least 15% at resistance training. Maximum Heart rate or MHR is defined by 220 - age. Then target heart rate or THR is 65-85% of MHR. Need to allow warmup slowly over 5- 10 minute to prevent going too fast to reach THR. Then exercise interval at THR and allow cool down until at least penitentiary back to the pre exercise hear rate. Therefore if resting heart rate was 70 and your target heart rate was 120. You need to keep moving and work the muscles until you heart rate is below 95 beats per minute. This reduces cramping and the risk of cardiac irritability post exercise. Maintain healthy diet. Everything in moderation is a good rule of thumb. Follow serving sizes and try not to exceed these. Blood work ordered today, to be done when fasting. General Patient Counseling Given: --Nutrition: Stressed importance of moderation in sodium/caffeine intake, saturated fat and cholesterol, caloric balance, sufficient intake of fresh fruits, vegetables, fiber, calcium, iron, and 1 mg of folate supplement per day (for females capable of ). --Discussed the daily use of baby aspirin. --Exercise: Stressed the importance of regular exercise. --Substance Abuse: Discussed cessation/primary prevention of tobacco, alcohol, or other drug use --Sexuality: Discussed sexually transmitted diseases, partner selection, use of condoms, avoidance of unintended and contraceptive alternatives. --Dental health: Discussed importance of regular dental visits. --Immunizations reviewed. --Discussed benefits of screening mammograms, pap smears, and colonoscopy. documented in this encounter [facility] 01-05-2023 History of Present illness Narrative CC: Patient presents with: UTI: Urgency to urinate, back pain radiating around to front HPI Barbie Means is a 62 year old female who presents with complaint of possible UTI. These symptoms have been present for 7 days. Associated symptoms: urgency and backpain Denies: fever, chills, sweats, abdominal pain, and flank pain Treatments: nothing The ROS was otherwise negative. PMH, Medications, labs, allergies, and recent past visits with PCP were reviewed and updated as able. PHYSICAL EXAM: BP 110/78 Pulse 78 Temp 36.7 C (98 F) Resp 16 Wt 49.9 kg (110 lb) LMP 06/04/2006 SpO2 97% General: Well appearing and alert CV: Regular rate and rhythm without obvious murmur Lungs: clear to auscultation bilaterally Back: straight and symmetric Abdomen: soft, very mild tenderness over lower mid abdoman, nondistended PAST MEDICAL HISTORY Diagnosis Date Dysmenorrhea Excessive or frequent menstruation Irregular menstrual cycle Irregular periods Myalgia and myositis, unspecified Premenstrual tension syndromes PMS PAST SURGICAL HISTORY Procedure Laterality Date DELIVERY ONLY , low cervical CONIZATION CERVIX W/WO D&C RPR ELTRD EXC DILATION & CURETTAGE DX&/THER NONOBSTETRIC Dilation & curettage ALLERGIES Sulfa (Sulfonamide Antibiotics) and Promethazine MEDICATIONS omega 7-qdy-edn-fish oil (FISH OIL) 100-160-1,000 mg cap q 24 HR. VITAMIN K2 ORAL Take 100 mcg by mouth q 12 HR. ZINC CHELATE ORAL Take 25 mg by mouth once daily. ascorbic acid, vitamin C, 550 mg/1.1 gram (scoop) powd Take 1,000 mg by mouth. cinnamon bark, bulk, powd Take 500 mg by mouth. cholecalciferol, vitamin D3, (CHOLECALCIFEROL, VITD3,, BULK,) 100,000 unit/gram powd Take 5,000 Units by mouth. MAGNESIUM OXIDE,ASPARTATE,CITR ORAL Take 500 mg by mouth. prasterone, dhea,-calcium carb (DHEA) 10 mg-47 mg calcium tab Take 12 mg by mouth. Proline, Bulk, (L-PROLINE) danielle 500 mg three times daily. lysine 1,000 mg tab Take 1,000 mg by mouth twice daily. vitamin B complex (B COMPLEX-100 ORAL) Take 100 mg by mouth q 8 HR. Bacillus coagulans/inulin (PROBIOTIC WITH PREBIOTIC ORAL) Take by mouth. OTC NUTRITIONAL SUPPLEMENT 700 mg twice daily. D Mannose cyclobenzaprine (FLEXERIL) 5 mg tablet Take 5 mg by mouth daily at bedtime. ARMOUR THYROID 30 mg tablet TAKE 1 TABLET (30 MG TOTAL) BY MOUTH DAILY OTC NUTRITIONAL SUPPLEMENT Multi-Vitamin, Take one(1) tablet daily. OTC NUTRITIONAL SUPPLEMENT Upelva, Take four days a month, four times daily (Patient not taking: No sig reported) FAMILY HISTORY Problem Relation Age of Onset Heart Father Prostate Cancer Father Hypertension Father Breast Cancer Paternal Aunt Great Aunt Arthritis Mother Social History Tobacco Use Smoking status: Never Smokeless tobacco: Never Substance Use Topics Alcohol use: Yes Comment: Occasionally Drug use: No ASSESSMENT/PLAN: 1. Urgency of urination - ICD9: 788.63, ICD10: R39.15 - UA DIP, URINE (POC) - URINE CULTURE NO treatment at this time. Please treat if urine culture is positive Potential red flag symptoms discussed with the patient. Reviewed appropriate action plan to take if red flag symptoms occur. Patient agreeable to treatment plan. Will follow up with PCP if symptoms do not improve. Celina Crawford APRN.MARCUS documented in this encounter [facility] 07-17-2022 Instructions Destiny Burt PA-C - 07/17/2022 3:05 PM EST Problem List Items Addressed This Visit Other Acute viral syndrome - Primary At this time, I would like you to start the steroid as prescribed. I would like you to get your blood work done at your earliest convenience. I will be in touch with results. Relevant Medications predniSONE (DELTASONE) 10 MG tablet Other Relevant Orders CBC and Differential EBV Antibody Profile (IGG/M,EBNA) Strep A Culture, Throat If any referrals were placed at the time of your visit please allow 2 weeks for processing. If you haven't heard from anyone within 2 weeks please contact my office so we can look into the status of your referral. If you were given any labs today please ensure they are completed according to the directions given. Once labs are completed please allow 1-2 weeks for us to receive the results, review them, and let you know what steps, if any, are needed next. If you haven't heard from us after that please call to inquire. If labs were ordered to be done PRIOR to your next visit we will discuss the results at the time of your office visit. If any procedures or imaging studies were ordered that must be prior authorized please give us 2 weeks to get them approved. Once approved someone should call you to schedule them or give you a date and time that they were scheduled for. If you haven't heard anything within 2 weeks of the office visit please call the office so we can look into their status. documented in this encounter [facility] 07-17-2022 Evaluation + Plan note Associated Problem(s): Acute viral syndrome At this time, I would like you to start the steroid as prescribed. I would like you to get your blood work done at your earliest convenience. I will be in touch with results. [facility] 07-17-2022 Miscellaneous Notes Associated Problem(s): Acute viral syndrome At this time, I would like you to start the steroid as prescribed. I would like you to get your blood work done at your earliest convenience. I will be in touch with results. documented in this encounter [facility] 07-17-2022 History of Present illness Narrative Images from the original note were not included. Video Visit [facility] [address] [facility] [address] [place] [id number] Via Real-time Synchronous Audiovisual [facility] 07/17/2022 Destiny Burt PA-C Provider Location: office Patient Location Crime Analyst: None Patient Location: Patient's Home Patient: Barbie Means Date of : 1960 (62 y.o. female) PCP: Destiny Burt PA-C Video Visit Consent Statement: I discussed risks, benefits and alternatives of a real-time synchronous audiovisual consultation with the patient (and any accompanying persons) including the risks that the patient s personal health details and medical records will be discussed over real-time, synchronous, interactive video/audio/telecommunication technology, the visit will not be recorded without the express consent of both the provider and the patient, and that there are some limitations compared to [id number] evaluations. We elected to proceed. Subjective Patient ID: Barbie Means is a 62 y.o. female. Sore Throat This is a recurrent problem. The current episode started 1 to 4 weeks ago. The problem has been waxing and waning. The pain is worse on the left side. There has been no fever. The pain is moderate. Associated symptoms include congestion, coughing, ear pain, swollen glands and trouble swallowing (due to pain). Pertinent negatives include no diarrhea or headaches. She has had no exposure to strep or mono. She has tried cool liquids and NSAIDs for the symptoms. The treatment provided moderate relief. Patient is not interested in being COVID/Flu tested at this time. [facility] today, patient to go home and review records for dates of various diagnosis. We will review further at next visit. There were no vitals filed for this visit. Past Medical History: Diagnosis Date Anxiety Dr. Kathi DO office note Arthritis of sacroiliac joint 10/17/2017 Burton Walsh M.D. Degenerative disc disease, lumbar 10/17/2017 Burton Walsh M.D.- L3-[address] Kathi DO office note Exostosis RIGHT FOOT Facet arthropathy 10/17/2017 Burton Walsh M.D. Fibromyalgia 1997 Dr. Kathi DO office note GERD (gastroesophageal reflux disease) Danyell's thyroiditis 02/2017 Headache MIGRAINES Herpes simplex 06/21/2004 Burton An M.D. History of stress test 02/2016 AT [facility] WITH NEGATIVE RESULTS Insomnia Dr. Mitchell, office visit note Neck pain Other secondary hypertension 11/14/2021 Overactive bladder Palpitations PONV (postoperative nausea and vomiting) Tachycardia Tremor 07/2016 Dr. Jovany DO office visit note Past Surgical History: Procedure Laterality Date SECTION, CLASSIC Info gained from :[facility] Hipolito/Caridad Saunders MD office visit note COLONOSCOPY 2012 [place] COLONOSCOPY N/A 12/08/2021 Procedure: COLONOSCOPY WITH BIOPSY; Surgeon: Nima Montgomery MD; [place] [facility] [place] Service: General Surgery CONE BIOPSY 1986 Dr.Kristy Lashae Saunders MD office visit note CYST REMOVAL 06/2015 Dr. Rai/Yaneth Jin foot DILATION AND CURETTAGE OF UTERUS 1986 Dr.Kristy Lashae Saunders MD office visit note EXCISION BONE SPUR FOOT Right 2014 Info gained from [facility] records HAND SURGERY Left 06/09/2014 Dr. Vielka Jin ganglion cyst HIND FOOT SOFT TISSUE Right 07/03/2016 Procedure: RIGHT EXCISION MIDFOOT DORSAL EXOSTOSIS, EXCISION GANGLION WITH ANTERIOR TARSAL TUNNEL DECOMPRESSION; Surgeon: Remi Rai DPM; Location: [facility] OR; Service: REMOVAL URETHERIAL JARQUIN 1981 Dr.Kristy Lashae Saunders MD office visit note TARSAL TUNNEL RELEASE 07/03/2016 WISDOM TOOTH EXTRACTION 1977 Patient's Medications New Prescriptions PREDNISONE (DELTASONE) 10 MG TABLET Take 1 tablet 3 times a day for 3 days, 1 tablet 2 times a day for 3 days, 1 tablet daily for 3 days and then every other day until gone. . Previous Medications ASCORBIC ACID, VITAMIN C, (VITAMIN C) 500 MG TABLET Take 1,000 mg by mouth 4 (four) times a day . CHOLECALCIFEROL, VITAMIN D3, 5,000 UNIT TAB TABLET Take 2,000 Units by mouth daily . CINNAMON BARK (CINNAMON ORAL) Take 1,000 mg by mouth 4 (four) times a day . CYCLOBENZAPRINE (FLEXERIL) 5 MG TABLET One tab at bedtime . GLUC/MSM/C/BORON/MANGANES/PRIM (JOINT SUPPORT COMPLEX ORAL) Take by mouth . LACTOBACILLUS COMBO NO.11 (PROBIOTIC) 15 BILLION CELL CPSP Take by mouth . LYSINE 500 MG TAB Take 500 mg by mouth 5 (five) times a day . MAGNESIUM OXIDE 500 MG CAP Take 500 mg by mouth 4 (four) times a day . OMEGA-3 FATTY ACIDS-VITAMIN E 1,000 MG CAP 8 capsules daily TAKES 1 TABLET Reasons: SUPPLEMENT. PRASTERONE, DHEA, 25 MG TAB Take 1 tablet by mouth daily . PROLINE, BULK, DANIELLE 1 capsule by Miscellaneous route 3 (three) times a day 667mg capsule . SUMATRIPTAN (IMITREX) 25 MG TABLET TAKE 1 (ONE) TABLET BY MOUTH EVERY 2 (TWO) HOURS NEEDED FOR MIGRAINE MAX OF 200 MG IN 24HRS . THYROID (ARMOUR) 30 MG TABLET Take 1 (one) tablet (30 mg total) by mouth daily . VIT A-VIT I-T3-CNGZ-HERBAL 331 900 MCG-90 MG- 20 MCG-5.5 MG CAP Take by mouth . VITAMIN B COMPLEX/FOLIC ACID (B COMPLEX 100 ORAL) Take 100 mg by mouth 3 (three) times a day . VITAMIN K2 ORAL Take 100 mcg by mouth 2 (two) times a day . Modified Medications No medications on file Discontinued Medications No medications on file Allergies as of 07/17/2022 - Reviewed 05/15/2022 Allergen Reaction Noted Promethazine Other (See Comments) 04/24/2016 Bactrim [sulfamethoxazole-trimethoprim] GI Intolerance 07/07/2014 Cat dander Other (See Comments) 09/15/2018 Dog dander Other (See Comments) 09/15/2018 Dust [house dust] Other (See Comments) 09/15/2018 Grass pollen Other (See Comments) 09/15/2018 Sulfa (sulfonamide antibiotics) GI Intolerance 07/07/2014 Sulfasalazine GI Intolerance 03/12/2017 Review of Systems Constitutional: Negative for activity change, appetite change, fatigue, fever and unexpected weight change. HENT: Positive for congestion, ear pain, sore throat and trouble swallowing (due to pain). Negative for rhinorrhea, sinus pressure, sinus pain and sneezing. Eyes: Negative for visual disturbance. Respiratory: Positive for cough. Negative for choking, chest tightness and wheezing. Cardiovascular: Negative for chest pain, palpitations and leg swelling. Gastrointestinal: Negative for abdominal distention, constipation, diarrhea and nausea. Genitourinary: Negative for dyspareunia, dysuria and frequency. Skin: Negative for rash. Neurological: Negative for dizziness, weakness, light-headedness and headaches. Psychiatric/Behavioral: Negative for agitation, sleep disturbance and suicidal ideas. The patient is not nervous/anxious. Objective Physical Exam Vitals and nursing note reviewed. Constitutional: General: She is not in acute distress. Appearance: She is well-developed. HENT: Head: Normocephalic and atraumatic. Right Ear: External ear normal. Left Ear: External ear normal. Eyes: Conjunctiva/sclera: Conjunctivae normal. Cardiovascular: Rate and Rhythm: Normal rate and regular rhythm. Pulmonary: Effort: Pulmonary effort is normal. No respiratory distress. Neurological: Mental Status: She is alert and oriented to person, place, and time. Psychiatric: Behavior: Behavior normal. Thought Content: Thought content normal. Judgment: Judgment normal. Assessment/Plan: Acute viral syndrome At this time, I would like you to start the steroid as prescribed. I would like you to get your blood work done at your earliest convenience. I will be in touch with results. Goals None For any new medications prescribed today, patient was educated about indications for the medication, how to take the medication and potential side effects of the medications. documented in this encounter [facility] 07-10-2022 Telephone encounter Note Patient requesting prescription be sent to [facility]. [facility] 07-10-2022 Miscellaneous Notes Patient requesting prescription be sent to [facility]. documented in this encounter [facility] 07-02-2022 History of Present illness Narrative 07/02/2022 Patient presents with: Sinus Problem: sinus pressure, drainage, sore throat x 8 days, right eye redness and drainage x sat SUBJECTIVE: This is a 62 year old that is here today for Complaint(s) of sinus congestion and drainage x 9 days. Last night started with right eye irritation and crusting/drainage. No vision changes, trauma, known FB. Also notes plugged right ear, intermittent discomfort. Notes a sore throat associated. Cough in the AM mostly and then clears mostly. Denies fever/chills, SOB, wheezing, vomiting, diarrhea. She was around her sister who was sick with similar symptoms-home COVID tests negative for her, patient has not checked. No flu or COVID vaccine. PAST MEDICAL HISTORY Diagnosis Date Dysmenorrhea Excessive or frequent menstruation Irregular menstrual cycle Irregular periods Myalgia and myositis, unspecified Premenstrual tension syndromes PMS ALLERGIES Sulfa (Sulfonamide Antibiotics) and Promethazine MEDICATIONS Current Outpatient Medications Medication Sig OTC NUTRITIONAL SUPPLEMENT Multi-Vitamin, Take one(1) tablet daily. OTC NUTRITIONAL SUPPLEMENT Upelva, Take four days a month, four times daily (Patient not taking: Reported on 07/02/2022) No current facility-administered medications for this visit. SOCIAL HISTORY Social History Tobacco Use Smoking status: Never Smokeless tobacco: Never Substance Use Topics Alcohol use: Yes Comment: Occasionally Drug use: No REVIEW OF SYSTEMS See HPI OBJECTIVE: BP 108/68 Pulse 74 Temp 36.3 C (97.4 F) Resp 16 Wt 49.9 kg (110 lb) LMP 06/04/2006 SpO2 97% APPEARANCE Well appearing, alert, in no acute distress, well-hydrated, well nourished. EYES PERRLA, conjunctiva injected, erythematous LUIS. R>L. Limbus clear LUIS. ++ mild purulent drainage noted LUIS. _+ crusting. No periorbital edema. EOMs intact without pain. and sclera normal. EARS External ears normal, canals clear. TMs normal LUIS NOSE/SINUS Nares normal. Septum midline. Mucosa erythematous. No drainage, maxillary sinus tenderness. THROAT normal, no erythema NECK Supple, no adenopathy; HEART RRR with normal S1 and S2 LUNG clear to auscultation, No wheezing, rhonchi, rales. ASSESSMENT/PLAN: 1. Acute conjunctivitis of both eyes, unspecified acute conjunctivitis type - ICD9: 372.00, ICD10: H10.33 (primary diagnosis) - see medication orders - course and contagiousness issues discussed, including hand washing. - Instructed to call if high fever, development of periorbital redness or swelling, eye pain, visual changes, concerns or if symptoms persist. - CIPROFLOXACIN 0.3 % EYE DROPS 2. Rhinosinusitis - ICD9: 473.9, ICD10: J31.0, J32.9 - Discussed possible viral etiology. Advise if no improvement in 3-5 days to start antibiotic, sooner if worsening. Supportive care with fluids, rest, tylenol/motrin, sudafed, flonase - AMOXICILLIN 875 MG-POTASSIUM CLAVULANATE 125 MG TABLET Reviewed red flags and when to seek care sooner. The patient indicates understanding of these issues and agrees with the plan. Stella Urbano PA-C documented in this encounter [facility] 05-15-2022 Instructions Destiny Burt PA-C - 05/15/2022 2:22 PM EDT Problem List Items Addressed This Visit Other Wrist pain, chronic, right - Primary Please continue to wear the brace as necessary. Use OTC anti-inflammatories as needed for the pain. If it comes to the point where we feel surgery is needed, please let me know so we can get you in the appropriate hands. Call with any questions or concerns. If any referrals were placed at the time of your visit please allow 2 weeks for processing. If you haven't heard from anyone within 2 weeks please contact my office so we can look into the status of your referral. If you were given any labs today please ensure they are completed according to the directions given. Once labs are completed please allow 1-2 weeks for us to receive the results, review them, and let you know what steps, if any, are needed next. If you haven't heard from us after that please call to inquire. If labs were ordered to be done PRIOR to your next visit we will discuss the results at the time of your office visit. If any procedures or imaging studies were ordered that must be prior authorized please give us 2 weeks to get them approved. Once approved someone should call you to schedule them or give you a date and time that they were scheduled for. If you haven't heard anything within 2 weeks of the office visit please call the office so we can look into their status. The following attachments cannot be sent through Care Everywhere.Chronic Pain ([place])Carpal Tunnel Syndrome ([place])Carpal Tunnel Syndrome: A Few Tips for Preventing It: Video ([place])Carpal Tunnel Syndrome: Stretches: Video ([place])Carpal Tunnel Syndrome: Exercises ([place])documented in this encounter [facility] 05-15-2022 Evaluation + Plan note Associated Problem(s): Wrist pain, chronic, right Please continue to wear the brace as necessary. Use OTC anti-inflammatories as needed for the pain. If it comes to the point where we feel surgery is needed, please let me know so we can get you in the appropriate hands. Call with any questions or concerns. [facility] 05-15-2022 Miscellaneous Notes Associated Problem(s): Wrist pain, chronic, right Please continue to wear the brace as necessary. Use OTC anti-inflammatories as needed for the pain. If it comes to the point where we feel surgery is needed, please let me know so we can get you in the appropriate hands. Call with any questions or concerns. documented in this encounter [facility] 05-15-2022 History of Present illness Narrative Images from the original note were not included. Subjective Patient ID: Barbie Means is a 61 y.o. female. Wrist Pain The pain is present in the right wrist. This is a chronic problem. The current episode started more than 1 month ago (started in August). There has been no history of extremity trauma. The problem occurs constantly. The problem has been gradually worsening. The quality of the pain is described as aching and burning. The pain is at a severity of 8/10. The pain is severe. Associated symptoms include an inability to bear weight, joint swelling, a limited range of motion, numbness, stiffness and tingling. Pertinent negatives include no fever, itching or joint locking. The symptoms are aggravated by activity (specificlly using the mouse and typing). The treatment provided no relief. Family history does not include gout or rheumatoid arthritis. There is no history of diabetes, gout, osteoarthritis or rheumatoid arthritis. Patient states she has been having a lot of pain with her wrist since taking on a new role at work. 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 However, over the past several months, it has become more constant. It is interfering with her job. [facility] today, patient to go home and review records for dates of various diagnosis. We will review further at next visit. Vitals: 05/15/22 1321 05/15/22 1418 BP: (!) 155/95 (!) 147/82 BP Location: Left arm Left arm Patient Position: Sitting Sitting BP Cuff Size: Adult Pulse: 63 Resp: 14 Temp: 97.4 F (36.3 C) TempSrc: Oral SpO2: 100% Weight: 50.8 kg (111 lb 14.4 oz) Past Medical History: Diagnosis Date Anxiety Dr. Armenta, DO office note Arthritis of sacroiliac joint 10/17/2017 Burton Walsh M.D. Degenerative disc disease, lumbar 10/17/2017 Burton Walsh M.D.- L3-[address] Armenta DO office note Exostosis RIGHT FOOT Facet arthropathy 10/17/2017 Burton Walsh M.D. Fibromyalgia 1997 Dr. 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 History of stress test 02/2016 AT [facility] WITH NEGATIVE RESULTS Insomnia Dr. Mitchell, office visit note Neck pain Other secondary hypertension 11/14/2021 Overactive bladder Palpitations PONV (postoperative nausea and vomiting) Tachycardia Tremor 07/2016 Dr. Mitchell, office visit note Past Surgical History: Procedure Laterality Date SECTION, CLASSIC Info gained from :[facility] Hipolito/Caridad Saunders MD office visit note COLONOSCOPY 2012 [place] COLONOSCOPY N/A 12/08/2021 Procedure: COLONOSCOPY WITH BIOPSY; Surgeon: Nima Montgomery MD; [place] [facility] [place] Service: General Surgery CONE BIOPSY 1986 Dr.Kristy Lashae Saunders MD office visit note CYST REMOVAL 06/2015 Dr. Rai/Yaneth Jin foot DILATION AND CURETTAGE OF UTERUS 1986 Dr.Kristy Lashae Saunders MD office visit note EXCISION BONE SPUR FOOT Right 2014 Info gained from [facility] records HAND SURGERY Left 06/09/2014 Dr. Vielka Jin ganglion cyst HIND FOOT SOFT TISSUE Right 07/03/2016 Procedure: RIGHT EXCISION MIDFOOT DORSAL EXOSTOSIS, EXCISION GANGLION WITH ANTERIOR TARSAL TUNNEL DECOMPRESSION; Surgeon: Remi Rai DPM; Location: [facility] OR; Service: REMOVAL URETHERIAL JARQUIN 1981 Dr.Kristy Lashae Saunders MD office visit note TARSAL TUNNEL RELEASE 07/03/2016 WISDOM TOOTH EXTRACTION 1977 Patient's Medications New Prescriptions No medications on file Previous Medications ASCORBIC ACID, VITAMIN C, (VITAMIN C) 500 MG TABLET Take 1,000 mg by mouth 4 (four) times a day . CHOLECALCIFEROL, VITAMIN D3, 5,000 UNIT TAB TABLET Take 2,000 Units by mouth daily . CINNAMON BARK (CINNAMON ORAL) Take 1,000 mg by mouth 4 (four) times a day . CYCLOBENZAPRINE (FLEXERIL) 5 MG TABLET One tab at bedtime . GLUC/MSM/C/BORON/MANGANES/PRIM (JOINT SUPPORT COMPLEX ORAL) Take by mouth . LACTOBACILLUS COMBO NO.11 (PROBIOTIC) 15 BILLION CELL CPSP Take by mouth . LYSINE 500 MG TAB Take 500 mg by mouth 5 (five) times a day . MAGNESIUM OXIDE 500 MG CAP Take 500 mg by mouth 4 (four) times a day . OMEGA-3 FATTY ACIDS-VITAMIN E 1,000 MG CAP 8 capsules daily TAKES 1 TABLET Reasons: SUPPLEMENT. PRASTERONE, DHEA, 25 MG TAB Take 1 tablet by mouth daily . PROLINE, BULK, DANIELLE 1 capsule by Miscellaneous route 3 (three) times a day 667mg capsule . SUMATRIPTAN (IMITREX) 25 MG TABLET TAKE 1 (ONE) TABLET BY MOUTH EVERY 2 (TWO) HOURS NEEDED FOR MIGRAINE MAX OF 200 MG IN 24HRS . THYROID (ARMOUR) 30 MG TABLET Take 1 (one) tablet (30 mg total) by mouth daily . TRAZODONE (DESYREL) 50 MG TABLET TAKE 1/2 TO 1 TABLET NIGHTLY NEEDED FOR SLEEP . VIT A-VIT Z-Z7-GPWR-HERBAL 331 900 MCG-90 MG- 20 MCG-5.5 MG CAP Take by mouth . VITAMIN B COMPLEX/FOLIC ACID (B COMPLEX 100 ORAL) Take 100 mg by mouth 3 (three) times a day . VITAMIN K2 ORAL Take 100 mcg by mouth 2 (two) times a day . Modified Medications No medications on file Discontinued Medications No medications on file Allergies as of 05/15/2022 - Reviewed 05/15/2022 Allergen Reaction Noted Promethazine Other (See Comments) 04/24/2016 Bactrim [sulfamethoxazole-trimethoprim] GI Intolerance 07/07/2014 Cat dander Other (See Comments) 09/15/2018 Dog dander Other (See Comments) 09/15/2018 Dust [house dust] Other (See Comments) 09/15/2018 Grass pollen Other (See Comments) 09/15/2018 Sulfa (sulfonamide antibiotics) GI Intolerance 07/07/2014 Sulfasalazine GI Intolerance 03/12/2017 Review of Systems Constitutional: Negative for fever. Musculoskeletal: Positive for stiffness. Negative for gout. Skin: Negative for itching. Neurological: Positive for tingling and numbness. Objective Physical Exam Vitals and nursing note reviewed. Constitutional: General: She is not in acute distress. Appearance: She is well-developed. HENT: Head: Normocephalic and atraumatic. Right Ear: External ear normal. Left Ear: External ear normal. Eyes: Conjunctiva/sclera: Conjunctivae normal. Cardiovascular: Rate and Rhythm: Normal rate and regular rhythm. Pulmonary: Effort: Pulmonary effort is normal. No respiratory distress. Musculoskeletal: General: Swelling and tenderness present. No deformity or signs of injury. Right lower leg: No edema. Left lower leg: No edema. Comments: Decreased strength to the right wrist. Mild swelling noted. Skin: General: Skin is warm and dry. Neurological: Mental Status: She is alert and oriented to person, place, and time. Psychiatric: Behavior: Behavior normal. Thought Content: Thought content normal. Judgment: Judgment normal. Assessment/Plan: Wrist pain, chronic, right Please continue to wear the brace as necessary. Use OTC anti-inflammatories as needed for the pain. If it comes to the point where we feel surgery is needed, please let me know so we can get you in the appropriate hands. Call with any questions or concerns. Goals None For any new medications prescribed today, patient was educated about indications for the medication, how to take the medication and potential side effects of the medications. documented in this encounter [facility] 03-11-2022 History of Present illness Narrative Subjective HPI Barbie Means is a 61 year old female who presents with 4 days of urinary frequency and dysuria. She has had some lower back pain. She denies fever and chills. Some nausea, no vomiting. She has not taken any medication for this today. Review of Systems Constitutional: Negative for chills and fever. Respiratory: Negative. Cardiovascular: Negative. Gastrointestinal: Positive for nausea. Negative for abdominal pain and vomiting. Genitourinary: Positive for dysuria and frequency. Musculoskeletal: Positive for back pain. BP 108/70 Pulse 76 Temp 36.2 C (97.2 F) Resp 16 Wt 52.2 kg (115 lb) LMP 06/04/2006 SpO2 97% PAST MEDICAL HISTORY Diagnosis Date Dysmenorrhea Excessive or frequent menstruation Irregular menstrual cycle Irregular periods Myalgia and myositis, unspecified Premenstrual tension syndromes PMS PAST SURGICAL HISTORY Procedure Laterality Date DELIVERY ONLY , low cervical CONIZATION CERVIX W/WO D&C RPR ELTRD EXC DILATION & CURETTAGE DX&/THER NONOBSTETRIC Dilation & curettage ALLERGIES Sulfa (Sulfonamide Antibiotics) and Promethazine MEDICATIONS OTC NUTRITIONAL SUPPLEMENT Upelva, Take four days a month, four times daily OTC NUTRITIONAL SUPPLEMENT Multi-Vitamin, Take one(1) tablet daily. nitrofurantoin monohydrate and macrocrystal (MACROBID) 100 mg capsule Take 1 capsule by mouth twice daily for 7 days. FAMILY HISTORY Problem Relation Age of Onset Heart Father Prostate Cancer Father Hypertension Father Breast Cancer Paternal Aunt Great Aunt Arthritis Mother Social History Tobacco Use Smoking status: Never Smoker Smokeless tobacco: Never Used Substance Use Topics Alcohol use: Yes Comment: Occasionally Drug use: No Objective Physical Exam Vitals and nursing note reviewed. Constitutional: Appearance: Normal appearance. Cardiovascular: Rate and Rhythm: Normal rate and regular rhythm. Heart sounds: Normal heart sounds. Pulmonary: Effort: Pulmonary effort is normal. Breath sounds: Normal breath sounds. Abdominal: General: There is no distension. Palpations: Abdomen is soft. There is no mass. Tenderness: There is abdominal tenderness in the suprapubic area. There is no guarding. Skin: General: Skin is warm and dry. Neurological: Mental Status: She is alert. ASSESSMENT/PLAN: 1. Urinary frequency - ICD9: 788.41, ICD10: R35.0 acute - UA positive for kathryn esterase and hematuria - Send urine for culture - Begin treatment with Macrobid 100 mg BID for 7 days - Patient education for prevention given - UA DIP, URINE (POC) - URINE CULTURE - NITROFURANTOIN MONOHYDRATE & MACROCRYSTAL 100 MG ORAL CAP - Follow-up with your PCP in 3-5 days if symptoms have not improved or sooner if symptoms worsen - Discussed red flags and need for immediate medical evaluation if any occur. - Discussed supportive care treatment with fluids, rest and analgesia. - Discussed expected course of illness Mandie Krishna APRN.CNP documented in this encounter [facility] 03-11-2022 Instructions Mandie Krishna APRN.CNP - 03/11/2022 9:15 AM EDT ASSESSMENT/PLAN: 1. Urinary frequency - ICD9: 788.41, ICD10: R35.0 acute - UA positive for kathryn esterase and hematuria - Send urine for culture - Begin treatment with Macrobid 100 mg BID for 7 days - Patient education for prevention given - UA DIP, URINE (POC) - URINE CULTURE - NITROFURANTOIN MONOHYDRATE & MACROCRYSTAL 100 MG ORAL CAP - Follow-up with your PCP in 3-5 days if symptoms have not improved or sooner if symptoms worsen - Discussed red flags and need for immediate medical evaluation if any occur. - Discussed supportive care treatment with fluids, rest and analgesia. - Discussed expected course of illness Mandie Krishna APRN.CNP [facility] PATIENT INFO BLADDER INFECTION OVERVIEW Bladder infections are one of the most common infections, causing symptoms of burning with urination and needing to urinate frequently. A bladder infection is a type of urinary tract infection (UTI). Bladder infections are more common is women than men. Most women have an uncomplicated bladder infection that is easily treated with a short course of antibiotics. In men, bladder infections may also affect the prostate gland, and a longer course of treatment may be needed. BLADDER INFECTION CAUSES The urinary tract includes the kidneys (which filter urine), ureters (the tube that carries urine from the kidneys to the bladder), the bladder (which stores urine), and urethra (the tube that carries urine out of the bladder). Bacteria do not normally live in these areas. However, bacteria normally live close to the urethra in women and men who are not circumcised. Bladder infections occur when bacteria travel up the urethra into the bladder. Factors that increase the risk of developing a bladder infection include: Vaginal sex Use of spermicides History of past bladder infections Diabetes In men, not being circumcised or having anal sex increase the risk of bladder infections. BLADDER INFECTION SYMPTOMS The typical symptoms of a bladder infection include: Pain or burning when urinating Frequent need to urinate Urgent need to urinate Blood in the urine Fever, back pain, nausea, or vomiting are not common symptoms of a bladder infection, but can occur in people with a kidney infection (pyelonephritis). If you have these symptoms, you should call your doctor or nurse immediately. Is it a bladder infection or something else? Burning with urination can also occur in people with vaginitis (eg, yeast infection) or urethritis (inflammation of the urethra). For this reason, it is important to call your healthcare provider before assuming you have a bladder infection. BLADDER INFECTION DIAGNOSIS Simple bladder infections are usually diagnosed based upon your symptoms alone. However, most patients, especially those who have bladder infection symptoms for the first time, should see a healthcare provider for urine testing. Urine culture A urine culture is a test that uses a sample of urine to try and grow bacteria in a laboratory. It usually requires about 48 hours to get results. However, a urine culture is not always required to diagnose a bladder infection. Urine culture is often recommended if: You have never had a bladder infection before You have symptoms that are not typical for bladder infection You have had resistant bladder infections before You have frequent bladder infections You do not begin to feel better within 24 to 48 hours after starting antibiotics You are BLADDER INFECTION TREATMENT Bladder infection In young, healthy adolescents and adults with a bladder infection, the usual treatment includes a three to seven day course of antibiotics. The typical drugs chosen are: trimethoprim-sulfamethoxazole (Bactrim ), nitrofurantoin (Macrobid ), ciprofloxacin (Cipro ) or levofloxacin (Levaquin ). In men, the infection may involve your prostate gland and treatment is usually given for at least 7 days. Your symptoms should begin to resolve within one day after starting treatment. It is important to take the full course of antibiotics to completely eliminate the infection. If your symptoms persist for more than two or three days after starting treatment, call your healthcare provider. If needed, you can take a prescription medication that numbs the bladder and urethra (phenazopyridine [Pyridium ]) to reduce the burning pain of some UTIs. A similar medication is available without a prescription (eg, Uristat). Both medications change the color of the urine (usually blue or orange) and can interfere with laboratory testing. You should not take these medications for more than 48 hours due to the risk of side effects. These medications do not treat the infection and must be taken along with an antibiotic. Some providers recommend drinking more fluids while treating bladder infections to help flush bacteria from the bladder. Others believe that drinking more fluids may dilute the antibiotic in the bladder and make the medication less effective. No studies have been performed to address this issue. There are also no good studies on the effectiveness of cranberry juice for treating a bladder infection; we do not recommend using cranberry juice to treat bladder infections. Follow-up care Follow-up testing is not needed in healthy, young men or women with a bladder infection if symptoms resolve. women are usually asked to have a repeat urine culture one to two weeks after treatment has ended to make sure the bacteria are no longer in the urine. RECURRENT BLADDER INFECTIONS Bladder infections versus other causes Some adults, especially women, develop bladder infections frequently. In this case, it is important to confirm that your symptoms (eg, pain or burning, frequency, and urgency) are caused by a bladder infection. Symptoms are usually similar from one infection to another. The best way to confirm an infection is to have a urine culture. If your urine culture is negative for infection, other causes of pain, burning, and frequency should be investigated. There is no reason to take antibiotics if your urine culture is negative. Need for further testing If you continue to develop bladder infections, you may require further testing. If you continue to notice blood in your urine after your bladder infection has cleared, you should have further testing. Preventing recurrent UTIs Women with recurrent urinary tract infections may be advised to take steps to prevent bladder infections, including one or more of the following: Changes in control Women who develop frequent bladder infections and use spermicides, particularly those who also use a diaphragm, may be encouraged to use an alternate method of control. Cranberry products Taking cranberry juice or cranberry tablets has been promoted as one way to help prevent frequent bladder infections. However, this has not been proven. Drinking more fluid and urinating after intercourse Although studies have not proven that drinking more fluids or urinating soon after intercourse can prevent infection, some healthcare providers recommend these measures since they are not harmful. Drinking more fluid may help to wash out bacteria that enter the bladder. Postmenopausal women Postmenopausal women who develop recurrent bladder infections may benefit from using vaginal estrogen. Vaginal estrogen is available in a flexible ring that is worn in the vagina for three months (eg, Estring ), a small tablet (Vagifem ), or a cream (eg, Premarin or Estrace ). Vaginal estrogen is discussed in more detail in a separate topic review. Antibiotics A preventive antibiotic treatment may be recommended if you repeatedly develop bladder infections and have not responded to other preventive measures. Antibiotics are highly effective in preventing recurrent bladder infections and can be taken in several different ways. Preventive antibiotic You can take a low dose of an antibiotic once per day or three times per week for six months to several years. Antibiotics following intercourse In women who develop urinary tract infections after sex, taking a single low dose antibiotic after intercourse can help to prevent bladder infections. Self-treatment A plan to begin antibiotics at the first sign of a bladder infection may be recommended in some situations. Before starting this regimen, it is important that you have had testing (urine cultures) to confirm that your symptoms are caused by a bladder infection; some people have symptoms of a bladder infection but do not actually have an infection. documented in this encounter [facility] 02-15-2022 History of Present illness Narrative Subjective Barbie Means is a 61 y.o. female -0-1-1 presents today for follow-up on pelvic ultrasound. Patient was first seen a few weeks ago due to a CT scan showing a leiomyoma. Patient stated at her last visit that she was diagnosed with a leiomyoma in roughly 2010. Patient states that she has not had any problems with vaginal bleeding or postmenopausal vaginal bleeding. Patient states that recently she has developed GI issues. Patient states that she was told by her GI specialist that she had a very tortuous colon. Patient states that she was having issues with diarrhea but now is having problems with constipation. Patient states she has significant abdominal bloating as well. Patient had a transvaginal ultrasound performed today as this is the gold standard for characterizing the uterus and ovaries. Patient did have a CT scan done not that long ago that showed a 6.7 cm leiomyoma. Transvaginal ultrasound performed today was reviewed and discussed with patient. Transvaginal ultrasound showed a 5.5 x 4.5 x 5.3 cm intramural, fundally located leiomyoma. Uterine size is 8 cm. This is much smaller than what was seen on the CT scan. Discussed with patient that the location of the fibroid and the fact that it is fundal and somewhat intramural to make it unlikely to be causing mass-effect or pressure on the descending colon. Discussed with patient that it could affect the course of the rectum based on the fact that the uterus sits anterior to the rectum in the pelvis. Discussed with patient that it is unlikely that this fibroid that has been there for 11 years is causing her new onset changes in bowel habits. Discussed with patient that it is unlikely that the fibroid is causing her abdominal bloating as well. Advised patient that we should do an ultrasound in a year to document stability of the leiomyoma as we did not have any previous imaging other than the CT scan. Advised patient we can do a repeat ultrasound at the time of her annual exam. Advised patient that if the leiomyoma does cause problems we can always discuss a hysterectomy at that point. Briefly discussed hysterectomy at patient's last office visit. Patient to follow-up in 1 year or as needed. Time spent reviewing ultrasound, discussing results with patient, documenting, and discussing plan of care was 20 minutes. OB History: OB History 2 Para 1 Term 0 0 AB 1 Living 1 SAB 0 IAB 0 Ectopic 0 Multiple 0 Live Births 1 Menstrual History: No LMP recorded. Patient is postmenopausal. The following portions of the patient's history were reviewed and updated as appropriate: allergies, current medications, past family history, past medical history, past social history, past surgical history, and problem list. Review of Systems Constitutional: negative for chills, fatigue, fevers, and weight loss Respiratory: negative for cough and dyspnea on exertion Cardiovascular: negative for chest pain and dyspnea Gastrointestinal: positive for change in bowel habits, constipation, diarrhea, and abdominal bloating Genitourinary:negative for abnormal menstrual periods and sexual problems Objective BP (!) 147/96 Pulse 72 Wt 50.4 kg (111 lb 3.2 oz) BMI 20.34 kg/m General: alert, appears stated age, cooperative, and no distress Assessment: A/P: Patient is a 61-year-old female -0-1-1 who presents today for follow-up on intramural leiomyoma and transvaginal ultrasound Plan: Plan: 1. Discussed ultrasound results 2. Transvaginal ultrasound was performed today and showed an 8.9 x 6 x 6.7 cm size uterus 3. Ultrasound showed a 5.5 x 4.5 x 5.3 cm intramural fundal leiomyoma. Discussed location of the leiomyoma and size of the leiomyoma. Discussed with patient that this is smaller than what was seen on CT scan. Discussed with patient that with this leiomyoma being located fundally and centrally it would be unlikely to be causing the torturous nodes of the colon. 4. Discussed with patient the fact that the fibroid has been there since 2010 and is smaller than what was estimated on CT scan, it is unlikely that the fibroid is causing the new onset abdominal bloating, diarrhea, and now constipation. 5. Advised patient that we would forward a copy of today's office visit to her GI specialist 6. Advised patient that hysterectomy would always be an option if necessary in the future but do not feel that it would change what is going on with her gastrointestinal system at this time. If gastroenterology would desire further consultation they may contact her office. 7. Recommended the patient repeat an ultrasound next year at her annual exam to document stability of the leiomyoma Time spent reviewing ultrasound, discussing results with patient, documenting, and discussing plan of care was 20 minutes. documented in this encounter [facility] 02-01-2022 History of Present illness Narrative ANNUAL EXAM Patient Name: Barbie Measn : 1960 MR #: [id number] SUBJECTIVE: Barbie Means is a 61 y.o. here for evaluation of uterine leiomyoma. Patient states in the last year she has developed left lower quadrant abdominal pain, diarrhea that is now alternating with constipation, abdominal bloating, and pelvic pressure and heaviness. Patient states she saw a specialist and had a colonoscopy. Patient states she was told that her colon was very tortuous. Patient states that she had biopsies done at the time of colonoscopy that did not show any cause for her symptoms. Patient states she then had a CT scan done that showed a 6.7 cm uterine leiomyoma. Patient states she was diagnosed with leiomyoma in 2010. Patient states she saw an ELECTRIC TR[employer]ER at that time and was told that abdominal pain she was having was likely due to necrosis of the leiomyoma. Patient states she was given pain medication and after few days the pain resolved. Patient states overall she has not had problems with pain aside from the change in bowel habits and associated pain in the last year. Patient is menopausal. Discussed with patient that leiomyomas typically do not ever go away but may shrink after menopause. Discussed with patient that typically we would not consider removing the leiomyoma or doing a hysterectomy unless she was having problems. Advised patient that it is difficult to ascertain whether or not her symptoms are being caused by the leiomyoma as it has been there for over a decade. CT scan did recommend the patient get an ultrasound to further characterize the leiomyoma. Plan to get a transvaginal ultrasound to look at the leiomyoma. Plan to have patient follow-up after ultrasound to discuss results. Discussed with patient that one option would be to repeat imaging in about 6 months and reassess symptoms at that time. Discussed patient that other treatment option would be to consider hysterectomy. Plan to discuss treatment options further after patient receives ultrasound. Her last pap was approximate date 2019 and was normal. She is not currently using contraception. She uses menopause. She is currently sexually active. Review of Systems Review of Systems Constitutional: Negative for chills, fatigue, fever and unexpected weight change. Respiratory: Negative for cough and shortness of breath. Cardiovascular: Negative for chest pain. Gastrointestinal: Positive for abdominal distention, abdominal pain (left lower quadrant), constipation and diarrhea. Negative for nausea and vomiting. Genitourinary: Positive for pelvic pain (pelvic pressure). Negative for dyspareunia, menstrual problem, urgency, vaginal bleeding, vaginal discharge and vaginal pain. Neurological: Negative for dizziness. PAST MEDICAL HISTORY: Past [employer]ER History Obstetrical History: Gynecologic History: Menstrual history: Patient underwent menopause in her 50s Denies a history of STIs. Denies a history of abnormal cervical cytology Past Medical History Past Medical History: Diagnosis Date Anxiety Dr. Armenta, DO office note Arthritis of sacroiliac joint 10/17/2017 Burton Walsh M.D. Degenerative disc disease, lumbar 10/17/2017 Burton Walsh M.D.- L3-[address] Armenta, DO office note Exostosis RIGHT FOOT Facet arthropathy 10/17/2017 Burton Walsh M.D. Fibromyalgia 1997 Dr. 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 History of stress test 02/2016 AT [facility] WITH NEGATIVE RESULTS Insomnia Dr. Mitchell, DO office visit note Neck pain Other secondary hypertension 11/14/2021 Overactive bladder Palpitations PONV (postoperative nausea and vomiting) Tachycardia Tremor 07/2016 Dr. Mitchell, DO office visit note Past Surgical History has a past surgical history that includes REMOVAL URETHERIAL JARQUIN (1981); Dilation and curettage of uterus (1986); CONE BIOPSY (1986); Hand surgery (Left, 06/09/2014); Hind Foot Soft Tissue (Right, 07/03/2016); Tarsal Tunnel Release (07/03/2016); Cyst Removal (06/2015); [place] tooth extraction (1977); Colonoscopy (2012); Excision Bone Spur Foot (Right, 2014); section, classic; and Colonoscopy (N/A, 12/08/2021). Family History Her family history includes Anxiety in her brother, mother, and sister; Arthritis in her mother; Coronary artery disease in her father and paternal grandmother; Depression in her mother and sister; Heart disease in her father and paternal grandmother; [place]'s disease in her paternal grandfather; Hypertension in her father and sister; Parkinson's in her maternal grandfather; Post-traumatic stress disorder in her daughter; Prostate cancer in her father; Urinary tract infection in her mother. Medications She has a current medication list which includes the following prescription(s): ascorbic acid (vitamin c), cholecalciferol (vitamin d3), cinnamon bark, cyclobenzaprine, gluc/msm/c/boron/manganes/prim, probiotic, lysine, magnesium oxide, omega-3 fatty acids-vitamin e, prasterone (dhea), proline (bulk), sumatriptan, thyroid, trazodone, vit a-vit [id number], vitamin b complex/folic acid, and vitamin k2. Allergies She is allergic to promethazine, bactrim [sulfamethoxazole-trimethoprim], cat dander, dog dander, dust [house dust], grass pollen, sulfa (sulfonamide antibiotics), and sulfasalazine. Social History She reports that she has never smoked. She has never used smokeless tobacco. She reports current alcohol use of about 7.0 standard drinks of alcohol per week. She reports that she does not use drugs. reports that she has never smoked. She has never used smokeless tobacco. Health maintenance: Mammogram: 2021 Colonoscopy: 2021 Dexa: N/A Lipid screening: N/A OBJECTIVE: Body mass index is 19.57 kg/m . Vitals: 02/01/22 1113 BP: 129/77 Pulse: 75 Weight: 48.5 kg (107 lb) Height: 5' 2 Physical Examination: Physical Exam Constitutional: Appearance: Normal appearance. She is not ill-appearing. HENT: Head: Normocephalic. Nose: Nose normal. Eyes: Extraocular Movements: Extraocular movements intact. Abdominal: General: There is no distension. Palpations: Abdomen is soft. There is mass (fullness in pelvis). Tenderness: There is no abdominal tenderness. There is no guarding or rebound. Genitourinary: Comments: Uterus enlarged at 12 week size on abdominal exam Musculoskeletal: Cervical back: Normal range of motion. Lymphadenopathy: Cervical: No cervical adenopathy. Neurological: Mental Status: She is alert and oriented to person, place, and time. Psychiatric: Mood and Affect: Mood normal. ASSESSMENT/PLAN: Barbie Means 61 y.o. presents for evaluation of leiomyoma seen on CT scan. Patient has been having bowel changes, left lower quadrant pain, diarrhea alternating with constipation 1. Plan to obtain transvaginal ultrasound as this is the gold standard to image the female organs 2. Patient does relay a history of being diagnosed with a leiomyoma back in 2010, but does not know how big the leiomyoma was at that time 3. Patient is menopausal 4. Discussed with patient that due to the longevity of the leiomyoma it is difficult to ascertain if her symptoms that have been occurring in the last year are related to the leiomyoma or are related to bowel origins 5. Patient did have a colonoscopy that showed a torturous colon 6. Discussed with patient that 1 option would be to expectantly manage patient with repeat imaging in about 6 months to assess for stability in size of the leiomyoma versus proceeding directly with a hysterectomy 7. Discussed with patient that there is a possibility that hysterectomy would not improve her symptoms 8. Briefly discussed modalities for hysterectomy 9. Plan to follow-up after ultrasound to discuss treatment plan and finalize treatment plan Goals None - RTO for next visit documented in this encounter [facility] 12-08-2021 Note Addended by: NIMA MONTGOMERY on: 12/08/2021 12:24 PM Modules accepted: Orders [facility] 12-08-2021 Miscellaneous Notes Addended by: NIMA MONTGOMERY on: 12/08/2021 12:24 PM Modules accepted: Orders documented in this encounter [facility] 11-14-2021 History of Present illness Narrative Flushed bilateral ears with H2O2 and warm water. Moderate amounts of dark yellow/brown colored cerumen removed without difficulty. Pt tolerated the procedure well. Subjective Patient ID: Barbie Means is a 61 y.o. female. HPI Patient is here for cerumen impaction and to have ears flushed. She has been using debrox for the last 1-2 weeks. We will attempt to flush. She complains of fullness and pressure behind the ears. Patient's blood pressure noted to be elevated today. In regards to this we had a discussion about whether anything was bothering her. This brought to light a few personal matters that are causing her significant distress. Previous Bps reviewed and have always been essentially normal. We will continue to monitor. PMSH reviewed briefly today, patient to go home and review records for dates of various diagnosis. We will review further at next visit. Vitals: 11/14/21 1315 11/14/21 1350 BP: (!) (P) 149/85 (!) 169/77 BP Location: (P) Right arm Right arm Patient Position: (P) Sitting Sitting BP Cuff Size: (P) Adult Adult Pulse: (P) 71 73 Resp: (P) 18 Temp: (P) 97.1 F (36.2 C) TempSrc: (P) Oral SpO2: (P) 99% Weight: (P) 47.9 kg (105 lb 8 oz) Past Medical History: Diagnosis Date Anxiety Dr. Armenta, DO office note Arthritis of sacroiliac joint 10/17/2017 Burton Walsh M.D. Degenerative disc disease, lumbar 10/17/2017 Burton Walsh M.D.- L3-[address] Kathi DO office note Exostosis RIGHT FOOT Facet arthropathy 10/17/2017 Burton Walsh M.D. Fibromyalgia 1997 Dr. 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 History of stress test 02/2016 AT [facility] WITH NEGATIVE RESULTS Insomnia Dr. Mitchell, office visit note Neck pain Other secondary hypertension 11/14/2021 Overactive bladder Palpitations PONV (postoperative nausea and vomiting) Tachycardia Tremor 07/2016 Dr. Mitchell, office visit note Past Surgical History: Procedure Laterality Date SECTION, CLASSIC Info gained from :[facility] Hipolito/Caridad Saunders MD office visit note COLONOSCOPY 2012 [place] CONE BIOPSY 1986 Dr.Kristy Lashae Saunders MD office visit note CYST REMOVAL 06/2015 Dr. Rai/Yaneth Jin foot DILATION AND CURETTAGE OF UTERUS 1986 Dr.Kristy Lashae Saunders MD office visit note EXCISION BONE SPUR FOOT Right 2014 Info gained from [facility] records HAND SURGERY Left 06/09/2014 Dr. Vielka Jin ganglion cyst HIND FOOT SOFT TISSUE Right 07/03/2016 Procedure: RIGHT EXCISION MIDFOOT DORSAL EXOSTOSIS, EXCISION GANGLION WITH ANTERIOR TARSAL TUNNEL DECOMPRESSION; Surgeon: Remi Rai DPM; Location: [facility] Main OR; Service: REMOVAL URETHERIAL JARQUIN 1981 Dr.Kristy Lashae Saunders MD office visit note TARSAL TUNNEL RELEASE 07/03/2016 WISDOM TOOTH EXTRACTION 1977 Patient's Medications New Prescriptions No medications on file Previous Medications ASCORBIC ACID, VITAMIN C, (VITAMIN C) 500 MG TABLET Take 1,000 mg by mouth 4 (four) times a day . CHOLECALCIFEROL, VITAMIN D3, 5,000 UNIT TAB TABLET Take 2,000 Units by mouth daily . CINNAMON BARK (CINNAMON ORAL) Take 1,000 mg by mouth 4 (four) times a day . CYCLOBENZAPRINE (FLEXERIL) 5 MG TABLET One tab at bedtime . DOCOSAHEXAENOIC ACID-EPA 120-180 MG CAP Take 1,000 mg by mouth every hour as needed Taking 2 before each meal and at bedtime with a total of 12 daily . LYSINE 500 MG TAB Take 500 mg by mouth 5 (five) times a day . MAGNESIUM OXIDE 500 MG CAP Take 500 mg by mouth 4 (four) times a day . OMEGA-3 FATTY ACIDS-VITAMIN E 1,000 MG CAP 8 capsules daily TAKES 1 TABLET Reasons: SUPPLEMENT. PRASTERONE, DHEA, 25 MG TAB Take 1 tablet by mouth daily . PROLINE, BULK, DANIELLE 1 capsule by Miscellaneous route 3 (three) times a day 667mg capsule . SUMATRIPTAN (IMITREX) 25 MG TABLET TAKE 1 (ONE) TABLET BY MOUTH EVERY 2 (TWO) HOURS NEEDED FOR MIGRAINE MAX OF 200 MG IN 24HRS . THYROID (ARMOUR) 30 MG TABLET Take 1 (one) tablet (30 mg total) by mouth daily . TRAZODONE (DESYREL) 50 MG TABLET Take 1/2 to 1 tablet po nightly as needed for sleep . VITAMIN B COMPLEX/FOLIC ACID (B COMPLEX 100 ORAL) Take 100 mg by mouth 3 (three) times a day . VITAMIN K2 ORAL Take 100 mcg by mouth 2 (two) times a day . Modified Medications No medications on file Discontinued Medications No medications on file Allergies as of 11/14/2021 - Reviewed 11/14/2021 Allergen Reaction Noted Promethazine Other (See Comments) 04/24/2016 Bactrim [sulfamethoxazole-trimethoprim] GI Intolerance 07/07/2014 Cat dander Other (See Comments) 09/15/2018 Dog dander Other (See Comments) 09/15/2018 Dust [house dust] Other (See Comments) 09/15/2018 Grass pollen Other (See Comments) 09/15/2018 Sulfa (sulfonamide antibiotics) GI Intolerance 07/07/2014 Sulfasalazine GI Intolerance 03/12/2017 Review of Systems Constitutional: Negative for activity change, appetite change, fatigue, fever and unexpected weight change. HENT: Positive for ear discharge (due to debrox) and ear pain. Negative for congestion, rhinorrhea, sinus pressure, sinus pain and sneezing. Eyes: Negative for visual disturbance. Respiratory: Negative for cough, choking, chest tightness and wheezing. Cardiovascular: Negative for chest pain, palpitations and leg swelling. Gastrointestinal: Negative for abdominal distention, constipation, diarrhea and nausea. Genitourinary: Negative for dyspareunia, dysuria and frequency. Skin: Negative for rash. Neurological: Negative for dizziness, weakness, light-headedness and headaches. Psychiatric/Behavioral: Negative for agitation, sleep disturbance and suicidal ideas. The patient is not nervous/anxious. Objective Physical Exam Vitals and nursing note reviewed. Constitutional: General: She is not in acute distress. Appearance: She is well-developed. HENT: Head: Normocephalic and atraumatic. Right Ear: External ear normal. Left Ear: External ear normal. Ears: Comments: Impaction noted in bilateral canals. After flushing, minimal cerumen noted and TMs appear healthy. Canal mildly erythematous due to flushing. Will recheck in three months Eyes: Conjunctiva/sclera: Conjunctivae normal. Cardiovascular: Rate and Rhythm: Normal rate and regular rhythm. Pulmonary: Effort: Pulmonary effort is normal. No respiratory distress. Neurological: Mental Status: She is alert and oriented to person, place, and time. Psychiatric: Mood and Affect: Mood normal. Behavior: Behavior normal. Thought Content: Thought content normal. Judgment: Judgment normal. Assessment/Plan: Other secondary hypertension Please monitor blood pressure over the next few weeks. I would like to get some readings by Saturday. If Bps are still elevated, we will look into alternatives and treatments. Impacted cerumen of both ears Cerumen removed almost entirely. Please call with any questions or concerns. Goals None For any new medications prescribed today, patient was educated about indications for the medication, how to take the medication and potential side effects of the medications. documented in this encounter [facility] 11-14-2021 Instructions Destiny Burt PA-C - 11/14/2021 2:22 PM EDT Problem List Items Addressed This Visit Cardiovascular and Mediastinum Other secondary hypertension Please monitor blood pressure over the next few weeks. I would like to get some readings by Saturday. If Bps are still elevated, we will look into alternatives and treatments. Nervous and Auditory Impacted cerumen of both ears - Primary Cerumen removed almost entirely. Please call with any questions or concerns. If any referrals were placed at the time of your visit please allow 2 weeks for processing. If you haven't heard from anyone within 2 weeks please contact my office so we can look into the status of your referral. If you were given any labs today please ensure they are completed according to the directions given. Once labs are completed please allow 1-2 weeks for us to receive the results, review them, and let you know what steps, if any, are needed next. If you haven't heard from us after that please call to inquire. If labs were ordered to be done PRIOR to your next visit we will discuss the results at the time of your office visit. If any procedures or imaging studies were ordered that must be prior authorized please give us 2 weeks to get them approved. Once approved someone should call you to schedule them or give you a date and time that they were scheduled for. If you haven't heard anything within 2 weeks of the office visit please call the office so we can look into their status. documented in this encounter [facility] 11-14-2021 Evaluation + Plan note Associated Problem(s): Impacted cerumen of both ears Cerumen removed almost entirely. Please call with any questions or concerns. [facility] 11-14-2021 Miscellaneous Notes Associated Problem(s): Impacted cerumen of both ears Cerumen removed almost entirely. Please call with any questions or concerns. Associated Problem(s): Other secondary hypertension Please monitor blood pressure over the next few weeks. I would like to get some readings by Saturday. If Bps are still elevated, we will look into alternatives and treatments. documented in this encounter [facility] 11-14-2021 Evaluation + Plan note Associated Problem(s): Other secondary hypertension Please monitor blood pressure over the next few weeks. I would like to get some readings by Saturday. If Bps are still elevated, we will look into alternatives and treatments. [facility] 11-14-2021 History of Present illness Narrative [facility] [address] [facility] [address] [facility] [id number] Patient: Barbie Means Age: 61 y.o. Race: [1] Chief Complaint: No chief complaint on file. 1. Diarrhea, unspecified type COVID-19, Molecular Case Request Operating Room: COLONOSCOPY 2. Change in bowel habits Ambulatory referral to General Surgery COVID-19, Molecular Case Request Operating Room: COLONOSCOPY 3. Left sided abdominal pain COVID-19, Molecular Case Request Operating Room: COLONOSCOPY 4. Nausea COVID-19, Molecular Case Request Operating Room: COLONOSCOPY Date: 11/14/21 Physicians: Destiny Burt PA-C (Family); Destiny Burt PA-C (Referring) HPI: Patient 61-year-old white female who states for the last 4 months she is having diarrhea associated with left upper quadrant abdominal pain that radiates to her left lower quadrant which she describes as stabbing. But he is feeling outerwear she also has severe nausea. She denies any emesis, fevers or chills. She denies any unexplained unintentional weight loss. Prior to the diarrhea she had noted a bowel habit change with constipation alternating with diarrhea and and states I had a sense that I was not completely evacuating YES NO [x] [] Change in bowel habits? [] [x] Constipation [x] [] Diarrhea? [] [x] Blood in stool? [] [x] Mucus in your stool? [] [x] Decrease in caliber of your stool? [] [x] Heme positive stool [] [x] Have you recently been diagnosed with anemia by your family doctor? Family History with regards to cancer [] [x] Colon or Rectal [] [x] Gastric/Esophageal [] [x] Pancreatic [] [x] Liver [] [x] Biliary tract [] [x] Ovarian [] [x] Breast [] [x] Prostate cancers Past Histories: Allergies: Promethazine, Bactrim [sulfamethoxazole-trimethoprim], Cat dander, Dog dander, Dust [house dust], Grass pollen, Sulfa (sulfonamide antibiotics), and Sulfasalazine Patient's Medications New Prescriptions No medications on file Previous Medications ASCORBIC ACID, VITAMIN C, (VITAMIN C) 500 MG TABLET Take 1,000 mg by mouth 4 (four) times a day . CHOLECALCIFEROL, VITAMIN D3, 5,000 UNIT TAB TABLET Take 2,000 Units by mouth daily . CINNAMON BARK (CINNAMON ORAL) Take 1,000 mg by mouth 4 (four) times a day . CYCLOBENZAPRINE (FLEXERIL) 5 MG TABLET One tab at bedtime . DOCOSAHEXAENOIC ACID-EPA 120-180 MG CAP Take 1,000 mg by mouth every hour as needed Taking 2 before each meal and at bedtime with a total of 12 daily . LYSINE 500 MG TAB Take 500 mg by mouth 5 (five) times a day . MAGNESIUM OXIDE 500 MG CAP Take 500 mg by mouth 4 (four) times a day . OMEGA-3 FATTY ACIDS-VITAMIN E 1,000 MG CAP 8 capsules daily TAKES 1 TABLET Reasons: SUPPLEMENT. PRASTERONE, DHEA, 25 MG TAB Take 1 tablet by mouth daily . PROLINE, BULK, DANIELLE 1 capsule by Miscellaneous route 3 (three) times a day 667mg capsule . SUMATRIPTAN (IMITREX) 25 MG TABLET TAKE 1 (ONE) TABLET BY MOUTH EVERY 2 (TWO) HOURS NEEDED FOR MIGRAINE MAX OF 200 MG IN 24HRS . THYROID (ARMOUR) 30 MG TABLET Take 1 (one) tablet (30 mg total) by mouth daily . TRAZODONE (DESYREL) 50 MG TABLET Take 1/2 to 1 tablet po nightly as needed for sleep . VITAMIN B COMPLEX/FOLIC ACID (B COMPLEX 100 ORAL) Take 100 mg by mouth 3 (three) times a day . VITAMIN K2 ORAL Take 100 mcg by mouth 2 (two) times a day . Modified Medications No medications on file Discontinued Medications No medications on file Patient Active Problem List Diagnosis Poor concentration Rhinitis Urge incontinence Spasm of muscle Fibromyalgia Anxiety with depression Family history of ischemic heart disease Dry eye syndrome Cyst of ovary Genital herpes simplex Fibroids, intramural Atypical squamous cells of undetermined significance on cytologic smear of cervix (ASC-US) Other postprocedural states Screening for heart disease Screening for diabetes mellitus Chronic fatigue Well adult exam Eczema Abnormal CBC Insomnia Cluster headache, not intractable Change in bowel habits Diarrhea Left sided abdominal pain Nausea Past Medical History: Diagnosis Date Anxiety Dr. Armenta, DO office note Arthritis of sacroiliac joint 10/17/2017 Burton Walsh M.D. Degenerative disc disease, lumbar 10/17/2017 Burton Walsh M.D.- L3-[address] Armenta, DO office note Exostosis RIGHT FOOT Facet arthropathy 10/17/2017 Burton Walsh M.D. Fibromyalgia 1997 Dr. 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 History of stress test 02/2016 AT [facility] WITH NEGATIVE RESULTS Insomnia Dr. Mitchell, office visit note Neck pain Overactive bladder Palpitations PONV (postoperative nausea and vomiting) Tachycardia Tremor 07/2016 Dr. Mitchell, office visit note Past Surgical History: Procedure Laterality Date SECTION, CLASSIC Info gained from :[facility] Hipolito/Caridad Saunders MD office visit note COLONOSCOPY 2012 [place] CONE BIOPSY 1986 Dr.Kristy Lashae Saunders MD office visit note CYST REMOVAL 06/2015 Dr. Rai/Yaneth Jin foot DILATION AND CURETTAGE OF UTERUS 1986 Dr.Kristy Lashae Saunders MD office visit note EXCISION BONE SPUR FOOT Right 2015 Info gained from [facility] records HAND SURGERY Left 06/09/2014 Dr. 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 See scanned patient ROS questionnaire for specific details The following systems were reviewed: [x] Const (fevers, chills, wt. loss, fatigue) [x] CV (HTN, CP, CALDERON, edema, DVT) [x] Resp (SOB, pleurisy, asthma, apnea) [x] GI (N, V, D, C, M, abd pain, appetite) [x] Musc (back pain, joint stiffness, gout) [x] Neuro (seizures, syncope, paralysis) [x] Psych (depression, anxiety) [x] Endo (hot/cold intol, polyuria[DM]) [x] Hem/Lymph (Anemia, LA, bleeding) [x] Allerg/Immun (seasonal, immuniz) [x] Eyes (diplopia, cataracts) [x] ENT/mouth (dysphagia, epistaxis) [x] (dysuria, hematuria) [x] Skin/Breast (moles, rash, lumps, nipple changes) Details: Data Unavailable Social History Tobacco Use Smoking Status Never Smoker Smokeless Tobacco Never Used Social History Substance and Sexual Activity Alcohol Use Yes Alcohol/week: 7.0 standard drinks Types: 7 Glasses of wine per week Social History Substance and Sexual Activity Drug Use No Family History Problem Relation Age of Onset Prostate cancer Father Coronary artery disease Father Hypertension Father Heart disease Father Urinary tract infection Mother Anxiety Mother Depression Mother Arthritis Mother Info gained from [facility] records Anxiety Sister Depression Sister Hypertension Sister Anxiety Brother Parkinson's Maternal Grandfather Coronary artery disease Paternal Grandmother Heart disease Paternal Grandmother Port Matilda's disease Paternal Grandfather Post-traumatic stress disorder Daughter Info gained from [facility] records Surgical complications Neg Hx Anesthesia problems Neg Hx Clotting disorder Neg Hx Deep vein thrombosis Neg Hx Pulmonary embolism Neg Hx Diabetes Neg Hx Breast cancer Neg Hx Physical Exam: BP 124/78 (BP Location: Right arm, Patient Position: Sitting, BP Cuff Size: Adult) Pulse 72 Ht 5' 2 Wt 47.6 kg (105 lb) SpO2 98% BMI 19.20 kg/m Body mass index is 19.2 kg/m . HEENT normocephalic atraumatic no scleral icterus pupils equal round reactive extraocular movements are intact moist mucous membrane good dental occlusion tongue is midline. Neck is supple, trach is midline, no thyromegaly, JVD, bruits or masses are noted. Chest bilateral breath sounds without wheezes or rales. CV regular rate without murmur, gallop or rub. Abdomen is soft, nontender, nondistended without peritoneal signs, guarding, rebound, organomegaly or mass. exam reveals normal external genitalia without overt hernia. Lymphatic exam is without supraclavicular, cervical, axillary or inguinal lymphadenopathy. Extremities show no gross clubbing, cyanosis, edema, mottling or deformity. Neurologically alert, oriented, cranial nerves II through XII are intact with no focal motor or sensory deficits noted. There is a normal gait patient is well-balanced while walking Assessment: Change in bowel habit with diarrhea lasting for the last 4 months associated with left-sided abdominal pain and intermittent nausea in a patient last underwent a colonoscopy which was normal performed on a screening basis in 2012. We have been asked to perform a diagnostic colonoscopy To date she has not been vaccinated for COVID and therefore will need PCR testing Plan: Diagnostic colonoscopy using routine MiraLAX bowel prep avoiding nonsteroidal anti-inflammatory agents for a week prior to study. Given her small body habitus I will be using a pediatric colonoscope. Risks complications and alternatives were discussed with the patient understands wished to proceed 1. Diarrhea, unspecified type COVID-19, Molecular Case Request Operating Room: COLONOSCOPY 2. Change in bowel habits Ambulatory referral to General Surgery COVID-19, Molecular Case Request Operating Room: COLONOSCOPY 3. Left sided abdominal pain COVID-19, Molecular Case Request Operating Room: COLONOSCOPY 4. Nausea COVID-19, Molecular Case Request Operating Room: COLONOSCOPY Orders Placed This Encounter Procedures COVID-19, Molecular Case Request Operating Room: COLONOSCOPY Nima Montgomery MD documented in this encounter [facility] 10-30-2021 Evaluation + Plan note Associated Problem(s): Insomnia At goal. No changes made to treatment at this time. [facility] 10-30-2021 Evaluation + Plan note Associated Problem(s): Fibromyalgia At goal. No changes made to current regimen. [facility] 10-30-2021 Miscellaneous Notes Associated Problem(s): Insomnia At goal. No changes made to treatment at this time. Associated Problem(s): Fibromyalgia At goal. No changes made to current regimen. Associated Problem(s): Well adult exam No significant lifestyle issues. Discussed target body weight and ways to maintain/achieve. Make sure you have 150 minutes per week at target heart rate and at least 15% at resistance training. Maximum Heart rate or MHR is defined by 220 - age. Then target heart rate or THR is 65-85% of MHR. Need to allow warmup slowly over 5- 10 minute to prevent going too fast to reach THR. Then exercise interval at THR and allow cool down until at least penitentiary back to the pre exercise hear rate. Therefore if resting heart rate was 70 and your target heart rate was 120. You need to keep moving and work the muscles until you heart rate is below 95 beats per minute. This reduces cramping and the risk of cardiac irritability post exercise. Maintain healthy diet. Everything in moderation is a good rule of thumb. Follow serving sizes and try not to exceed these. documented in this encounter [facility] 10-30-2021 History of Present illness Narrative Subjective: Barbie Means is a 61 y.o. female and is here for a preventative care visit. Health Maintenance Due Topic Date Due Mammogram 08/03/2021 Tobacco use or exposure: never Alcohol use: wine, nightly (one glass) Domestic violence: None Depression Screen: admits to being depressed situational, does not want treatment at this time Diet: very healthy Exercise: daily Last eye exam: due to schedule now Last dental visit: every 6 months PAP: 05/2020 Mammogram: ordered during today visit Abdominal Pain: Patient complains of abdominal pain. The pain is described as aching and sharp, and is 8/10 in intensity. Pain is located in the LUQ with radiation to left descending colon. Onset was 3 months ago. Symptoms have been intermittent since. Aggravating factors: none. Alleviating factors: none. Associated symptoms: diarrhea. The patient denies blood in stool, nausea and vomiting. Insomnia is stable on the current dose of 50mg of Trazodone at bedtime. In addition, she takes 5mg of Flexeril at bedtime for her fibromyalgia and this has allowed her to maintain and active/healthy lifestyle. The following portions of the patient's history were reviewed and updated as appropriate: allergies, current medications, past family history, past medical history, past social history, past surgical history and problem list. Past Medical History: Diagnosis Date Anxiety Dr. Armenta, DO office note Arthritis of sacroiliac joint 10/17/2017 Burton Walsh M.D. Degenerative disc disease, lumbar 10/17/2017 Burton Walsh M.D.- L3-[address] Armenta, office note Exostosis RIGHT FOOT Facet arthropathy 10/17/2017 Burton Walsh M.D. Fibromyalgia 1997 Dr. Armenta, office note GERD (gastroesophageal reflux disease) Danyell's thyroiditis 02/2017 Headache MIGRAINES Herpes simplex 06/21/2004 Burton An M.D. History of stress test 02/2016 AT [facility] WITH NEGATIVE RESULTS Insomnia Dr. Mitchell, DO office visit note Neck pain Overactive bladder Palpitations PONV (postoperative nausea and vomiting) Tachycardia Tremor 07/2016 Dr. Mitchell, DO office visit note Past Surgical History: Procedure Laterality Date SECTION, CLASSIC Info gained from :[facility] Hipolito/Caridad Saunders MD office visit note COLONOSCOPY 2012 [place] CONE BIOPSY 1986 Dr.Kristy Lashae Saunders MD office visit note CYST REMOVAL 06/2015 Dr. Rai/Yaneth Jin foot DILATION AND CURETTAGE OF UTERUS 1986 Dr.Kristy Lashae Saunders MD office visit note EXCISION BONE SPUR FOOT Right 2014 Info gained from [facility] records HAND SURGERY Left 06/09/2014 Dr. Vielka Jin ganglion cyst HIND FOOT SOFT TISSUE Right 07/03/2016 Procedure: RIGHT EXCISION MIDFOOT DORSAL EXOSTOSIS, EXCISION GANGLION WITH ANTERIOR TARSAL TUNNEL DECOMPRESSION; Surgeon: Remi Rai DPM; Location: [facility] Main OR; Service: REMOVAL URETHERIAL JARQUIN 1981 Dr.Kristy Lashae Saunders MD office visit note TARSAL TUNNEL RELEASE 07/03/2016 WISDOM TOOTH EXTRACTION 1977 Social History Tobacco Use Smoking status: Never Smoker Smokeless tobacco: Never Used Vaping Use Vaping Use: Never used Substance Use Topics Alcohol use: Yes Alcohol/week: 7.0 standard drinks Types: 7 Glasses of wine per week Drug use: No Family History Problem Relation Age of Onset Prostate cancer Father Coronary artery disease Father Hypertension Father Heart disease Father Urinary tract infection Mother Anxiety Mother Depression Mother Arthritis Mother Info gained from [facility] records Anxiety Sister Depression Sister Hypertension Sister Anxiety Brother Parkinson's Maternal Grandfather Coronary artery disease Paternal Grandmother Heart disease Paternal Grandmother Rose Marie's disease Paternal Grandfather Post-traumatic stress disorder Daughter Info gained from [facility] records Surgical complications Neg Hx Anesthesia problems Neg Hx Clotting disorder Neg Hx Deep vein thrombosis Neg Hx Pulmonary embolism Neg Hx Diabetes Neg Hx Breast cancer Neg Hx Allergies Allergen Reactions Promethazine Other (See Comments) CONVULSIONS Bactrim [Sulfamethoxazole-Trimethoprim] GI Intolerance Cat Dander Other (See Comments) sneezing Dog Dander Other (See Comments) sneezing Dust [House Dust] Other (See Comments) Grass Pollen Other (See Comments) Sinus issues Sulfa (Sulfonamide Antibiotics) GI Intolerance Other reaction(s): GI upset Sulfasalazine GI Intolerance Review of Systems Constitutional: negative for chills, malaise and sweats Eyes: negative for irritation, redness and visual disturbance Ears, nose, mouth, throat, and face: negative for earaches, snoring and tinnitus Respiratory: negative for cough, hemoptysis and wheezing Cardiovascular: negative for chest pain, dyspnea, fatigue and palpitations Gastrointestinal: positive for abdominal pain, constipation and diarrhea Negative for nausea and vomiting Genitourinary:negative for dysuria, hematuria and urinary incontinence Integument/breast: negative for breast lump, breast tenderness, dryness, nipple discharge and skin color change Musculoskeletal:positive for arthralgias, myalgias and stiff joints--seeing a chiropractor Neurological: negative for dizziness, headaches, seizures and tremors Behavioral/Psych: positive for anxiety and depression (managing) Endocrine: negative for diabetic symptoms including blurry vision, polydipsia and polyuria Objective: BP 124/75 (BP Location: Left arm, Patient Position: Sitting, BP Cuff Size: Adult) Pulse 73 Temp 97.8 F (36.6 C) (Oral) Resp 16 Ht 5' 2.5 Wt 48.5 kg (106 lb 14.4 oz) SpO2 98% BMI 19.24 kg/m General Appearance: Alert, cooperative, no distress, appears stated age Head: Normocephalic, without obvious abnormality, atraumatic Eyes: PERRL, conjunctiva/corneas clear, EOM's intact, fundi benign, both eyes Ears: Normal TM's and external ear canals, both ears Nose: Nares normal, septum midline, mucosa normal, no drainage or sinus tenderness Neck: Supple, symmetrical, trachea midline, no adenopathy; thyroid: no enlargement/tenderness/nodules; no carotid bruit or JVD Chest Wall: No tenderness or deformity Heart: Regular rate and rhythm, S1 and S2 normal, no murmur, rub or gallop Abdomen: Soft, non-tender, bowel sounds active all four quadrants, no masses, no organomegaly Extremities: Extremities normal, atraumatic, no cyanosis or edema Pulses: 2+ and symmetric all extremities Skin: Skin color, texture, turgor normal, no rashes or lesions Lymph nodes: Cervical, supraclavicular, and axillary nodes normal Neurologic: CNII-XII intact, normal strength, sensation and reflexes throughout Assessment: Healthy female exam. Plan: Problem List Items Addressed This Visit Other Fibromyalgia At goal. No changes made to current regimen. Screening for heart disease Relevant Orders Lipid Panel Comprehensive Metabolic Panel CBC and Differential TSH with Reflex Free T4 Screening for diabetes mellitus Relevant Orders Lipid Panel Comprehensive Metabolic Panel CBC and Differential TSH with Reflex Free T4 Well adult exam - Primary No significant lifestyle issues. Discussed target body weight and ways to maintain/achieve. Make sure you have 150 minutes per week at target heart rate and at least 15% at resistance training. Maximum Heart rate or MHR is defined by 220 - age. Then target heart rate or THR is 65-85% of MHR. Need to allow warmup slowly over 5- 10 minute to prevent going too fast to reach THR. Then exercise interval at THR and allow cool down until at least penitentiary back to the pre exercise hear rate. Therefore if resting heart rate was 70 and your target heart rate was 120. You need to keep moving and work the muscles until you heart rate is below 95 beats per minute. This reduces cramping and the risk of cardiac irritability post exercise. Maintain healthy diet. Everything in moderation is a good rule of thumb. Follow serving sizes and try not to exceed these. Insomnia At goal. No changes made to treatment at this time. Other Visit Diagnoses Change in bowel habits Relevant Orders Ambulatory referral to General Surgery Encounter for screening for malignant neoplasm of breast, unspecified screening modality Relevant Orders Mammography Screening Bilateral General Patient Counseling Given: --Nutrition: Stressed importance of moderation in sodium/caffeine intake, saturated fat and cholesterol, caloric balance, sufficient intake of fresh fruits, vegetables, fiber, calcium, iron, and 1 mg of folate supplement per day (for females capable of ). --Discussed the daily use of baby aspirin. --Exercise: Stressed the importance of regular exercise. --Substance Abuse: Discussed cessation/primary prevention of tobacco, alcohol, or other drug use --Sexuality: Discussed sexually transmitted diseases, partner selection, use of condoms, avoidance of unintended and contraceptive alternatives. --Dental health: Discussed importance of regular dental visits. --Immunizations reviewed. --Discussed benefits of screening mammograms, pap smears, and colonoscopy. documented in this encounter [facility] 10-30-2021 Instructions Destiny Burt PA-C - 10/30/2021 9:10 AM EST Problem List Items Addressed This Visit Other Well adult exam - Primary No significant lifestyle issues. Discussed target body weight and ways to maintain/achieve. Make sure you have 150 minutes per week at target heart rate and at least 15% at resistance training. Maximum Heart rate or MHR is defined by 220 - age. Then target heart rate or THR is 65-85% of MHR. Need to allow warmup slowly over 5- 10 minute to prevent going too fast to reach THR. Then exercise interval at THR and allow cool down until at least penitentiary back to the pre exercise hear rate. Therefore if resting heart rate was 70 and your target heart rate was 120. You need to keep moving and work the muscles until you heart rate is below 95 beats per minute. This reduces cramping and the risk of cardiac irritability post exercise. Maintain healthy diet. Everything in moderation is a good rule of thumb. Follow serving sizes and try not to exceed these. If any referrals were placed at the time of your visit please allow 2 weeks for processing. If you haven't heard from anyone within 2 weeks please contact my office so we can look into the status of your referral. If you were given any labs today please ensure they are completed according to the directions given. Once labs are completed please allow 1-2 weeks for us to receive the results, review them, and let you know what steps, if any, are needed next. If you haven't heard from us after that please call to inquire. If labs were ordered to be done PRIOR to your next visit we will discuss the results at the time of your office visit. If any procedures or imaging studies were ordered that must be prior authorized please give us 2 weeks to get them approved. Once approved someone should call you to schedule them or give you a date and time that they were scheduled for. If you haven't heard anything within 2 weeks of the office visit please call the office so we can look into their status. The following attachments cannot be sent through Care Everywhere.Well Visit: 50 to 65 Year Women ([place])documented in this encounter [facility] 10-30-2021 Evaluation + Plan note Associated Problem(s): Well adult exam No significant lifestyle issues. Discussed target body weight and ways to maintain/achieve. Make sure you have 150 minutes per week at target heart rate and at least 15% at resistance training. Maximum Heart rate or MHR is defined by 220 - age. Then target heart rate or THR is 65-85% of MHR. Need to allow warmup slowly over 5- 10 minute to prevent going too fast to reach THR. Then exercise interval at THR and allow cool down until at least penitentiary back to the pre exercise hear rate. Therefore if resting heart rate was 70 and your target heart rate was 120. You need to keep moving and work the muscles until you heart rate is below 95 beats per minute. This reduces cramping and the risk of cardiac irritability post exercise. Maintain healthy diet. Everything in moderation is a good rule of thumb. Follow serving sizes and try not to exceed these. [facility] 08-08-2021 Instructions Destiny Burt PA-C - 08/08/2021 10:28 AM EST Problem List Items Addressed This Visit Other Fibromyalgia - Primary Anxiety with depression No changes made today to medication but I do recommend following through with some of the coping mechanisms we discussed. Should anything new arise please let me know. I will be happy to discuss things further and see what we can come up with for a better, more optimal, treatment plan. Please call with any questions or concerns. If any referrals were placed at the time of your visit please allow 2 weeks for processing. If you haven't heard from anyone within 2 weeks please contact my office so we can look into the status of your referral. If you were given any labs today please ensure they are completed according to the directions given. Once labs are completed please allow 1-2 weeks for us to receive the results, review them, and let you know what steps, if any, are needed next. If you haven't heard from us after that please call to inquire. If labs were ordered to be done PRIOR to your next visit we will discuss the results at the time of your office visit. If any procedures or imaging studies were ordered that must be prior authorized please give us 2 weeks to get them approved. Once approved someone should call you to schedule them or give you a date and time that they were scheduled for. If you haven't heard anything within 2 weeks of the office visit please call the office so we can look into their status. documented in this encounter [facility] 08-08-2021 Miscellaneous Notes Associated Problem(s): Anxiety with depression No changes made today to medication but I do recommend following through with some of the coping mechanisms we discussed. Should anything new arise please let me know. I will be happy to discuss things further and see what we can come up with for a better, more optimal, treatment plan. Please call with any questions or concerns. documented in this encounter [facility] 08-08-2021 History of Present illness Narrative Images from the original note were not included. Video Visit [facility] [address] [facility] [address] [place] [id number] Via Real-time Synchronous Audiovisual [facility] 08/08/2021 Destiny Burt PA-C Provider Location: office Patient Location Crime Analyst: None Patient Location: Patient's Home Patient: Barbie Means Date of : 1960 (61 y.o. female) PCP: Destiny Burt PA-C Video Visit Consent Statement: I discussed risks, benefits and alternatives of a real-time synchronous audiovisual consultation with the patient (and any accompanying persons) including the risks that the patient s personal health details and medical records will be discussed over real-time, synchronous, interactive video/audio/telecommunication technology, the visit will not be recorded without the express consent of both the provider and the patient, and that there are some limitations compared to [id number] evaluations. We elected to proceed. Subjective Patient ID: Barbie Means is a 61 y.o. female. HPI Patient is following up on Fibromyalgia and Anxiety. She is currently taking Flexeril 10mg at night for the Fibro and it is working well. She denies any new issues at this time. She is still seeing the specialist for this who has kept her on a fairly strict lifestyle that avoids certain foods that may contribute to the symptoms associated with Fibromyalgia. It has helped her tremendously over the years. She is also taking care of her mother at this time. She does attribute some of her anxiety and stress to this as she is living in her mothers home which has been proven, difficult. She is also dealing with a lot of additional work stress over the last few weeks to months. We had a lengthy discussion about the ups and downs and how to combat them accordingly. At this time, no changes to medication regimen will be made. [facility] reviewed [facility] today, patient to go home and review records for dates of various diagnosis. We will review further at next visit. There were no vitals filed for this visit. Past Medical History: Diagnosis Date Anxiety Dr. Armenta, DO office note Arthritis of sacroiliac joint 10/17/2017 Burton Walsh M.D. Degenerative disc disease, lumbar 10/17/2017 Burton Walsh M.D.- L3-[address] Armenta, DO office note Exostosis RIGHT FOOT Facet arthropathy 10/17/2017 Burton Walsh M.D. Fibromyalgia 1997 Dr. Armenta, office note GERD (gastroesophageal reflux disease) Danyell's thyroiditis 02/2017 Headache MIGRAINES Herpes simplex 06/21/2004 Burton An M.D. History of stress test 02/2016 AT [facility] WITH NEGATIVE RESULTS Insomnia Dr. Mitchell, office visit note Neck pain Overactive bladder Palpitations PONV (postoperative nausea and vomiting) Tachycardia Tremor 07/2016 Dr. Mitchell, office visit note Past Surgical History: Procedure Laterality Date SECTION, CLASSIC Info gained from :[facility] Hipolito/Caridad Saunders MD office visit note COLONOSCOPY 2012 [place] CONE BIOPSY 1986 Dr.Kristy Lashae Saunders MD office visit note CYST REMOVAL 06/2015 Dr. Rai/Yaneth Jin foot DILATION AND CURETTAGE OF UTERUS 1986 Dr.Kristy Lashae Saunders MD office visit note EXCISION BONE SPUR FOOT Right 2015 Info gained from [facility] records HAND SURGERY Left 06/09/2014 Dr. Pooja-[place] ganglion cyst HIND FOOT SOFT TISSUE Right 07/03/2016 Procedure: RIGHT EXCISION MIDFOOT DORSAL EXOSTOSIS, EXCISION GANGLION WITH ANTERIOR TARSAL TUNNEL DECOMPRESSION; Surgeon: Remi Rai DPM; Location: [facility] Main OR; Service: REMOVAL URETHERIAL JARQUIN 1981 Dr.Kristy Lashae Saunders MD office visit note TARSAL TUNNEL RELEASE 07/03/2016 WISDOM TOOTH EXTRACTION 1977 Patient's Medications New Prescriptions No medications on file Previous Medications ASCORBIC ACID, VITAMIN C, (ASCORBIC ACID WITH VESTA HIPS) 500 MG TABLET Take 1,000 mg by mouth 4 (four) times a day . AZELASTINE (ASTELIN) 137 MCG (0.1 %) NASAL SPRAY 1 (one) spray by Each Nare route 2 (two) times a day . CHOLECALCIFEROL, VITAMIN D3, (VITAMIN D3) 5,000 UNIT TAB TABLET Take 2,000 Units by mouth daily . CINNAMON BARK (CINNAMON ORAL) Take 1,000 mg by mouth 4 (four) times a day . CYCLOBENZAPRINE (FLEXERIL) 5 MG TABLET One tab at bedtime . DOCOSAHEXAENOIC ACID-EPA 120-180 MG CAP Take 1,000 mg by mouth every hour as needed Taking 2 before each meal and at bedtime with a total of 12 daily . LYSINE 500 MG TAB Take 500 mg by mouth 5 (five) times a day . MAGNESIUM OXIDE 500 MG CAP Take 500 mg by mouth 4 (four) times a day . MONTELUKAST (SINGULAIR) 10 MG TABLET Take 1 (one) tablet (10 mg total) by mouth daily . NITROFURANTOIN, MACROCRYSTAL-MONOHYDRATE, (MACROBID) 100 MG CAPSULE Take 1 (one) capsule (100 mg total) by mouth 2 (two) times a day . OMEGA-3 FATTY ACIDS-VITAMIN E (FISH OIL) 1,000 MG CAP 8 capsules daily TAKES 1 TABLET Reasons: SUPPLEMENT. OSPEMIFENE (OSPHENA) 60 MG TAB PRASTERONE, DHEA, (DHEA) 25 MG TAB Take 1 tablet by mouth daily . PROLINE, BULK, DANIELLE 1 capsule by Miscellaneous route 3 (three) times a day 667mg capsule . SUMATRIPTAN (IMITREX) 25 MG TABLET TAKE 1 (ONE) TABLET BY MOUTH EVERY 2 (TWO) HOURS NEEDED FOR MIGRAINE MAX OF 200 MG IN 24HRS . THYROID (ARMOUR) 30 MG TABLET Take 30 mg by mouth daily . TRAZODONE (DESYREL) 50 MG TABLET Take 1/2 to 1 tablet po nightly as needed for sleep . VITAMIN B COMPLEX/FOLIC ACID (B COMPLEX 100 ORAL) Take 100 mg by mouth 3 (three) times a day . VITAMIN K2 ORAL Take 100 mcg by mouth 2 (two) times a day . Modified Medications No medications on file Discontinued Medications No medications on file Allergies as of 08/08/2021 - Reviewed 08/08/2021 Allergen Reaction Noted Promethazine Other (See Comments) 04/24/2016 Bactrim [sulfamethoxazole-trimethoprim] GI Intolerance 07/07/2014 Cat dander Other (See Comments) 09/15/2018 Dog dander Other (See Comments) 09/15/2018 Dust [house dust] Other (See Comments) 09/15/2018 Grass pollen Other (See Comments) 09/15/2018 Sulfa (sulfonamide antibiotics) GI Intolerance 07/07/2014 Sulfasalazine GI Intolerance 03/12/2017 Review of Systems Constitutional: Negative for activity change and chills. HENT: Negative for congestion, ear discharge, rhinorrhea and sinus pressure. Respiratory: Negative for chest tightness and shortness of breath. Cardiovascular: Negative for chest pain, palpitations and leg swelling. Gastrointestinal: Negative for nausea and vomiting. Genitourinary: Negative for dysuria, flank pain, frequency, hematuria and urgency. Psychiatric/Behavioral: Negative for agitation and sleep disturbance. The patient is nervous/anxious. Objective Physical Exam Constitutional: General: She is not in acute distress. Appearance: She is well-developed and well-nourished. HENT: Head: Normocephalic and atraumatic. Right Ear: External ear normal. Left Ear: External ear normal. Eyes: Conjunctiva/sclera: Conjunctivae normal. Pulmonary: Effort: Pulmonary effort is normal. No respiratory distress. Neurological: Mental Status: She is alert and oriented to person, place, and time. Psychiatric: Mood and Affect: Mood and affect normal. Behavior: Behavior normal. Thought Content: Thought content normal. Judgment: Judgment normal. Assessment/Plan: Anxiety with depression No changes made today to medication but I do recommend following through with some of the coping mechanisms we discussed. Should anything new arise please let me know. I will be happy to discuss things further and see what we can come up with for a better, more optimal, treatment plan. Please call with any questions or concerns. Goals None For any new medications prescribed today, patient was educated about indications for the medication, how to take the medication and potential side effects of the medications. documented in this encounter [facility] 02-01-2021 Instructions Destiny Burt PA-C - 02/01/2021 9:49 AM EDT Images from the original note were not included. Problem List Items Addressed This Visit Respiratory Rhinitis Refills sent! Relevant Medications azelastine (ASTELIN) 137 mcg (0.1 %) nasal spray Nervous and Auditory Cluster headache, not intractable Please try the Imitrex at the first onset of headache. If this does not help, please let me know Relevant Medications cyclobenzaprine (FLEXERIL) 5 MG tablet SUMAtriptan (IMITREX) 25 MG tablet Other Spasm of muscle Fibromyalgia Controlled with current regimens. No changes made at this time. Please call with any questions or concerns. Relevant Medications cyclobenzaprine (FLEXERIL) 5 MG tablet Dysuria - Primary Start medication as prescribed. I will be in touch in a few days with culture results. Please call with any questions or concerns. Relevant Medications nitrofurantoin, macrocrystal-monohydrate, (MACROBID) 100 MG capsule phenazopyridine (PYRIDIUM) 100 MG tablet Other Relevant Orders Urine Aerobic Culture POC Urinalysis Dipstick (Completed) If any referrals were placed at the time of your visit please allow 2 weeks for processing. If you haven't heard from anyone within 2 weeks please contact my office so we can look into the status of your referral. If you were given any labs today please ensure they are completed according to the directions given. Once labs are completed please allow 1-2 weeks for us to receive the results, review them, and let you know what steps, if any, are needed next. If you haven't heard from us after that please call to inquire. If labs were ordered to be done PRIOR to your next visit we will discuss the results at the time of your office visit. If any procedures or imaging studies were ordered that must be prior authorized please give us 2 weeks to get them approved. Once approved someone should call you to schedule them or give you a date and time that they were scheduled for. If you haven't heard anything within 2 weeks of the office visit please call the office so we can look into their status. Cluster Headache: Care Instructions Your Care Instructions Cluster headaches are very painful. They happen on one side of the head and often start at night. They can last for 30 minutes to several hours. They usually occur in groups, or clusters, over weeks or months. You may have a stuffy nose and watery eyes during the headaches. The cause of cluster headaches is not known. Medicine may help prevent cluster headaches. You also can try to avoid things that trigger your headaches. Follow-up care is a cruz part of your treatment and safety. Be sure to make and go to all appointments, and call your doctor if you are having problems. It's also a good idea to know your test results and keep a list of the medicines you take. How can you care for yourself at home? Watch for new symptoms with a headache. These include fever, weakness or numbness, vision changes, or confusion. They may be signs of a more serious problem. Be safe with medicines. Take your medicines exactly as prescribed. Call your doctor if you think you are having a problem with your medicine. You will get more details on the specific medicines your doctor prescribes. If your doctor recommends it, take an [id number] pain medicine, such as acetaminophen (Tylenol), ibuprofen (Advil, Motrin), or naproxen (Aleve). Read and follow all instructions on the label. Do not take two or more pain medicines at the same time unless the doctor told you to. Many pain medicines have acetaminophen, which is Tylenol. Too much acetaminophen (Tylenol) can be harmful. Carry medicine with you to quickly treat a headache. Put ice or a cold pack on the area for 10 to 20 minutes at a time. Put a thin cloth between the ice and your skin. If your doctor prescribed at-home oxygen therapy to stop a cluster headache, follow the directions for using it. To prevent cluster headaches Keep a headache diary. Avoiding triggers may help you prevent headaches. Write down when a headache begins, how long it lasts, and what might have triggered it. This could include stress, alcohol, or certain foods. Exercise daily to lower stress. Limit caffeine by not drinking too much coffee, tea, or soda. But do not quit caffeine suddenly. This can also give you headaches. Do not smoke or allow others to smoke around you. If you need help quitting, talk to your doctor about stop-smoking programs and medicines. These can increase your chances of quitting for good. Tell your doctor if your headaches get worse and medicines do not help. You may need to try a different medicine. When should you call for help? Call 911 anytime you think you may need emergency care. For example, call if: You have symptoms of a stroke. These may include: ? Sudden numbness, tingling, weakness, or loss of movement in your face, arm, or leg, especially on only one side of your body. ? Sudden vision changes. ? Sudden trouble speaking. ? Sudden confusion or trouble understanding simple statements. ? Sudden problems with walking or balance. ? A sudden, severe headache that is different from past headaches. Call your doctor now or seek immediate medical care if: You have a fever with a stiff neck or a severe headache. You are sensitive to light or feel very sleepy or confused. You have new nausea and vomiting and you cannot keep down food or liquids. Watch closely for changes in your health, and be sure to contact your doctor if: You have a headache that does not get better within 1 or 2 days. Your headaches get worse or happen more often. Where can you learn more? Log into your personal health record on https://BlueKait.IgnitAd and enter I442 in the Education box to learn more about Cluster Headache: Care Instructions. Current as of: March 29, 2020 Content Version: 12.8 [employer]. Care instructions adapted under license by your healthcare professional. If you have questions about a medical condition or this instruction, always ask your healthcare professional. [employer] disclaims any warranty or liability for your use of this information. Fibromyalgia: Care Instructions Overview Fibromyalgia is a painful condition that is not completely understood by medical experts. The cause of fibromyalgia is not known. It can make you feel tired and ache all over. It causes tender spots at specific points of the body that hurt only when you press on them. You may have trouble sleeping, as well as other symptoms. These problems can upset your work and home life. Symptoms tend to come and go, although they may never go away completely. Fibromyalgia does not harm your muscles, joints, or organs. Follow-up care is a cruz part of your treatment and safety. Be sure to make and go to all appointments, and call your doctor if you are having problems. It's also a good idea to know your test results and keep a list of the medicines you take. How can you care for yourself at home? Exercise often. Walk, swim, or bike to help with pain and sleep problems and to make you feel better. Try to get a good night's sleep. Go to bed and get up at the same time each day, whether you feel rested or not. Make sure you have a good mattress and pillow. Reduce stress. Avoid things that cause you stress, if you can. If not, work at making them less stressful. Learn to use biofeedback, guided imagery, meditation, or other methods to relax. Make healthy changes. Eat a balanced diet, quit smoking, and limit alcohol and caffeine. Use a heating pad set on low or take warm baths or showers for pain. Using cold packs for up to 20 minutes at a time can also relieve pain. Put a thin cloth between the cold pack and your skin. A gentle massage might help too. Be safe with medicines. Take your medicines exactly as prescribed. Call your doctor if you think you are having a problem with your medicine. Your doctor may talk to you about taking antidepressant medicines. These medicines may improve sleep, relieve pain, and in some cases treat depression. Learn about fibromyalgia. This makes coping easier. Then, take an active role in your treatment. Think about joining a support group with others who have fibromyalgia to learn more and get support. When should you call for help? Watch closely for changes in your health, and be sure to contact your doctor if: You feel sad, helpless, or hopeless; lose interest in things you used to enjoy; or have other symptoms of depression. Your fibromyalgia symptoms get worse. Where can you learn more? Log into your personal health record on https://[email or web address].IgnitAd and enter V003 in the Education box to learn more about Fibromyalgia: Care Instructions. Current as of: March 29, 2020 Content Version: 12.8 [employer]. Care instructions adapted under license by your healthcare professional. If you have questions about a medical condition or this instruction, always ask your healthcare professional. [place], [facility] disclaims any warranty or liability for your use of this information. documented in this encounter [facility] 02-01-2021 Miscellaneous Notes Associated Problem(s): Cluster headache, not intractable Please try the Imitrex at the first onset of headache. If this does not help, please let me know Associated Problem(s): Fibromyalgia Controlled with current regimens. No changes made at this time. Please call with any questions or concerns. Associated Problem(s): Rhinitis Refills sent! Associated Problem(s): Dysuria Start medication as prescribed. I will be in touch in a few days with culture results. Please call with any questions or concerns. documented in this encounter [facility] 02-01-2021 History of Present illness Narrative Images from the original note were not included. Subjective Patient ID: Barbie Means is a 60 y.o. female. Dysuria This is a new problem. The current episode started today. The problem occurs every urination. The problem has been gradually worsening. The quality of the pain is described as burning. The pain is mild. There has been no fever. She is sexually active. There is a history of pyelonephritis. Associated symptoms include flank pain, hesitancy and urgency. Pertinent negatives include no chills, discharge, frequency, hematuria, nausea, possible , sweats or vomiting. She has tried nothing for the symptoms. Her past medical history is significant for recurrent UTIs and a urological procedure. Fibromyalgia has been stable on current regimen. No changes noted. Refills needed. Patient does note cluster headaches. She has been getting these on and off for years and tried everything to no avail. She has not kept a diary of symptoms but will start. Headaches last 2-3 days and always affect the left side of her face. Lab work from Dr. Covarrubias reviewed from April. Patient's cholesterol was elevated, but he adjusted supplements and will recheck. I will continue to follow along . [facility], patient to go home and review records for dates of various diagnosis. We will review further at next visit. Vitals: 02/01/21 0822 BP: 138/84 BP Location: Right arm Patient Position: Sitting BP Cuff Size: Adult Pulse: 68 Resp: 18 Temp: 97.8 F (36.6 C) TempSrc: Oral SpO2: 100% Weight: 48.4 kg (106 lb 12.8 oz) Past Medical History: Diagnosis Date Anxiety Dr. Armenta, DO office note Arthritis of sacroiliac joint 10/17/2017 Burton Walsh M.D. Degenerative disc disease, lumbar 10/17/2017 Burton Walsh M.D.- L3-[address] Armenta, office note Exostosis RIGHT FOOT Facet arthropathy 10/17/2017 Burton Walsh M.D. Fibromyalgia 1997 Dr. 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 History of stress test 02/2016 AT [facility] WITH NEGATIVE RESULTS Insomnia Dr. Mitchell, office visit note Neck pain Overactive bladder Palpitations PONV (postoperative nausea and vomiting) Tachycardia Tremor 07/2016 Dr. Mitchell, DO office visit note Past Surgical History: Procedure Laterality Date SECTION, CLASSIC Info gained from :[facility] Hipolito/Caridad Saunders MD office visit note COLONOSCOPY 2012 [place] CON[place] BIOPSY 1986 Dr.Kristy Lashae Saunders MD office visit note CYST REMOVAL 06/2015 Dr. aRi/Yaneth Gutierrezist foot DILATION AND CURETTAGE OF UTERUS 1986 Dr.Kristy Lashae Saunders MD office visit note EXCISION BONE SPUR FOOT Right 2014 Info gained from [facility] records HAND SURGERY Left 06/09/2014 Dr. Vora Temple ganglion cyst HIND FOOT SOFT TISSUE Right 07/03/2016 Procedure: RIGHT EXCISION MIDFOOT DORSAL EXOSTOSIS, EXCISION GANGLION WITH ANTERIOR TARSAL TUNNEL DECOMPRESSION; Surgeon: Remi Rai DPM; Location: [facility] Main OR; Service: REMOVAL URETHERIAL JARQUIN 1981 Dr.Kristy Lashae Saunders MD office visit note TARSAL TUNNEL RELEASE 07/03/2016 WISDOM TOOTH EXTRACTION 1977 Patient's Medications New Prescriptions NITROFURANTOIN, MACROCRYSTAL-MONOHYDRATE, (MACROBID) 100 MG CAPSULE Take 1 (one) capsule (100 mg total) by mouth 2 (two) times a day . PHENAZOPYRIDINE (PYRIDIUM) 100 MG TABLET Take 1 (one) tablet (100 mg total) by mouth 3 (three) times a day for 2 days . SUMATRIPTAN (IMITREX) 25 MG TABLET Take 1 (one) tablet (25 mg total) by mouth every 2 (two) hours as needed for migraine Max of 200 mg in 24hrs . Previous Medications ASCORBIC ACID, VITAMIN C, (ASCORBIC ACID WITH VESTA HIPS) 500 MG TABLET Take 1,000 mg by mouth 4 (four) times a day . CHOLECALCIFEROL, VITAMIN D3, (VITAMIN D3) 5,000 UNIT TAB TABLET Take 2,000 Units by mouth daily . CINNAMON BARK (CINNAMON ORAL) Take 1,000 mg by mouth 4 (four) times a day . DOCOSAHEXAENOIC ACID-EPA 120-180 MG CAP Take 1,000 mg by mouth every hour as needed Taking 2 before each meal and at bedtime with a total of 12 daily . FEXOFENADINE (ADRIAN) 180 MG TABLET Take 180 mg by mouth every morning TAKES 1 TABLET ReasonsAllergic Rhinitis. LYSINE 500 MG TAB Take 500 mg by mouth 5 (five) times a day . MAGNESIUM OXIDE 500 MG CAP Take 500 mg by mouth 4 (four) times a day . MONTELUKAST (SINGULAIR) 10 MG TABLET Take 1 (one) tablet (10 mg total) by mouth daily . OMEGA-3 FATTY ACIDS-VITAMIN E (FISH OIL) 1,000 MG CAP 8 capsules daily TAKES 1 TABLET Reasons: SUPPLEMENT. OSPEMIFENE (OSPHENA) 60 MG TAB PRASTERONE, DHEA, (DHEA) 25 MG TAB Take 1 tablet by mouth daily . PROLINE, BULK, DANIELLE 1 capsule by Miscellaneous route 3 (three) times a day 667mg capsule . THYROID (ARMOUR) 30 MG TABLET Take 30 mg by mouth daily . TRAZODONE (DESYREL) 50 MG TABLET Take 1/2 to 1 tablet po nightly as needed for sleep . VITAMIN B COMPLEX/FOLIC ACID (B COMPLEX 100 ORAL) Take 100 mg by mouth 3 (three) times a day . VITAMIN K2 ORAL Take 100 mcg by mouth 2 (two) times a day . Modified Medications Modified Medication Previous Medication AZELASTINE (ASTELIN) 137 MCG (0.1 %) NASAL SPRAY azelastine (ASTELIN) 137 mcg (0.1 %) nasal spray 1 (one) spray by Each Nare route 2 (two) times a day . 1 spray by Each Nare route 2 (two) times a day . CYCLOBENZAPRINE (FLEXERIL) 5 MG TABLET cyclobenzaprine (FLEXERIL) 5 MG tablet One tab at bedtime . One tab at bedtime . Discontinued Medications No medications on file Allergies as of 02/01/2021 - Reviewed 02/01/2021 Allergen Reaction Noted Promethazine Other (See Comments) 04/24/2016 Bactrim [sulfamethoxazole-trimethoprim] GI Intolerance 07/07/2014 Cat dander Other (See Comments) 09/15/2018 Dog dander Other (See Comments) 09/15/2018 Dust [house dust] Other (See Comments) 09/15/2018 Grass pollen Other (See Comments) 09/15/2018 Sulfa (sulfonamide antibiotics) GI Intolerance 07/07/2014 Sulfasalazine GI Intolerance 03/12/2017 Review of Systems Constitutional: Negative for activity change and chills. HENT: Negative for congestion, ear discharge, rhinorrhea and sinus pressure. Respiratory: Negative for chest tightness and shortness of breath. Cardiovascular: Negative for chest pain, palpitations and leg swelling. Gastrointestinal: Negative for nausea and vomiting. Genitourinary: Positive for dysuria, flank pain, hesitancy and urgency. Negative for frequency and hematuria. Psychiatric/Behavioral: Negative for agitation. Objective Physical Exam Vitals and nursing note reviewed. Constitutional: General: She is not in acute distress. Appearance: She is well-developed. HENT: Head: Normocephalic and atraumatic. Right Ear: External ear normal. Left Ear: External ear normal. Eyes: Conjunctiva/sclera: Conjunctivae normal. Cardiovascular: Rate and Rhythm: Normal rate and regular rhythm. Pulmonary: Effort: Pulmonary effort is normal. No respiratory distress. Neurological: Mental Status: She is alert and oriented to person, place, and time. Psychiatric: Behavior: Behavior normal. Thought Content: Thought content normal. Judgment: Judgment normal. Assessment/Plan: Dysuria Start medication as prescribed. I will be in touch in a few days with culture results. Please call with any questions or concerns. Rhinitis Refills sent! Fibromyalgia Controlled with current regimens. No changes made at this time. Please call with any questions or concerns. Cluster headache, not intractable Please try the Imitrex at the first onset of headache. If this does not help, please let me know Goals None For any new medications prescribed today, patient was educated about indications for the medication, how to take the medication and potential side effects of the medications. documented in this encounter [facility] Evaluation note Diagnosis Dysuria- Primary Fibromyalgia Unspecified myalgia and myositis Spasm of muscle Rhinitis, unspecified type Cluster headache, not intractable, unspecified chronicity pattern [facility] Fibromyalgia- Primary Unspecified myalgia and myositis Anxiety with depression [facility]* Diagnosis Cluster headache, not intractable, unspecified chronicity pattern [facility]* Diagnosis Encounter for screening for malignant neoplasm of breast, unspecified screening modality Change in bowel habits Other symptoms involving digestive system Screening for heart disease Screening for other and unspecified cardiovascular conditions Screening for diabetes mellitus Insomnia, unspecified type Fibromyalgia Unspecified myalgia and myositis [facility]* Diagnosis Hypothyroidism, unspecified type- Primary Insomnia, unspecified type [facility]* Diagnosis Impacted cerumen of both ears- Primary Impacted cerumen Other secondary hypertension Change in bowel habits Other symptoms involving digestive system Diarrhea Left sided abdominal pain Abdominal pain, unspecified site Nausea Nausea alone Change in bowel habits Other symptoms involving digestive system Diarrhea, unspecified type Left sided abdominal pain Abdominal pain, unspecified site Nausea Nausea alone [facility]* Diagnosis Diarrhea, unspecified type- Primary Change in bowel habits Other symptoms involving digestive system Left sided abdominal pain Abdominal pain, unspecified site Nausea Nausea alone documented in this encounter [facility] note* Diagnosis Cluster headache, not intractable, unspecified chronicity pattern documented in this encounter [facility] note* Diagnosis Fibromyalgia Unspecified myalgia and myositis documented in this encounter [facility] note* Diagnosis Intramural and subserous leiomyoma of uterus- Primary Fibroids, intramural Intramural leiomyoma of uterus Body mass index (BMI) of 19.0 to 19.9 in adult Chronic left lower quadrant pain Abdominal pain, left lower quadrant Bloating Flatulence, eructation, and gas pain Change in bowel habits Other symptoms involving digestive system documented in this encounter [facility] note* Diagnosis Intramural leiomyoma of uterus- Primary Body mass index (BMI) of 19.0-19.9 in adult documented in this encounter [facility] note* Diagnosis Urinary frequency- Primary documented in this encounter [facility] note* Diagnosis Wrist pain, chronic, right- Primary documented in this encounter [facility] note* Diagnosis Acute conjunctivitis of both eyes, unspecified acute conjunctivitis type- Primary Rhinosinusitis Unspecified sinusitis (chronic) documented in this encounter [facility] note* Diagnosis Hypothyroidism, unspecified type documented in this encounter [facility] note* Diagnosis Acute viral syndrome- Primary documented in this encounter [facility] note* Diagnosis Acute viral syndrome- Primary documented in this encounter [facility] note* Diagnosis Urgency of urination- Primary documented in this encounter [facility] note* Diagnosis Screening for heart disease- Primary Screening for other and unspecified cardiovascular conditions Screening for diabetes mellitus Well adult exam Routine general medical examination at a health care facility documented in this encounter [facility] note* Diagnosis Fibromyalgia Unspecified myalgia and myositis documented in this encounter [facility] note* Diagnosis Burning with urination- Primary Dysuria Bilateral impacted cerumen Impacted cerumen documented in this encounter [facility] note* Diagnosis Fibromyalgia Unspecified myalgia and myositis documented in this encounter [facility] note* Diagnosis Hypothyroidism, unspecified type documented in this encounter [facility] note* Diagnosis Hypothyroidism, unspecified type [facility]* Diagnosis Healthcare maintenance- Primary Fibromyalgia Unspecified myalgia and myositis Cluster headache, not intractable, unspecified chronicity pattern Hypothyroidism, unspecified type [facility]* Diagnosis Upper respiratory tract infection, unspecified type- Primary Fibromyalgia Unspecified myalgia and myositis Encounter for screening mammogram for breast cancer Chronic fatigue Other malaise and fatigue Screening for diabetes mellitus Screening for heart disease Screening for other and unspecified cardiovascular conditions Other depression Encounter for hepatitis C screening test for low risk patient Abnormal CBC- Primary Other abnormal blood chemistry Insomnia, unspecified type Eczema, unspecified type Insomnia, unspecified type Encounter for screening for malignant neoplasm of breast, unspecified screening modality- Primary Insomnia, unspecified type Postmenopausal Asymptomatic postmenopausal status (age-related) (natural) Fibromyalgia Unspecified myalgia and myositis Other depression Dysuria- Primary Fibromyalgia Unspecified myalgia and myositis Spasm of muscle Rhinitis, unspecified type Cluster headache, not intractable, unspecified chronicity pattern Fibromyalgia- Primary Unspecified myalgia and myositis Anxiety with depression Encounter for screening for malignant neoplasm of breast, unspecified screening modality Change in bowel habits Other symptoms involving digestive system Screening for heart disease Screening for other and unspecified cardiovascular conditions Screening for diabetes mellitus Insomnia, unspecified type Fibromyalgia Unspecified myalgia and myositis Impacted cerumen of both ears- Primary Impacted cerumen Other secondary hypertension Wrist pain, chronic, right- Primary Acute viral syndrome- Primary Screening for heart disease- Primary Screening for other and unspecified cardiovascular conditions Screening for diabetes mellitus Well adult exam Routine general medical examination at a health care facility Women's annual routine gynecological examination- Primary Cervical cancer screening Screening for malignant neoplasm of the cervix Encounter for screening for human papillomavirus (HPV) Breast cancer screening by mammogram Ovarian failure due to menopause Osteopenia after menopause [facility] Diagnosis Upper respiratory tract infection, unspecified type- Primary Fibromyalgia Unspecified myalgia and myositis Encounter for screening mammogram for breast cancer Chronic fatigue Other malaise and fatigue Screening for diabetes mellitus Screening for heart disease Screening for other and unspecified cardiovascular conditions Other depression Encounter for hepatitis C screening test for low risk patient Abnormal CBC- Primary Other abnormal blood chemistry Insomnia, unspecified type Eczema, unspecified type Insomnia, unspecified type Encounter for screening for malignant neoplasm of breast, unspecified screening modality- Primary Insomnia, unspecified type Postmenopausal Asymptomatic postmenopausal status (age-related) (natural) Fibromyalgia Unspecified myalgia and myositis Other depression Dysuria- Primary Fibromyalgia Unspecified myalgia and myositis Spasm of muscle Rhinitis, unspecified type Cluster headache, not intractable, unspecified chronicity pattern Fibromyalgia- Primary Unspecified myalgia and myositis Anxiety with depression Encounter for screening for malignant neoplasm of breast, unspecified screening modality Change in bowel habits Other symptoms involving digestive system Screening for heart disease Screening for other and unspecified cardiovascular conditions Screening for diabetes mellitus Insomnia, unspecified type Fibromyalgia Unspecified myalgia and myositis Impacted cerumen of both ears- Primary Impacted cerumen Other secondary hypertension Wrist pain, chronic, right- Primary Acute viral syndrome- Primary Screening for heart disease- Primary Screening for other and unspecified cardiovascular conditions Screening for diabetes mellitus Well adult exam Routine general medical examination at a health care facility Cluster headache, not intractable, unspecified chronicity pattern [facility] Diagnosis Upper respiratory tract infection, unspecified type- Primary Fibromyalgia Unspecified myalgia and myositis Encounter for screening mammogram for breast cancer Chronic fatigue Other malaise and fatigue Screening for diabetes mellitus Screening for heart disease Screening for other and unspecified cardiovascular conditions Other depression Encounter for hepatitis C screening test for low risk patient Abnormal CBC- Primary Other abnormal blood chemistry Insomnia, unspecified type Eczema, unspecified type Insomnia, unspecified type Encounter for screening for malignant neoplasm of breast, unspecified screening modality- Primary Insomnia, unspecified type Postmenopausal Asymptomatic postmenopausal status (age-related) (natural) Fibromyalgia Unspecified myalgia and myositis Other depression Dysuria- Primary Fibromyalgia Unspecified myalgia and myositis Spasm of muscle Rhinitis, unspecified type Cluster headache, not intractable, unspecified chronicity pattern Fibromyalgia- Primary Unspecified myalgia and myositis Anxiety with depression Encounter for screening for malignant neoplasm of breast, unspecified screening modality Change in bowel habits Other symptoms involving digestive system Screening for heart disease Screening for other and unspecified cardiovascular conditions Screening for diabetes mellitus Insomnia, unspecified type Fibromyalgia Unspecified myalgia and myositis Impacted cerumen of both ears- Primary Impacted cerumen Other secondary hypertension Wrist pain, chronic, right- Primary Acute viral syndrome- Primary Screening for heart disease- Primary Screening for other and unspecified cardiovascular conditions Screening for diabetes mellitus Well adult exam Routine general medical examination at a health care facility Fibromyalgia Unspecified myalgia and myositis documented in this encounter [facility] note* Diagnosis Upper respiratory tract infection, unspecified type- Primary Fibromyalgia Unspecified myalgia and myositis Encounter for screening mammogram for breast cancer Chronic fatigue Other malaise and fatigue Screening for diabetes mellitus Screening for heart disease Screening for other and unspecified cardiovascular conditions Other depression Encounter for hepatitis C screening test for low risk patient Abnormal CBC- Primary Other abnormal blood chemistry Insomnia, unspecified type Eczema, unspecified type Insomnia, unspecified type Encounter for screening for malignant neoplasm of breast, unspecified screening modality- Primary Insomnia, unspecified type Postmenopausal Asymptomatic postmenopausal status (age-related) (natural) Fibromyalgia Unspecified myalgia and myositis Other depression Dysuria- Primary Fibromyalgia Unspecified myalgia and myositis Spasm of muscle Rhinitis, unspecified type Cluster headache, not intractable, unspecified chronicity pattern Fibromyalgia- Primary Unspecified myalgia and myositis Anxiety with depression Encounter for screening for malignant neoplasm of breast, unspecified screening modality Change in bowel habits Other symptoms involving digestive system Screening for heart disease Screening for other and unspecified cardiovascular conditions Screening for diabetes mellitus Insomnia, unspecified type Fibromyalgia Unspecified myalgia and myositis Impacted cerumen of both ears- Primary Impacted cerumen Other secondary hypertension Wrist pain, chronic, right- Primary Acute viral syndrome- Primary Screening for heart disease- Primary Screening for other and unspecified cardiovascular conditions Screening for diabetes mellitus Well adult exam Routine general medical examination at a health care facility Hypothyroidism, unspecified type documented in this encounter [facility] note* Diagnosis Upper respiratory tract infection, unspecified type- Primary Fibromyalgia Unspecified myalgia and myositis Encounter for screening mammogram for breast cancer Chronic fatigue Other malaise and fatigue Screening for diabetes mellitus Screening for heart disease Screening for other and unspecified cardiovascular conditions Other depression Encounter for hepatitis C screening test for low risk patient Abnormal CBC- Primary Other abnormal blood chemistry Insomnia, unspecified type Eczema, unspecified type Insomnia, unspecified type Encounter for screening for malignant neoplasm of breast, unspecified screening modality- Primary Insomnia, unspecified type Postmenopausal Asymptomatic postmenopausal status (age-related) (natural) Fibromyalgia Unspecified myalgia and myositis Other depression Dysuria- Primary Fibromyalgia Unspecified myalgia and myositis Spasm of muscle Rhinitis, unspecified type Cluster headache, not intractable, unspecified chronicity pattern Fibromyalgia- Primary Unspecified myalgia and myositis Anxiety with depression Encounter for screening for malignant neoplasm of breast, unspecified screening modality Change in bowel habits Other symptoms involving digestive system Screening for heart disease Screening for other and unspecified cardiovascular conditions Screening for diabetes mellitus Insomnia, unspecified type Fibromyalgia Unspecified myalgia and myositis Impacted cerumen of both ears- Primary Impacted cerumen Other secondary hypertension Wrist pain, chronic, right- Primary Acute viral syndrome- Primary Screening for heart disease- Primary Screening for other and unspecified cardiovascular conditions Screening for diabetes mellitus Well adult exam Routine general medical examination at a health care facility At low risk for fall- Primary Neck pain Cervicalgia Gastroesophageal reflux disease, unspecified whether esophagitis present Impacted cerumen of both ears Impacted cerumen Chronic left-sided low back pain, unspecified whether sciatica present Irritable bowel syndrome, unspecified type [facility] Diagnosis Upper respiratory tract infection, unspecified type- Primary Fibromyalgia Unspecified myalgia and myositis Encounter for screening mammogram for breast cancer Chronic fatigue Other malaise and fatigue Screening for diabetes mellitus Screening for heart disease Screening for other and unspecified cardiovascular conditions Other depression Encounter for hepatitis C screening test for low risk patient Abnormal CBC- Primary Other abnormal blood chemistry Insomnia, unspecified type Eczema, unspecified type Insomnia, unspecified type Encounter for screening for malignant neoplasm of breast, unspecified screening modality- Primary Insomnia, unspecified type Postmenopausal Asymptomatic postmenopausal status (age-related) (natural) Fibromyalgia Unspecified myalgia and myositis Other depression Dysuria- Primary Fibromyalgia Unspecified myalgia and myositis Spasm of muscle Rhinitis, unspecified type Cluster headache, not intractable, unspecified chronicity pattern Fibromyalgia- Primary Unspecified myalgia and myositis Anxiety with depression Encounter for screening for malignant neoplasm of breast, unspecified screening modality Change in bowel habits Other symptoms involving digestive system Screening for heart disease Screening for other and unspecified cardiovascular conditions Screening for diabetes mellitus Insomnia, unspecified type Fibromyalgia Unspecified myalgia and myositis Impacted cerumen of both ears- Primary Impacted cerumen Other secondary hypertension Wrist pain, chronic, right- Primary Acute viral syndrome- Primary Screening for heart disease- Primary Screening for other and unspecified cardiovascular conditions Screening for diabetes mellitus Well adult exam Routine general medical examination at a health care facility Fibromyalgia Unspecified myalgia and myositis [facility]* Diagnosis Bilateral impacted cerumen- Primary Impacted cerumen [facility] Diagnosis Upper respiratory tract infection, unspecified type- Primary Fibromyalgia Unspecified myalgia and myositis Encounter for screening mammogram for breast cancer Chronic fatigue Other malaise and fatigue Screening for diabetes mellitus Screening for heart disease Screening for other and unspecified cardiovascular conditions Other depression Encounter for hepatitis C screening test for low risk patient Abnormal CBC- Primary Other abnormal blood chemistry Insomnia, unspecified type Eczema, unspecified type Insomnia, unspecified type Encounter for screening for malignant neoplasm of breast, unspecified screening modality- Primary Insomnia, unspecified type Postmenopausal Asymptomatic postmenopausal status (age-related) (natural) Fibromyalgia Unspecified myalgia and myositis Other depression Dysuria- Primary Fibromyalgia Unspecified myalgia and myositis Spasm of muscle Rhinitis, unspecified type Cluster headache, not intractable, unspecified chronicity pattern Fibromyalgia- Primary Unspecified myalgia and myositis Anxiety with depression Encounter for screening for malignant neoplasm of breast, unspecified screening modality Change in bowel habits Other symptoms involving digestive system Screening for heart disease Screening for other and unspecified cardiovascular conditions Screening for diabetes mellitus Insomnia, unspecified type Fibromyalgia Unspecified myalgia and myositis Impacted cerumen of both ears- Primary Impacted cerumen Other secondary hypertension Wrist pain, chronic, right- Primary Acute viral syndrome- Primary Screening for heart disease- Primary Screening for other and unspecified cardiovascular conditions Screening for diabetes mellitus Well adult exam Routine general medical examination at a health care facility Lower abdominal pain Abdominal pain, other specified site Chronic diarrhea Diarrhea Fibromyalgia Unspecified myalgia and myositis Lower abdominal pain Abdominal pain, other specified site Chronic diarrhea Diarrhea documented in this encounter [facility] note* Diagnosis Upper respiratory tract infection, unspecified type- Primary Fibromyalgia Unspecified myalgia and myositis Encounter for screening mammogram for breast cancer Chronic fatigue Other malaise and fatigue Screening for diabetes mellitus Screening for heart disease Screening for other and unspecified cardiovascular conditions Other depression Encounter for hepatitis C screening test for low risk patient Abnormal CBC- Primary Other abnormal blood chemistry Insomnia, unspecified type Eczema, unspecified type Insomnia, unspecified type Encounter for screening for malignant neoplasm of breast, unspecified screening modality- Primary Insomnia, unspecified type Postmenopausal Asymptomatic postmenopausal status (age-related) (natural) Fibromyalgia Unspecified myalgia and myositis Other depression Dysuria- Primary Fibromyalgia Unspecified myalgia and myositis Spasm of muscle Rhinitis, unspecified type Cluster headache, not intractable, unspecified chronicity pattern Fibromyalgia- Primary Unspecified myalgia and myositis Anxiety with depression Encounter for screening for malignant neoplasm of breast, unspecified screening modality Change in bowel habits Other symptoms involving digestive system Screening for heart disease Screening for other and unspecified cardiovascular conditions Screening for diabetes mellitus Insomnia, unspecified type Fibromyalgia Unspecified myalgia and myositis Impacted cerumen of both ears- Primary Impacted cerumen Other secondary hypertension Wrist pain, chronic, right- Primary Acute viral syndrome- Primary Screening for heart disease- Primary Screening for other and unspecified cardiovascular conditions Screening for diabetes mellitus Well adult exam Routine general medical examination at a health care facility Lower abdominal pain Abdominal pain, other specified site Chronic diarrhea Diarrhea Cluster headache, not intractable, unspecified chronicity pattern Lower abdominal pain Abdominal pain, other specified site Chronic diarrhea Diarrhea [facility]* Diagnosis Upper respiratory tract infection, unspecified type- Primary Fibromyalgia Unspecified myalgia and myositis Encounter for screening mammogram for breast cancer Chronic fatigue Other malaise and fatigue Screening for diabetes mellitus Screening for heart disease Screening for other and unspecified cardiovascular conditions Other depression Encounter for hepatitis C screening test for low risk patient Abnormal CBC- Primary Other abnormal blood chemistry Insomnia, unspecified type Eczema, unspecified type Insomnia, unspecified type Encounter for screening for malignant neoplasm of breast, unspecified screening modality- Primary Insomnia, unspecified type Postmenopausal Asymptomatic postmenopausal status (age-related) (natural) Fibromyalgia Unspecified myalgia and myositis Other depression Dysuria- Primary Fibromyalgia Unspecified myalgia and myositis Spasm of muscle Rhinitis, unspecified type Cluster headache, not intractable, unspecified chronicity pattern Fibromyalgia- Primary Unspecified myalgia and myositis Anxiety with depression Encounter for screening for malignant neoplasm of breast, unspecified screening modality Change in bowel habits Other symptoms involving digestive system Screening for heart disease Screening for other and unspecified cardiovascular conditions Screening for diabetes mellitus Insomnia, unspecified type Fibromyalgia Unspecified myalgia and myositis Impacted cerumen of both ears- Primary Impacted cerumen Other secondary hypertension Wrist pain, chronic, right- Primary Acute viral syndrome- Primary Screening for heart disease- Primary Screening for other and unspecified cardiovascular conditions Screening for diabetes mellitus Well adult exam Routine general medical examination at a health care facility Fibromyalgia Unspecified myalgia and myositis [facility]* Diagnosis Upper respiratory tract infection, unspecified type- Primary Fibromyalgia Unspecified myalgia and myositis Encounter for screening mammogram for breast cancer Chronic fatigue Other malaise and fatigue Screening for diabetes mellitus Screening for heart disease Screening for other and unspecified cardiovascular conditions Other depression Encounter for hepatitis C screening test for low risk patient Abnormal CBC- Primary Other abnormal blood chemistry Insomnia, unspecified type Eczema, unspecified type Insomnia, unspecified type Encounter for screening for malignant neoplasm of breast, unspecified screening modality- Primary Insomnia, unspecified type Postmenopausal Asymptomatic postmenopausal status (age-related) (natural) Fibromyalgia Unspecified myalgia and myositis Other depression Dysuria- Primary Fibromyalgia Unspecified myalgia and myositis Spasm of muscle Rhinitis, unspecified type Cluster headache, not intractable, unspecified chronicity pattern Fibromyalgia- Primary Unspecified myalgia and myositis Anxiety with depression Encounter for screening for malignant neoplasm of breast, unspecified screening modality Change in bowel habits Other symptoms involving digestive system Screening for heart disease Screening for other and unspecified cardiovascular conditions Screening for diabetes mellitus Insomnia, unspecified type Fibromyalgia Unspecified myalgia and myositis Impacted cerumen of both ears- Primary Impacted cerumen Other secondary hypertension Wrist pain, chronic, right- Primary Acute viral syndrome- Primary Screening for heart disease- Primary Screening for other and unspecified cardiovascular conditions Screening for diabetes mellitus Well adult exam Routine general medical examination at a health care facility Gastroesophageal reflux disease, unspecified whether esophagitis present- Primary Dysphagia, unspecified type [facility] Diagnosis Upper respiratory tract infection, unspecified type- Primary Fibromyalgia Unspecified myalgia and myositis Encounter for screening mammogram for breast cancer Chronic fatigue Other malaise and fatigue Screening for diabetes mellitus Screening for heart disease Screening for other and unspecified cardiovascular conditions Other depression Encounter for hepatitis C screening test for low risk patient Abnormal CBC- Primary Other abnormal blood chemistry Insomnia, unspecified type Eczema, unspecified type Insomnia, unspecified type Encounter for screening for malignant neoplasm of breast, unspecified screening modality- Primary Insomnia, unspecified type Postmenopausal Asymptomatic postmenopausal status (age-related) (natural) Fibromyalgia Unspecified myalgia and myositis Other depression Dysuria- Primary Fibromyalgia Unspecified myalgia and myositis Spasm of muscle Rhinitis, unspecified type Cluster headache, not intractable, unspecified chronicity pattern Fibromyalgia- Primary Unspecified myalgia and myositis Anxiety with depression Encounter for screening for malignant neoplasm of breast, unspecified screening modality Change in bowel habits Other symptoms involving digestive system Screening for heart disease Screening for other and unspecified cardiovascular conditions Screening for diabetes mellitus Insomnia, unspecified type Fibromyalgia Unspecified myalgia and myositis Impacted cerumen of both ears- Primary Impacted cerumen Other secondary hypertension Wrist pain, chronic, right- Primary Acute viral syndrome- Primary Screening for heart disease- Primary Screening for other and unspecified cardiovascular conditions Screening for diabetes mellitus Well adult exam Routine general medical examination at a health care facility Gastroesophageal reflux disease, unspecified whether esophagitis present- Primary Dysphagia, unspecified type GERD (gastroesophageal reflux disease) Esophageal reflux [facility]* Diagnosis Upper respiratory tract infection, unspecified type- Primary Fibromyalgia Unspecified myalgia and myositis Encounter for screening mammogram for breast cancer Chronic fatigue Other malaise and fatigue Screening for diabetes mellitus Screening for heart disease Screening for other and unspecified cardiovascular conditions Other depression Encounter for hepatitis C screening test for low risk patient Abnormal CBC- Primary Other abnormal blood chemistry Insomnia, unspecified type Eczema, unspecified type Insomnia, unspecified type Encounter for screening for malignant neoplasm of breast, unspecified screening modality- Primary Insomnia, unspecified type Postmenopausal Asymptomatic postmenopausal status (age-related) (natural) Fibromyalgia Unspecified myalgia and myositis Other depression Dysuria- Primary Fibromyalgia Unspecified myalgia and myositis Spasm of muscle Rhinitis, unspecified type Cluster headache, not intractable, unspecified chronicity pattern Fibromyalgia- Primary Unspecified myalgia and myositis Anxiety with depression Encounter for screening for malignant neoplasm of breast, unspecified screening modality Change in bowel habits Other symptoms involving digestive system Screening for heart disease Screening for other and unspecified cardiovascular conditions Screening for diabetes mellitus Insomnia, unspecified type Fibromyalgia Unspecified myalgia and myositis Impacted cerumen of both ears- Primary Impacted cerumen Other secondary hypertension Wrist pain, chronic, right- Primary Acute viral syndrome- Primary Screening for heart disease- Primary Screening for other and unspecified cardiovascular conditions Screening for diabetes mellitus Well adult exam Routine general medical examination at a health care facility Fibromyalgia Unspecified myalgia and myositis documented in this encounter [facility] Summary Purpose Family History No Family History Records FoundNo Family History Records FoundNo Family History Records FoundNo Family History Records FoundNo Family History Records FoundNo Family History Records FoundNo Family History Records FoundNo Family History Records FoundNo Family History Records FoundNo Family History Records Found Advance Directives No Advanced Directives Records FoundDocuments on File Type Date Recorded 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 Advance Directives and Livin g Will 10/29/2018 10:48 AM Documents on File Type Date Recorded 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 Advance Directives and Livin g Will 05/24/2020 10:25 AM Documents on File Type Date Recorded 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 Advance Directives and Livin g Will 08/03/2020 10:25 AM Documents on File Type Date Recorded 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 Advance Directives and Livin g Will 08/03/2020 10:25 AM Documents on File Type Date Recorded 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 Advance Directives and Livin g Will 07/14/2019 1:26 PM Documents on File Type Date Recorded 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 Advance Directives and Livin g Will 11/14/2021 11:30 AM Documents on File Type Date Recorded 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 Advance Directives and Livin g Will 12/08/2021 9:58 AM Reason for Referral Status Reason Specialty Diagnoses / Procedures Referred By Contact Referred To Contact Pending Review Radiology Diagnoses Encounter for screening mammogram for breast cancer Procedures Mammography Screening Bilateral Destiny Burt PA-[place] [address] [place] [address] Status Reason Specialty Diagnoses / Procedures Referred By Contact Referred To Contact Authorized Hematology Diagnoses Abnormal CBC Destiny Burt PA-C [address] [place] [address] Carlee Ruggiero MD [address] [place] [address] Status Reason Specialty Diagnoses / Procedures Referred By Contact Referred To Contact Closed Hematology Diagnoses Abnormal CBC Destniy Burt PA-[place] [address] [place] [address] Carlee Ruggiero MD [address] [place] [address] Fax: Status Reason Specialty Diagnoses / Procedures Referre d By Contact Referred To Contact Closed Radiology Diagnoses Encounter for screening for malignant neoplasm of breast, unspecified screening modality Procedures Mammography Screening Eron Bilateral Mammography Screening Bilateral Destiny Burt PA-C [address] [address] Status Reason Specialty Diagnoses / Procedures Referre d By Contact Referred To Contact Closed Cardiology Diagnoses Chest pain, unspecified type Procedures Stress test only, exercise Destiny Burt PA-C [address] [place] [address] [place] [address] Status Reason Specialty Diagnoses / Procedures Referre d By Contact Referred To Contact Closed Radiology Diagnoses Postmenopausal Procedures XR Bone Density DEXA Axial Destiny Burt PA-C [address] [address] Specialty Diagnoses / Procedures Referred By Contac t Referred To Contact Radiology Diagnoses Encounter for screening for malignant neoplasm of breast, unspecified screening modality Procedures Mammography Screening Bilateral Destiny Burt PA-C [address] [address] Sh Mammography [address] [place] [address] Referral ID Status Reason Start Date Expiration Date Visits Requested Visits Authorized [id number] Authorized Specialty Services Required/Pat ient's Best Interest 10/30/2021 10/30/2022 1 1 Specialty Diagnoses / Procedures Referred By Contac t Referred To Contact General Surgery Diagnoses Change in bowel habits Destiny Burt PA-C [address] [address] Nima Montgomery MD [address] [place] [address] Referral ID Status Reason Start Date Expiration Date Visits Requested Visits Authorized [id number] Authorized Specialty Services Required/Pat ient's Best Interest 10/30/2021 10/30/2022 1 1 Specialty Diagnoses / Procedures Referred By Dante mahajan Referred To Contact Radiology Diagnoses Change in bowel habits Diarrhea, unspecified type Left sided abdominal pain Nausea Procedures CT Abdomen Pelvis With Contrast Nima Montgomery MD [address] [facility] [address] [place] [address] Referral ID Status Reason Start Date Expiration Date V isits Requested Visits Authorized [id number] New Request 12/08/2021 12/08/2022 1 1 Instructions * Patient Instructions* Destiny Burt PA-C - 09/22/2018 1:56 PM EST Deciding About Stopping Your Antidepressant How can you decide about stopping your antidepressant? How do antidepressants work? Antidepressants help restore the normal balance of brain chemicals. When these brain chemicals are in proper balance, your depression gets better. Most people need to take this medicine for 6 to 8 weeks to get the full benefit and feel much better. Taking your medicine for at least 6 months after you feel better can help keep you from getting depressed again. If this is not the first time you have been depressed, your doctor may want you to take it for an even longer time. But don't worry. No matter how long you take this medicine, you can't get addicted to it. If you have questions or concerns about your medicines, talk to your doctor. What are cruz points about this decision? The best reason to stop taking your antidepressant is because you feel better and you and your doctor believe that you will stay well after you stop taking it. An antidepressant needs time to work. You may need to take it for 1 to 3 weeks before you start to feel better. And it may take 6 to 8 weeks before you feel much better. Most side effects are more bothersome than serious. They can often be managed. Or your doctor may be able to prescribe a different medicine. If you feel you can't afford the medicine, your doctor may be able to prescribe one that costs less. At least half of people who have depression will get it again. This is called a relapse. But if youkeep taking your medicine for at least 6 months after you feel better, you may lower the chance that you will have a relapse. If you plan to stop taking your medicine, talk with your doctor first about how to do it safely. You may need to stop slowly over time. Suddenly stopping some medicines may cause side effects. These include flu-like symptoms and dizziness. Seeing a counselor works well to help people with depression feel better. Depression is nothing to be embarrassed about. It is a health problem, not a character flaw. Why might you choose to stop taking your medicine? You are feeling better, and you and the doctor agree that it is time to stop. You have been taking the medicine for at least 6 months. You are having counseling to help you cope with problems and help change how you think and feel. You are not worried about the depression coming back. Why might you choose not to stop your medicine? You are not yet feeling better. You have not taken the medicine for 6 months. You need to make a plan to stop taking the medicine when you and your doctor think you are ready. You are worried that the depression may come back. Your decision Thinking about the facts and your feelings can help you make a decision that is right for you. Be sure you understand the benefits and risks of your options, and think about what else you need to do before you make the decision. Where can you learn more? Log into your personal health record on https://[email or web address].IgnitAd and enter T544 in the Education box to learn more about Deciding About Stopping Your Antidepressant. Current as of: May 06, 2018 Content Version: 11.9 8829-3297 [employer]. Care instructions adapted under license by your healthcare professional. If you have questions about a medical condition or this instruction, always ask your healthcare professional. [employer] disclaims any warranty or liability for your use of this information. Fibromyalgia: Care Instructions Your Care Instructions Fibromyalgia is a painful condition that is not completely understood by medical experts. The causeof fibromyalgia is not known. It can make you feel tired and ache all over. It causes tender spots at specific points of the body that hurt only when you press on them. You may have trouble sleeping,as well as other symptoms. These problems can upset your work and home life. Symptoms tend to come and go, although they may never go away completely. Fibromyalgia does not harm your muscles, joints, or organs. Follow-up care is a cruz part of your treatment and safety. Be sure to make and go to all appointments, and call your doctor if you are having problems. It's also a good idea to know your test resultsand keep a list of the medicines you take. How can you care for yourself at home? Exercise often. Walk, swim, or bike to help with pain and sleep problems and to make you feel better. Try to get a good night's sleep. Go to bed and get up at the same time each day, whether you feel rested or not. Make sure you have a good mattress and pillow. Reduce stress. Avoid things that cause you stress, if you can. If not, work at making them less stressful. Learn to use biofeedback, guided imagery, meditation, or other methods to relax. Make healthy changes. Eat a balanced diet, quit smoking, and limit alcohol and caffeine. Use a heating pad set on low or take warm baths or showers for pain. Using cold packs for up to 20 minutes at a time can also relieve pain. Put a thin cloth between the cold pack and your skin. A gentle massage might help too. Be safe with medicines. Take your medicines exactly as prescribed. Call your doctor if you think you are having a problem with your medicine. Your doctor may talk to you about taking antidepressant medicines. These medicines may improve sleep, relieve pain, and in some cases treat depression. Learn about fibromyalgia. This makes coping easier. Then, take an active role in your treatment. Think about joining a support group with others who have fibromyalgia to learn more and get support. When should you call for help? Watch closely for changes in your health, and be sure to contact your doctor if: You feel sad, helpless, or hopeless; lose interest in things you used to enjoy; or have other symptoms of depression. Your fibromyalgia symptoms get worse. Where can you learn more? Log into your personal health record on https://[email or web address].IgnitAd and enter V003 in the Education box to learn more about Fibromyalgia: Care Instructions. Current as of: January 26, 2018 Content Version: .20053323-0420 [employer]. Care instructions adapted under license by your healthcare professional. If you have questions about a medical condition or this instruction, always ask your healthcare professional. [employer] disclaims any warranty or liability for your use of this information. Problem List Items Addressed This Visit Respiratory Upper respiratory tract infection - Primary Additionally, you mention you are fighting a cold. We discussed this and we agree this looks viral.However, viral can turn to bacterial if the body does not fend it off. Plenty of fluids and rest over the next few days. If symptoms progress or do not resolve within 10 days, I would like to see youback for re- evaluation. Please call with any changes. You agreed to treatment plan and verbalized understanding. Relevant Medications montelukast (SINGULAIR) 10 mg tablet Other Fibromyalgia Depression Today you are here to establish care and get medication refills. You were previously on Prozac twice a day and your previous provider would not refill this dose. You have been taking your medication once a day. I have provided education on stopping your antidepressants as it can be tricky. You do not some symptoms of withdrawal, but state it is getting better. You would like to continue with justonce a day, as eventually you would like to get off the Prozac all together. I refilled the prescription for once daily. The depression screening was done and is consistent with your diagnosis of mild depression. I would like to continue to follow this every 3 months and then sooner if you are having a change in current status. You agreed to treatment plan and will follow up accordingly. Relevant Medications FLUoxetine (PROZAC) 20 MG capsule Screening for heart disease Goals: Total cholesterol < 200 Triglycerides <120 HDL > 50 (female) HDL > 45 (men) Non-HDL < 130 Screening for diabetes mellitus An A1c is a measure of the amount of sugar attached to red blood cell. It represents approximately the average blood sugar last 130 days. Greater than 5.7 is consistent with impaired glucose metabolism. Gently it represents someone at risk for becoming diabetic in the next 3-5 years. Greater than 6.4 is consistent with diabetes. It is the lowest you ever want someone to be if there over age 70. Over age 70 increase the risk of injury related to low blood sugar if 6.4 below. Everyone less than 70 should attempt an A1c less than 7.0. [facility] Blood sugar average 6 126 7 154 8 183 9 212 10 240 11 269 12 298 Chronic fatigue Encounter for screening mammogram for breast cancer Last mammogram was 10/08/2017, new order placed and to be done after 10/08/2018. in this encounter* Patient Instructions* Destiny Burt PA-C - 10/14/2018 2:01 PM EST Atopic Dermatitis: Care Instructions Your Care Instructions Atopic dermatitis (also called eczema) is a skin problem that causes intense itching and a red, raised rash. In severe cases, the rash develops clear fluid filled blisters. The rash is not contagious. People with this condition seem to have very sensitive immune systems that are likely to react to things that cause allergies. The immune system is the body's way of fighting infection. There is no cure for atopic dermatitis, but you may be able to control it with care at home. Follow-up care is a cruz part of your treatment and safety. Be sure to make and go to all appointments, and call your doctor if you are having problems. It's also a good idea to know your test resultsand keep a list of the medicines you take. How can you care for yourself at home? Use moisturizer at least twice a day. If your doctor prescribes a cream, use it as directed. If your doctor prescribes other medicine, take it exactly as directed. Wash the affected area with water only. Soap can make dryness and itching worse. Pat dry. Apply a moisturizer after bathing. Use a cream such as Lubriderm, Moisturel, or Cetaphil that does not irritate the skin or cause a rash. Apply the cream while your skin is still damp after lightly drying with a towel. Use cold, wet cloths to reduce itching. Keep cool, and stay out of the sun. If itching affects your normal activities, an gncu-ydg-ojgcunp antihistamine, such as diphenhydramine (Benadryl) or loratadine (Claritin) may help. Read and follow all instructions on the label. When should you call for help? Call your doctor now or seek immediate medical care if: Your rash gets worse and you have a fever. You have new blisters or bruises, or the rash spreads and looks like a sunburn. You have signs of infection, such as: ? Increased pain, swelling, warmth, or redness. ? Red streaks leading from the rash. ? Pus draining from the rash. ? A fever. You have crusting or oozing sores. You have joint aches or body aches along with your rash. Watch closely for changes in your health, and be sure to contact your doctor if: Your rash does not clear up after 2 to 3 weeks of home treatment. Itching interferes with your sleep or daily activities. Where can you learn more? Log into your personal health record on [email or web address]://[email or web address].[email or web address] and enter I585 in the Education box to learn more about Atopic Dermatitis: Care Instructions. Current as of: December 10, 2017 Content Version: .20050707-4313 [employer]. Care instructions adapted under license by your healthcare professional. If you have questions about a medical condition or this instruction, always ask your healthcare professional. [employer] disclaims any warranty or liability for your use of this information. Problem List Items Addressed This Visit Musculoskeletal and Integument Eczema Today you also mention a few skin lesions that you would like addressed. I advise avoiding long hotshowers as this will only dry out the skin further. You can take benadryl OTC to help with the irritation, but I also prescribed a steroid to help decrease the irritation. Avoid fragrance, non-cottonclothing and allergens. These all contribute to the severity of the eczema. If you have any issues with the medication, please let me know immediately and we will re- evaluate. You verbalized understanding and agreed to treatment plan. Relevant Medications methylPREDNISolone (MEDROL DOSEPACK) 4 mg tablet Other Abnormal CBC - Primary Today you are here for review of blood work. We discussed that on two occurrences, your blood produced two abnormal cell types. We did a smear which appears to be normal. However, to be safe, we discussed going to see a Hemologist. A referral was initiated today. This can take a few weeks to produce results. In the meantime, I would like you to consult with Dr. Elizabeth, your specialist. The herbal supplements he is prescribing may be contributing to this, but we need to be sure. You verbalizedunderstanding and agreed to treatment plan. Relevant Orders Ambulatory referral to Hematology / Oncology Insomnia You are also in need of a refill for your Trazadone. You have been on this for awhile now as it helps you sleep. I will refill the medication today. Relevant Medications traZODone (DESYREL) 50 MG tablet in this encounter* Patient Instructions* Yolanda Willson RN - 10/27/2018 10:23 AM EST 1. Obtain labs today 2. Return as needed in this encounter History of Present Illness * Destiny Burt PA-C - 09/22/2018 1:28 PM EST Subjective Patient ID: Barbie Means is a 58 y.o. female. Patient is here to establish care with our office. Please see below for further comments Medication Refill This is a chronic problem. Episode onset: Prozac-3 years Flexeril- 10 years. The problem occurs daily. Progression since onset: Prozac- withdrawal symtpoms due to lack of medication, flexeril has been unchanged. Pertinent negatives include no abdominal pain, anorexia, arthralgias, change in bowel habit, chest pain, chills, congestion, coughing, diaphoresis, fatigue, fever, headaches, joint swelling, myalgias, nausea, neck pain, numbness, rash, sore throat, swollen glands, urinary symptoms, vertigo, visual change, vomiting or weakness. Exacerbated by: Prozac- of family pet recently, daughter has PTSD Treatments tried: as noted for refills. The treatment provided significant relief. URI This is a new problem. The current episode started yesterday. The problem has been waxing and waning. There has been no fever. Associated symptoms include rhinorrhea. Pertinent negatives include no abdominal pain, chest pain, congestion, coughing, dysuria, headaches, nausea, neck pain, rash, sinus pain, sore throat, swollen glands or vomiting. She has tried NSAIDs for the symptoms. The treatment provided moderate relief. The following portions of the patient's history were reviewed and updated as appropriate: allergies, current medications, past family history, past medical history, past social history, past surgicalhistory and problem list. PMSH reviewed briefly today, patient to go home and review records for dates of various diagnosis. We will review further at next visit. Vitals: 09/22/18 1319 BP: 118/75 BP Location: Left arm Patient Position: Sitting BP Cuff Size: Adult Pulse: 71 Resp: 16 Temp: 98.3 F (36.8 C) TempSrc: Oral SpO2: 98% Weight: 51.7 kg (114 lb) Height: 5' 2 Past Medical History: Diagnosis Date Anemia HX OF DURING Anxiety Info gained from : [facility]/Bev Armenta, DO office note Arthritis GENERALIZED Arthritis of sacroiliac joint (HCC) 10/17/2017 Info gained from [facility] report-Burton Walsh M.D. Degenerative disc disease, lumbar 10/17/2017 Info gained from [facility]- Burton Walsh M.D. Depression 2013 Info gained from : [facility]/Bev Armenta, DO office note Easy bruising Info gained from : [facility]/Gerson Pratt, DO office visit note Exostosis RIGHT FOOT Facet arthropathy 10/17/2017 Info gained from [facility] records-Burton Walsh M.D. Fibromyalgia 1997 Info gained from : 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 History of echocardiogram 03/09/[address] MITCHELL History of stress test 02/2016 AT [facility] WITH NEGATIVE RESULTS Insomnia Info gained from: [facility]/Daphne Mitchell, DO office visit note Neck pain Overactive bladder Palpitations PONV (postoperative nausea and vomiting) Poor concentration history. difficulty focusing at times Info gained from : [facility]/Gerson Pratt, DO office visit note Rhinitis Info gained from : [facility]/Bev Armenta, DO office note Tachycardia Tremor 07/2016 Info gained from: [facility]/Daphne Mitchell, DO office visit note Past Surgical History: Procedure Laterality Date SECTION, CLASSIC Info gained from :[facility]/Caridad Saunders MD office visit note COLONOSCOPY 2013 [place] CONE BIOPSY 1986 Info gained from :[facility]/Caridad Saunders MD office visit note CYST REMOVAL 06/2015 Dr. Rai/Yaneth Jin foot CYST REMOVAL Left 2013 Left Hand: Info gained from [facility] records DILATION AND CURETTAGE OF UTERUS 1986 Info gained from :[facility]/Caridad Saunders MD office visit note EXCISION BONE SPUR FOOT Right 2014 Info gained from [facility] records HAND SURGERY Left 06/09/2014 Dr. Vielka Jin ganglion cyst HIND FOOT SOFT TISSUE Right 07/03/2016 Procedure: RIGHT EXCISION MIDFOOT DORSAL EXOSTOSIS, EXCISION GANGLION WITH ANTERIOR TARSAL TUNNEL DECOMPRESSION; Surgeon: Remi Rai DPM; Location: [facility] Main OR; Service: MM SCREEN UNI HX BREAST CA 10/08/2017 [place] PAP TEST 04/2017 Dr. Renee Sotelo REMOVAL URETHERIAL JARQUIN 1982 [facility] Info gained from :[facility]/Caridad Saunders MD office visit note TARSAL TUNNEL RELEASE 07/03/2016 WISDOM TOOTH EXTRACTION 1977 Medication List Accurate as of 09/22/18 2:02 PM. If you have any questions, ask your nurse or doctor. CONTINUE taking these medications ascorbic acid with vesta hips 500 MG tablet Generic drug: ascorbic acid (vitamin C) B COMPLEX 100 ORAL cinnamon bark-chromium picolin 500-100 mg-mcg Cap CINNAMON ORAL CRANBERRY 475 mg Cap Generic drug: cranberry fruit cyclobenzaprine 5 MG tablet Commonly known as: FLEXERIL One tab at bedtime. DHEA 25 mg Tab Generic drug: prasterone (dhea) doxycycline hyclate 100 MG capsule Commonly known as: VIBRAMYCIN Take 1 capsule (100 mg total) by mouth 2 (two) times a day. fexofenadine 180 MG tablet Commonly known as: ADRIAN FISH OIL 1,000 mg Cap Generic drug: omega-3 fatty acids-vitamin E FLUoxetine 20 MG capsule Commonly known as: PROZAC fluticasone 50 mcg/actuation nasal spray Commonly known as: FLONASE LORazepam 1 MG tablet Commonly known as: ATIVAN Take 1 tablet po once 30 minutes prior to MRI. lysine 500 mg Tab magnesium oxide 500 mg Cap montelukast 10 mg tablet Commonly known as: SINGULAIR multivitamin capsule ospemifene 60 mg Tab oxybutynin 5 MG tablet Commonly known as: DITROPAN PROBIOTIC (S.BOULARDII) ORAL proline (bulk) Danielle woieglbxibpxpnu-IU-opmaJXYyvgd 60-15-400 mg Tab Commonly known as: CAPMIST DM Take 1 tablet by mouth 4 (four) times a day as needed (for congestion). thyroid 30 mg tablet Commonly known as: ARMOUR traZODone 50 MG tablet Commonly known as: DESYREL Take 1/2 to 1 tablet po nightly as needed for sleep. UNABLE TO FIND VITAMIN D3 5,000 unit Tab tablet Generic drug: cholecalciferol (vitamin D3) VITAMIN K2 ORAL Allergies as of 09/22/2018 - Reviewed 09/22/2018 Allergen Reaction Noted Bactrim [sulfamethoxazole-trimethoprim] GI Intolerance 07/07/2014 Cat dander 09/15/2018 Dog dander 09/15/2018 Dust [house dust] 09/15/2018 Grass pollen 09/15/2018 Promethazine Other (See Comments) 04/24/2016 Sulfa (sulfonamide antibiotics) 07/07/2014 Sulfasalazine 03/12/2017 Review of Systems Constitutional: Negative for chills, diaphoresis, fatigue and fever. HENT: Positive for rhinorrhea. Negative for congestion, hearing loss, postnasal drip, sinus pain, sore throat and voice change. Eyes: Negative for discharge and visual disturbance. Respiratory: Negative for cough. Cardiovascular: Negative for chest pain. Gastrointestinal: Negative for abdominal pain, anorexia, change in bowel habit, nausea and vomiting. Genitourinary: Negative for dysuria, flank pain, hematuria and urgency. Musculoskeletal: Negative for arthralgias, joint swelling, myalgias and neck pain. Skin: Negative for rash. Neurological: Negative for vertigo, weakness, numbness and headaches. Psychiatric/Behavioral: Negative for confusion. Objective Physical Exam Constitutional: She is oriented to person, place, and time. She appears well- developed and well-nourished. HENT: Head: Normocephalic and atraumatic. Right Ear: Hearing and tympanic membrane normal. Left Ear: Hearing and tympanic membrane normal. Nose: Nose normal. Mouth/Throat: Uvula is midline, oropharynx is clear and moist and mucous membranes are normal. Eyes: Conjunctivae and EOM are normal. Right eye exhibits no discharge. Left eye exhibits no discharge. Neck: Normal range of motion. Neck supple. Cardiovascular: Normal rate, regular rhythm and normal heart sounds. Pulmonary/Chest: Effort normal and breath sounds normal. Abdominal: Soft. Bowel sounds are normal. Musculoskeletal: Normal range of motion. Neurological: She is alert and oriented to person, place, and time. Skin: Skin is warm and dry. Psychiatric: She has a normal mood and affect. Judgment normal. Assessment/Plan: Problem List Items Addressed This Visit Respiratory Upper respiratory tract infection - Primary Additionally, you mention you are fighting a cold. We discussed this and we agree this looks viral.However, viral can turn to bacterial if the body does not fend it off. Plenty of fluids and rest over the next few days. If symptoms progress or do not resolve within 10 days, I would like to see youback for re- evaluation. Please call with any changes. You agreed to treatment plan and verbalized understanding. Relevant Medications montelukast (SINGULAIR) 10 mg tablet Other Fibromyalgia Depression Today you are here to establish care and get medication refills. You were previously on Prozac twice a day and your previous provider would not refill this dose. You have been taking your medication once a day. I have provided education on stopping your antidepressants as it can be tricky. You do not some symptoms of withdrawal, but state it is getting better. You would like to continue with justonce a day, as eventually you would like to get off the Prozac all together. I refilled the prescription for once daily. The depression screening was done and is consistent with your diagnosis of mild depression. I would like to continue to follow this every 3 months and then sooner if you are having a change in current status. You agreed to treatment plan and will follow up accordingly. Relevant Medications FLUoxetine (PROZAC) 20 MG capsule Screening for heart disease Goals: Total cholesterol < 200 Triglycerides <120 HDL > 50 (female) HDL > 45 (men) Non-HDL < 130 Screening for diabetes mellitus An A1c is a measure of the amount of sugar attached to red blood cell. It represents approximately the average blood sugar last 130 days. Greater than 5.7 is consistent with impaired glucose metabolism. Gently it represents someone at risk for becoming diabetic in the next 3-5 years. Greater than 6.4 is consistent with diabetes. It is the lowest you ever want someone to be if there over age 70. Over age 70 increase the risk of injury related to low blood sugar if 6.4 below. Everyone less than 70 should attempt an A1c less than 7.0. [facility] Blood sugar average 6 126 7 154 8 183 9 212 10 240 11 269 12 298 Chronic fatigue Encounter for screening mammogram for breast cancer Last mammogram was 10/08/2017, new order placed and to be done after 10/08/2018. For any new medications prescribed today, patient was educated about indications for the medication, how to take the medication and potential side effects of the medications. .me in this encounter* Destiny Burt PA-C - 10/14/2018 1:29 PM EST Subjective Patient ID: Barbie Means is a 58 y.o. female. Rash This is a chronic problem. The current episode started more than 1 month ago. The problem has been waxing and waning since onset. The affected locations include the torso and chest. The rash is characterized by dryness, redness and itchiness. She was exposed to nothing. Pertinent negatives include no anorexia, congestion, cough, diarrhea, eye pain, facial edema, fatigue, fever, joint pain, nail changes, rhinorrhea, shortness of breath, sore throat or vomiting. Past treatments include topical steroids and oral steroids. Improvement on treatment: oral steroids worked the last time she had this,topicals did not. Her past medical history is significant for allergies and eczema. There is no history of asthma or varicella. Medication Refill Associated symptoms include a rash. Pertinent negatives include no anorexia, chest pain, congestion, coughing, fatigue, fever, headaches, sore throat or vomiting. Patient is also here for review on labs. The following portions of the patient's history were reviewed and updated as appropriate: allergies, current medications, past family history, past medical history, past social history, past surgicalhistory and problem list. [facility] today, patient to go home and review records for dates of various diagnosis. We will review further at next visit. Vitals: 10/14/18 1316 BP: 131/72 BP Location: Right arm Patient Position: Sitting BP Cuff Size: Adult Pulse: 70 Resp: 18 Temp: 98.9 F (37.2 C) TempSrc: Oral SpO2: 100% Weight: 48.5 kg (107 lb) Height: 5' 2 Past Medical History: Diagnosis Date Anxiety Dr. Armenta, DO office note Arthritis of sacroiliac joint (HCC) 10/17/2017 Burton Walsh M.D. Degenerative disc disease, lumbar 10/17/2017 Burton Walsh M.D.- L3-[address] Armenta, DO office note Exostosis RIGHT FOOT Facet arthropathy 10/17/2017 Burton Walsh M.D. Fibromyalgia 1997 Dr. 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 History of stress test 02/2016 AT [facility] WITH NEGATIVE RESULTS Insomnia Dr. Mitchell, DO office visit note Neck pain Overactive bladder Palpitations PONV (postoperative nausea and vomiting) Tachycardia Tremor 07/2016 Dr. Mitchell, DO office visit note Past Surgical History: Procedure Laterality Date SECTION, CLASSIC Info gained from :[facility] Hipolito/Caridad Saunders MD office visit note COLONOSCOPY 2012 [place] BIOPSY 1986 Dr.Kristy Lashae Saunders MD office visit note CYST REMOVAL 06/2015 Dr. Rai/Yaneth Jin foot DILATION AND CURETTAGE OF UTERUS 1986 Dr.Kristy Lashae Saunders MD office visit note EXCISION BONE SPUR FOOT Right 2014 Info gained from [facility] records HAND SURGERY Left 06/09/2014 Dr. Vielka Jin ganglion cyst HIND FOOT SOFT TISSUE Right 07/03/2016 Procedure: RIGHT EXCISION MIDFOOT DORSAL EXOSTOSIS, EXCISION GANGLION WITH ANTERIOR TARSAL TUNNEL DECOMPRESSION; Surgeon: Remi Rai DPM; Location: [facility] Main OR; Service: REMOVAL URETHERIAL JARQUIN 1981 Dr.Kristy Lashae Saunders MD office visit note TARSAL TUNNEL RELEASE 07/03/2016 WISDOM TOOTH EXTRACTION 1977 Medication List Accurate as of 10/14/18 3:57 PM. If you have any questions, ask your nurse or doctor. START taking these medications methylPREDNISolone 4 mg tablet Commonly known as: MEDROL DOSEPACK follow package directions . Started by: Destiny Burt PA-C CONTINUE taking these medications ascorbic acid with vesta hips 500 MG tablet Generic drug: ascorbic acid (vitamin C) B COMPLEX 100 ORAL CINNAMON ORAL cyclobenzaprine 5 MG tablet Commonly known as: FLEXERIL One tab at bedtime . DHEA 25 mg Tab Generic drug: prasterone (dhea) fexofenadine 180 MG tablet Commonly known as: ADRIAN FISH OIL 1,000 mg Cap Generic drug: omega-3 fatty acids-vitamin E FLUoxetine 20 MG capsule Commonly known as: PROZAC Take 1 (one) capsule (20 mg total) by mouth daily . fluticasone 50 mcg/actuation nasal spray Commonly known as: FLONASE lysine 500 mg Tab magnesium oxide 500 mg Cap montelukast 10 mg tablet Commonly known as: SINGULAIR proline (bulk) Danielle thyroid 30 mg tablet Commonly known as: ARMOUR traZODone 50 MG tablet Commonly known as: DESYREL Take 1/2 to 1 tablet po nightly as needed for sleep . VITAMIN D3 5,000 unit Tab tablet Generic drug: cholecalciferol (vitamin D3) VITAMIN K2 ORAL STOP taking these medications CRANBERRY 475 mg Cap Generic drug: cranberry fruit Stopped by: Destiny Burt PA-C doxycycline hyclate 100 MG capsule Commonly known as: VIBRAMYCIN Stopped by: Destiny Burt PA-C LORazepam 1 MG tablet Commonly known as: ATIVAN Stopped by: Destiny Burt PA-C multivitamin capsule Stopped by: Destiny Burt PA-C ospemifene 60 mg Tab Stopped by: Destiny Burt PA-C oxybutynin 5 MG tablet Commonly known as: DITROPAN Stopped by: Destiny Burt PA-C PROBIOTIC (S.BOULARDII) ORAL Stopped by: Destiny Burt PA-C [id number] 60-15-400 mg Tab Commonly known as: CAPMIST DM Stopped by: Destiny Burt PA-C UNABLE TO FIND Stopped by: Destiny Burt PA-C Where to Get Your Medications These medications were sent to [facility]/pharmacy #[id number] - [place], [place] - [phone], [place] [address] methylPREDNISolone 4 mg tablet traZODone 50 MG tablet Allergies as of 10/14/2018 - Reviewed 10/14/2018 Allergen Reaction Noted Promethazine Other (See Comments) 04/24/2016 Bactrim [sulfamethoxazole-trimethoprim] GI Intolerance 07/07/2014 Cat dander Other (See Comments) 09/15/2018 Dog dander Other (See Comments) 09/15/2018 Dust [house dust] Other (See Comments) 09/15/2018 Grass pollen Other (See Comments) 09/15/2018 Sulfa (sulfonamide antibiotics) GI Intolerance 07/07/2014 Sulfasalazine GI Intolerance 03/12/2017 Review of Systems Constitutional: Negative for activity change, fatigue and fever. HENT: Negative for congestion, hearing loss, rhinorrhea, sore throat and trouble swallowing. Eyes: Negative for pain and visual disturbance. Respiratory: Negative for cough and shortness of breath. Cardiovascular: Negative for chest pain. Gastrointestinal: Negative for abdominal distention, anorexia, diarrhea and vomiting. Musculoskeletal: Negative for joint pain. Skin: Positive for rash. Negative for nail changes. Neurological: Negative for headaches. Hematological: Negative for adenopathy. Does not bruise/bleed easily. Psychiatric/Behavioral: Negative for agitation. Objective Physical Exam Constitutional: She is oriented to person, place, and time. She appears well- developed and well-nourished. No distress. HENT: Head: Normocephalic and atraumatic. Right Ear: External ear normal. Left Ear: External ear normal. Eyes: EOM are normal. Neck: Normal range of motion. Neck supple. Cardiovascular: Normal rate, regular rhythm and normal heart sounds. No murmur heard. Pulmonary/Chest: Effort normal and breath sounds normal. Musculoskeletal: Normal range of motion. Neurological: She is alert and oriented to person, place, and time. Skin: Skin is dry. Rash noted. There is erythema. Rash noted on chest and torso, dry, circular erythematous patches noted. Mainly around bra/axillaryarea Psychiatric: She has a normal mood and affect. Judgment normal. Patient is pleasant for duration of exam Assessment/Plan: Insomnia You are also in need of a refill for your Trazadone. You have been on this for awhile now as it helps you sleep. I will refill the medication today. Abnormal CBC Today you are here for review of blood work. We discussed that on two occurrences, your blood produced two abnormal cell types. We did a smear which appears to be normal. However, to be safe, we discussed going to see a Hemologist. A referral was initiated today. This can take a few weeks to produce results. In the meantime, I would like you to consult with Dr. Elizabeth, your specialist. The herbal supplements he is prescribing may be contributing to this, but we need to be sure. You verbalizedunderstanding and agreed to treatment plan. Eczema Today you also mention a few skin lesions that you would like addressed. I advise avoiding long hotshowers as this will only dry out the skin further. You can take benadryl OTC to help with the irritation, but I also prescribed a steroid to help decrease the irritation. Avoid fragrance, non-cottonclothing and allergens. These all contribute to the severity of the eczema. If you have any issues with the medication, please let me know immediately and we will re- evaluate. You verbalized understanding and agreed to treatment plan. Goals None For any new medications prescribed today, patient was educated about indications for the medication, how to take the medication and potential side effects of the medications. * Destiny Burt PA-C - 10/14/2018 1:27 PM EST Eczema in this encounter* Carlee Ruggiero MD - 10/27/2018 10:00 AM EST Hematology Initial Consult Note Reason for Consult: Abnormal CBC Referring Physician: Destiny Burt PA-C PCP: Destiny Burt PA-C History of Present Illness: Ms. Means is a 58 year old lady with a history of anxiety, depression, arthritis, fibromyalgia, Danyell thyroiditis who is being seen by hematology for abnormal CBC. The patient follows with Destiny Burt for her primary care needs. She was seen in early September when she had a URI. She had a CBC drawn around that time which which showed a mildly low WBC at 2.9 with a low ANC of 800. Her hemoglobin and platelets were normal. It also noted 1+ acanthocytes and alex cells. She had a repeat CBC about 1 week later to recheck this and her WBC had returned to normal. Her absolute monocyte count was mildly elevated to 900. She still had 1+ acanthocytes and alex cells. Her main symptoms currentlyseem to be fatigue which has been persistent since her URI but this is getting better and is only mild. She is still working. She denies any fevers, chills, nausea, vomiting, weight loss, night sweats, adenopathy, early satiety. She otherwise is doing well. She denies any bleeding. No family history of hematologic malignancies. Past Medical History: Diagnosis Date Anxiety Dr. Armenta, DO office note Arthritis of sacroiliac joint (HCC) 10/17/2017 Burton Walsh M.D. Degenerative disc disease, lumbar 10/17/2017 Burton Walsh M.D.- L3-[address] Armenta, DO office note Exostosis RIGHT FOOT Facet arthropathy 10/17/2017 Burton Walsh M.D. Fibromyalgia 1997 Dr. 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 History of stress test 02/2016 AT [facility] WITH NEGATIVE RESULTS Insomnia Dr. Mitchell, DO office visit note Neck pain Overactive bladder Palpitations PONV (postoperative nausea and vomiting) Tachycardia Tremor 07/2016 Dr. Mitchell, DO office visit note Past Surgical History: Procedure Laterality Date SECTION, CLASSIC Info gained from :[facility] Hipolito/Caridad Saunders MD office visit note COLONOSCOPY 2012 [place] BIOPSY 1986 Dr.Kristy Lashae Saunders MD office visit note CYST REMOVAL 06/2015 Dr. Rai/Yaneth Jin foot DILATION AND CURETTAGE OF UTERUS 1986 Dr.Kristy Lashae Saunders MD office visit note EXCISION BONE SPUR FOOT Right 2014 Info gained from [facility] records HAND SURGERY Left 06/09/2014 Dr. Vielka Jin ganglion cyst HIND FOOT SOFT TISSUE Right 07/03/2016 Procedure: RIGHT EXCISION MIDFOOT DORSAL EXOSTOSIS, EXCISION GANGLION WITH ANTERIOR TARSAL TUNNEL DECOMPRESSION; Surgeon: Remi Rai DPM; Location: [facility] Main OR; Service: REMOVAL URETHERIAL JARQUIN 1981 Dr.Kristy Lashae Saunders MD office visit note TARSAL TUNNEL RELEASE 07/03/2016 WISDOM TOOTH EXTRACTION 1978 Family History Problem Relation Age of Onset Prostate cancer Father Coronary artery disease Father Hypertension Father Heart disease Father Urinary tract infection Mother Anxiety Mother Depression Mother Arthritis Mother Info gained from [facility] records Anxiety Sister Depression Sister Hypertension Sister Anxiety Brother Parkinson's Maternal Grandfather Coronary artery disease Paternal Grandmother Heart disease Paternal Grandmother [place]'s disease Paternal Grandfather Post-traumatic stress disorder Daughter Info gained from [facility] records Surgical complications Neg Hx Anesthesia problems Neg Hx Clotting disorder Neg Hx Deep vein thrombosis Neg Hx Pulmonary embolism Neg Hx Diabetes Neg Hx Breast cancer Neg Hx Social History Socioeconomic History Marital status: Spouse name: None Number of children: 1 Years of education: None Highest education level: None Social Needs Financial resource strain: None Food insecurity - worry: None Food insecurity - inability: None Transportation needs - medical: None Transportation needs - non-medical: None Occupational History 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 Employer: [employer] Comment: [employer] Employer: [employer] Tobacco Use Smoking status: Never Smoker Smokeless tobacco: Never Used Substance and Sexual Activity Alcohol use: Yes Alcohol/week: 4.2 oz Types: 7 Glasses of wine per week Drinks per session: 1 or 2 Binge frequency: Daily or almost daily Drug use: No Sexual activity: Yes Partners: Male Other Topics Concern None Social History Narrative None Allergies Allergen Reactions Promethazine Other (See Comments) CONVULSIONS Bactrim [Sulfamethoxazole-Trimethoprim] GI Intolerance Cat Dander Other (See Comments) sneezing Dog Dander Other (See Comments) sneezing Dust [House Dust] Other (See Comments) Grass Pollen Other (See Comments) Sinus issues Sulfa (Sulfonamide Antibiotics) GI Intolerance Other reaction(s): GI upset Sulfasalazine GI Intolerance Current Outpatient Medications Medication Sig Dispense Refill ascorbic acid, vitamin C, (ascorbic acid with vesta hips) 500 MG tablet Take 1,000 mg by mouth 4 (four) times a day . cholecalciferol, vitamin D3, (VITAMIN D3) 5,000 unit Tab tablet Take by mouth daily . cinnamon bark (CINNAMON ORAL) Take 1,000 mg by mouth 4 (four) times a day . cyclobenzaprine (FLEXERIL) 5 MG tablet One tab at bedtime . 30 tablet 5 fexofenadine (ADRIAN) 180 MG tablet Take 180 mg by mouth every morning TAKES 1 TABLET ReasonsAllergic Rhinitis. fluticasone (FLONASE) 50 mcg/actuation nasal spray Instill 2 sprays into each nostril nightly DOES 2 SPRAYS IN EACH NOSTRIL ReasonsAllergic Rhinitis. lysine 500 mg Tab Take 500 mg by mouth 4 (four) times a day . magnesium oxide 500 mg cap Take 500 mg by mouth 3 (three) times a day . montelukast (SINGULAIR) 10 mg tablet Take 10 mg by mouth daily . omega-3 fatty acids-vitamin E (FISH OIL) 1,000 mg cap 8 capsules daily TAKES 1 TABLET Reasons: SUPPLEMENT. prasterone, dhea, (DHEA) 25 mg Tab Take 0.5 tablets by mouth daily . proline, bulk, Danielle 1 capsule by Miscellaneous route 3 (three) times a day 667mg capsule . thyroid (ARMOUR) 30 mg tablet Take 30 mg by mouth daily . traZODone (DESYREL) 50 MG tablet Take 1/2 to 1 tablet po nightly as needed for sleep . 30 tablet 3 vitamin B complex/folic acid (B COMPLEX 100 ORAL) Take 100 mg by mouth 3 (three) times a day . VITAMIN K2 ORAL Take 100 mcg by mouth 2 (two) times a day . FLUoxetine (PROZAC) 20 MG capsule Take 1 (one) capsule (20 mg total) by mouth daily . 30 capsule 2 No current facility-administered medications for this visit. Review of Systems: General Constitutional: Denied fevers, chills, anorexia, weight loss, or night sweats Eyes: denied blurry vision ENT: denied nasal drainage, sinus pressure Mouth: denied oral ulcers Endocrine: unusual weight loss, heat or cold intolerance, polyuria, polydipsia, or hair loss/gain Lymphatics: no new adenopathy in cervical, supraclavicular, axillary, inguinal regions Respiratory: no cough, SOB CV: denied palpitations, chest pain/pressure, PND, orthopnea. GI: denied abd pain, n/v/d, constipation, melena. : denied dysuria, urgency, frequency or hematuria. Skin: no rashes or lesions Musculoskeletal: denied muscle/joint/bone pain Hematologic/lmmunologic: no adenopathy, bleeding, easy bruisiality or recurrent infection. Neurology: Denied new headaches, numbness or weakness of extremities Psych: denied anxiety, depression or mood swings Physical Exam: PACU Vitals 03/04/19 0933 BP: 130/67 Pulse: 80 Temp: 97 F (36.1 C) SpO2: 97% ECOG 0 Gen: NAD, resting comfortably HEENT: NCAT, no temporal wasting, anicteric sclerae, mmm, no op lesions Neck: supple, no thyromegaly or LAD Lymphatics: no cervical, axillary, or inguinal adenopathy Chest: CTAB, no w/r/r, no respiratory distress CV: RRR, no m/r/g, normal S1, S2 Abd: soft, nontender, nondistended, +BS, no hepatosplenomegaly Ext: wwp, no c/c/e Skin: no rashes or lesions Neuro: no focal deficits, moves all four extremities Labs: Lab Results Component Value Date WBC 5.2 10/06/2018 HGB 13.0 10/06/2018 HCT 38.8 10/06/2018 MCV 98.1 03/12/2017 EXTMCV 95.4 10/06/2018 PLT 368 10/06/2018 RBC 4.11 03/12/2017 Lab Results Component Value Date GLUCOSE 83 03/12/2017 CALCIUM 9.9 03/12/2017 CALCIUM 9.8 03/12/2017 NA 140 03/12/2017 K 4.3 03/12/2017 CL 101 03/12/2017 BUN 15 09/29/2018 CREATININE 0.74 09/29/2018 Lab Results Component Value Date ALT 44 09/29/2018 AST 24 09/29/2018 ALKPHOS 44 03/12/2017 BILITOT 0.4 03/12/2017 Assessment & Recommendations: 1. Abnormal CBC Ms. Means is a 58 year old lady with a history of anxiety, depression, arthritis, fibromyalgia, Danyell thyroiditis who is being seen by hematology for abnormal CBC. Abnormal CBC: As above, the patient was noted to have a slightly abnormal CBC earlier last month. She will CBC when she had a URI was notable for mild neutropenia however this resolved. She had a subsequent CBC 1 week later that noted a mild monocytosis of 900. She also had 1+ alex cells and acanthocytes. The peripheral smear though noted normal red cells and platelets. She has no other symptoms as above. The initial neutropenia was likely secondary to her acute infection and resolved. As far as the monocytes, these were only mildly elevated and quite nonspecific. The alex cells and acanthocytes can be seen in people with liver disease or thyroid issues, however she only had a mild increase in this and ag ain is nonspecific. I will plan to repeat a CBC. I will call her if there is any concerning findings. Otherwise her however plan to follow-up with me as needed. RTC prn Education Provided Education/Instructions given to: (x) Patient (_) Spouse (_) Parent (_) Other Barriers to Learning: (x) None (_) Yes (identify):_ Content: (x) Refer to note above (_)Other (identify):_ Evaluation/Outcome: (x) Verbalized understanding (_) Demonstrated understanding (_) Other:_ Symptom Management: 1. Pain Assessment/Effectiveness of Narcotics: 2. Narcotic induced Constipation: 3. Emotional Well Being Assessment: Stable, no signs or symtoms of depression 4. Chemotherapy Side effects: Advanced Directives: Full Code Za Ruggiero MD in this encounter* Tegan Ortega, MARCUS - 06/12/2019 11:11 AM EDT NAME: Barbie Means AGE: 59 y.o. : 1960 VISIT DATE: 06/16/19 HISTORY OF PRESENT ILLNESS: 59 y.o. female presents to establish care and to discuss mood, right shoulder pain. Last PCP - DARLENE Kirk Shoulder pain x several months Feels sxs are worsening Continuously bothersome, but reaching back worsens pain Most bothersome at night No initial injury that she can recall Associated sxs include numbness and tingling Working with chiropractor and will take Advil daily Feeling flat and overall exhausted Stressors: daughters health, recent move, marital problems Currently taking prozac 20 mg qd - compliant PAST MEDICAL HISTORY: Past Medical History: Diagnosis Date Anxiety Dr. Armenta, DO office note Arthritis of sacroiliac joint 10/17/2017 Burton Walsh M.D. Degenerative disc disease, lumbar 10/17/2017 Burton Walsh M.D.- L3-[address] Armenta, office note Exostosis RIGHT FOOT Facet arthropathy 10/17/2017 Burton Walsh M.D. Fibromyalgia 1997 Dr. 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 History of stress test 02/2016 AT [facility] WITH NEGATIVE RESULTS Insomnia Dr. Mitchell, DO office visit note Neck pain Overactive bladder Palpitations PONV (postoperative nausea and vomiting) Tachycardia Tremor 07/2016 Dr. Mitchell, DO office visit note PAST SURGICAL HISTORY: Past Surgical History: Procedure Laterality Date SECTION, CLASSIC Info gained from :[facility] Hipolito/Caridad Saunders MD office visit note COLONOSCOPY 2012 [place] CONE BIOPSY 1986 Dr.Kristy Lashae Saunders MD office visit note CYST REMOVAL 06/2015 Dr. Rai/Yaneth Jin foot DILATION AND CURETTAGE OF UTERUS 1986 Dr.Kristy Lashae Saunders MD office visit note EXCISION BONE SPUR FOOT Right 2014 Info gained from [facility] records HAND SURGERY Left 06/09/2014 Dr. Vielka Jin ganglion cyst HIND FOOT SOFT TISSUE Right 07/03/2016 Procedure: RIGHT EXCISION MIDFOOT DORSAL EXOSTOSIS, EXCISION GANGLION WITH ANTERIOR TARSAL TUNNEL DECOMPRESSION; Surgeon: Remi Rai DPM; Location: [facility] Main OR; Service: REMOVAL URETHERIAL JARQUIN 1981 Dr.Kristy Lashae Saunders MD office visit note TARSAL TUNNEL RELEASE 07/03/2016 WISDOM TOOTH EXTRACTION 1978 FAMILY HISTORY: Family History Problem Relation Age of Onset Prostate cancer Father Coronary artery disease Father Hypertension Father Heart disease Father Urinary tract infection Mother Anxiety Mother Depression Mother Arthritis Mother Info gained from [facility] records Anxiety Sister Depression Sister Hypertension Sister Anxiety Brother Parkinson's Maternal Grandfather Coronary artery disease Paternal Grandmother Heart disease Paternal Grandmother Rose Marie's disease Paternal Grandfather Post-traumatic stress disorder Daughter Info gained from [facility] records Surgical complications Neg Hx Anesthesia problems Neg Hx Clotting disorder Neg Hx Deep vein thrombosis Neg Hx Pulmonary embolism Neg Hx Diabetes Neg Hx Breast cancer Neg Hx SOCIAL HISTORY: Social History Socioeconomic History Marital status: Spouse name: Not on file Number of children: 1 Years of education: Not on file Highest education level: Not on file Occupational History 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 Employer: [employer] Employer: [employer] Social Needs Financial resource strain: Not on file Food insecurity: Worry: Not on file Inability: Not on file Transportation needs: Medical: Not on file Non-medical: Not on file Tobacco Use Smoking status: Never Smoker Smokeless tobacco: Never Used Substance and Sexual Activity Alcohol use: Yes Alcohol/week: 7.0 standard drinks Types: 7 Glasses of wine per week Frequency: 4 or more times a week Drinks per session: 1 or 2 Binge frequency: Daily or almost daily Drug use: No Sexual activity: Yes Partners: Male Lifestyle Physical activity: Days per week: Not on file Minutes per session: Not on file Stress: Not on file Relationships Social connections: Talks on phone: Not on file Gets together: Not on file Attends sabianism service: Not on file Active member of club or organization: Not on file Attends meetings of clubs or organizations: Not on file Relationship status: Not on file Other Topics Concern Not on file Social History Narrative Not on file ALLERGIES: Allergies Allergen Reactions Promethazine Other (See Comments) CONVULSIONS Bactrim [Sulfamethoxazole-Trimethoprim] GI Intolerance Cat Dander Other (See Comments) sneezing Dog Dander Other (See Comments) sneezing Dust [House Dust] Other (See Comments) Grass Pollen Other (See Comments) Sinus issues Sulfa (Sulfonamide Antibiotics) GI Intolerance Other reaction(s): GI upset Sulfasalazine GI Intolerance MEDICATIONS: Patient's Medications New Prescriptions No medications on file Previous Medications ASCORBIC ACID, VITAMIN C, (ASCORBIC ACID WITH VESTA HIPS) 500 MG TABLET Take 1,000 mg by mouth 4 (four) times a day . CHOLECALCIFEROL, VITAMIN D3, (VITAMIN D3) 5,000 UNIT TAB TABLET Take by mouth daily . CINNAMON BARK (CINNAMON ORAL) Take 1,000 mg by mouth 4 (four) times a day . CYCLOBENZAPRINE (FLEXERIL) 5 MG TABLET One tab at bedtime . FEXOFENADINE (ADRIAN) 180 MG TABLET Take 180 mg by mouth every morning TAKES 1 TABLET ReasonsAllergic Rhinitis. FLUOXETINE (PROZAC) 20 MG CAPSULE TAKE 1 (ONE) CAPSULE (20 MG TOTAL) BY MOUTH DAILY . LYSINE 500 MG TAB Take 500 mg by mouth 4 (four) times a day . MAGNESIUM OXIDE 500 MG CAP Take 500 mg by mouth 3 (three) times a day . MONTELUKAST (SINGULAIR) 10 MG TABLET Take 1 (one) tablet (10 mg total) by mouth daily . OMEGA-3 FATTY ACIDS-VITAMIN E (FISH OIL) 1,000 MG CAP 8 capsules daily TAKES 1 TABLET Reasons: SUPPLEMENT. PRASTERONE, DHEA, (DHEA) 25 MG TAB Take 0.5 tablets by mouth daily . PROLINE, BULK, DANIELLE 1 capsule by Miscellaneous route 3 (three) times a day 667mg capsule . THYROID (ARMOUR) 30 MG TABLET Take 30 mg by mouth daily . VITAMIN B COMPLEX/FOLIC ACID (B COMPLEX 100 ORAL) Take 100 mg by mouth 3 (three) times a day . VITAMIN K2 ORAL Take 100 mcg by mouth 2 (two) times a day . Modified Medications Modified Medication Previous Medication TRAZODONE (DESYREL) 50 MG TABLET traZODone (DESYREL) 50 MG tablet Take 1/2 to 1 tablet po nightly as needed for sleep . Take 1/2 to 1 tablet po nightly as needed forsleep . Discontinued Medications FLUTICASONE (FLONASE) 50 MCG/ACTUATION NASAL SPRAY Instill 2 sprays into each nostril nightly DOES 2 SPRAYS IN EACH NOSTRIL ReasonsAllergic Rhinitis. REVIEW OF SYSTEMS: Review of Systems Constitutional: Positive for activity change, appetite change and fatigue. Negative for unexpected weight change. Respiratory: Negative for shortness of breath and wheezing. Cardiovascular: Negative for chest pain, palpitations and leg swelling. Gastrointestinal: Negative for abdominal pain, diarrhea, nausea and vomiting. Endocrine: Negative for cold intolerance, heat intolerance, polydipsia, polyphagia and polyuria. Psychiatric/Behavioral: Positive for decreased concentration, dysphoric mood and sleep disturbance.Negative for self-injury. The patient is nervous/anxious. VITALS: BP 113/72 Pulse 71 Temp 98.4 F (36.9 C) Resp 16 Ht 5' 2.5 Wt 49.4 kg (109 lb) SpO2 98% BMI 19.62 kg/m PHYSICAL EXAM: Physical Exam Constitutional: She is oriented to person, place, and time. She appears well- developed and well-nourished. HENT: Head: Normocephalic and atraumatic. Neck: Normal range of motion. Neck supple. No tracheal deviation present. No thyromegaly present. Cardiovascular: Normal rate, regular rhythm and normal heart sounds. Pulmonary/Chest: Effort normal and breath sounds normal. No respiratory distress. She has no wheezes. Abdominal: Soft. Bowel sounds are normal. She exhibits no distension. There is no tenderness. Lymphadenopathy: She has no cervical adenopathy. Neurological: She is alert and oriented to person, place, and time. Skin: Skin is warm and dry. Psychiatric: She has a normal mood and affect. Her behavior is normal. Judgment and thought contentnormal. Nursing note and vitals reviewed. ASSESSMENT / PLAN Barbie was seen today for establish care and depression. Diagnoses and all orders for this visit: Insomnia, unspecified type Comments: sleeps well with trazodone. continue. Orders: - traZODone (DESYREL) 50 MG tablet; Take 1/2 to 1 tablet po nightly as needed for sleep . Fatigue, unspecified type Comments: Check labs as noted. Suspect fatigue r/t worsening depression. Consider increase in SSRI if labs WNL. Counseling encouraged. Orders: - CBC and Differential; Future - TSH; Future - Vitamin D, Total, 25-OH; Future FOLLOW-UP: Return in about 6 months (around 12/12/2019) for Annual Exam. Tegan Ortega CNP documented in this encounter* Mayco Jaeger MD - 05/24/2020 9:33 AM EDT Subjective Patient ID: Barbie Means is a 59 y.o. female. 59 years old patient with past medical history of sinus allergies is here complaining of left-sidedchest pain stabbing in quality comes and goes this started about 1 year ago. The pain is sudden in onset last between seconds up to half an hour and is radiating sometimes in the upper chest or the left ear or is radiating down some other times into the abdomen. Per patient the pain episodes are getting worse. Systolic blood pressure today is borderline. Patient does not have elevated blood pressures. Recent work-up demonstrated normal kidney function normal electrolytes essentially normal complete blood count normal ESR BRANDY and normal RA Patient had depression in the past and used to be on fluoxetine that she is currently taking. Chest Pain This is a recurrent problem. The current episode started more than 1 month ago. The onset quality is sudden. The problem occurs intermittently. The problem has been waxing and waning. The pain is present in the lateral region. The pain is at a severity of 5/10. The pain is moderate. The quality of the pain is described as stabbing. Radiates to: Left upper chest left ear and to abdomen. Pertinent negatives include no abdominal pain, back pain, claudication, cough, diaphoresis, dizziness, exertional chest pressure, fever, headaches, hemoptysis, irregular heartbeat, leg pain, lower extremity edema, malaise/fatigue, nausea, near-syncope, numbness, orthopnea, palpitations, PND, shortness of breath, sputum production, syncope, vomiting or weakness. She has tried NSAIDs for the symptoms. The treatment provided significant relief. Her past medical history is significant for hypertension and thyroid problem. Pertinent negatives for past medical history include no CAD, no congenital heart disease, no COPD, no CHF, no diabetes, no hyperlipidemia and no OH. Prior diagnostic workup includes stress echo. Hypertension This is a new problem. The current episode started today. The problem is unchanged. The problem is uncontrolled. Associated symptoms include chest pain. Pertinent negatives include no anxiety, blurred vision, headaches, malaise/fatigue, neck pain, orthopnea, palpitations, peripheral edema, PND, shor tness of breath or sweats. There are no associated agents to hypertension. Risk factors for coronary artery disease include post-menopausal state. Past treatments include nothing. There is no historyof kidney disease, CAD/OH, CVA or heart failure. Identifiable causes of hypertension include a thyroid problem. There is no history of chronic renal disease. The following portions of the patient's history were reviewed and updated as appropriate: allergies, current medications, past family history, past medical history, past social history, past surgicalhistory and problem list. Review of Systems Constitutional: Negative. Negative for diaphoresis, fever and malaise/fatigue. HENT: Negative. Eyes: Negative. Negative for blurred vision. Respiratory: Negative. Negative for cough, hemoptysis, sputum production and shortness of breath. Cardiovascular: Positive for chest pain. Negative for palpitations, orthopnea, claudication, syncope, PND and near-syncope. Gastrointestinal: Negative. Negative for abdominal pain, nausea and vomiting. Endocrine: Negative. Genitourinary: Negative. Musculoskeletal: Negative. Negative for back pain and neck pain. Allergic/Immunologic: Negative. Neurological: Negative. Negative for dizziness, weakness, numbness and headaches. Objective Physical Exam Vitals signs and nursing note reviewed. Constitutional: Appearance: Normal appearance. Cardiovascular: Rate and Rhythm: Normal rate and regular rhythm. Heart sounds: Normal heart sounds. No murmur. No friction rub. No gallop. Pulmonary: Effort: Pulmonary effort is normal. No respiratory distress. Breath sounds: Normal breath sounds. No wheezing, rhonchi or rales. Chest: Chest wall: Tenderness present. Abdominal: General: There is no distension. Palpations: Abdomen is soft. There is no mass. Tenderness: There is no abdominal tenderness. There is no guarding or rebound. Hernia: No hernia is present. Skin: Coloration: Skin is not pale. Neurological: General: No focal deficit present. Mental Status: She is alert and oriented to person, place, and time. Psychiatric: Mood and Affect: Mood normal. Behavior: Behavior normal. Thought Content: Thought content normal. Judgment: Judgment normal. Assessment/Plan: Diagnoses and all orders for this visit: Chest pain, unspecified type - XR Chest AP/PA and LAT; Future New problem unknown prognosis Recent blood work demonstrated negative d-dimer. Patient had two cardiac stress tests normal last test being done in 2019. Differential includes chest wall pain versus hiatal hernia versus radiated back pain versus intrathoracic pain. If pain persist consider CT scan of the chest as a next. Patient to call if the pain changes characteristics gets worse or if she has any new symptoms. Reevaluate in 2 months. Blood pressure elevated without history of HTN Monitor blood pressures Mayco Jaeger MD Return in about 2 months (around 07/24/2020), or if symptoms worsen or fail to improve, for Follow Up chest pain, Follow Up. documented in this encounter* Destiny Burt PA-C - 01/16/2019 1:55 PM EDT Subjective Patient ID: Barbie Means is a 58 y.o. female. HPI Patient is here today for a follow up on her insomnia meds. Patient takes trazodone 50mg nightly for this. She states she has no issues. She wakes up feeling rested and falls asleep without issue. Patient still seeing specialist for the fibromyalgia and it has been going well. No issues to date. The following portions of the patient's history were reviewed and updated as appropriate: allergies, current medications, past family history, past medical history, past social history, past surgicalhistory and problem list. [facility] reviewed [facility] today, patient to go home and review records for dates of various diagnosis. We will review further at next visit. Vitals: 01/16/19 1348 BP: 121/81 BP Location: Left arm Patient Position: Sitting BP Cuff Size: Adult Pulse: 66 Resp: 18 Temp: 98.2 F (36.8 C) TempSrc: Oral SpO2: 98% Weight: 50.8 kg (112 lb) Height: 5' 2 Past Medical History: Diagnosis Date Anxiety Dr. Armenta, DO office note Arthritis of sacroiliac joint (HCC) 10/17/2017 Burton Walsh M.D. Degenerative disc disease, lumbar 10/17/2017 Burton Walsh M.D.- L3-[address] Armenta, DO office note Exostosis RIGHT FOOT Facet arthropathy 10/17/2017 Burton Walsh M.D. Fibromyalgia 1997 Dr. 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 History of stress test 02/2016 AT [facility] WITH NEGATIVE RESULTS Insomnia Dr. Mitchell, DO office visit note Neck pain Overactive bladder Palpitations PONV (postoperative nausea and vomiting) Tachycardia Tremor 07/2016 Dr. Mitchell, DO office visit note Past Surgical History: Procedure Laterality Date SECTION, CLASSIC Info gained from :[facility] Hipolito/Caridad Saunders MD office visit note COLONOSCOPY 2012 [place] BIOPSY 1986 Dr.Kristy Lashae Saunders MD office visit note CYST REMOVAL 06/2015 Dr. Rai/Yaneth Jin foot DILATION AND CURETTAGE OF UTERUS 1986 Dr.Kristy Lashae Saunders MD office visit note EXCISION BONE SPUR FOOT Right 2014 Info gained from [facility] records HAND SURGERY Left 06/09/2014 Dr. Vielka Jin ganglion cyst HIND FOOT SOFT TISSUE Right 07/03/2016 Procedure: RIGHT EXCISION MIDFOOT DORSAL EXOSTOSIS, EXCISION GANGLION WITH ANTERIOR TARSAL TUNNEL DECOMPRESSION; Surgeon: Remi Rai DPM; Location: [facility] Main OR; Service: REMOVAL URETHERIAL JARQUIN 1981 Dr.Kristy Lashae Saunders MD office visit note TARSAL TUNNEL RELEASE 07/03/2016 WISDOM TOOTH EXTRACTION 1977 Patient's Medications New Prescriptions No medications on file Previous Medications ASCORBIC ACID, VITAMIN C, (ASCORBIC ACID WITH VESTA HIPS) 500 MG TABLET Take 1,000 mg by mouth 4 (four) times a day . CHOLECALCIFEROL, VITAMIN D3, (VITAMIN D3) 5,000 UNIT TAB TABLET Take by mouth daily . CINNAMON BARK (CINNAMON ORAL) Take 1,000 mg by mouth 4 (four) times a day . CYCLOBENZAPRINE (FLEXERIL) 5 MG TABLET One tab at bedtime . FEXOFENADINE (ADRIAN) 180 MG TABLET Take 180 mg by mouth every morning TAKES 1 TABLET ReasonsAllergic Rhinitis. FLUOXETINE (PROZAC) 20 MG CAPSULE Take 1 (one) capsule (20 mg total) by mouth daily . FLUTICASONE (FLONASE) 50 MCG/ACTUATION NASAL SPRAY Instill 2 sprays into each nostril nightly DOES 2 SPRAYS IN EACH NOSTRIL ReasonsAllergic Rhinitis. LYSINE 500 MG TAB Take 500 mg by mouth 4 (four) times a day . MAGNESIUM OXIDE 500 MG CAP Take 500 mg by mouth 3 (three) times a day . MONTELUKAST (SINGULAIR) 10 MG TABLET Take 1 (one) tablet (10 mg total) by mouth daily . OMEGA-3 FATTY ACIDS-VITAMIN E (FISH OIL) 1,000 MG CAP 8 capsules daily TAKES 1 TABLET Reasons: SUPPLEMENT. PRASTERONE, DHEA, (DHEA) 25 MG TAB Take 0.5 tablets by mouth daily . PROLINE, BULK, DANIELLE 1 capsule by Miscellaneous route 3 (three) times a day 667mg capsule . THYROID (ARMOUR) 30 MG TABLET Take 30 mg by mouth daily . VITAMIN B COMPLEX/FOLIC ACID (B COMPLEX 100 ORAL) Take 100 mg by mouth 3 (three) times a day . VITAMIN K2 ORAL Take 100 mcg by mouth 2 (two) times a day . Modified Medications Modified Medication Previous Medication TRAZODONE (DESYREL) 50 MG TABLET traZODone (DESYREL) 50 MG tablet Take 1/2 to 1 tablet po nightly as needed for sleep . Take 1/2 to 1 tablet po nightly as needed forsleep . Discontinued Medications No medications on file Allergies as of 01/16/2019 - Reviewed 01/16/2019 Allergen Reaction Noted Promethazine Other (See Comments) 04/24/2016 Bactrim [sulfamethoxazole-trimethoprim] GI Intolerance 07/07/2014 Cat dander Other (See Comments) 09/15/2018 Dog dander Other (See Comments) 09/15/2018 Dust [house dust] Other (See Comments) 09/15/2018 Grass pollen Other (See Comments) 09/15/2018 Sulfa (sulfonamide antibiotics) GI Intolerance 07/07/2014 Sulfasalazine GI Intolerance 03/12/2017 Review of Systems Constitutional: Negative for activity change, appetite change, fatigue and fever. HENT: Negative for congestion, hearing loss, rhinorrhea, sore throat and trouble swallowing. Eyes: Negative for pain and visual disturbance. Respiratory: Negative for cough and shortness of breath. Cardiovascular: Negative for chest pain. Gastrointestinal: Negative for abdominal distention, diarrhea and vomiting. Genitourinary: Negative for dysuria and frequency. Skin: Negative for rash. Neurological: Negative for dizziness, light-headedness and headaches. Hematological: Negative for adenopathy. Does not bruise/bleed easily. Psychiatric/Behavioral: Negative for agitation. Objective Physical Exam Constitutional: She is oriented to person, place, and time. She appears well- developed and well-nourished. No distress. HENT: Head: Normocephalic and atraumatic. Right Ear: External ear normal. Left Ear: External ear normal. Eyes: EOM are normal. Neck: Normal range of motion. Neck supple. Cardiovascular: Normal rate, regular rhythm and normal heart sounds. No murmur heard. Pulmonary/Chest: Effort normal and breath sounds normal. Musculoskeletal: Normal range of motion. Neurological: She is alert and oriented to person, place, and time. Skin: No rash noted. No erythema. Psychiatric: She has a normal mood and affect. Judgment normal. Patient is pleasant for duration of exam Nursing note and vitals reviewed. Assessment/Plan: Insomnia I have refilled your Trazodone with a 90 day refill. You are stable on the current dose so no changes will be made today. Please call the office if any new issues arise. You verbalized understanding and agreed to treatment plan. Goals None For any new medications prescribed today, patient was educated about indications for the medication, how to take the medication and potential side effects of the medications. documented in this encounter Assessments Diagnosis Upper respiratory tract infection, unspecified type- Primary Fibromyalgia Unspecified myalgia and myositis Encounter for screening mammogram for breast cancer Chronic fatigue Other malaise and fatigue Screening for diabetes mellitus Screening for heart disease Screening for other and unspecified cardiovascular conditions Other depression Encounter for hepatitis C screening test for low risk patient Diagnosis Abnormal CBC- Primary Other abnormal blood chemistry Insomnia, unspecified type Eczema, unspecified type Diagnosis Monocytosis- Primary Monocytosis (symptomatic) Abnormal CBC Other abnormal blood chemistry Diagnosis Insomnia, unspecified type Fatigue, unspecified type Diagnosis Chest pain, unspecified type- Primary Blood pressure elevated without history of HTN Diagnosis Chest pain, unspecified type Diagnosis Encounter for screening for malignant neoplasm of breast, unspecified screening modality Diagnosis Fibromyalgia Unspecified myalgia and myositis Diagnosis Insomnia, unspecified type Diagnosis Chest pain, unspecified type Diagnosis Visit for screening mammogram Diagnosis Postmenopausal Asymptomatic postmenopausal status (age-related) (natural) Additional Source Comments INFORMATION SOURCE (unrecogn ized section and content) DATE CREATED AUTHOR 04/26/2018 [facility] DATE CREATED AUTHOR AUTHOR'S ORGANIZ ATION 10/28/2018 [facility] DATE CREATED AUTHOR AUTHOR'S ORGANIZ ATION 07/15/2019 [facility] DATE CREATED AUTHOR AUTHOR'S ORGANIZ ATION 06/28/2020 [facility] DATE CREATED AUTHOR AUTHOR'S ORGANIZ ATION 11/15/2020 [facility] DATE CREATED AUTHOR AUTHOR'S ORGANIZ ATION 12/05/2021 [facility] DATE CREATED AUTHOR AUTHOR'S ORGANIZ ATION 03/13/2023 [facility] DATE CREATED AUTHOR AUTHOR'S ORGANIZ ATION 11/30/2024 [facility] DATE CREATED AUTHOR AUTHOR'S ORGANIZ ATION 04/10/2025 [facility] DATE CREATED AUTHOR AUTHOR'S ORGANIZ ATION 04/23/2025 [facility] Reason for Visit (unrecogniz ed section and content) Reason Comments Establish Care Medication Refill flexiril, fluoxetine Reason Comments Rash > month under B/L ar ms small spots denies change to detergents,lotions, or soaps Medication Refill trazodone Reason Comments Abnormal Results CONSULT Status Reason Specialty Diagnoses / Procedures Referred By Contact Referred To Contact Closed Hematology Diagnoses Abnormal CBC Destiny Burt PA-C [address] [place] [address] Carlee Ruggiero MD [address] [place] [address] Reason Comments Establish Care right shoulder pain Depression discuss prozac Reason Comments Establish Care Pain LEFT RIB Status Reason Specialty Diagnoses / Procedures Referre d By Contact Referred To Contact Closed Radiology Diagnoses Encounter for screening for malignant neoplasm of breast, unspecified screening modality Procedures Mammography Screening Eron Bilateral Mammography Screening Bilateral Destiny Burt PA-C [address] [address] Reason Onset Date Comments Medication Refill 10/17/2020 Reason Comments Follow-up insomnia Pt reports no issues with fainting or dizziness, sleeping better Status Reason Specialty Diagnoses / Procedures Referre d By Contact Referred To Contact Closed Cardiology Diagnoses Chest pain, unspecified type Procedures Stress test only, exercise Destiny Burt PA-C [address] [place] [address] [place] [address] Status Reason Specialty Diagnoses / Procedures Referred By Contact Referred To Contact Pending Review Radiology Diagnoses Visit for screening mammogram Procedures Mammography Screening Eron Bilateral Mammography Screening Bilateral Tegan Ortega, MOBILE APPLICATION TESTER [id number] [place] [address] Status Reason Specialty Diagnoses / Procedures Referre d By Contact Referred To Contact Closed Radiology Diagnoses Postmenopausal Procedures XR Bone Density DEXA Axial Destiny Burt PA-C [address] [facility] [address] [place] [address] Reason Comments Follow-up Urinary Tract Infection believes she has the beginning of a UTI Reason Onset Date Comments Medication Refill 04/19/2021 Reason Comments Medication Refill Reason Comments Annual Exam Diverticulosis Diarrhea Every morning Abdominal Pain sually during or aft er meals - can be intermittent too Reason Onset Date Comments Medication Refill 11/04/2021 Reason Comments ear flush Feeling of fullness, pressure, decreased hearing. Pt has been using debrox. 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 showi ng possible fibroids Specialty Diagnoses / Procedures Referred By Dante mahajan Referred To Contact Obstetrics and Gynecology Diagnoses Fibroids, intramural Destiny Burt PA-C [address] [place] [id number] Sal Hanson [facility] [place] [address] Referral ID Status Reason Start Date Expiration Date V isits Requested Visits Authorized [id number] Closed Specialty Services Required/Agatha ent's Best Interest 01/16/2022 01/16/2023 1 1 Reason Comments Follow-up Review ultrasound fo r fibroids Reason Comments Urinary Frequency burning with urinati on, nausea, low back pain x 4 days Specialty Diagnoses / Procedures Referred By Dante mahajan Referred To Contact Internal Medicine / [facility] Diagnoses UTI Procedures NEW SAME DAY Celina Crawford APRN.MOBILE APPLICATION TESTER [address] [place] [address] [facility] [address] [place] [address] Referral ID Status Reason Start Date Expiration Date V isits Requested Visits Authorized [id number] Pending Review 03/11/2022 06/09/2022 1 1 Reason Comments Wrist Pain Pt is having right w rist pain, worse when working on the computer more. She has been doing a lot more work on the computer lately. Has paperwork to be filled out for work. Reason Comments Sinus Problem sinus pressure, drai nage, sore throat x 8 days, right eye redness and drainage x sat Specialty Diagnoses / Procedures Referred By Dante t Referred To Contact Family Medicine / [facility] Diagnoses Possible pink eye right, sinus, congestion, sore throat Procedures EST SAME DAY Self Stella Urbano PA-C [address] [place] [address] Referral ID Status Reason Start Date Expiration Date V isits Requested Visits Authorized [id number] Outside PCP 07/02/2022 09/30/2022 1 1 Reason Onset Date Comments Medication Refill 07/10/2022 Reason Comments UTI Urgency to urinate, back pain radiating around to front Reason Comments Annual Exam Reason Onset Date Comments Medication Refill 03/29/2023 Reason Comments Urinary Problem Frequency, lower sultana k pain, burning, pelvic pain x 1.5 weeks Reason Onset Date Comments Medication Refill 09/23/2023 Reason Comments Establish Care Reason Comments Annual Exam Patient is here for an annual exam. Patients last pap smear was 06/2023. Patient last mammogram was 03/18. Patient last DEXA scan was 07/2020. Patient has had a Colonoscopy 11/2021. Patient PCP. Patient has no concerns today. Reason Onset Date Comments Medication Refill 08/06/2024 Reason Onset Date Comments Medication Refill 09/11/2024 Reason Onset Date Comments Medication Refill 10/07/2024 Reason Onset Date Comments Irritable Bowel Syndrome Has bee n progressively getting worse. Nausea and pain under her rib area Fall Risk Screening 11/09/2024 Reason Onset Date Comments Gladys COLON denial Omeprazole 11/11/2024 Reason Onset Date Comments Medication Refill 11/10/2024 Reason Comments Other Ear Irrigation - Ent ered by patient Ear Lavage Bilateral, denies pa in, has been using debrox Reason Onset Date Comments Medication Refill 01/15/2025 Reason Onset Date Comments Medication Refill 01/25/2025 Reason Onset Date Comments Medication Refill 03/17/2025 Reason Onset Date Comments Medication Refill 04/20/2025 Assessment & Plan Note - Destiny Burt PA-C - 09/22/2018 2:00 PM ESTAssessment & Plan Note - Destiny Burt PA-C - 09/22/2018 2:00 PM EST Miscellaneous Notes (unrecog nized section and content) Associated Problem(s): Upper respiratory tract infection Additionally, you mention you are fighting a cold. We discussed this and we agree this looks viral. However, viral can turn to bacterial if the body does not fend it off. Plenty of fluids and rest over the next few days. If symptoms progress or do not resolve within 10 days, I would like to see you back for re-evaluation. Please call with any changes. You agreed to treatment plan and verbalized understanding. Associated Problem(s): Encounter for screening mammogram for breast cancer Last mammogram was 10/08/2017, new order placed and to be done after 10/08/2018. Associated Problem(s): Depression Today you are here to establish care and get medication refills. You were previously on Prozac twice a day and your previous provider would not refill this dose. You have been taking your medication once a day. I have provided education on stopping your antidepressants as it can be tricky. You do not some symptoms of withdrawal, but state it is getting better. You would like to continue with just once a day, as eventually you would like to get off the Prozac all together. I refilled the prescription for once daily. The depression screening was done and is consistent with your diagnosis of mild depression. I would like to continue to follow this every 3 months and then sooner if you are having a change in current status. You agreed to treatment plan and will follow up accordingly. Associated Problem(s): Screening for heart disease Goals: Total cholesterol < 200 Triglycerides <120 HDL > 50 (female) HDL > 45 (men) Non-HDL < 130 Associated Problem(s): Screening for diabetes mellitus An A1c is a measure of the amount of sugar attached to red blood cell. It represents approximately the average blood sugar last 130 days. Greater than 5.7 is consistent with impaired glucose metabolism. Gently it represents someone at risk for becoming diabetic in the next 3-5 years. Greater than 6.4 is consistent with diabetes. It is the lowest you ever want someone to be if there over age 70. Over age 70 increase the risk of injury related to low blood sugar if 6.4 below. Everyone less than 70 should attempt an A1c less than 7.0. AIC Blood sugar average 6 126 7 154 8 183 9 212 10 240 11 269 12 298 in this encounter Associated Problem(s): Eczema Today you also mention a few skin lesions that you would like addressed. I advise avoiding long hot showers as this will only dry out the skin further. You can take benadryl OTC to help with the irritation, but I also prescribed a steroid to help decrease the irritation. Avoid fragrance, non-cotton clothing and allergens. These all contribute to the severity of the eczema. If you have any issues with the medication, please let me know immediately and we will re-evaluate. You verbalized understanding and agreed to treatment plan. Associated Problem(s): Abnormal CBC Today you are here for review of blood work. We discussed that on two occurrences, your blood produced two abnormal cell types. We did a smear which appears to be normal. However, to be safe, we discussed going to see a Hemologist. A referral was initiated today. This can take a few weeks to produce results. In the meantime, I would like you to consult with Dr. Elizabeth, your specialist. The herbal supplements he is prescribing may be contributing to this, but we need to be sure. You verbalized understanding and agreed to treatment plan. Associated Problem(s): Insomnia You are also in need of a refill for your Trazadone. You have been on this for awhile now as it helps you sleep. I will refill the medication today. in this encounter This MA called pt and stated the following, medication flexeril 5 mg with 5 refills has been approved and sent to pharmacy. Pt sent in my chart message stating she needs a refill on medication Cyclobenzaprine 5 mg. documented in this encounter Associated Problem(s): Insomnia I have refilled your Trazodone with a 90 day refill. You are stable on the current dose so no changes will be made today. Please call the office if any new issues arise. You verbalized understanding and agreed to treatment plan. documented in this encounter Care Teams (unrecognized sec tion and content) Marine Service Station Attendant Relationship Specialty Start Date End Date Destiny Burt PA-C [address] [facility] [address] [place] [address] PCP - RONEY [facility] Provider - [facility] 05/25/20 Destiny Burt PA-C PCP - General Physician Yoke Presser 07/07/20 Renee Green MD [address] [address] Consulting Physician Obstetrics/Gynecolog y 05/23/16 Remi Rai DPM Consulting Physician Podiatry 09/25/16 Luis Miguel Mitchell DO Consulting Physician Cardiology 11/06/16 Daphne Mitchell, DO [address] [place] [address] RONEY Attributed Provider - Family Medicine Family Medicine 08/16/16 Marine Service Station Attendant Relationship Specialty Start Date End Date Destiny Burt PA-C PCP - General Physician Yoke Presser 07/07/20 Destiny Burt PA-C [address] [address] PCP - RONEY [facility] 08/26/14 08/25/50 Renee Green MD [address] [place] [address] [address] [place] [address] Consulting Physician Obstetrics/Gynecolog y 05/23/16 Remi Rai DPM Consulting Physician Podiatry 09/25/16 Luis Miguel Mitchell DO Consulting Physician Cardiology 11/06/16 Daphne Mitchell, DO [address] [place] [address] RONEY Attributed Provider - Family Medicine Family Medicine 08/16/16 Marine Service Station Attendant Relationship Specialty Start Date End Date Destiny Burt PA-C PCP - General Physician Yoke Presser 07/07/20 Destiny Burt PA-C [address] [address] PCP - RONEY Attributed Provider - [facility] 08/26/14 08/25/50 Renee Green MD [address] [place] [address] [address] [place], [place] [id number] Consulting Physician Obstetrics/Gynecolog y 05/23/16 Remi Rai DPM Consulting Physician Podiatry 09/25/16 Luis Miguel Mitchell, DO Consulting Physician Cardiology 11/06/16 Daphne Mitchell, DO [address] [place] [address] RONEY Attributed Provider - Family Medicine Family Medicine 08/16/16 Marine Service Station Attendant Relationship Specialty Start Date End Date Destiny Burt PA-C [address] [facility] [address] [place] [address] PCP - RONEY Attributed [facility] - [facility] 08/26/14 08/25/50 Isabell Phelan, MOBILE APPLICATION TESTER [address] [place] [address] PCP - General Nurse Practitioner 10/02/21 Renee Green MD [address] [facility] [address] [place], [place] [id number] Consulting Physician Obstetrics/Gynecology 05/23/16 Remi Rai DPM Consulting Physician Podiatry 09/25/16 Luis Miguel Mitchell, DO Consulting Physician Cardiology 11/06/16 Daphne Mitchell, DO [address] [place] [address] RONEY Attributed Provider - Family Medicine Family Medicine 08/16/16 Marine Service Station Attendant Relationship Specialty Start Date End Date Desitny Burt PA-C [address] [facility] [address] [place] [address] PCP - RONEY Attributed Provider - [facility] 08/26/14 08/25/50 Isabell Phelan, MOBILE APPLICATION TESTER [address] [place] [address] PCP - General Nurse Practitioner 10/02/21 Renee Green MD [address] [place] [address] Dr [address] [place] [address] Consulting Physician Obstetrics/Gynecology 05/23/16 Remi Rai DPM Consulting Physician Podiatry 09/25/16 Luis Miguel Mitchell DO Consulting Physician Cardiology 11/06/16 Daphne Mitchell, DO [address] [facility] [address] [place] [address] RONEY Attributed Provider - Family Medicine Family Medicine 08/16/16 Marine Service Station Attendant Relationship Specialty Start Date End Date Destiny Burt PA-C [address] [address] PCP - RONEY Attributed Provider - [facility] 08/26/14 08/25/50 Destiny Burt PA-C [address] [facility] [address] [place] [address] PCP - General Physician Yoke Presser 10/30/21 Renee Green MD [address] [place] [address] Dr [address] [place] [address] Consulting Physician Obstetrics/Gynecolog y 05/23/16 Remi Rai DPM [address] [facility] [address] [place] [address] Consulting Physician Podiatry 09/25/16 Luis Miguel Mitchell, DO [address] [place] [address] Consulting Physician Cardiology 11/06/16 Daphne Mitchell, DO [address] [place] [address] RONEY Attributed Provider - Family Medicine Family Medicine 08/16/16 Marine Service Station Attendant Relationship Specialty Start Date End Date Destiny Burt PA-C [address] [facility] [address] [place] [address] PCP - RONEY Attributed Provider - [facility] 08/26/14 08/25/50 Destiny Burt PA-C [address] [facility] [address] [place] [address] PCP - General Physician Yoke Presser 10/30/21 Renee Green MD [address] [place] [address] Dr [address] [place] [address] Consulting Physician Obstetrics/Gynecolog y 05/23/16 Remi Rai DPM [address] [place] [address] Consulting Physician Podiatry 09/25/16 Luis Miguel Mitchell DO [address] [place] [address] Consulting Physician Cardiology 11/06/16 Daphne Mitchell, DO [address] [place] [address] RONEY Attributed Provider - Family Medicine Family Medicine 08/16/16 Marine Service Station Attendant Relationship Specialty Start Date End Date Destiny Burt PA-C [address] [facility] [address] [place] [address] PCP - RONEY Attributed Provider - [facility] 08/26/14 08/25/50 Destiny Burt PA-C [address] [facility] [address] [place] [address] PCP - General Physician Yoke Presser 10/30/21 Renee Green MD [address] [place] [address] Dr [address] [place] [address] Consulting Physician Obstetrics/Gynecolog y 05/23/16 Remi Rai, DPM [address] [facility] [address] [place] [address] Consulting Physician Podiatry 09/25/16 Luis Miguel Mitchell DO [address] [facility] [address] [place] [address] Consulting Physician Cardiology 11/06/16 Daphne Mitchell DO [address] [facility] [address] [place] [address] RONEY Attributed Provider - Family Medicine Family Medicine 08/16/16 Marine Service Station Attendant Relationship Specialty Start Date End Date Destiny Burt PA-C [address] [facility] [address] [place] [address] PCP - RONEY Attributed Provider - [facility] 08/26/14 08/25/50 Destiny Burt PA-C [address] [facility] [address] [place] [address] PCP - General Physician Yoke Presser 10/30/21 Renee Green MD [address] [place] [address] Dr [address] [place] [address] Consulting Physician Obstetrics/Gynecolog y 05/23/16 Remi Rai, HERIBERTO [address] [facility] [address] [place] [address] Consulting Physician Podiatry 09/25/16 Luis Miguel Mitchell, DO [address] [place] [address] Consulting Physician Cardiology 11/06/16 Daphne Mitchell, DO [address] [place] [address] RONEY Attributed Provider - Family Medicine Family Medicine 08/16/16 Marine Service Station Attendant Relationship Specialty Start Date End Date Destiny Burt PA-C [address] [facility] [address] [place] [address] PCP - RONEY Attributed Provider - [facility] 08/26/14 08/25/50 Destiny Burt PA-C [address] [facility] [address] [place] [address] PCP - General Physician Yoke Presser 10/30/21 Renee Green MD [address] [place] [address] Dr [address] [place] [address] Consulting Physician Obstetrics/Gynecolog y 05/23/16 Remi Rai, HERIBERTO [address] [place] [address] Consulting Physician Podiatry 09/25/16 Luis Miguel Mitchell, DO [address] [place] [address] Consulting Physician Cardiology 11/06/16 Daphne Mitchell, DO [address] [place] [address] RONEY Attributed Provider - Family Medicine Family Medicine 08/16/16 Marine Service Station Attendant Relationship Specialty Start Date End Date Destiny Burt PA-C [address] [address] PCP - RONEY Attributed Provider - [facility] 08/26/14 08/25/50 Destiny Burt PA-C [address] [facility] [address] [place] [address] PCP - General Physician Yoke Presser 10/30/21 Renee Green MD [address] [facility] [address] [place] [address] Consulting Physician Obstetrics/Gynecolog y 05/23/16 Remi Rai, HERIBERTO [address] [place], [place] [phone] Consulting Physician Podiatry 09/25/16 Luis Miguel Mitchell, DO [address] [place] [address] Consulting Physician Cardiology 11/06/16 Daphne Mitchell, DO [address] [place] [address] RONEY Attributed Provider - Family Medicine Family Medicine 08/16/16 Marine Service Station Attendant Relationship Specialty Start Date End Date Destiny Burt PA-C [address] [facility] [address] [place] [address] PCP - RONEY Attributed Provider - [facility] 08/26/14 08/25/50 Destiny Burt PA-C [address] [facility] [address] [place] [address] PCP - General Physician Yoke Presser 10/30/21 Renee Green MD [address] [place] [address] Dr [address] [place] [address] Consulting Physician Obstetrics/Gynecolog y 05/23/16 Remi Rai DPM [address] [facility] [address] [place], [place] [phone] Consulting Physician Podiatry 09/25/16 Luis Miguel Mitchell DO [address] [facility] [address] [place] [address] Consulting Physician Cardiology 11/06/16 Daphne Mitchell DO [address] [facility] [address] [place] [address] RONEY Attributed Provider - Family Medicine Family Medicine 08/16/16 Marine Service Station Attendant Relationship Specialty Start Date End Date Destiny Burt [address] [address] PCP - General Family Practice 10/18/21 Marine Service Station Attendant Relationship Specialty Start Date End Date Destiny Burt PA-C [address] [facility] [address] [place] [address] PCP - RONEY Attributed Provider - [facility] 08/26/14 08/25/50 Destiny Burt PA-C [address] [facility] [address] [place] [address] PCP - General Physician Yoke Presser 10/30/21 Destiny Burt PA-C [address] [facility] [address] [place] [address] PCP - RONEY Attributed Provider - [facility] 08/26/14 08/25/50 Renee Green MD [address] [facility] [address] [place] [address] Consulting Physician Obstetrics/Gynecolog y 05/23/16 Remi Rai, DPM [address] [place] [address] Consulting Physician Podiatry 09/25/16 Luis Miguel Mitchell DO [address] [facility] [address] [place] [address] Consulting Physician Cardiology 11/06/16 Daphne Mitchell DO [address] [place] [address] RONEY Attributed Provider - Family Medicine Family Medicine 08/16/16 Marine Service Station Attendant Relationship Specialty Start Date End Date Destiny Burt [address] [address] PCP - General Family Medicine 10/18/21 Marine Service Station Attendant Relationship Specialty Start Date End Date Destiny Burt PA-C [address] [facility] [address] [place] [address] PCP - RONEY Attributed Provider - [facility] 08/26/14 08/25/50 Destiny Burt PA-C [address] [address] PCP - General Physician Yoke Presser 10/30/21 Destiny Burt PA-C [address] [address] PCP - RONEY Attributed Provider - [facility] 08/26/14 08/25/50 Renee Green MD [address] [facility] [address] [place] [address] Consulting Physician Obstetrics/Gynecolog y 05/23/16 Remi Rai, DPM [address] [place], [place] [phone] Consulting Physician Podiatry 09/25/16 Luis Miguel Mitchell DO [address] [place] [address] Consulting Physician Cardiology 11/06/16 Daphne Mitchell, DO [address] [place] [address] RONEY Attributed Provider - Family Medicine Family Medicine 08/16/16 Marine Service Station Attendant Relationship Specialty Start Date End Date Destiny Burt PA-C [address] [facility] [address] [place] [address] PCP - RONEY Attributed Provider - [facility] 08/26/14 08/25/50 Destiny Burt PA-C [address] [facility] [address] [place] [address] PCP - General Physician Yoke Presser 10/30/21 Destiny Burt PA-C [address] [facility] [address] [place] [address] PCP - RONEY Attributed Provider - [facility] 08/26/14 08/25/50 Renee Green MD [address] [facility] [address] [place] [address] Consulting Physician Obstetrics/Gynecolog y 05/23/16 Remi Rai, DPM [address] [facility] [address] [place] [address] Consulting Physician Podiatry 09/25/16 Luis Miguel Mitchell DO [address] [place] [address] Consulting Physician Cardiology 11/06/16 Daphne Mitchell, DO [address] [place] [address] RONEY Attributed Provider - Family Medicine Family Medicine 08/16/16 Marine Service Station Attendant Relationship Specialty Start Date End Date Destiny Burt PA-C [address] [address] PCP - RONEY Attributed Provider - [facility] 08/26/14 08/25/50 Destiny Burt PA-C [address] [facility] [address] [place] [address] PCP - General Physician Yoke Presser 10/30/21 Destiny Burt PA-C [address] [address] PCP - RONEY Attributed Provider - [facility] 08/26/14 08/25/50 Renee Green MD [address] [facility] [address] [place], [place] [id number] Consulting Physician Obstetrics/Gynecolog y 05/23/16 Remi Rai, DPM [address] [facility] [address] [place] [address] Consulting Physician Podiatry 09/25/16 Luis Miguel Mitchell, DO [address] [facility] [address] [place] [address] Consulting Physician Cardiology 11/06/16 Daphne Mitchell, [address] [facility] [address] [place] [address] RONEY Attributed Provider - Family Medicine Family Medicine 08/16/16 Marine Service Station Attendant Relationship Specialty Start Date End Date Destiny Burt [address] [facility] [address] [place] [address] PCP - General Family Medicine 10/18/21 Marine Service Station Attendant Relationship Specialty Start Date End Date Destiny Burt PA-C [address] [address] PCP - General Physician Yoke Presser 10/30/21 Destiny Burt PA-C [address] [address] PCP - RONEY Attributed Provider - [facility] 08/26/14 08/25/50 Renee Green MD [address] [facility] [address] [place] [address] Consulting Physician Obstetrics/Gynecolog y 05/23/16 Remi Rai DPM [address] [address] Consulting Physician Podiatry 09/25/16 Marine Service Station Attendant Relationship Specialty Start Date End Date Destiny Burt PA-C [address] [address] PCP - General Physician Yoke Presser 10/30/21 Destiny Burt PA-C [address] [address] PCP - RONEY Attributed Provider - [facility] 08/26/14 08/25/50 Renee Green MD [address] [facility] [address] [place] [address] Consulting Physician Obstetrics/Gynecolog y 05/23/16 Remi Rai DPM [address] [address] Consulting Physician Podiatry 09/25/16 Marine Service Station Attendant Relationship Specialty Start Date End Date Destiny Burt PA-C [address] [facility] [address] [place] [address] PCP - General Family Medicine 10/18/21 Marine Service Station Attendant Relationship Specialty Start Date End Date Destiny Burt PA-C [address] [facility] [address] [place] [id number] PCP - General Physician Yoke Presser 10/30/21 Destiny Burt PA-C [address] [facility] [address] [place] [address] PCP - RONEY Attributed Provider - [facility] 08/26/14 08/25/50 Renee Green MD [address] [place] [address] Consulting Physician Obstetrics/Gynecolog y 05/23/16 Remi Rai DPM [address] [facility] [address] [place] [address] Consulting Physician Podiatry 09/25/16 Marine Service Station Attendant Relationship Specialty Start Date End Date Destiny Burt PA-C [address] [facility] [address] [place] [id number] PCP - RONEY Attributed Provider - [facility] 08/26/14 08/25/50 Destiny Burt PA-C [address] [facility] [address] [place] [address] PCP - RONEY Attributed Provider - [facility] 08/26/14 08/25/50 Alma Bernal MD [address] [place] [address] PCP - General Family Medicine 02/25/24 Renee Green MD [address] [place] [address] Dr [address] [place] [address] Consulting Physician Obstetrics/Gynecolog y 05/23/16 Remi Rai DPM [address] [facility] [address] [place] [address] Consulting Physician Podiatry 09/25/16 Marine Service Station Attendant Relationship Specialty Start Date End Date Alma Bernal MD [address] [place] [address] PCP - General Family Medicine 02/25/24 Alma Bernal MD [address] [place] [address] PCP - [facility] Provider - [facility] 08/26/14 08/25/50 Renee Green MD [address] [place] [address] Dr [address] [place] [address] Consulting Physician Obstetrics/Gynecolog y 05/23/16 Remi Rai DPM [address] [facility] [address] [place] [address] Consulting Physician Podiatry 09/25/16 Marine Service Station Attendant Relationship Specialty Start Date End Date Alma Bernal MD [facility] [address] [address] PCP - General Family Medicine 02/25/24 Alma Bernal MD [address] [place] [address] PCP - RONEY Attributed Provider - [facility] 08/26/14 08/25/50 Renee Green MD [address] [place] [address] Dr [address] [place] [address] Consulting Physician Obstetrics/Gynecolog y 05/23/16 Remi Rai DPM [address] [facility] [address] [place] [address] Consulting Physician Podiatry 09/25/16 Marine Service Station Attendant Relationship Specialty Start Date End Date Alma Bernal MD [address] [place] [address] PCP - General Family Medicine 02/25/24 Alma Bernal MD [address] [place] [address] PCP - RONEY Attributed Provider - [facility] 08/26/14 08/25/50 Renee Green MD [address] [place] [address] Dr [address] [place] [address] Consulting Physician Obstetrics/Gynecolog y 05/23/16 Remi Rai DPM [address] [place] [address] Consulting Physician Podiatry 09/25/16 Marine Service Station Attendant Relationship Specialty Start Date End Date Alma Bernal MD [address] [address] PCP - General Family Medicine 02/25/24 Alma Bernal MD [facility] [address] [address] PCP - RONEY Attributed Provider - [facility] 08/26/14 08/25/50 Renee Green MD [address] [place] [address] Dr [address] [place] [address] Consulting Physician Obstetrics/Gynecolog y 05/23/16 Remi Rai DPM [facility] [address] [facility] [address] [place], [place] [id number] Consulting Physician Podiatry 09/25/16 Marine Service Station Attendant Relationship Specialty Start Date End Date Alma Bernal MD [address] [place] [address] PCP - General Family Medicine 02/25/24 Alma Bernal MD [facility] [address] [address] PCP - RONEY Attributed Provider - [facility] 08/26/14 08/25/50 Renee Green MD [address] [place] [address] Dr [address] [place], [place] [id number] Consulting Physician Obstetrics/Gynecolog y 05/23/16 Remi Rai DPM [address] [facility] [address] [place] [address] Consulting Physician Podiatry 09/25/16 [employer] Relationship Specialty Start Date End Date Alma Bernal MD [facility] [address] [address] PCP - General Family Medicine 02/25/24 Alma Bernal MD [address] [place] [id number] PCP - [facility] Provider - [facility] 08/26/14 08/25/50 Renee Green MD [address] [place] [address] [address] [place], [place] [id number] Consulting Physician Obstetrics/Gynecolog y 05/23/16 Remi Rai DPM [address] [facility] [address] [place], [place] [phone] Consulting Physician Podiatry 09/25/16 [employer] Relationship Specialty Start Date End Date Destiny Burt PA-C [address] [place] [address] [address] [place] [address] PCP - General Family Medicine 10/18/21 [employer] Relationship Specialty Start Date End Date Alma Bernal MD [address] [place] [id number] PCP - General Family Medicine 02/25/24 Renee Green MD [address] [place] [address] Dr [address] [place] [address] Consulting Physician Obstetrics/Gynecology 05/23/16 Remi Rai DPM [address] [facility] [address] [place] [address] Consulting Physician Podiatry 09/25/16 [employer] Relationship Specialty Start Date End Date Alma Bernal MD [address] [place] [id number] PCP - General Family Medicine 02/25/24 Renee Green MD [address] [place] [address] Dr [address] [place] [address] Consulting Physician Obstetrics/Gynecology 05/23/16 Remi Rai DPM [address] [facility] [address] [place] [address] Consulting Physician Podiatry 09/25/16 [employer] Relationship Specialty Start Date End Date Alma Bernal MD [address] [place] [id number] PCP - General Family Medicine 02/25/24 Renee Green MD [address] [place] [address] Dr [address] [place] [address] Consulting Physician Obstetrics/Gynecology 05/23/16 Remi Rai DPM [address] [facility] [address] [place] [address] Consulting Physician Podiatry 09/25/16 [employer] Relationship Specialty Start Date End Date Alma Bernal MD [facility] [address] [address] PCP - General Family Medicine 02/25/24 Renee Green MD [address] [place] [address] Dr [address] [place] [address] Consulting Physician Obstetrics/Gynecology 05/23/16 Remi Rai DPM [address] [facility] [address] [place], [place] [phone] Consulting Physician Podiatry 09/25/16 [employer] Relationship Specialty Start Date End Date Alma Bernal MD [facility] [address] [address] PCP - General Family Medicine 02/25/24 Renee Green MD [address] [place] [address] Dr [address] [place] [address] Consulting Physician Obstetrics/Gynecology 05/23/16 Remi Rai DPM [address] [facility] [address] [place] [address] Consulting Physician Podiatry 09/25/16 Source Comments (unrecognize d section and content) In the event this informatio n is protected by the Federal Confidentiality of Alcohol and Drug Abuse Patient Records regulations: The Federal rules restrict any use of the information to criminally investigate or prosecute any alcohol or drug abuse patient.[facility] the event this information is protected by the Federal Confidentiality of Alcohol and Drug Abuse Patient Records regulations: The Federal rules restrict any use of the information to criminally investigate or prosecute any alcohol or drug abuse patient.[facility] the event this information is protected by the Federal Confidentiality of Alcohol and Drug Abuse Patient Records regulations: The Federal rules restrict any use of the information to criminally investigate or prosecute any alcohol or drug abuse patient.[facility] the event this information is protected by the Federal Confidentiality of Alcohol and Drug Abuse Patient Records regulations: The Federal rules restrict any use of the information to criminally investigate or prosecute any alcohol or drug abuse patient.[facility] the event this information is protected by the Federal Confidentiality of Alcohol and Drug Abuse Patient Records regulations: The Federal rules restrict any use of the information to criminally investigate or prosecute any alcohol or drug abuse patient.[facility] FOR RECORDS PERTAINING TO PATIENTS WHO ARE OR HAVE BEEN ENROLLED IN A CHEMICAL DEPENDENCY/SUBSTANCEABUSE PROGRAM, SOME INFORMATION MAY BE OMITTED. This clinical summary was aggregated from multiple sources. Caution should be exercised in using it in the provision of clinical care. This summary normalizes information from multiple sources, and as a consequence, information in this document may materially change the coding, format and clinical context of patient data. In addition, data may be omitted in some cases. CLINICAL DECISIONS SHOULD BE BASED ON THE PRIMARY CLINICAL RECORDS. [facility] provides no warranty or guarantee of the accuracy or completeness of information in this document.
[2025-04-26 13:37] LABS: Anion Gap 9 (5-15); BUN 13 mg/dL (4-19); BUN/Creat Ratio 19.7 RATIO (10-20); Calcium,Total 9.7 mg/dL (7.6-11.0); Carbon Dioxide 24.1 mmol/L (21.0-32.0); Chloride 103 mmol/L (98-108); Estimated Creatinine Clearance 55.45 ml/min (50-250); Glucose 102 mg/dL (70-99); Potassium 4.2 mmol/L (3.3-5.1); Troponin T High Sensitivity < 6 ng/L (<=14)
[2025-04-26 15:21] LABS: Troponin T High Sens 2 HR < 6 ng/L (<=14)
== END 2025-04-26 16:00 | disposition home or self-care (01) ==
PROVIDERS: Emergency Provider Emergency Medicine; PCP Family Medicine; Visit Provider Emergency Medicine
DX: R07.9 Chest pain, unspecified (principal); M79.7 Fibromyalgia; R03.0 Elevated blood-pressure reading, without diagnosis of hypertension
CPT/HCPCS: 71045; 80048; 84484; 85025; 93005; 99284